=== PATIENT | female | born 1955 | race Caucasian/White ===

== ENCOUNTER → 2017-11-04 10:24 | Outpatient (CLI) | payer BC, SELFPAY ==
[2017-11-04 10:56] LABS: Basophils # 0.1 K/mm3 (0-0.2); Basophils % 1.3 % (0.1-2.0); Eosinophils # 0.5 K/mm3 (0.0-0.4); Eosinophils % 8.8 % (0.1-12.0); Hematocrit 36.8 % (37.0-47.0); Hemoglobin 11.8 g/dL (12.2-16.2); Lymphocytes # 1.5 K/mm3 (0.7-4.5); Lymphocytes % 29.2 K/mm3 (10-50); Mean Corpuscular Hemoglobin 29.7 pg (27.0-31.2); Mean Corpuscular Volume 92.8 fl (81-99); Mean Platelet Volume 7.5 fl (7.4-10.4); Monocytes # 0.3 K/mm3 (0.1-1.0); Monocytes % 6.1 % (1.7-9.3); Neutrophils # 2.9 K/mm3 (1.8-7.8); Neutrophils % 54.6 % (37.0-80.0); Platelet Count 247 K/mm3 (142-424); Red Blood Count 3.97 M/mm3 (4.20-5.40); Red Cell Distribution Width 13.8 % (11.5-17.5); White Blood Count 5.3 K/mm3 (4.8-10.8)
[2017-11-04 13:14] LABS: Alanine Aminotransferase 30 U/L (12-78); Albumin Level 4.1 gm/dL (3.4-5.0); Albumin/Globulin Ratio 1.3 (1.1-1.8); Alkaline Phosphatase 83 U/L (46-116); Aspartate Amino Transferase 19 U/L (15-37); Bilirubin,Total 0.3 mg/dL (0.2-1.0); Blood Urea Nitrogen 14 mg/dL (7-18); Calcium 8.8 mg/dL (8.5-10.1); Carbon Dioxide 30 mmol/L (21.0-32.0); Chloride 105 mmol/L (98-107); Chol/HDL Ratio 2.3 (1-3.5); Cholesterol 158 mg/dL (140-200); Estimated Glomerular Filt Rate 101 ml/min (>60); GFR (African American) 122 ML/MIN (>60); Globulin 3.1 gm/dl (1.3-3.2); Glucose 90 mg/dL (74-106); HDL Cholesterol 70 mg/dL (29-89); LDL Cholesterol 77 mg/dL (0-130); Sodium 142 mmol/L (136-145); Thyroid Stimulating Hormone 1.73 uIU/ml (0.358-3.740); Total Protein,Serum 7.2 gm/dL (6.4-8.2); Triglycerides 55 mg/dL (30-200); VLDL Cholesterol 11 mg/dL (0-40)
== END ==
PROVIDERS: PCP Internal Medicine Adolescent Medicine; Visit Provider Internal Medicine Adolescent Medicine
DX: E78.5 Hyperlipidemia, unspecified (principal); R10.13 Epigastric pain
CPT/HCPCS: 36415; 80053; 80061; 84443; 85025

== ENCOUNTER 2017-11-26 10:00 | Outpatient (RCR) | payer BC, SELFPAY ==
--- NOTE | 2017-11-09 11:00 | HMH.PTOPEV ---
Rehab Outpatient Evaluation Rehab OP Evaluation Start: 11/09/17 10:39 Freq: Status: Active Protocol: Document 11/09/17 10:40 HAMILTON (Rec: 11/09/17 11:00 HAMILTON [id number]) Electronically Signed By Alex Florez, PT 11/09/17 10:40 Outpatient Therapy Subjective History Subjective History Pt reports h/o chronic LBP since 2015. Pt reports MRI and Xrays have revealed degenerative changes in the lumbar spine, which currently presents as L>R sided LBP and with L LE radicualr s/s from hip to knee level. PMH:L TKA ' 08 Chief Complaint Pain Weakness Symptom Type Ache Dull Symptoms Relieved By Rest/Positioning Heat Symptoms Aggravated By Physical Activity Lifting Prior Functional Limitations Lifting Housework Current Functional Limitations Lifting Housework Driving Symptom Description Constant but Variable Intermittent Level of pain today (0-10) 0 Pain scale - at its best (0-10) 0 Pain scale - at its worst (0-10) 4 Lumbopelvic Eval Posture Thoracic Spine Posture Standing Position Neutral Lumbar Spine Posture Standing Position Increased Lordosis Assistive device Assistive Devices None / NA Palapation tenderness right paraspinal tenderness Yes: 2/4 buttock tenderness Yes: 1/4 Lumbar/Sacral Palpation Findings Tenderness left paraspinal tenderness Yes: 3/4 buttock tenderness Yes: 3/4 Lumbar/Sacral Palpation Findings Tenderness Accessory Movement L4 right L5 right Range of Motion Lumbar Spine Active Flexion Range of 0-90 Motion (degrees) Lumbar Spine Active Extension Range of 0-25 Motion (degrees) Left Lumbar Spine Lateral Flexion Active 0-20 Range of Motion (degrees) Right Lumbar Spine Lateral Flexion 0-20 Active Range of Motion (degrees) Lumbar Spine ROM Limitations Pain Manual Muscle Test Right Knee Extension Strength Grade 5 Normal Knee Flexion Strength Grade 5 Normal Extensor Hallucis Longus Strength Grade 5 Normal Ankle Dorsiflexion Strength Grade 5 Normal Gastronemius/Soleus Strength Grade 5 Normal Left Knee Extension Strength Grade 4 Good Knee Flexion Strength Grade 4-
== END 2017-11-26 10:01 | disposition home or self-care (01) ==
LOC: PT 10:00
PROVIDERS: Family Provider Internal Medicine Adolescent Medicine; PCP Internal Medicine Adolescent Medicine; Visit Provider Internal Medicine Adolescent Medicine
DX: M47.26 Other spondylosis with radiculopathy, lumbar region (principal); M54.41 Lumbago with sciatica, right side; M54.42 Lumbago with sciatica, left side
CPT/HCPCS: 97010; 97014; 97110; G0283

== ENCOUNTER → 2018-05-19 07:04 | Outpatient (CLI) | payer BC, SELFPAY ==
[2018-05-19 07:29] LABS: Basophils # 0.1 K/mm3 (0-0.2); Basophils % 0.8 % (0.1-2.0); Eosinophils # 0.4 K/mm3 (0.0-0.4); Hematocrit 38.2 % (37.0-47.0); Hemoglobin 12.4 g/dL (12.2-16.2); Lymphocytes # 1.9 K/mm3 (0.7-4.5); Lymphocytes % 31.8 K/mm3 (10-50); Mean Corpuscular HGB Conc 32.5 g/dL (31.8-35.4); Mean Corpuscular Hemoglobin 30.6 pg (27.0-31.2); Mean Platelet Volume 6.8 fl (7.4-10.4); Monocytes # 0.4 K/mm3 (0.1-1.0); Monocytes % 6.1 % (1.7-9.3); Neutrophils # 3.2 K/mm3 (1.8-7.8); Neutrophils % 55.3 % (37.0-80.0); Platelet Count 182 K/mm3 (142-424); Red Blood Count 4.07 M/mm3 (4.20-5.40); Red Cell Distribution Width 14.6 % (11.5-17.5); White Blood Count 5.8 K/mm3 (4.8-10.8)
[2018-05-19 08:38] LABS: Erythrocyte Sedimentation Rate 19 mm/hr (0-30)
[2018-05-19 09:20] LABS: Alanine Aminotransferase 34 U/L (12-78); Albumin Level 3.4 gm/dL (3.4-5.0); Albumin/Globulin Ratio 1.2 (1.1-1.8); Alkaline Phosphatase 71 U/L (46-116); Anion Gap 8.4 mEq/L (5-15); Aspartate Amino Transferase 17 U/L (15-37); Bilirubin,Total 0.3 mg/dL (0.2-1.0); Blood Urea Nitrogen 10 mg/dL (7-18); C-Reactive Protein 0.4 mg/L (0.0-0.9); Calcium 8.7 mg/dL (8.5-10.1); Carbon Dioxide 32 mmol/L (21.0-32.0); Chloride 107 mmol/L (98-107); Creatinine,Serum 0.74 mg/dL (0.55-1.02); Estimated Glomerular Filt Rate 79 ml/min (>60); GFR (African American) 96 ML/MIN (>60); Globulin 2.8 gm/dl (1.3-3.2); Glucose 91 mg/dL (74-106); Potassium 4.4 mmoL/L (3.5-5.1); Sodium 143 mmol/L (136-145); T4 (Thyroxine) 8.4 ug/dl (4.7-13.3); Total Protein,Serum 6.2 gm/dL (6.4-8.2); Triiodothryronine (T3) Uptake 36 % (31-39)
[2018-05-20 11:23] LABS: Hep A Ab, IgM Negative (Negative); Hepatitis B Core Antibody IgM Negative (Negative); Hepatitis B Surface Antigen Negative (Negative)
[2018-05-20 13:12] LABS: Anti-Jo-1 <0.2 AI (0.0-0.9); Anti-Smith Antibody <0.2 AI (0.0-0.9); Antichromatin Antibodies <0.2 AI (0.0-0.9); Antiscleroderma-70 Antibodies <0.2 AI (0.0-0.9); RNP Antibodies <0.2 AI (0.0-0.9); Sjogren's Anti-SS-A <0.2 AI (0.0-0.9); Sjogren's Anti-SS-B <0.2 AI (0.0-0.9)
[2018-05-20 15:31] LABS: Cytoplasmic (C-ANCA) <1:20 titer (Neg:<1:20)
[2018-05-21 13:20] LABS: Anti-Centromere B Antibodies <0.2 AI (0.0-0.9); Anti-DNA (DS) Ab Qn 2 IU/mL (0-9); Hepatitis C Antibody <0.1 s/co ratio (0.0-0.9); Perinuclear (P-ANCA) <1:20 titer (Neg:<1:20)
== END ==
PROVIDERS: PCP Internal Medicine Adolescent Medicine; Visit Provider Internal Medicine Adolescent Medicine
DX: I77.6 Arteritis, unspecified (principal); R31.9 Hematuria, unspecified
CPT/HCPCS: 36415; 80053; 80074; 84436; 84443; 84479; 85025; 85651; 86140; 86225; 86235; 86256

== ENCOUNTER → 2018-05-26 10:38 | Outpatient (CLI) | payer BC, SELFPAY ==
--- NOTE | 2018-05-26 10:45 | MR_ITS ---
MR lumbar spine wo con, MR 3-d myelogram/MRCP HISTORY: PT states left foot drop and numbness in left foot Xx2 weeks or so. PT states back pain x 2 yrs or longer. ITS.REASON: LEFT FOOT DROP ORDERING PHYSICIAN: Dilshad Steele MD PATIENT AGE: 62 years Comparison: MRI 03/17/17 TECHNIQUE: Standard multiplanar multiecho sequences are performed without contrast. 3-D MIP and myelographic images are also rendered and reviewed FINDINGS: There is normal alignment. The spinal cord ends at the L1 level. There is mild degenerative disc disease at T10-11 and T11-T12 and T12-L1. L1-L2: Mild concentric bulging disc along with facet and ligamentum flavum hypertrophy with mild to moderate left lateral recess and left foraminal narrowing. L2-L3: Severe degenerative disc disease with concentric bulging disc along with moderate facet and ligamentum flavum hypertrophy with resultant canal stenosis along with severe right lateral recess and moderate to severe left lateral recess narrowing. The facet hypertrophic changes are more prominent on the right compared to the left side but overall not significant change from 03/17/2017. L3-L4: Severe degenerative disc disease with concentric bulging disc along with facet and ligamentum flavum hypertrophy with moderate to severe bilateral lateral recess and foraminal narrowing. The foraminal narrowing is greater on the left compared to the right side and may have slightly increased compared to the previous exam. Transverse narrowing of the canal is present at this level similar to the previous exam. L4-L5: Degenerative disc disease with bulging disc which is somewhat eccentric centrally and toward the left with severe left-sided foraminal narrowing and bilateral lateral recess narrowing left greater than right. Left-sided foraminal narrowing may be slightly worse on today's study. L5-S1: Degenerative disc disease with bulging disc along with a broad-based small right paracentral disc protrusion causing mild right lateral recess and foraminal narrowing abutting the right S1 nerve root. There is mild lumbar scoliosis convex left not significant changed. There is mild left lateral translation of L3 on L4 of 7 mm not significantly changed IMPRESSION: 1. Abnormal MRI of the lumbar spine. There is multilevel degenerative disc disease along with facet and ligamentum flavum hypertrophy with foraminal and lateral recess narrowing and canal stenosis. These findings are described in detail above. Please see above for detailed description at each level. The foraminal narrowing may be slightly worse on the left at L3-L4 and L4-L5 compared to the previous exam. No other significant changes are evident 2. Small broad-based right paracentral disc protrusion at L5-S1 not significantly changed 3. Mild lumbar scoliosis convex left
== END ==
PROVIDERS: Family Provider Internal Medicine Adolescent Medicine; PCP Internal Medicine Adolescent Medicine; Visit Provider Internal Medicine Adolescent Medicine
DX: M21.372 Foot drop, left foot (principal)
CPT/HCPCS: 72148; 76376

== ENCOUNTER → 2018-06-10 14:35 | Outpatient (POV) | payer BC, SELFPAY | PROVIDERS: Visit Provider Neurological Surgery | DX: Z00.00 Encounter for general adult medical examination without 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 (principal) ==

== ENCOUNTER 2018-08-09 15:00 | Outpatient (RCR) | payer OTHER, SELFPAY | END 2018-08-09 15:01 | disposition home or self-care (01) | LOC: PT 15:00 | PROVIDERS: Visit Provider Orthopaedic Surgery | DX: S43.004A Unspecified dislocation of right shoulder joint, initial encounter (principal) | CPT/HCPCS: 97010; 97014; 97110; 97163; G0283 ==

== ENCOUNTER → 2018-10-02 18:28 | Outpatient (CLI) | payer MEDICARE, BC, SELFPAY ==
[2018-10-02 18:47] LABS: Microscopic, Urine URINE MICROSCOPIC (MICROSCOPIC)
[2018-10-02 18:50] LABS: Appearance,Urine CLEAR (Clear); Bilirubin,Urine Negative (Negative); Blood, Urine 2+ (Negative); Color,Urine YELLOW (Yellow); Glucose,Urine (UA) Negative (Negative); Ketones,Urine Negative (Negative); Leukocyte Esterase,Urine Negative (Negative); Nitrate,Urine Negative (Negative); Protein,Urine Negative (Negative); Specific Gravity, Urine 1.025 (1.005-1.030); Urobilinogen,Urine 0.2 EU/dl (0.2)
[2018-10-02 18:52] LABS: WBC,Urine Occasional #/hpf (0-3)
== END ==
LOC: LAB 18:31 → LAB.DROPOF 18:43 → LAB 18:44
PROVIDERS: PCP Internal Medicine Adolescent Medicine; Visit Provider Nurse Practitioner
DX: R30.9 Painful micturition, unspecified (principal)
CPT/HCPCS: 81001

== ENCOUNTER → 2018-12-29 10:22 | Outpatient (CLI) | payer MEDICARE, BC, SELFPAY ==
--- NOTE | 2018-12-29 10:27 | XR_ITS ---
XR DEXA axial skeleton HISTORY: ITS.REASON: POSTMENOPAUSAL ORDERING PHYSICIAN: Dilshad Steele MD PATIENT AGE: 63 years COMPARISON: None FINDINGS: The BMD measured at the Right femoral neck is 1.036 g/cm squared with a T score of 0.0. This is considered Normal according to the World Health Organization criteria. Fracture risk is Low. The L1 L4 density has a T score of 4.3. There is also sclerosis in the lumbar spine at L2-L3. IMPRESSION: Normal bone density with low fracture risk. Suggest follow-up exam December 2020 Lumbar scoliosis convex left
== END ==
PROVIDERS: PCP Internal Medicine Adolescent Medicine; Visit Provider Internal Medicine Adolescent Medicine
DX: Z78.0 Asymptomatic menopausal state (principal)
CPT/HCPCS: 77080

== ENCOUNTER 2019-02-24 10:49 | Outpatient (CLI) | payer MEDICARE, BC, SELFPAY ==
--- NOTE | 2019-02-24 10:57 | PC.NURSE ---
HERE FOR SECOND HEP A VACCINE
[2019-02-24 11:06] VITALS: BMI 32.2
== END 2019-02-24 11:27 | disposition home or self-care (01) ==
LOC: UTC.OUT 10:51
PROVIDERS: PCP Internal Medicine Adolescent Medicine; Visit Provider Nurse Practitioner
DX: Z23 Encounter for immunization (principal)
CPT/HCPCS: 90632

== ENCOUNTER 2019-05-27 08:30 | Outpatient (RCR) | payer OTHER, BC, MEDICARE, SELFPAY | END 2019-05-27 08:35 | disposition home or self-care (01) | LOC: PT 08:30 | PROVIDERS: Visit Provider Orthopaedic Surgery | DX: M25.511 Pain in right shoulder (principal); S43.001A Unspecified subluxation of right shoulder joint, initial encounter | CPT/HCPCS: 97010; 97014; 97016; 97110; 97140; 97163; 97164; G0283 ==

== ENCOUNTER → 2019-06-27 10:04 | Outpatient (CLI) | payer MEDICARE, BC, SELFPAY ==
[2019-06-27 10:34] LABS: Blood Urea Nitrogen 12 mg/dL (7-18); Creatinine,Serum 0.68 mg/dL (0.55-1.02); Estimated Glomerular Filt Rate 87 ml/min (>60); GFR (African American) 105 ML/MIN (>60)
--- NOTE | 2019-06-27 14:09 | CT_ITS ---
PROCEDURE: CT CHEST W CON CLINICAL HISTORY: LUNG NODULE Follow-up lung nodule COMPARISON: [facility] CT abdomen pelvis wo con from 09/26/2018 TECHNIQUE: 75 mL Optiray 350 Axial images obtained with sagittal and coronal reformats. All CT scans at the facility use one or more dose reduction, viz: automated exposure control, ma/kV adjustment per patient size (including targeted exams where dose is matched to indication, i.e. head), or iterative reconstruction technique. FINDINGS: There is mild thickening of the pericardium at the superior pericardial recess. Normal heart size. No mediastinal or hilar mass. No evidence of aortic aneurysm or central pulmonary embolus. Small pneumatocele is present in the right upper lobe posteriorly at 1 cm. There are some atelectatic/fibrotic changes in the right middle lobe. Small pneumatocele noted in the left upper lobe at 1 cm. Previously noted parenchymal opacity in the left lung base the posteriorly is once again noted somewhat less apparent and is felt represent underlying atelectatic or fibrotic change. No lobar consolidation or collapse. There are mild degenerative changes of the thoracic spine. There is eventration of the hemidiaphragm on both sides. IMPRESSION: 1. There are scattered parenchymal opacities in the lung bases felt to be due to atelectatic or fibrotic changes. Previously noted density in the left posterior costophrenic sulcus is once again noted and slightly less apparent 2. No suspicious nodules evident. 3. Other nonacute findings as described above. Dictated by: Too Dawn MD 06/28/2019 14:50 Electronically signed by Too Dawn MD in [place] 06/28/2019 14:50
== END ==
PROVIDERS: PCP Internal Medicine Adolescent Medicine; Visit Provider Nurse Practitioner Family
DX: R91.1 Solitary pulmonary nodule (principal)
CPT/HCPCS: 36415; 71260; 82565; 84520; Q9967

== ENCOUNTER → 2019-08-29 14:29 | Outpatient (POV) | payer MEDICARE, BC, SELFPAY | PROVIDERS: Visit Provider Nurse Practitioner Family | DX: Z00.00 Encounter for general adult medical examination without 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 (principal) ==

== ENCOUNTER → 2020-01-23 11:57 | Outpatient (POV) | payer MEDICARE, BC, SELFPAY ==
[2020-01-23 12:18] VITALS: BP 159/95; PULSE 82; RESP 18; TEMP 36.8; O2SAT 99; BMI 34.3
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
== END ==
PROVIDERS: PCP Internal Medicine Adolescent Medicine; Visit Provider Clinical Nurse Specialist Family Health
DX: B02.29 Other postherpetic nervous system involvement (principal); Z88.0 Allergy status to penicillin; Z88.8 Allergy status to other drugs, medicaments and biological substances; Z88.2 Allergy status to sulfonamides; Z79.82 Long term (current) use of aspirin; Z79.899 Other long term (current) drug therapy
CPT/HCPCS: 99202

== ENCOUNTER → 2020-01-25 11:05 | Outpatient (CLI) | payer MEDICARE, BC, SELFPAY ==
[2020-01-26 15:03] LABS: Covid-19 Nasal PCR Sendout Lex NOT DETECTED
== END ==
PROVIDERS: Visit Provider Anesthesiology
DX: Z01.818 Encounter for other preprocedural examination (principal); B02.9 Zoster without complications
CPT/HCPCS: U0003

== ENCOUNTER 2020-01-27 08:39 | Day surgery (SDC) | payer MEDICARE, BC, SELFPAY ==
[2020-01-27 09:05] VITALS: BP 106/64; PULSE 119; RESP 18; TEMP 36.4; O2SAT 97; BMI 34.3
[2020-01-27 09:24] VITALS: BP 138/60; PULSE 95; RESP 18; O2SAT 98
[2020-01-27 09:25] VITALS: BP 140/85; PULSE 86; RESP 18; O2SAT 98
[2020-01-27 09:31] VITALS: BP 129/72; PULSE 93; RESP 18; O2SAT 97
--- NOTE | 2020-01-27 09:41 | HMH.PMPROC ---
- Procedure Date: 01/27/20 (n) Time: 09:43 Anesthesiologist:: Raymond Sandoval MD Complications:: None Pre-procedure Diagnosis:: Acute herpes zoster in the L4-L5 dermatomal level on the left side in the back and left leg Post-procedure Diagnosis:: Same Indications for Procedure:: This patient is a pleasant 64-year-old white female who we are treating for acute herpes zoster in the low back and left leg in the L4-L5 dermatomal level. Her rash is starting to dry. She is gone through 2 rounds of antivirals. We will do a lumbar epidural sympathetic block today to see if this will help with her pain symptoms. She is currently on gabapentin. She is to continue her gabapentin 300 mg 3 times a day. Procedure Details:: Lumbar epidural sympathetic block informed consent was obtained and the risk and benefits of the procedure was explained to the patient. The patient was taken to the procedure room. The patient was placed prone on the procedure table. The patient was prepped and draped in sterile fashion. C-arm fluoroscopy was used to view the lumbar spine. Skin and subcutaneous tissues were anesthetized using lidocaine. I placed an 18-gauge epidural needle and advanced into the L4-L5 interspace using fluoroscopic guidance and [id number] to air. After confirmation of needle placement in the epidural space with dye I injected 6 mL of lidocaine 1.5% with Depo-Medrol 80 mg. Patient tolerated the procedure well with no complications. Plan and Disposition:: We will follow-up with her next Thursday. We will reevaluate her symptoms. We will plan on repeat injection if needed.
== END 2020-01-27 09:31 | disposition home or self-care (01) ==
LOC: SC.PAINP 08:41
PROVIDERS: PCP Internal Medicine Adolescent Medicine; Visit Provider Anesthesiology
DX: B02.9 Zoster without complications (principal); Z79.82 Long term (current) use of aspirin; Z79.899 Other long term (current) drug therapy; Z88.0 Allergy status to penicillin; Z88.2 Allergy status to sulfonamides; Z88.6 Allergy status to analgesic agent
CPT/HCPCS: 64520; J1040; Q9966

== ENCOUNTER 2020-02-01 09:32 | Day surgery (SDC) | payer MEDICARE, BC, SELFPAY ==
[2020-02-01 09:50] VITALS: BP 147/89; PULSE 84; RESP 18; O2SAT 98; BMI 34.3
[2020-02-01 10:36] VITALS: BP 145/87; PULSE 85; RESP 20; O2SAT 98
[2020-02-01 10:37] VITALS: BP 141/91; PULSE 99; RESP 20; O2SAT 99
--- NOTE | 2020-02-01 10:42 | HMH.PMPROC ---
- Procedure Date: 02/01/20 Time: 10:42 Anesthesiologist:: Raymond Sandoval MD Complications:: None Pre-procedure Diagnosis:: Acute herpes zoster in the L4-5 dermatomal level on left side in the back and left leg Post-procedure Diagnosis:: Same Indications for Procedure:: This patient is a pleasant 64-year-old white female who we are treating for acute herpes zoster in the low back and left leg in the L4-5 dermatome level. She has had one lumbar sympathetic block which is helped some she is currently on gabapentin 300 mg 3 times a day. She presents for repeat lumbar sympathetic block today. Also her pain is in the left leg all the way down to her feet. Procedure Details:: Lumbar sympathetic block Informed consent was obtained and the risk and benefits of the procedure was explained to the patient. The patient was taken to the procedure room. The patient was placed prone on the procedure table. The patient was prepped and draped in sterile fashion. C-arm fluoroscopy was used to view the lumbar spine. Skin and subcutaneous tissues were anesthetized using lidocaine. I placed an 18-gauge epidural needle and advanced into the L4-L5 interspace using fluoroscopic guidance and [id number] to air. After confirmation of needle placement in the epidural space with dye I injected 8 mL of lidocaine 1.5% with Depo-Medrol 80 mg. Patient tolerated the procedure well with no complications. Plan and Disposition:: We will follow-up with her in 1 week. We will reevaluate her symptoms and plan on repeat lumbar epidural sympathetic block at that time.
[2020-02-01 11:00] VITALS: BP 137/69; PULSE 76; RESP 18; O2SAT 98
== END 2020-02-01 11:00 | disposition home or self-care (01) ==
LOC: SC.PAINP 09:33
PROVIDERS: PCP Internal Medicine Adolescent Medicine; Visit Provider Anesthesiology
DX: B02.29 Other postherpetic nervous system involvement (principal); M79.605 Pain in left leg; I10 Essential (primary) hypertension; Z87.39 Personal history of other diseases of the musculoskeletal system and connective tissue
CPT/HCPCS: 64493; 64520; J1040; Q9966

== ENCOUNTER 2020-02-08 08:59 | Day surgery (SDC) | payer MEDICARE, BC, SELFPAY ==
[2020-02-08 09:08] VITALS: BP 137/81; PULSE 72; RESP 18; TEMP 36.8; O2SAT 97; BMI 34.3
[2020-02-08 09:27] VITALS: BP 125/85; PULSE 85; RESP 18
[2020-02-08 09:33] VITALS: BP 128/85; PULSE 85; PULSE 88; RESP 18; TEMP 36.6
--- NOTE | 2020-02-08 09:38 | P.PCN_ITS ---
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 She has had 2 lumbar sympathetic blocks. She is currently on gabapentin 300 mg 3 times a day. She has gotten some significant relief from these injections and her gabapentin. Her rash is now almost resolved completely. Her stabbing pain is almost gone. She still has residual pain in the left foot. We will do a repeat lumbar epidural sympathetic block today to help with her residual pain symptoms. Procedure Details:: Lumbar epidural sympathetic block Informed consent was obtained the risk and benefits of the procedure was explained to the patient. Patient was taken to the procedure room. The patient was placed prone on the procedure table. The patient was prepped and draped in sterile fashion. C-arm fluoroscopy was used to view the lumbar spine. The skin and subcutaneous tissues were anesthetized using lidocaine. I placed an 18- gauge epidural needle and advanced into the L4-5 interspace using fluoroscopic guidance and [id number] to air. After confirmation needle placement in the epidural space with dye, I injected 8 mL's lidocaine 1.5% Depo-Medrol 80 mg into the lumbar epidural space. Patient tolerated the procedure well with no complications. Plan and Disposition:: We will follow-up with this patient in 1 week. We will reevaluate her symptoms. We will do a repeat lumbar epidural sympathetic block at that time if needed.
[2020-02-08 09:45] VITALS: BP 121/65; PULSE 70; RESP 18; O2SAT 97
== END 2020-02-08 09:46 | disposition home or self-care (01) ==
LOC: SC.PAINP 09:00
PROVIDERS: PCP Internal Medicine Adolescent Medicine; Visit Provider Anesthesiology
DX: B02.8 Zoster with other complications (principal); M54.5 Low back pain; M79.672 Pain in left foot; M79.605 Pain in left leg; I10 Essential (primary) hypertension; E78.5 Hyperlipidemia, unspecified; Z87.39 Personal history of other diseases of the musculoskeletal system and connective tissue; E03.9 Hypothyroidism, unspecified; Z79.82 Long term (current) use of aspirin; Z79.899 Other long term (current) drug therapy; Z88.5 Allergy status to narcotic agent; Z88.0 Allergy status to penicillin; Z88.2 Allergy status to sulfonamides; Z88.8 Allergy status to other drugs, medicaments and biological substances
CPT/HCPCS: 64520; J1040; Q9966

== ENCOUNTER 2020-02-17 10:45 | Day surgery (SDC) | payer MEDICARE, BC, SELFPAY ==
[2020-02-17 11:28] VITALS: BP 130/70; PULSE 74; RESP 18; O2SAT 96; BMI 34.0
[2020-02-17 11:45] VITALS: BP 142/78; PULSE 88; RESP 18
[2020-02-17 11:46] VITALS: BP 138/85; PULSE 88; RESP 18; TEMP 36.8; O2SAT 99
[2020-02-17 12:01] VITALS: BP 122/89; PULSE 79; RESP 20; O2SAT 96
--- NOTE | 2020-02-17 12:31 | HMH.PMPROC ---
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 In the L4-L5 dermatomal level. She has had 3 lumbar epidural sympathetic blocks with 80 to 90% relief in her pain symptoms. She still has some residual pain in her left leg and foot. We will do a repeat lumbar epidural sympathetic block today. I am very pleased with her results. This will be the last block we will follow-up with her and 2 weeks. Procedure Details:: Lumbar epidural sympathetic block informed consent was obtained and the risk and benefits of the procedure was explained to the patient. The patient was taken to the procedure room. The patient was placed prone on the procedure table. The patient was prepped and draped in sterile fashion. C-arm fluoroscopy was used to view the lumbar spine. Skin and subcutaneous tissues were anesthetized using lidocaine. I placed an 18-gauge epidural needle and advanced into the L4-L5 interspace using fluoroscopic guidance and [id number] to air. After confirmation of needle placement in the epidural space with dye I injected 8 mL of lidocaine 1.5% with Depo-Medrol 80 mg. Patient tolerated the procedure well with no complications. Plan and Disposition:: We will follow-up with her in 2 weeks. Will reevaluate her symptoms at that time.
== END 2020-02-17 12:02 | disposition home or self-care (01) ==
LOC: SC.PAINP 10:46
PROVIDERS: PCP Internal Medicine Adolescent Medicine; Visit Provider Anesthesiology
DX: B02.23 Postherpetic polyneuropathy (principal); I10 Essential (primary) hypertension; K21.9 Gastro-esophageal reflux disease without esophagitis; Z88.0 Allergy status to penicillin; Z88.2 Allergy status to sulfonamides; Z79.899 Other long term (current) drug therapy
CPT/HCPCS: 64520; 77003; J1040; Q9966

== ENCOUNTER → 2020-03-12 10:42 | Outpatient (POV) | payer MEDICARE, BC, SELFPAY ==
[2020-03-12 10:59] VITALS: BP 134/78; PULSE 95; RESP 18; TEMP 36.8; O2SAT 99; BMI 27.8
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
== END ==
PROVIDERS: PCP Internal Medicine Adolescent Medicine; Visit Provider Clinical Nurse Specialist Family Health
DX: M51.36 Other intervertebral disc degeneration, lumbar region (principal); B02.29 Other postherpetic nervous system involvement; M79.672 Pain in left foot
CPT/HCPCS: 99212

== ENCOUNTER → 2020-03-27 11:12 | Outpatient (CLI) | payer MEDICARE, BC, SELFPAY ==
--- NOTE | 2020-03-27 11:19 | MR_ITS ---
PROCEDURE: MR LUMBAR SPINE WO CON CLINICAL INDICATION: FOOT DROP AND FOOT PAIN LT leg pain. Numbness and tingling in LT foot. [id number]. No trauma. Prior MR 05-26-18 COMPARISON: SPLUMBWO MR lumbar spine wo con from 05/26/2018 TECHNIQUE: Standard multiplanar multiecho sequences are performed without contrast. 3-D MIP and myelographic images are also rendered and reviewed FINDINGS: There is lumbar scoliosis convex left with multilevel lumbar spondylosis. The T12-L1: Mild degenerative disc disease with minimal left paracentral disc protrusion. L1-L2: Degenerative disc disease with bulging disc with facet and ligamentum hypertrophy with moderate left-sided lateral recess and foraminal narrowing. There is mild right lateral recess and foraminal narrowing. L2-L3: Severe degenerative disc disease with bulging disc along with facet and ligamentum hypertrophy causing severe right lateral recess and foraminal narrowing and mild left lateral recess and foraminal narrowing. There is narrowing of the spinal canal at this level. This is not significantly changed. Lateral osteophytes are present on the right at the endplate. L3-L4: Severe degenerative disc disease with bulging disc with endplate osteophytes and severe bilateral foraminal narrowing. There is narrowing of the spinal canal. Overall not significantly changed L4-5 concentric bulging disc with facet ligamentum hypertrophy and endplate hypertrophic change with severe left-sided foraminal narrowing and moderate right foraminal narrowing not significantly changed. L5-S1: Degenerative disc disease with bulging disc with a broad based central/right paracentral disc protrusion slightly increased in size compared to the previous exam. There is severe facet and ligamentum hypertrophy on the left with severe left-sided foraminal narrowing which may be slightly worse. IMPRESSION: Severe multilevel lumbar spondylosis with lateral recess and foraminal narrowing and canal stenosis. Please see above for detailed description at each level. There is lumbar scoliosis convex left with multilevel endplate hypertrophic changes Dictated by: Too Dawn MD 03/28/2020 13:25 Electronically signed by Too Dawn MD in [place] 03/28/2020 13:25
== END ==
PROVIDERS: PCP Internal Medicine Adolescent Medicine; Visit Provider Clinical Nurse Specialist Family Health
DX: M79.672 Pain in left foot (principal); M21.372 Foot drop, left foot
CPT/HCPCS: 72148; 76376

== ENCOUNTER → 2020-04-02 11:16 | Outpatient (POV) | payer MEDICARE, BC, SELFPAY ==
[2020-04-02 11:48] VITALS: BP 139/69; PULSE 82; RESP 18; O2SAT 98; BMI 34.3
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
== END ==
PROVIDERS: PCP Internal Medicine Adolescent Medicine; Visit Provider Clinical Nurse Specialist Family Health
DX: M51.16 Intervertebral disc disorders with radiculopathy, lumbar region (principal)
CPT/HCPCS: 99212

== ENCOUNTER 2020-04-30 15:00 | Outpatient (RCR) | payer MEDICARE, BC, SELFPAY ==
--- NOTE | 2020-03-22 17:59 | HMH.PTOPEV ---
PT Outpatient Evaluation Rehab PT Outpatient Evaluation Start: 03/22/20 17:36 Freq: Status: Active Protocol: Document 03/22/20 17:36 JB (Rec: 03/22/20 17:59 JB [id number]) Electronically Signed By César Landers, PT 03/22/20 17:36 Outpatient Therapy Subjective History Subjective History Patient is a 64 year old female presenting to outpatient PT with reports of L foot shooting pain and numbness/tingling starting 12/23 after onset of shingles. Pt initially had pain and red blotches starting in the buttocks radiating down the posterior thigh to the L foot. Symptoms above the L ankle have since subsided. Patient reports that she received 4 injections in the lumbar spine for shingles treatment that did provide some relief. Pt has significant hx of lower back pain with radicular symptoms. No objective AROM or MMT deficits/assymmetries noted today. Most recent lumbar spine imaging indicates DDD, stenosis and multi-level bulging discs. She was referred with the diagnosis of foot pain/foot drop. Patient reports that she has previously had foot drop which was helped with PT. Upon evaluation patient was able to heel walk without difficulty. She reports that she does not feel like she has foot drop. Comorbidities include R RCR and L TKA. Chief Complaint Pain,Paresthesia Symptom Type Numbness,Tingling,Shooting Symptoms Relieved By Prescription Meds Symptoms Aggravated By Walking Prior Functional Limitations None Current Functional Limitations Housework,Standing,Squatting, Recreation Activity,Walking Symptom Description Constant but Variable Level of pain today (0-10) 3 Pain scale - at its best (0-10) 2 Pain scale - at its worst (0-10) 5 Lumbopelvic Eval Posture Lumbar Spine Posture Standing Position Incre
== END 2020-04-30 15:05 | disposition home or self-care (01) ==
LOC: PT 15:00
PROVIDERS: PCP Internal Medicine Adolescent Medicine; Visit Provider Clinical Nurse Specialist Family Health
DX: M79.672 Pain in left foot (principal)
CPT/HCPCS: 97010; 97012; 97014; 97035; 97110; 97163; G0283

== ENCOUNTER → 2020-05-03 10:21 | Outpatient (POV) | payer MEDICARE, BC, SELFPAY ==
[2020-05-03 10:54] VITALS: BP 142/78; PULSE 85; RESP 18; O2SAT 99; BMI 34.3
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
== END ==
PROVIDERS: PCP Internal Medicine Adolescent Medicine; Visit Provider Clinical Nurse Specialist Family Health
DX: M51.16 Intervertebral disc disorders with radiculopathy, lumbar region (principal)
CPT/HCPCS: 99212

== ENCOUNTER → 2020-08-02 10:18 | Outpatient (POV) | payer MEDICARE, BC, SELFPAY ==
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
[2020-08-02 11:26] VITALS: BP 115/71; PULSE 95; RESP 18; TEMP 37; O2SAT 98; BMI 34.3
== END ==
PROVIDERS: PCP Internal Medicine Adolescent Medicine; Visit Provider Clinical Nurse Specialist Family Health
DX: M51.16 Intervertebral disc disorders with radiculopathy, lumbar region (principal); B02.9 Zoster without complications; G62.9 Polyneuropathy, unspecified
CPT/HCPCS: 99212

== ENCOUNTER → 2020-11-21 12:09 | Outpatient (CLI) | payer MEDICARE, BC, SELFPAY ==
[2020-11-21 12:40] LABS: Basophils # 0.1 K/mm3 (0-0.2); Eosinophils # 0.4 K/mm3 (0.0-0.4); Eosinophils % 6.6 % (0.1-12.0); Hematocrit 41.5 % (37.0-47.0); Hemoglobin 13.3 g/dL (12.2-16.2); Lymphocytes # 1.5 K/mm3 (0.7-4.5); Lymphocytes % 23.3 % (10-50); Mean Corpuscular HGB Conc 32.1 g/dL (31.8-35.4); Mean Corpuscular Hemoglobin 29.8 pg (27.0-31.2); Mean Corpuscular Volume 92.7 fl (81-99); Monocytes # 0.4 K/mm3 (0.1-1.0); Monocytes % 6.4 % (1.7-9.3); Neutrophils # 4.1 K/mm3 (1.8-7.8); Neutrophils % 62.7 % (37.0-80.0); Platelet Count 242 K/mm3 (142-424); Red Blood Count 4.48 M/mm3 (4.20-5.40); Red Cell Distribution Width 14.6 % (11.5-17.5); White Blood Count 6.6 K/mm3 (4.8-10.8)
[2020-11-21 13:40] LABS: Alanine Aminotransferase 17 U/L (12-78); Albumin Level 4.5 g/dl (3.5-5.0); Albumin/Globulin Ratio 1.6 (1.1-1.8); Alkaline Phosphatase 81 U/L (38-126); Anion Gap 12.5 mEq/L (5-15); Aspartate Amino Transferase 31 U/L (14-36); Bilirubin,Total 0.5 mg/dl (0.2-1.3); Blood Urea Nitrogen 17 mg/dl (7-17); Calcium 9.9 mg/dl (8.4-10.2); Carbon Dioxide 29 mmol/L (22.0-30.0); Chloride 105 mmol/L (98-107); Chol/HDL Ratio 2.5 (1-3.5); Cholesterol 167 mg/dl (140-200); Estimated Glomerular Filt Rate 72 ml/min (>60); GFR (African American) 87 ML/MIN (>60); Globulin 2.8 g/dL (1.3-3.2); Glucose 97 mg/dl (74-100); HDL Cholesterol 68 mg/dl (40-60); Potassium 4.5 mmoL/L (3.5-5.1); Sodium 142 mmol/L (136-145); Total Protein,Serum 7.3 g/dl (6.3-8.2); Triglycerides 74 mg/dl (30-150); VLDL Cholesterol 15 mg/dL (0-40)
[2020-11-21 13:51] LABS: Direct LDL Cholesterol 72.79 mg/dL (100-129)
[2020-11-21 14:10] LABS: Thyroid Stimulating Hormone 1.12 uIU/mL (0.465-4.68)
== END ==
PROVIDERS: Visit Provider Internal Medicine Adolescent Medicine
DX: E78.5 Hyperlipidemia, unspecified (principal); E03.9 Hypothyroidism, unspecified
CPT/HCPCS: 36415; 80053; 80061; 84443; 85025

== ENCOUNTER → 2020-12-10 08:25 | Outpatient (CLI) | payer MEDICARE, BC, SELFPAY ==
--- NOTE | 2020-12-10 08:54 | XR_ITS ---
PROCEDURE: XR DEXA AXIAL SKELETON CLINICAL HISTORY: POST MENOPAUSAL COMPARISON: CR DEXAAX XR DEXA axial skeleton from 12/29/2018 FINDINGS: The right hip BMD is 0.885 with a T-score of 0.3. The left hip BMD is 0.979 with a T-score of 0.3. The lumbar spine BMD is 1.434 with a T-score of 3.5. Previously the lowest bone density was in the right femoral neck with a T-score of 0 IMPRESSION: This patient is considered normal according to the World Health Organization criteria. Fracture risk is low. Based on these results a follow-up exam is recommended in 2 year. Dictated by: Too Dawn MD 12/11/2020 10:20 Too Dawn MD in [place] 12/11/2020 10:20
== END ==
PROVIDERS: PCP Internal Medicine Adolescent Medicine; Visit Provider Internal Medicine Adolescent Medicine
DX: Z78.0 Asymptomatic menopausal state (principal)
CPT/HCPCS: 77080

== ENCOUNTER → 2021-03-04 08:57 | Outpatient (CLI) | payer MEDICARE, BC, SELFPAY ==
--- NOTE | 2021-03-04 09:01 | MM_ITS ---
PROCEDURE: MM DIG SCREENING MAMM BI W/CAD Digital Breast Tomosynthesis Included CLINICAL INDICATION: SCREENING COMPARISON: MG DMSB DIG MAMM-SCREEN STELLA from 03/21/2014 MG DMSB DIG MAMM-SCREEN STELLA from 04/05/2015 MG DMSB DIG MAMM-SCREEN STELLA from 07/30/2016 TECHNIQUE: Standard CC and MLO images and 3D Tomosynthesis was obtained. R2 CAD reviewed. FINDINGS: Breast parenchyma is heterogeneously dense which may lower the sensitivity of mammography. No new dominant mass or indirect evidence of malignancy. No suspicious type microcalcifications. IMPRESSION: Normal bilateral digital screening mammograms. BI-RAD Category: 1 Negative FOLLOW-UP: 1 YR 1 Year Follow-up (A letter has been sent to the patient regarding results of the study.) Dictated by: Isaac Rodriguez MD 03/06/2021 07:16 Isaac Rodriguez MD in [place] 03/06/2021 07:16
== END ==
PROVIDERS: PCP Internal Medicine Adolescent Medicine; Visit Provider Internal Medicine Adolescent Medicine
DX: Z12.31 Encounter for screening mammogram for malignant neoplasm of breast (principal)
CPT/HCPCS: 77063; 77067

== ENCOUNTER → 2021-06-19 09:41 | Outpatient (CLI) | payer MEDICARE, BC, SELFPAY ==
--- NOTE | 2021-06-19 09:43 | FL_ITS ---
PROCEDURE: FL BARIUM SWALLOW CLINICAL INDICATION: ESOPHAGEAL DYSPHAGIA COMPARISON: CT CT CHEST W CON from 06/27/2019 TECHNIQUE: In the upright position the patient was observed to swallow barium in both the AP and lateral view. The cervical esophagus was examined under fluoroscopy with images obtained. The patient was then placed prone in the right anterior oblique position and was observed to swallow barium with Valsalva technique . FLUOROSCOPY TIME: 1.24 minutes FINDINGS: There was mild esophageal distension initially which subsided into the exam. No annular constricting lesions or filling defects. No hiatal hernia is evident. The left hemidiaphragm is elevated. Reflux was not demonstrated during the exam. IMPRESSION: Mild esophageal distention initially which subsided during the exam suggesting distal esophageal spasm. No hernia evident. Elevated left hemidiaphragm Dictated by: Too Dawn MD 06/19/2021 12:52 Too Dawn MD in [place] 06/19/2021 12:52
== END ==
PROVIDERS: PCP Internal Medicine Adolescent Medicine; Visit Provider Internal Medicine Adolescent Medicine
DX: R13.19 Other dysphagia (principal)
CPT/HCPCS: 74220

== ENCOUNTER 2021-08-22 09:07 | Emergency (ER) | payer MEDICARE, BC, SELFPAY ==
[2021-08-22 09:20] VITALS: BP 138/62; PULSE 89; RESP 19; TEMP 37; O2SAT 96; BMI 34.0
--- NOTE | 2021-08-22 09:52 | HMH.EDUTC ---
[facility] [place] Disposition Clinical Impression: Sinusitis Qualifiers: Sinusitis location: unspecified location Chronicity: unspecified Qualified Code(s): J32.9 - Chronic sinusitis, unspecified Disposition: Home, Self-Care Condition on Discharge: Good Instructions: Sinusitis, Cough, DI for Sinusitis Additional Instructions: ? Start antibiotic today. Be sure to complete entire prescription even if feeling better ? Monitor temp. Tylenol every 4 hours as needed and / or ibuprofen every 6 hours as needed ( As long as your primary care physician has told you that it ok to take both. For fever/aches/pains ER if no less than 101 despite Tylenol or Motrin ? Humidifier/vaporizer or hot steamy shower *Tessalon Perles will not cause drowsiness but use at bedtime to help stop cough so that you may get some rest. *Start steroid today. Helps with inflammation therefore, cough and wheezing. Follow directions on the package. Reviewed side effects. Patient reports taking them before. Follow up IMMEDIATELY for new or worsening of symptoms OR no noticeable improvement over the next 48-72 hours. 911 immediately for any life threatening symptoms such as chest pain or difficulty breathing Prescriptions: Benzonatate [Benzonatate 100mg cap] 100 mg PO Q8HP PRN #30 cap PRN Reason: Cough Transmission Status: Received by [facility] predniSONE [Deltasone 10mg tablet] 10 mg PO BID 5 Days #10 tab Transmission Status: Received by [facility] Fluticasone Propionate [Flonase 50mcg nasal spray 16gm] 1 spr NS DAILY #1 each Transmission Status: Received by [facility] Azithromycin [Z-Alvin 250mg Tab] 250 mg PO DIRECTED #6 tab Transmission Status: Received by [facility] Referrals: Dilshad Steele MD [Primary Care Provider] - As needed Forms: Work/School Release Time of Disposition: 10:01 Medical Decision Making - Brian Inquiry Pt receiving controlled substance: No Brian was queried for this patient: No Vital Signs: 08/22/21 09:20 08/22/21 10:07 Temperature 98.6 F 98.6 F Temperature Source Oral Pulse Rate 89 Pulse Rate [Right Brachial] 89 Respiratory Rate 19 19 Blood Pressure 138/62 Blood Pressure [Right Arm] 138/62 Blood Pressure Mean [Right Arm] 87 Blood Pressure Source [Right Arm] Automatic Cuff Blood Pressure Position [Right Arm] Sitting 02 Sat by Pulse Oximetry 96 Oxygen Delivery Method Room Air - Lab Data Lab results reviewed: Yes: I reviewed the patient's lab results. Medical Decision Narrative: Patient states that she has taken flonase, azithromycin and prednisone in the past without complications [facility] [place] HPI - General Stated complaint: congestion Time Seen by Provider: 08/22/21 09:52 Mode of Arrival: Ambulatory Source of Information: Patient Limitations: No Limitations Description of Symptoms (Recalled from Triage Doc. by RN): PATIENT C/O CONGESTION AND DRY COUGH X 3 DAYS HEENT Symptoms (Recalled from RN notes): No Resp Symptoms (Recalled from RN notes): Yes Skin Symptoms (Recalled from RN notes): No MS Symptoms (Recalled from RN notes): No Functional Status (Recalled from RN notes): WNL - History of Present Illness Provider Complaint: Patient states that she has been having sinus congestion and pressure along with drainage in the back of her throat and dry cough States that she has been taking her allergy medication and sudafed but hasnt helped much States that today she was still having the pressure so she came in to get checked out - Related Data Home Medications Medication Instructions Recorded Confirmed Aspirin [Aspir-Low] 81 mg PO DAILY 03/31/18 02/17/20 Levocetirizine Dihydrochloride 5 mg PO DAILY 03/31/18 02/17/20 [Xyzal] Levothyroxine Sodium 50 mcg PO DAILY 03/31/18 02/17/20 [Levothyroxine 50mcg (0.05mg) Tab] Pantoprazole Sodium [Protonix 40mg 40 mg PO DAILY 03/31/18 02/17/20 tablet] Pravastatin Sodium [Pravachol 20mg 20 mg PO DAILY 03/31/18 02/17/20 Table
[2021-08-22 10:07] VITALS: BP 138/62; PULSE 89; RESP 19; TEMP 37; O2SAT 96
== END 2021-08-22 10:12 | disposition home or self-care (01) ==
PROVIDERS: Emergency Provider Nurse Practitioner; PCP Internal Medicine Adolescent Medicine
DX: J32.9 Chronic sinusitis, unspecified (principal); J02.9 Acute pharyngitis, unspecified; K21.9 Gastro-esophageal reflux disease without esophagitis; E03.9 Hypothyroidism, unspecified; Z79.899 Other long term (current) drug therapy
CPT/HCPCS: G0463; 99202

== ENCOUNTER 2022-02-12 17:13 | Emergency (ER) | payer MEDICARE, BC, SELFPAY ==
[2022-02-12 17:34] VITALS: BP 147/88; PULSE 96; RESP 18; TEMP 36.6; O2SAT 97; BMI 34.0
--- NOTE | 2022-02-12 18:02 | HMH.EDUTC ---
[facility] [place] Clinical Impression: Bronchitis Sinusitis Qualifiers: Sinusitis location: unspecified location Chronicity: acute Recurrence: non-recurrent Qualified Code(s): J01.90 - Acute sinusitis, unspecified Disposition: Home, Self-Care Condition on Discharge: Good Instructions: DI for Sinusitis, DI for Acute Bronchitis Additional Instructions: Drink plenty of fluids. Take tylenol or ibuprofen for pain or fever. Take the medications as directed. Follow up with your regular doctor. GO TO THE ER FOR ANY WORSENING SYMPTOMS Don't start the oral steroids until tomorrow, since you had the shot here today. Prescriptions: Benzonatate [Benzonatate 100mg cap] 100 mg PO TIDP PRN #30 cap PRN Reason: Cough Transmission Status: Received by [facility] methylPREDNISolone [Medrol] 4 mg PO DIRECTED 6 Days #21 packet Transmission Status: Received by [facility] Azithromycin [Z-Alvin 250mg Tab*] 250 mg PO UD DOSE PK #6 tab Transmission Status: Received by [facility] Referrals: Dilshad Steele MD [Primary Care Provider] - Time of Disposition: 18:09 Medical Decision Making - Medical Records Medical records reviewed: No: I reviewed the patient's medical records. - Brian Inquiry Pt receiving controlled substance: No Vital Signs: 02/12/22 17:34 02/12/22 18:13 Temperature 97.9 F 97.9 F Temperature Source Oral Pulse Rate 96 H Pulse Rate [Left Radial] 96 H Respiratory Rate 18 18 Blood Pressure 147/88 H Blood Pressure [Right Arm] 147/88 H Blood Pressure Mean [Right Arm] 107 02 Sat by Pulse Oximetry 97 - Lab Data Lab results reviewed: Yes: I reviewed the patient's lab results. Orders (Tests/Meds): ED MEDICATIONS Discontinued Medications Generic Name Dose Route Start Last Admin Trade Name Freq PRN Reason Stop Dose Admin Methylprednisolone Sodium Succinate 125 mg 02/12/22 18:08 02/12/22 18:15 Methylprednisolone Sod Succ 125mg Vial IM 02/12/22 18:09 125 mg ONCE ONE Administration [facility] [place] HPI - General Stated complaint: allergies Time Seen by Provider: 02/12/22 18:02 Mode of Arrival: Ambulatory Source of Information: Patient Limitations: No Limitations Description of Symptoms (Recalled from Triage Doc. by RN): pt here for sinus issues, head pressure. started january 30. pt went to dr hale february 01 and given a steroid shot and flonose, but it has not helped HEENT Symptoms (Recalled from RN notes): Yes Resp Symptoms (Recalled from RN notes): Yes Skin Symptoms (Recalled from RN notes): No MS Symptoms (Recalled from RN notes): No Functional Status (Recalled from RN notes): wnl - History of Present Illness Provider Complaint: She states that for the past 2 weeks she has had sinus congestion and a cough. - Related Data Home Medications Medication Instructions Recorded Confirmed Aspirin [Aspir-Low] 81 mg PO DAILY 03/31/18 02/17/20 Levocetirizine Dihydrochloride 5 mg PO DAILY 03/31/18 02/17/20 [Xyzal] Levothyroxine Sodium 50 mcg PO DAILY 03/31/18 02/17/20 [Levothyroxine 50mcg (0.05mg) Tab] Pantoprazole Sodium [Protonix 40mg 40 mg PO DAILY 03/31/18 02/17/20 tablet] Pravastatin Sodium [Pravachol 20mg 20 mg PO DAILY 03/31/18 02/17/20 Tablet] Metoclopramide HCl [Reglan 10mg 10 mg PO QID 08/30/19 02/17/20 Tab] Multivit-Min/FA/Lycopen/Lutein 1 each PO DAILY 08/30/19 02/17/20 [Centrum Silver Tablet] Gabapentin [Gabapentin 300mg Cap] 300 mg PO TID 01/27/20 02/17/20 Previous Rx's Medication Instructions Recorded Diclofenac Sodium [Diclofenac 75mg 75 mg PO BID #60 tab 04/02/20 Tab] Azithromycin [Z-Alvin 250mg Tab] 250 mg PO DIRECTED #6 tab 08/22/21 Benzonatate [Benzonatate 100mg 100 mg PO Q8HP PRN #30 cap 08/22/21 cap] Fluticasone Propionate [Flonase 1 spr NS DAILY #1 each 08/22/21 50mcg nasal spray 16gm] predniSONE [Deltasone 10mg tablet] 10 mg PO BID 5 Days #10 tab 08/22/21 Azithromycin [Z-P
[2022-02-12 18:13] VITALS: BP 147/88; PULSE 96; RESP 18; TEMP 36.6
== END 2022-02-12 18:28 | disposition home or self-care (01) ==
PROVIDERS: Emergency Provider Nurse Practitioner Family; PCP Internal Medicine Adolescent Medicine
DX: J20.9 Acute bronchitis, unspecified (principal); J01.90 Acute sinusitis, unspecified; K21.9 Gastro-esophageal reflux disease without esophagitis; E78.5 Hyperlipidemia, unspecified; Z88.0 Allergy status to penicillin; Z88.2 Allergy status to sulfonamides; Z79.899 Other long term (current) drug therapy
CPT/HCPCS: 96372; 99212; G0463

== ENCOUNTER → 2022-05-16 09:32 | Outpatient (CLI) | payer MEDICARE, BC, SELFPAY ==
[2022-05-16 10:32] LABS: Basophils # 0.1 K/mm3 (0-0.2); Basophils % 1.1 % (0.1-2.0); Eosinophils # 0.5 K/mm3 (0.0-0.4); Eosinophils % 7.3 % (0.1-12.0); Hemoglobin 12.3 g/dL (12.2-16.2); Lymphocytes # 1.8 K/mm3 (0.7-4.5); Lymphocytes % 27.2 % (10-50); Mean Corpuscular Hemoglobin 31.1 pg (27.0-31.2); Mean Corpuscular Volume 103.5 fl (81-99); Monocytes # 0.4 K/mm3 (0.1-1.0); Monocytes % 6.8 % (1.7-9.3); Neutrophils # 3.7 K/mm3 (1.8-7.8); Neutrophils % 57.5 % (37.0-80.0); Platelet Count 272 K/mm3 (142-424); Red Blood Count 3.96 M/mm3 (4.20-5.40); Red Cell Distribution Width 14.7 % (11.5-17.5); White Blood Count 6.4 K/mm3 (4.8-10.8)
[2022-05-16 11:16] LABS: Alanine Aminotransferase 17 U/L (12-78); Albumin Level 3.9 g/dl (3.5-5.0); Albumin/Globulin Ratio 1.6 (1.1-1.8); Alkaline Phosphatase 83 U/L (38-126); Anion Gap 8.5 mEq/L (5-15); Aspartate Amino Transferase 29 U/L (14-36); Bilirubin,Total 0.2 mg/dl (0.2-1.3); Blood Urea Nitrogen 13 mg/dl (7-17); Calcium 9.3 mg/dl (8.4-10.2); Carbon Dioxide 29 mmol/L (22.0-30.0); Chloride 106 mmol/L (98-107); Chol/HDL Ratio 2.7 (1-3.5); Cholesterol 163 mg/dl (140-200); Estimated Glomerular Filt Rate 83 ml/min (>60); GFR (African American) 101 ML/MIN (>60); Globulin 2.5 g/dL (1.3-3.2); Glucose 102 mg/dl (74-100); HDL Cholesterol 60 mg/dl (40-60); Potassium 4.5 mmoL/L (3.5-5.1); Sodium 139 mmol/L (136-145); Total Protein,Serum 6.4 g/dl (6.3-8.2); Triglycerides 82 mg/dl (30-150); VLDL Cholesterol 16 mg/dL (0-40)
[2022-05-16 11:46] LABS: Thyroid Stimulating Hormone 2.12 uIU/mL (0.465-4.68)
[2022-05-16 12:05] LABS: Vitamin B12 647 pg/mL (239-931)
[2022-05-16 18:58] LABS: Folate > 20.00 ng/mL
[2022-05-17 08:35] LABS: Direct LDL Cholesterol 81 mg/dL (100-129)
== END ==
PROVIDERS: PCP Nurse Practitioner Family; Visit Provider Internal Medicine Adolescent Medicine
DX: M47.26 Other spondylosis with radiculopathy, lumbar region (principal); I10 Essential (primary) hypertension; E03.9 Hypothyroidism, unspecified; R42 Dizziness and giddiness; D75.89 Other specified diseases of blood and blood-forming organs
CPT/HCPCS: 36415; 80053; 80061; 82607; 82746; 84443; 85025

== ENCOUNTER 2023-02-08 12:21 | Emergency (ER) | payer MEDICARE, BC, SELFPAY ==
[2023-02-08 12:21] VITALS: BP 115/44; PULSE 88; RESP 19; TEMP 37.1; O2SAT 99; BMI 34.3
--- NOTE | 2023-02-08 12:41 | EXP.UTC ---
Discharge Plan Disposition Patient Disposition: Home, Self-Care Condition: Good Prescriptions Prescriptions: New azithromycin [Zithromax] 250 mg tablet 250 mg PO UD DOSE PK Qty: 6 0RF Rx Instructions: Take two (2) tablets today, then one (1) tablet days #2 thru #5 benzonatate [benzonatate] 100 mg capsule 100 mg PO TIDP PRN (Reason: Cough) Qty: 30 0RF methylprednisolone 4 mg Tablets,Dose Pack 4 mg PO DIRECTED Qty: 21 0RF No Action aspirin [Aspir-Low] 81 MG tablet,delayed release (DR/EC) 81 mg PO DAILY levothyroxine 50 tablet 50 mcg PO DAILY pravastatin 20 MG tablet 20 mg PO DAILY levocetirizine [Xyzal] 5 MG tablet 5 mg PO DAILY amlodipine 2.5 mg tablet 2.5 mg PO DAILY sckmpykf-gpf-UG-lycopen-lutein 1 EACH tablet 1 each PO DAILY Referrals Follow up/Referrals: Dilshad Steele MD [Primary Care Provider] - See instructions Activity Restrictions/Add. Instructions Additional Instructions/Restrictions: Drink plenty of fluids. Take tylenol or ibuprofen for pain or fever. Take the medications as directed. Follow up with your regular doctor. GO TO THE ER FOR ANY WORSENING SYMPTOMS Clinical Impressions Clinical Impression: Bronchitis, Sinusitis Instructions Patient Instructions: Sinusitis, DI for Sinusitis Discharge ED Provider: Isaac Samson [facility] HPI General Stated complaint: Congestion Time Seen by Provider: 02/08/23 12:41 History of Present Illness Provider Complaint: She states that for the past 1 week she has had sinus congestion, chest congestion, and a productive cough. Related Data Home Medications Medication Instructions Recorded Confirmed aspirin 81 mg tablet,delayed 81 mg PO DAILY Blood thinner 03/31/18 02/08/23 release (Aspir-Low) levocetirizine 5 mg tablet (Xyzal) 5 mg PO DAILY ALLERGIES 03/31/18 02/08/23 levothyroxine 50 mcg tablet 50 mcg PO DAILY THYROID 03/31/18 02/08/23 pravastatin 20 mg tablet 20 mg PO DAILY Cholesterol 03/31/18 02/08/23 oehtyugz-zqq-zaduh acid 0.4 1 each PO DAILY Supplement 08/30/19 02/08/23 mg-lycopene 300 mcg-lutein 250 mcg tablet amlodipine 2.5 mg tablet 2.5 mg PO DAILY High blood pressure 02/08/23 02/08/23 Previous Rx's Medication Instructions Recorded azithromycin 250 mg tablet 250 mg PO UD DOSE PK #6 tabs 02/08/23 (Zithromax) benzonatate 100 mg capsule 100 mg PO TIDP PRN Cough #30 caps 02/08/23 methylprednisolone 4 mg tablets in 4 mg PO DIRECTED #21 tabs 02/08/23 a dose pack Allergies Allergy/AdvReac Type Severity Reaction Status Date / Time oxycodone Allergy Severe Anaphylaxis Verified 02/08/23 12:42 Penicillins [PENICILLINS] Allergy Unknown Verified 02/08/23 12:42 sulfamethoxazole Allergy Unknown Verified 02/08/23 12:42 [SULFAMETHOXAZOLE] trimethoprim [TRIMETHOPRIM] Allergy Unknown Verified 02/08/23 12:42 loratadine [From Claritin] Allergy Verified 02/08/23 12:42 [facility] Disclaimer: The information contained in this section may have been updated after the patient was seen, as this information can be updated by other users. Social History Smoking Status: Never smoker second hand exposure: No alcohol intake: never substance use type: denies use current occupational status: other Travel in the last 8 weeks: None household members: spouse housing: other current occupational exposures/hazards: No caffeine: Yes ROS Obtained: Yes All systems reviewed & no additional complaints except as documented Constitutional Constitutional: Reports poor appetite Eyes Eyes: Reports system reviewed and no additional complaints, except as documented ENT Ears, Nose, Mouth, and Throat: Reports as per HPI Cardiovascular Cardiovascular: Reports system reviewed and no additional complaints, except as documented and Denies chest pain Respiratory Respiratory: Denies shortness of breath, R
[2023-02-08 13:03] VITALS: BP 115/44; PULSE 88; RESP 18; TEMP 37.1; O2SAT 99
== END 2023-02-08 13:03 | disposition home or self-care (01) ==
PROVIDERS: Emergency Provider Nurse Practitioner Family; PCP Internal Medicine Adolescent Medicine
DX: J20.9 Acute bronchitis, unspecified (principal); J01.90 Acute sinusitis, unspecified
CPT/HCPCS: 99212; 99214; G0463

== ENCOUNTER 2023-07-14 09:00 | Outpatient (RCR) | payer MEDICARE, BC, SELFPAY ==
--- NOTE | 2023-05-28 16:36 | HMH.PTOPEV ---
PT Outpatient Evaluation Rehab PT Outpatient Evaluation Start: 05/28/23 15:03 Freq: Status: Active Protocol: Document 05/28/23 15:04 JORGEWENDI (Rec: 05/28/23 16:35 ERI [id number]) E-signed By Aurea Bass, PT Outpatient Therapy Subjective History Subjective History Pt is a 67 y/o female who reports chronic central low back pain since remodeling her home which begain in December of 2022. Pt reports recent worsening with onset of bilateral leg pain for 3-4 months. Pt reports she only has anterior thigh paresthesia /pain from the hips to her knees with initial walking after sitting that is brief in nature. Pt reports constant numbness of the L great toe since she was diagnosed with Shingles in 2019 however reports intensity of the numbness has increased with recent worsening of back pain. Pt reports she has also noticed increased urgency to urinate, denies incontinence or saddle anesthesia. Pt reports central low back pain is aggravated by lying on her side and prolonged walking. Pt also reports change in balance with noted leaning forward especially when in the shower with her eyes closed. Pt reports she is having difficulty walking on uneven ground, denies recent falls or use of an AD. Pt reports she had a history of drop foot 5 years ago prior to diagnosis of Shingles. Pt states she wore high top shoes as instructed by her doctor which helped with this. Pt denies changes in the UE or decreased pyrometer temperature regulator strength. 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
== END 2023-07-14 09:05 | disposition home or self-care (01) ==
LOC: PT 09:00
PROVIDERS: PCP Internal Medicine Adolescent Medicine; Visit Provider Nurse Practitioner Family
DX: M47.26 Other spondylosis with radiculopathy, lumbar region (principal); M54.41 Lumbago with sciatica, right side; M54.42 Lumbago with sciatica, left side
CPT/HCPCS: 97010; 97014; 97110; 97112; 97163; 97164; 97530; 97535; G0283

== ENCOUNTER → 2023-07-28 15:56 | Outpatient (CLI) | payer MEDICARE, BC, SELFPAY ==
[2023-07-28 17:35] LABS: Anion Gap 11.3 mEq/L (5-15); Blood Urea Nitrogen 19 mg/dl (7-17); Calcium 9.3 mg/dl (8.4-10.2); Carbon Dioxide 29 mmol/L (22.0-30.0); Chloride 102 mmol/L (98-107); Estimated Glomerular Filt Rate 62 ml/min (>60); GFR (African American) 75 ML/MIN (>60); Glucose 95 mg/dl (74-100); Potassium 4.3 mmoL/L (3.5-5.1); Sodium 138 mmol/L (136-145)
== END ==
PROVIDERS: PCP Internal Medicine Adolescent Medicine; Visit Provider Internal Medicine Adolescent Medicine
DX: Z01.812 Encounter for preprocedural laboratory examination (principal)
CPT/HCPCS: 36415; 80048

== ENCOUNTER → 2023-08-14 14:54 | Outpatient (CLI) | payer MEDICARE, BC, SELFPAY ==
--- NOTE | 2023-08-14 14:59 | MR_ITS ---
FINAL REPORT CLINICAL HISTORY: GAIT ABNORMALITY COMPARISON: None FINDINGS: Multiplanar MR imaging of the brain was performed without and with contrast. There is age-appropriate atrophy. There are moderate chronic ischemic/gliotic changes. There is no evidence of intracranial hemorrhage or mass. No abnormal extra-axial fluid collection is seen. The ventricular size is within normal limits. There is no evidence of shift of the midline structures. The posterior fossa and brainstem have an unremarkable appearance. No area of abnormal restricted diffusion is identified. No abnormal contrast enhancement is seen. Normal major vessel vascular flow voids are noted. IMPRESSION: No acute intracranial abnormality identified. Reviewed, Interpreted and Dictated by Lionel Leon III, MD Transcribed by Laurence Iqbal Authenticated and [facility]
--- NOTE | 2023-08-14 14:59 | MR_ITS ---
FINAL REPORT CLINICAL HISTORY: OSTEOARTHRITIS OF SPINE WITH RADICULOPATHY LUMBAR REGION. BILATERAL LEG PAIN, NUMBNESS AND TINGLING. LBP COMPARISON: None FINDINGS: Multiplanar MR imaging of the lumbar spine was performed without contrast. On the sagittal T2-weighted images, disc degeneration is seen throughout. The vertebral alignment is normal. There are endplate changes at multiple levels. There is levoscoliosis of the lumbar spine. No bony mass is identified. The conus has an unremarkable appearance. T10-11: Large central inferiorly extruded disc significantly indents the thecal sac. Severe central canal stenosis with AP diameter of the thecal sac of 4 mm. Moderate bilateral neuroforaminal narrowing. T12-L1: Annular disc bulge. Left paracentral superiorly extruded disc. Left lateral recess stenosis. Mild right and moderate left neuroforaminal narrowing. L1-2: Annular disc bulge, facet arthropathy, and osteophytes. Severe bilateral neuroforaminal narrowing. Mild central canal stenosis with AP diameter of the thecal sac of 9 mm. L2-3: Annular disc bulge, facet arthropathy, and osteophytes. Severe right and moderate left neuroforaminal narrowing. Mild central canal stenosis with AP diameter of the thecal sac of 8 mm. L3-4: Annular disc bulge, facet arthropathy, and osteophytes. Severe bilateral neuroforaminal narrowing. L4-5: Annular disc bulge, facet arthropathy, and osteophytes. Central disc protrusion. Mild central canal stenosis with AP diameter of the thecal sac of 9 mm. Moderate right and severe left neuroforaminal narrowing. L5-S1: Annular disc bulge, facet arthropathy, and osteophytes. Moderate right and severe left neuroforaminal narrowing. Central disc protrusion contacts the S1 nerve roots. IMPRESSION: Multilevel degenerative disc disease and spondylosis as described. Extruded disc with severe canal stenosis at T10-11. This protrusions at L4-5 and L5-S1. Multiple levels with canal stenosis. Reviewed, Interpreted and Dictated by Lionel Leon III, MD Transcribed by Laurence Iqbal Authenticated and [facility]
== END ==
PROVIDERS: PCP Internal Medicine Adolescent Medicine; Visit Provider Nurse Practitioner Family
DX: M47.26 Other spondylosis with radiculopathy, lumbar region (principal); R26.9 Unspecified abnormalities of gait and mobility; R20.2 Paresthesia of skin
CPT/HCPCS: 70553; 72148; 76376; A9576

== ENCOUNTER 2023-11-13 16:59 | Outpatient (CLI) | payer MEDICARE, BC, SELFPAY | END 2023-11-13 23:59 | PROVIDERS: PCP Physician Assistant; Visit Provider Physician Assistant | DX: R30.0 Dysuria (principal); B95.2 Enterococcus as the cause of diseases classified elsewhere | CPT/HCPCS: 87086 ==

== ENCOUNTER 2023-11-22 17:41 | Inpatient (IN) | payer MEDICARE, BC, SELFPAY ==
[2023-11-22] VITALS (11 sets, daily range): BP systolic 92–134; BP diastolic 58–89; PULSE 93–142; RESP 15–24; TEMP 36.6–37.1; O2SAT 93–98; BMI 27.4
--- NOTE | 2023-11-22 17:53 | XR_ITS ---
FINAL REPORT CLINICAL HISTORY: cp/tachy COMPARISON: None FINDINGS: A single portable view of the chest was obtained. The heart size and pulmonary vascularity are within normal limits. The mediastinum is within normal limits. Bibasilar opacities are favored to represent atelectasis. The bony thorax is intact. IMPRESSION: Bibasilar opacities favor atelectasis. Reviewed, Interpreted and Dictated by Lionel Leon III, MD Transcribed by Laurence Iqbal Authenticated and [facility]
--- NOTE | 2023-11-22 17:56 | HMH.EDCP ---
Discharge Plan Disposition Patient Disposition: Admitted Prescriptions Prescriptions: No Action aspirin [Aspir-Low] 81 MG tablet,delayed release (DR/EC) 81 mg PO DAILY levothyroxine 50 tablet 50 mcg PO DAILY levocetirizine [Xyzal] 5 MG tablet 5 mg PO DAILY xmegiklx-nrf-JH-lycopen-lutein 1 EACH tablet 1 each PO DAILY cyclobenzaprine 10 mg tablet 10 mg PO BID digoxin 250 mcg (0.25 mg) tablet 0.25 mg PO AM famotidine 20 mg tablet 20 mg PO BID metoprolol tartrate 25 mg tablet 12.5 mg PO BID Eliquis 5 mg tablet 5 mg PO BID Referrals Follow up/Referrals: Dilshad Steele MD [Primary Care Provider] - See instructions Clinical Impressions Clinical Impression: Atrial flutter, Chest pain, Tachycardia Discharge ED Provider: Alvaro Eli General Chief Complaint: Chest Pain Stated Complaint: CHEST PAIN Time Seen by Provider: 11/22/23 17:45 Mode of Arrival: Ambulatory Source of Information: Patient Limitations: No Limitations Description of Symptoms (Recalled from ER Triage Doc. by RN): pt presents to ED with c/o chest pain. pt reports this am around 0900 she began to have chest pain located on left side of chest. around 1400 pain began to radiate all along the under side of her breasts. pt does see [facility]. History of Present Illness HPI narrative: Patient is a 68-year-old female with past medical history of recent back surgery with provoked atrial fibrillation on anticoagulation with a DOAC and metoprolol 12.5 mg twice daily, digoxin who presents emergency department for evaluation of intermittent chest pain and rapid heart rate. Onset was acute, earlier this morning. Due to persistent symptoms she presents here for continued evaluation. Related Data Home Medications Medication Instructions Recorded Confirmed aspirin 81 mg tablet,delayed 81 mg PO DAILY Blood thinner 03/31/18 11/22/23 release (Aspir-Low) levocetirizine 5 mg tablet (Xyzal) 5 mg PO DAILY ALLERGIES 03/31/18 11/22/23 levothyroxine 50 mcg tablet 50 mcg PO DAILY THYROID 03/31/18 11/22/23 ylzsohqg-pzd-ldtbp acid 0.4 1 each PO DAILY Supplement 08/30/19 11/22/23 mg-lycopene 300 mcg-lutein 250 mcg tablet apixaban 5 mg tablet (Eliquis) 5 mg PO BID 11/22/23 11/22/23 cyclobenzaprine 10 mg tablet 10 mg PO BID 11/22/23 11/22/23 digoxin 250 mcg (0.25 mg) tablet 0.25 mg PO AM 11/22/23 11/22/23 famotidine 20 mg tablet 20 mg PO BID 11/22/23 11/22/23 metoprolol tartrate 25 mg tablet 12.5 mg PO BID 11/22/23 11/22/23 Allergies Allergy/AdvReac Type Severity Reaction Status Date / Time oxycodone Allergy Severe Anaphylaxis Verified 02/08/23 12:42 Penicillins [PENICILLINS] Allergy Unknown Verified 02/08/23 12:42 sulfamethoxazole Allergy Unknown Verified 02/08/23 12:42 [SULFAMETHOXAZOLE] trimethoprim [TRIMETHOPRIM] Allergy Unknown Verified 02/08/23 12:42 loratadine [From Claritin] Allergy Verified 02/08/23 12:42 [facility] Disclaimer: The information contained in this section may have been updated after the patient was seen, as this information can be updated by other users. Social History Smoking Status: Never smoker second hand exposure: No alcohol intake: never substance use type: denies use current occupational status: other Travel in the last 8 weeks: None household members: spouse housing: other current occupational exposures/hazards: No caffeine: Yes ROS Obtained: Yes Systems reviewed as appropriate & no additional complaints except as documented Physical Exam General General appearance: alert and in no apparent distress Head Head exam: atraumatic and normocephalic Eye Eye exam: Present PERRL and EOMI ENT ENT exam: Present mucous membranes moist Neck Neck exam: Present normal inspection Chest Chest inspection: Present normal inspection and symmetric chest wall rise Respiratory Respiratory exam: Present normal lung sounds bilaterally; Absent respiratory distress Cardiovascular Cardiovascular exam: Present tachycardia and irregular rhythm Abdominal Exam Abdominal exam: Present soft; Absent tenderness Extremities Exam Extremities exam: Present normal inspection Neurological Exam Neurological exam: Present alert Psychiatric Psychiatric exam: Present normal affect Skin Skin exam: Present warm and dry HEART Score HEART Score HEART Score assessment performed?: Yes History (anamnesis): Moderately suspicious ECG: Non-specific disturbance Age: >65 years Risk factors: 1-2 risk factors Troponin: </= normal limit HEART Score: 5 Critical Care Critical Care Time Critical Care Time: Yes Attestation: On 11/22/23, the high probability of a clinically significant, sudden or life threatening deterioration of the following system(s) required my full and direct attention, intervention and personal management. The time I documented below is in addition to time spent performing reported procedures but includes the following listed in this critical care notation. Total Time Total Critical Care Time: 40 Medical Decision Making Brian Inquiry Pt receiving controlled substance: No Vital Signs Vital Signs: 11/22/23 17:44 11/22/23 18:01 11/22/23 18:11 Temperature 97.8 F Temperature Source Oral Pulse Rate 104 H Pulse Rate [Left Radial] 142 H Respiratory Rate 16 15 Blood Pressure 92/64 L 95/66 L Blood Pressure [Right Arm] 131/81 Blood Pressure Mean 73 75 Blood Pressure Mean [Right Arm] 97 02 Sat by Pulse Oximetry 98 94 L 93 L Oxygen Delivery Method Room Air 11/22/23 18:16 11/22/23 18:33 11/22/23 19:00 Temperature Temperature Source Pulse Rate 93 H 102 H 102 H Pulse Rate [Left Radial] Respiratory Rate 21 16 17 Blood Pressure 120/89 129/58 L 134/78 Blood Pressure [Right Arm] Blood Pressure Mean 93 81 Blood Pressure Mean [Right Arm] 02 Sat by Pulse Oximetry 93 L 95 96 Oxygen Delivery Method 11/22/23 19:30 11/22/23 19:45 11/22/23 20:00 Temperature Temperature Source Pulse Rate 116 H 124 H 138 H Pulse Rate [Left Radial] Respiratory Rate 21 18 21 Blood Pressure 131/69 128/82 115/75 Blood Pressure [Right Arm] Blood Pressure Mean Blood Pressure Mean [Right Arm] 02 Sat by Pulse Oximetry 95 97 95 Oxygen Delivery Method Lab Data Labs: Lab Results 11/22/23 17:44: WBC 12.3 H, RBC 4.08 L, Hgb 12.3, Hct 39.8, MCV 97.7, MCH 30.1, MCHC 30.8 L, RDW 14.9, Plt Count 386, MPV 7.5, Neut % (Auto) 62.6, Lymph % (Auto) 27.3, [place] % (Auto) 7.2, Eos % (Auto) 2.1, Baso % (Auto) 0.9, Neut # (Auto) 7.7, Lymph # (Auto) 3.4, [place] # (Auto) 0.9, Eos # (Auto) 0.3, Baso # (Auto) 0.1, D-Dimer 1.08 H, Sodium 141, Potassium 3.6, Chloride 104, Carbon Dioxide 28, Anion Gap 12.6, BUN 11, Creatinine 0.70, Estimated Creat Clear 62, Estimated GFR 83, Est GFR ( Amer) 100, Glucose 121 H, Calcium 9.4, Total Bilirubin 0.4, AST 68 H, ALT 81 H, Alkaline Phosphatase 149 H, Troponin I < 0.01, Total Protein 7.4, Albumin 4.4, Globulin 3.0, Albumin/Globulin Ratio 1.5, Digoxin 0.80 11/22/23 18:07: SARS-CoV-2 (PCR) Not detected, Influenza A Untype (PCR) Not detected, Influenza Type B (PCR) Not detected 11/22/23 17:44 11/22/23 17:44 Response Orders (Tests/Meds): ED MEDICATIONS Generic Name Dose Route Start Last Admin Trade Name Freq PRN Reason Stop Dose Admin Sodium Chloride 10 ml 11/22/23 18:16 Sodium Chloride 0.9% 10ml Flush Syringe IV 11/23/23 06:17 NEEDED PRN Maintain IV Site Discontinued Medications Generic Name Dose Route Start Last Admin Trade Name Freq PRN Reason Stop Dose Admin Albuterol Sulfate 20 mg 11/22/23 19:53 11/22/23 20:08 Albuterol 0.083% 2.5 Mg/3 Ml Neb IH 11/22/23 19:54 Not Given ONCE ONE Aspirin 324 mg 11/22/23 17:57 11/22/23 18:01 Aspirin 81mg Chewable Tablet PO 11/22/23 17:58 324 mg ONCE ONE Administration Lactated Ringer's 1,000 mls @ 999 mls/hr 11/22/23 18:16 11/22/23 18:22 Lactated Ringer's 1000 Ml Bag IV 11/22/23 19:16 999 mls/hr .Q1H1M ONE Administration Iopamidol 100 ml 11/22/23 18:32 11/22/23 18:34 Iopamidol-370 (76%);100ml Bottle IV 11/22/23 18:33 100 ml ONCE ONE Administration Metoprolol Tartrate 5 mg 11/22/23 17:56 11/22/23 18:01 Metoprolol Tartrate 5mg/5ml Vial IV 11/22/23 17:57 5 mg ONCE ONE Administration Metoprolol Tartrate 5 mg 11/22/23 18:08 11/22/23 18:09 Metoprolol Tartrate 5mg/5ml Vial IV 11/22/23 18:09 5 mg ONCE ONE Administration Metoprolol Tartrate 50 mg 11/22/23 18:48 11/22/23 18:51 Metoprolol Tartrate 50mg Tablet PO 11/22/23 18:49 50 mg ONCE ONE Administration Metoprolol Tartrate 5 mg 11/22/23 19:15 11/22/23 19:17 Metoprolol Tartrate 5mg/5ml Vial IV 11/22/23 19:16 5 mg ONCE ONE Administration Metoprolol Tartrate 5 mg 11/22/23 20:10 11/22/23 20:18 Metoprolol Tartrate 5mg/5ml Vial IV 11/22/23 20:11 5 mg ONCE ONE Administration Sodium Chloride 10 ml 11/22/23 18:32 11/22/23 18:34 Sodium Chloride 0.9% 10ml Syr (Rad Only) IV 11/22/23 18:33 10 ml ONCE ONE Administration Sodium Chloride 50 ml 11/22/23 18:32 11/22/23 18:34 0.9 % Sodium Chloride 50 Ml Vial IV 11/22/23 18:33 50 ml ONCE ONE Administration ORDERS Category Date Time Status CT angio chest - dissection Stat Cat Scan 11/22/23 18:00 Completed CXR --portable [XR chest portable] Stat Exams 11/22/23 17:53 Taken Basic Metabolic Panel AMLAB Lab 11/23/23 06:00 Ordered CBC w/Auto Diff [Complete Blood Count Auto Diff] Stat Lab 11/22/23 17:44 Completed CMP [Comprehensive Metabolic Panel] Stat Lab 11/22/23 17:44 Completed Complete Blood Count Auto Diff AMLAB Lab 11/23/23 06:00 Ordered D-Dimer Stat Lab 11/22/23 17:44 Completed Digoxin Stat Lab 11/22/23 17:44 Completed Rapid PCR Covid and Flu A/B Stat Lab 11/22/23 18:07 Completed Trop I [Troponin I] Stat Lab 11/22/23 17:44 Completed Troponin I Q3H Lab 11/22/23 21:00 Ordered Troponin I Q3H Lab 11/23/23 00:00 Ordered Blood Culture Stat Micro 11/22/23 20:13 Ordered ECG Data Tracing #1: ECG Narrative: Independently interpreted by me, rate is 138, rhythm is regular, significant chatter, identifiable P waves with sinus tachycardia, rate 138, QTc 410. No ST elevation in anatomical contiguous leads. MDM Narrative Medical Decision Narrative: In summary patient is a 68-year-old female with past medical history described above presents emergency department for evaluation of chest pain and tachycardia. Patient is hemodynamically stable nontoxic-appearing upon arrival, afebrile, significant tachycardia ranging between 120 and 165 bpm. It appears that patient has sinus tachycardia on the initial EKG in the 130s however will intermittently go into atrial flutter with 2:1 on the monitor with a heart rate between 150 and 160. electronic device monitor interpreted by me at 1759, a flutter with 2-1 block, rate 161 bpm. For this rate control be attempted with metoprolol given that she takes p.o. metoprolol. Emergent CTA will be conducted for breakthrough pulmonary malaise him versus dissection given sinus tachycardia of undetermined etiology. Differential also includes ACS, electrolyte abnormality, among others. Workup will be conducted with hematologic labs, chest x-ray, viral swab. Initial workup reviewed by me, hematologic labs are nonactionable, patient has elevated D-dimer however CT has already been ordered, initial troponin below detectable limit, mild transaminitis, viral swab negative. Chest x-ray informally interpreted by me, hazy perihilar opacities, no significant lobar opacities, hiatal hernia present. Upon repeat evaluation patient had transient rate control with metoprolol with resurgence of tachycardia heart rate in the 160s and soft blood pressures which will be administered again. I suspect that patient's low blood pressure is a result of impaired diastolic filling secondary to tachycardia. Patient's rate was restored to the 110's, sinus rhythm with resolution of low blood pressure. I do not have concern for infectious source given the patient has no significantly elevated white count, no fever, no clinical focal signs of infection. Bacteremia is a consideration although unlikely so empiric antibiotics will be deferred, blood cultures will be ordered. The case was discussed with cardiology Dr. Rojo who agrees and recommends 50 mg of metoprolol tartrate p.o. the case was discussed with hospital medicine regarding management and patient will be admitted to their service for continued evaluation at this time and will have cardiology evaluation in the morning.
--- NOTE | 2023-11-22 18:00 | CT_ITS ---
PROCEDURE INFORMATION: Exam: CTA Chest With Contrast Exam date and time: 11/22/2023 6:26 PM Age: 68 years old Clinical indication: Pain; Chest pressure; Additional info: Cp tachy, sinus with afib with rvr TECHNIQUE: Imaging protocol: Computed tomographic angiography of the chest with contrast. Exam focused on the arteries. 3D rendering (Not supervised by radiologist): MIP and/or 3D reconstructed images were created by the technologist. Radiation optimization: All CT scans at this facility use at least one of these dose optimization techniques: automated exposure control; mA and/or kV adjustment per patient size (includes targeted exams where dose is matched to clinical indication); or iterative reconstruction. Contrast material: ISO 370; Contrast volume: 100 ml; Contrast route: INTRAVENOUS (IV); COMPARISON: CR XR CHEST PORTABLE 11/22/2023 5:57 PM FINDINGS: Pulmonary arteries: Normal. No pulmonary emboli. Aorta: Unremarkable. No aortic aneurysm. No aortic dissection. Lungs: Right upper lobe numerous cysts measures 12 mm in diameter. Anterior right middle lobe, and lingular atelectasis. Dependent bilateral lung base opacities favor atelectasis. Right lower lobe calcified granulomas present. Pleural spaces: Unremarkable. No pneumothorax. No pleural effusion. Heart: Unremarkable. No cardiomegaly. No pericardial effusion. Lymph nodes: U prominent right hilar and calcified lymph nodes likely reactive and related to prior granulomatous process. Bones/joints: Postsurgical changes compatible with posterior fusion with transpedicular screws, and vertical stabilizing bars between levels T8 through L2. Soft tissues: Unremarkable. IMPRESSION: No acute findings. No CT angiography evidence of pulmonary embolism.
[2023-11-22] MEDS: ASPIRIN 81MG CHEWABLE TABLET 324 MG PO (18:01)
[2023-11-22] MEDS: METOPROLOL TARTRATE 5MG/5ML VIAL 5 MG IV ×4 (18:01→20:18)
[2023-11-22 18:07] LABS: Basophils # 0.1 K/mm3 (0-0.2); Basophils % 0.9 % (0.1-2.0); Eosinophils # 0.3 K/mm3 (0.0-0.4); Eosinophils % 2.1 % (0.1-12.0); Hematocrit 39.8 % (37.0-47.0); Hemoglobin 12.3 g/dL (12.2-16.2); Lymphocytes # 3.4 K/mm3 (0.7-4.5); Lymphocytes % 27.3 % (10-50); Mean Corpuscular HGB Conc 30.8 g/dL (31.8-35.4); Mean Corpuscular Hemoglobin 30.1 pg (27.0-31.2); Mean Corpuscular Volume 97.7 fl (81-99); Mean Platelet Volume 7.5 fl (7.4-10.4); Monocytes # 0.9 K/mm3 (0.1-1.0); Monocytes % 7.2 % (1.7-9.3); Neutrophils # 7.7 K/mm3 (1.8-7.8); Neutrophils % 62.6 % (37.0-80.0); Platelet Count 386 K/mm3 (142-424); Red Blood Count 4.08 M/mm3 (4.20-5.40); Red Cell Distribution Width 14.9 % (11.5-17.5); White Blood Count 12.3 K/mm3 (4.8-10.8)
[2023-11-22 18:12] LABS: Alanine Aminotransferase 81 U/L (12-78); Albumin Level 4.4 g/dl (3.5-5.0); Albumin/Globulin Ratio 1.5 (1.1-1.8); Alkaline Phosphatase 149 U/L (38-126); Anion Gap 12.6 mEq/L (5-15); Aspartate Amino Transferase 68 U/L (14-36); Bilirubin,Total 0.4 mg/dl (0.2-1.3); Blood Urea Nitrogen 11 mg/dl (7-17); Calcium 9.4 mg/dl (8.4-10.2); Carbon Dioxide 28 mmol/L (22.0-30.0); Chloride 104 mmol/L (98-107); Creatinine Clearance Estimated 62 mL/min (50-200); Estimated Glomerular Filt Rate 83 ml/min (>60); GFR (African American) 100 ML/MIN (>60); Glucose 121 mg/dl (74-100); Potassium 3.6 mmoL/L (3.5-5.1); Sodium 141 mmol/L (136-145); Total Protein,Serum 7.4 g/dl (6.3-8.2)
[2023-11-22 18:13] LABS: Coronavirus 19, PCR Not Detected (NotDetected); Influenza A, PCR Not Detected (NotDetected); Influenza B, PCR Not Detected (NotDetected)
[2023-11-22 18:17] LABS: D-Dimer 1.08 ug/mL (0.0-0.5)
--- NOTE | 2023-11-22 18:21 | PC.NURSE ---
PT GOING TO CT WITH SASCHA SCHULTZT WITH [facility] B DRIVER
[2023-11-22] MEDS: LACTATED RINGERS 1000ML 1,000 ML 999 ML IV (18:22)
[2023-11-22 18:26] LABS: Troponin I < 0.01 ng/ml (0.00-0.034)
[2023-11-22] MEDS: IOPAMIDOL-370 (76%);100ML BOTTLE 100 ML IV (18:34)
[2023-11-22] MEDS: SODIUM CHLORIDE 0.9% 10ML SYR (RAD ONLY) 10 ML IV (18:34)
[2023-11-22] MEDS: 0.9 % SODIUM CHLORIDE 50 ML VIAL IV (18:34)
--- NOTE | 2023-11-22 18:34 | PC.NURSE ---
pt back from CT scan. nurse did go with pt to CT
[2023-11-22] MEDS: METOPROLOL TARTRATE 50MG TABLET 50 MG PO (18:51)
--- NOTE | 2023-11-22 20:11 | PC.NURSE ---
warehouse order puller informed of patient to be admitted, and request of bed
--- NOTE | 2023-11-22 20:17 | PC.NURSE ---
OBSERVATION ADMISSION TO 215 WITH DX OF A FLUTTER TO [facility].
--- NOTE | 2023-11-22 20:53 | PC.NURSE ---
Lab drawing bc x 2 and 2nd trop
--- NOTE | 2023-11-22 21:04 | PC.NURSE ---
Patient arrived to floor via stretcher from ED at 21:02.
[2023-11-22 22:11] LABS: Troponin I < 0.01 ng/ml (0.00-0.034)
[2023-11-22] MEDS: dilTIAZem HCL 100 MG in 0.9 % SODIUM CHLORIDE 100 ML 10 MG IV (22:22)
[2023-11-22] MEDS: dilTIAZem 25MG/5ML VIAL 10 MG IV (22:22)
--- NOTE | 2023-11-22 22:37 | P.HP_ITS ---
Attending attestation Patient was seen and evaluated at the bedside myself, agree with ROYA note. History of Present Illness *Admission Date: 11/22/23 *Reason for visit:: A flutter RVR *History of present illness: 68 year old female presented to [facility] ED for c/o CP and palpations. Pt states the onset was earlier this morning. PMHX of back surgery in September at [facility] in [place]. Pt states after surgery, she was in the ICU due to developing a fib with RVR for a week. She was then sent to [facility] due to having right leg weakness from the surgery. She has been seeing the cardiology clinic in [place] for her A fib. She takes eliquis, aspirin, digoxin, and metoprolol tartrate daily. Her ED work up revealed a leukocytosis of 12.3, elevated d- dimer, elevated ast and alt, and normal troponins. Her chest xray reveals no cardiomegaly, no pericardial effusion, PE or pleural effusion. The pt was given 2 5mg IV pushes of metoprolol tartrate and 50 mg of metoprolol tartrate in the ED to reduce the rapid ventricular rate. The pt had atrial flutter with a rate of 160 upon arrival to the ED. Prior to admission her rate was reduced. Upon admission to the medical floor her rate was [address] flutter rvr[address] Rojo was paged and she was transitioned to step down and placed on a Cardizem gtt with bolus. The pt states she recently had a UTI which she just finished a course of antibiotics for. I will order UA. The pt's right foot is cool to the touch and more swollen than the left. She states that she has been in rehab at [facility] for right leg not being able to ambulate after surgery. I will order a vascular ultrasound and n echo for the morning. She will have a cardiology consult placed. [facility] Disclaimer: The information contained in this section may have been updated after the patient was seen, as this information can be updated by other users. Social History Smoking Status: Never smoker second hand exposure: No alcohol intake: never substance use type: denies use current occupational status: other Travel in the last 8 weeks: None household members: spouse housing: other current occupational exposures/hazards: No caffeine: Yes Review of Systems *Cardiovascular Cardiovascular: Reports chest pain and Reports palpitations Endocrine Endocrine: Reports palpitations Meds Home Medications and Allergies Home Medications Medication Instructions Recorded Confirmed Type aspirin 81 mg tablet,delayed 81 mg PO DAILY Blood thinner 03/31/18 11/22/23 History release (Aspir-Low) levocetirizine 5 mg tablet (Xyzal) 5 mg PO DAILY ALLERGIES 03/31/18 11/22/23 History levothyroxine 50 mcg tablet 50 mcg PO DAILY THYROID 03/31/18 11/22/23 History wtdrzbal-liq-apxpm acid 0.4 1 each PO DAILY Supplement 08/30/19 11/22/23 History mg-lycopene 300 mcg-lutein 250 mcg tablet apixaban 5 mg tablet (Eliquis) 5 mg PO BID 11/22/23 11/22/23 History cyclobenzaprine 10 mg tablet 10 mg PO BID 11/22/23 11/22/23 History digoxin 250 mcg (0.25 mg) tablet 0.25 mg PO AM 11/22/23 11/22/23 History famotidine 20 mg tablet 20 mg PO BID 11/22/23 11/22/23 History metoprolol tartrate 25 mg tablet 12.5 mg PO BID 11/22/23 11/22/23 History New Prescriptions to Start Prescriptions: Allergies Allergy/AdvReac Type Severity Reaction Status Date / Time oxycodone Allergy Severe Anaphylaxis Verified 02/08/23 12:42 Penicillins [PENICILLINS] Allergy Unknown Verified 02/08/23 12:42 sulfamethoxazole Allergy Unknown Verified 02/08/23 12:42 [SULFAMETHOXAZOLE] trimethoprim [TRIMETHOPRIM] Allergy Unknown Verified 02/08/23 12:42 loratadine [From Claritin] Allergy Verified 02/08/23 12:42 Exam Data for Last 24 hours Vital signs and Labs for Last 24 Hours: Temp Pulse Resp BP Pulse Ox O2 Del Method 98.7 F 122 H 16 120/75 94 L Room Air 11/22/23 20:30 11/22/23 20:30 11/22/23 20:30 11/22/23 20:30 11/22/23 20:15 11/22/23 20:30 Laboratory Results - last 24 hr 11/22/23 17:44: WBC 12.3 H, RBC 4.08 L, Hgb 12.3, Hct 39.8, MCV 97.7, MCH 30.1, MCHC 30.8 L, RDW 14.9, Plt Count 386, MPV 7.5, Neut % (Auto) 62.6, Lymph % (Auto) 27.3, [place] % (Auto) 7.2, Eos % (Auto) 2.1, Baso % (Auto) 0.9, Neut # (Auto) 7.7, Lymph # (Auto) 3.4, [place] # (Auto) 0.9, Eos # (Auto) 0.3, Baso # (Auto) 0.1, D-Dimer 1.08 H, Sodium 141, Potassium 3.6, Chloride 104, Carbon Dioxide 28, Anion Gap 12.6, BUN 11, Creatinine 0.70, Estimated Creat Clear 62, Estimated GFR 83, Est GFR ( Amer) 100, Glucose 121 H, Calcium 9.4, Total Bilirubin 0.4, AST 68 H, ALT 81 H, Alkaline Phosphatase 149 H, Troponin I < 0.01, Total Protein 7.4, Albumin 4.4, Globulin 3.0, Albumin/Globulin Ratio 1.5, Digoxin 0.80 11/22/23 18:07: SARS-CoV-2 (PCR) Not detected, Influenza A Untype (PCR) Not detected, Influenza Type B (PCR) Not detected 11/22/23 20:20: Troponin I < 0.01 I & O for Last 24 hours: Intake & Output 11/19/23 11/20/23 11/21/23 11/22/23 23:59 23:59 23:59 23:59 Weight 74.843 kg Constitutional Constitutional: no acute distress *Routine HEENT Exam Head: Present normocephalic Eye: Present EOMI ENT: Present mucous membranes moist *Routine Neck Exam Neck: Present full ROM *Routine Respiratory Exam Respiratory: Present CTA bilaterally *Routine Cardiovascular Exam Cardiovascular: Present irregular rhythm *Routine Abdominal Exam Abdominal: Present soft and normoactive bowel sounds; Absent tenderness *Routine Rectal Exam Rectal:: deferred *Routine Genitalia Exam Genitalia:: deferred *Routine Extremities Exam Extremities: Present edema (right greater than left) *Routine Skin Exam Skin: Present intact *Routine Neurological Exam Neurological: Present alert and oriented X3 Assessment and Plan *Assessment and plan (1) Atrial flutter with rapid ventricular response: Status: Acute Category: Medical Code(s): I48.92 - Unspecified atrial flutter (2) Chest pain: Status: Acute Category: Medical Code(s): R07.9 - Chest pain, unspecified (3) A-fib: Status: Acute Category: Medical Code(s): I48.91 - Unspecified atrial fibrillation (4) Hypothyroid: Status: Acute Category: Medical Code(s): E03.9 - Hypothyroidism, unspecified Plan 68 year old female presented to [facility] ED for c/o CP and palpations. Pt states the onset was earlier this morning. PMHX of back surgery in September at [facility] in [place]. Pt states after surgery, she was in the ICU due to developing a fib with RVR for a week. She was then sent to [facility] due to having right leg weakness from the surgery. She has been seeing the cardiology clinic in [place] for her A fib. She takes eliquis, aspirin, digoxin, and metoprolol tartrate daily. Her ED work up revealed a leukocytosis of 12.3, elevated d- dimer, elevated ast and alt, and normal troponins. Her chest CTA reveals no cardiomegaly, no pericardial effusion, PE or pleural effusion. The pt was given 2 5mg IV pushes of metoprolol tartrate and 50 mg of metoprolol tartrate in the ED to reduce the rapid ventricular rate. The pt had atrial flutter with a rate of 160 upon arrival to the ED. Prior to admission her rate was reduced. Upon admission to the medical floor her rate was 160 with a flutter rvr. Dr. Rojo was paged and she was transitioned to step down and placed on a Cardizem gtt with bolus. The pt states she recently had a UTI which she just finished a course of antibiotics for. I will order UA. The pt's right foot is cool to the touch and more swollen than the left. She states that she has been in rehab at [facility] for right leg not being able to ambulate after surgery. I will order a vascular ultrasound and n echo for the morning. She will have a cardiology consult placed. A FLUTTER RVR CP A FIB HYPOTHYROID -takes eliquis, aspirin, digoxin, and metoprolol tartrate daily for a fib -presented in A flutter tonight with rate in 160s, started on Cardizem upon admission -transferred from med surg to step down -continuous cardiac monitoring -continue Cardizem gtt -Cardiology consult, thank you for the help!! -leukocytosis of 12.3. repeat cbc in the morning -UA and blood cultures pending -TSH pending -echo and vascular study pending for the morning -NPO @ midnight for cards consult -CTA of chest reviewed and reveals no cardiomegaly, no pericardial effusion, PE or pleural effusion FULL CODE NPO at midnight DVT: Eliquis
--- NOTE | 2023-11-22 22:41 | PC.NURSE ---
Patient arrived to the floor at 2100 from the ER. Patient heart rate on tele was in the 110-120s. As patient was on the floor patients heart rate spiked to 160s. Patient was complaining of chest pain rating it 5/10. patient blood pressure was 84/57, 97% on RA. EKG was done. It read Aflutter with a heart rate 161 Dr. Rojo was paged at [phone]. He called back at 221. He was updated on the patients condition. He ordered 10mg Dltizem IV push. and to start a diltizem 10mh/hr drip. He also stated to have a phenylephrine drip on stand by if patient map were to drop below 60. to keep MAP above 65. IV medication was pushed and drip was started , see MAR. Then patient was handing off to Shawna GRANT and patient was transferred to ROOM [id number].
[2023-11-22 23:09] LABS: Microscopic, Urine URINE MICROSCOPIC (MICROSCOPIC)
[2023-11-22 23:13] LABS: NT Pro Brain Natriuretic Pep. 282 pg/mL (0-125)
[2023-11-22 23:16] LABS: Appearance,Urine CLEAR (Clear); Bilirubin,Urine Negative (Negative); Blood, Urine 1+ (Negative); Color,Urine YELLOW (Yellow); Glucose,Urine (UA) Negative (Negative); Ketones,Urine Negative (Negative); Leukocyte Esterase,Urine Negative (Negative); Nitrate,Urine Negative (Negative); PH,Urine 6.5 (5.0-8.5); Protein,Urine Negative (Negative); Specific Gravity, Urine <= 1.005 (1.005-1.030); Urobilinogen,Urine 0.2 EU/dl (0.2)
[2023-11-22 23:31] LABS: Squamous Epithelial Cell,Urine Occasional #/hpf (0-5)
[2023-11-23] VITALS (20 sets, daily range): BP systolic 80–122; BP diastolic 49–77; PULSE 85–139; RESP 16–26; TEMP 36.4–37.1; O2SAT 77–97; BMI 31.8
[2023-11-23 00:05] LABS: Thyroid Stimulating Hormone 0.95 uIU/mL (0.465-4.68)
[2023-11-23 01:07] LABS: Troponin I < 0.01 ng/ml (0.00-0.034)
--- NOTE | 2023-11-23 01:20 | ECG_ITS ---
APPROVED REPORT Exam: Resting ECG HR:118 bpm ECG Measurements Heart Rate 118 AXES QRSd 86 QRS 3 QT 347 T 27 QTc 417 Conclusion ATRIAL FIBRILLATION WITH RAPID VENTRICULAR RESPONSE NONSPECIFIC T-WAVE ABNORMALITY ABNORMAL RHYTHM ECG UNCONFIRMED REPORT Electronically signed by : Dilshad Steele MD 11/23/2023 17:55:39
--- NOTE | 2023-11-23 01:30 | ECG_ITS ---
APPROVED REPORT Exam: Resting ECG HR:162 bpm ECG Measurements Heart Rate 162 AXES QRSd 74 QRS 19 QT 146 T 120 QTc 236 Conclusion ATRIAL FLUTTER/TACHYCARDIA WITH RAPID VENTRICULAR RESPONSE NONSPECIFIC ST & T-WAVE ABNORMALITY CRITICAL TEST RESULT UNCONFIRMED REPORT Electronically signed by : Dilshad Steele MD 11/23/2023 17:55:43
[2023-11-23] MEDS: AMIODARONE HCL 150 MG in DEXTROSE 5 % IN WATER 100 ML 618 MG IV (01:40)
[2023-11-23] MEDS: AMIODARONE HCL 900 MG in DEXTROSE 5 % IN WATER 500 ML 34.5300000000000011 MG IV (01:54)
[2023-11-23] MEDS: dilTIAZem HCL 100 MG in 0.9 % SODIUM CHLORIDE 100 ML 15 MG IV (03:25)
[2023-11-23 06:11] LABS: Basophils # 0.1 K/mm3 (0-0.2); Basophils % 0.5 % (0.1-2.0); Eosinophils # 0.1 K/mm3 (0.0-0.4); Eosinophils % 1.4 % (0.1-12.0); Hematocrit 34.4 % (37.0-47.0); Hemoglobin 11.1 g/dL (12.2-16.2); Lymphocytes # 2.4 K/mm3 (0.7-4.5); Lymphocytes % 22.8 % (10-50); Mean Corpuscular HGB Conc 32.2 g/dL (31.8-35.4); Mean Corpuscular Hemoglobin 31.2 pg (27.0-31.2); Mean Platelet Volume 7.8 fl (7.4-10.4); Monocytes # 1.1 K/mm3 (0.1-1.0); Monocytes % 10.3 % (1.7-9.3); Neutrophils # 6.7 K/mm3 (1.8-7.8); Platelet Count 353 K/mm3 (142-424); Red Blood Count 3.55 M/mm3 (4.20-5.40); Red Cell Distribution Width 14.9 % (11.5-17.5); White Blood Count 10.4 K/mm3 (4.8-10.8)
[2023-11-23 06:23] LABS: Anion Gap 7.5 mEq/L (5-15); Blood Urea Nitrogen 9 mg/dl (7-17); Calcium 8.6 mg/dl (8.4-10.2); Carbon Dioxide 27 mmol/L (22.0-30.0); Chloride 107 mmol/L (98-107); Creatinine Clearance Estimated 72 mL/min (50-200); Estimated Glomerular Filt Rate 99 ml/min (>60); GFR (African American) 120 ML/MIN (>60); Glucose 115 mg/dl (74-100); Potassium 3.5 mmoL/L (3.5-5.1); Sodium 138 mmol/L (136-145)
--- NOTE | 2023-11-23 08:18 | HMH.PHAINT1 ---
Pharmacy Intervention Comments: MEDICATION RECONCILIATION COMPLETED ON PATIENT USING EXTERNAL FILL HISTORY FROM PHARMACY. -MARIA ALEJANDRA FOURNIER, MELINDAD
[2023-11-23] MEDS: ASPIRIN EC 81MG TABLET 81 MG PO (09:43)
[2023-11-23] MEDS: CYCLOBENZAPRINE 10MG TABLET 10 MG PO (09:43)
[2023-11-23] MEDS: LEVOTHYROXINE 50MCG (0.05MG) TAB 50 MCG PO (09:43)
[2023-11-23] MEDS: FAMOTIDINE 20MG TABLET 20 MG PO ×2 (09:43→20:10)
[2023-11-23] MEDS: dilTIAZem HCL 100 MG in 0.9 % SODIUM CHLORIDE 100 ML 10 MG IV (12:32)
[2023-11-23] MEDS: APIXABAN 5MG TABLET 5 MG PO ×2 (13:44→20:10)
--- NOTE | 2023-11-23 14:12 | P.PN_ITS ---
Subjective *Date: 11/23/23 *Time: 14:16 Interval history: patient is seen at bedside, lying in bed comfortably, denied CP, SOB, mentions she had palpitations last night, no complains of fevers, chills, she recently had spine surgery at [facility] Exam Data for Last 24 hours Vital signs and Labs for Last 24 Hours: Temp Pulse Resp BP Pulse Ox O2 Del Method O2 Flow Rate 98.0 F 85 16 105/58 L 96 Nasal Cannula 2 11/23/23 13:55 11/23/23 14:00 11/23/23 14:00 11/23/23 14:00 11/23/23 14:00 11/23/23 14:00 11/23/23 14:00 Laboratory Results - last 24 hr 11/22/23 17:44: WBC 12.3 H, RBC 4.08 L, Hgb 12.3, Hct 39.8, MCV 97.7, MCH 30.1, MCHC 30.8 L, RDW 14.9, Plt Count 386, MPV 7.5, Neut % (Auto) 62.6, Lymph % (Auto) 27.3, [place] % (Auto) 7.2, Eos % (Auto) 2.1, Baso % (Auto) 0.9, Neut # (Auto) 7.7, Lymph # (Auto) 3.4, [place] # (Auto) 0.9, Eos # (Auto) 0.3, Baso # (Auto) 0.1, D-Dimer 1.08 H, Sodium 141, Potassium 3.6, Chloride 104, Carbon Dioxide 28, Anion Gap 12.6, BUN 11, Creatinine 0.70, Estimated Creat Clear 62, Estimated GFR 83, Est GFR ( Amer) 100, Glucose 121 H, Calcium 9.4, Total Bilirubin 0.4, AST 68 H, ALT 81 H, Alkaline Phosphatase 149 H, Troponin I < 0.01, Total Protein 7.4, Albumin 4.4, Globulin 3.0, Albumin/Globulin Ratio 1.5, TSH 0.95, Digoxin 0.80 11/22/23 18:07: SARS-CoV-2 (PCR) Not detected, Influenza A Untype (PCR) Not detected, Influenza Type B (PCR) Not detected 11/22/23 18:44: Urine Color Yellow, Urine Appearance Clear, Urine pH 6.5, Ur Specific [place] <= 1.005, Urine Protein Negative, Urine Glucose (UA) Negative, Urine Ketones Negative, Urine Blood 1+, Urine Nitrate Negative, Urine Bilirubin Negative, Urine Urobilinogen 0.2, Ur Leukocyte Esterase Negative, Urine RBC 3-5, Urine WBC None, Ur Squamous Epith Cells Occasional, Urine Bacteria None 11/22/23 20:20: Troponin I < 0.01, NT-Pro-B Natriuret Pep 282 H 11/23/23 00:12: Magnesium 2.0, Troponin I < 0.01 11/23/23 05:12: WBC 10.4, RBC 3.55 L, Hgb 11.1 L, Hct 34.4 L, MCV 97.0, MCH 31.2, MCHC 32.2, RDW 14.9, Plt Count 353, MPV 7.8, Neut % (Auto) 65.0, Lymph % (Auto) 22.8, [place] % (Auto) 10.3 H, Eos % (Auto) 1.4, Baso % (Auto) 0.5, Neut # (Auto) 6.7, Lymph # (Auto) 2.4, [place] # (Auto) 1.1 H, Eos # (Auto) 0.1, Baso # (Auto) 0.1, Sodium 138, Potassium 3.5, Chloride 107, Carbon Dioxide 27, Anion Gap 7.5, BUN 9, Creatinine 0.60, Estimated Creat Clear 72, Estimated GFR 99, Est GFR ( Amer) 120, Glucose 115 H, Calcium 8.6 I & O for Last 24 hours: Intake & Output 11/20/23 11/21/23 11/22/23 11/23/23 23:59 23:59 23:59 23:59 Intake Total 743.097 / 743.097 Output Total 350 / 350 Balance 393.097 / 393.097 Weight 74.843 kg 86.727 kg Constitutional Constitutional: no acute distress *Routine HEENT Exam Head: Present normocephalic Eye: Present EOMI and PERRL ENT: Present mucous membranes moist *Routine Neck Exam Neck: Present supple; Absent lymphadenopathy *Routine Respiratory Exam Respiratory: Present CTA bilaterally *Routine Cardiovascular Exam Cardiovascular: Present tachycardia and irregular rhythm *Routine Abdominal Exam Abdominal: Present soft and normoactive bowel sounds; Absent tenderness *Routine Extremities Exam Extremities: Absent cyanosis, clubbing or edema *Routine Skin Exam Skin: Present warm; Absent rash *Routine Neurological Exam Neurological: Present alert and oriented X3 Assessment and Plan *Assessment and plan (1) Atrial flutter with rapid ventricular response: Status: Acute Category: Medical Code(s): I48.92 - Unspecified atrial flutter (2) Chest pain: Status: Acute Category: Medical Code(s): R07.9 - Chest pain, unspecified (3) A-fib: Status: Acute Category: Medical Code(s): I48.91 - Unspecified atrial fibrillation (4) Hypothyroid: Status: Acute Category: Medical Code(s): E03.9 - Hypothyroidism, unspecified Plan 68 year old female presented to [facility] ED for c/o CP and palpations. Pt states the onset was earlier this morning. PMHX of back surgery in September at [facility] in [place]. Pt states after surgery, she was in the ICU due to developing a fib with RVR for a week. She was then sent to [facility] due to having right leg weakness from the surgery. She has been seeing the cardiology clinic in [place] for her A fib. She takes eliquis, aspirin, digoxin, and metoprolol tartrate daily. Atrial FLUTTER/Fibrillation RVR Chest pain HYPOTHYROID plan for echocardiogram check TSH f/u with cardiology continue eliquis, aspirin, digoxin, and metoprolol -continue Cardizem gtt -CTA of chest reviewed and reveals no cardiomegaly, no pericardial effusion, PE or pleural effusion leucocytosis - monitor flu and COVID 19 negative cardiac diet FULL CODE DVT: Eliquis
--- NOTE | 2023-11-23 14:37 | ECG_ITS ---
APPROVED REPORT Exam: Resting ECG HR:90 bpm ECG Measurements Heart Rate 90 AXES FL 147 P 28 QRSd 82 QRS 13 QT 354 T 30 QTc 402 Conclusion SINUS RHYTHM WITH SINUS ARRHYTHMIA NONSPECIFIC ST & T-WAVE ABNORMALITY BORDERLINE ECG UNCONFIRMED REPORT Electronically signed by : Dilshad Steele MD 11/23/2023 17:52:39
[2023-11-23] MEDS: dilTIAZem ER 120MG CAPSULE 120 MG PO (15:15)
[2023-11-23] MEDS: AMIODARONE 200MG TABLET 400 MG PO ×2 (15:15→20:11)
--- NOTE | 2023-11-23 17:25 | P.CONCA_ITS ---
History of Present Illness History of Present Illness Consult date: 11/23/23 Requesting physician: Khloe Sanchez Consult reason: chest pain Chief complaint: chest pain History of present illness: This is a 68-year-old female presented to the emergency department complaints of chest pain and palpitations. The patient states that she had sudden onset of chest pain while she was at [employer] on Thursday. She states that this was an aching sensation across her chest that radiated up into her neck into her head. The patient states that she had never really had symptoms like this before and it was concerning so she came to the emergency department. She was found to be in atrial fibrillation with RVR. Her heart rates were in the 160s. The patient states that she was admitted at [facility] in [place] following back surgery and developed atrial fibrillation with RVR at that time. She was started on metoprolol digoxin and Eliquis for the atrial fibrillation with RVR. She saw cardiology on Thursday and was told everything was stable. She had the chest pain on Thursday and was found to be in atrial fibrillation with RVR. She was initially started on a diltiazem drip and through the night she was still tachycardic and started on an amiodarone drip in addition to the Cardizem drip. She is trying to convert as she is having some sinus beats and then will go back into atrial fibrillation at this time. Today she denies any chest pain or pressure. She denies any shortness of breath or edema. She denies any fever, chills, nausea, vomiting, diarrhea, PND or orthopnea. [facility] Disclaimer: The information contained in this section may have been updated after the patient was seen, as this information can be updated by other users. Medical History (Updated 11/23/23 @ 17:28 by Marita Stubbs APRN) A-fib Hyperlipidemia Hypertension Social History (Updated 11/23/23 @ 03:43 by Shawna Taveras RN) Smoking Status: Never smoker second hand exposure: No alcohol intake: never substance use type: denies use current occupational status: retired and other Travel in the last 8 weeks: None household members: spouse housing: other current occupational exposures/hazards: No caffeine: Yes Review of Systems Review of Systems Review of systems:: pertinent systems reviewed and negative unless documented below Constitutional Constitutional: Reports system reviewed and no additional complaints, except as documented Eyes Eyes: Reports system reviewed and no additional complaints, except as documented ENT Ears, Nose, Mouth, and Throat: Reports system reviewed and no additional complaints, except as documented *Cardiovascular Cardiovascular: Reports system reviewed and no additional complaints, except as documented, Reports chest pain, Reports chest pain at rest, Reports chest pain with activity, Reports dyspnea, Reports dyspnea on exertion, Reports palpitations and Reports rapid heart rate *Respiratory Respiratory: Reports system reviewed and no additional complaints, except as documented, Reports dyspnea and Reports dyspnea on exertion *Gastrointestinal Gastrointestinal: Reports system reviewed and no additional complaints, except as documented *Musculoskeletal Musculoskeletal: Reports system reviewed and no additional complaints, except as documented Integumentary/Breasts Skin/Breast: Reports system reviewed and no additional complaints, except as documented *Neurologic Neurologic: Reports system reviewed and no additional complaints, except as documented Psychiatric Psychiatric: Reports system reviewed and no additional complaints, except as documented Endocrine Endocrine: Reports system reviewed and no additional complaints, except as documented and Reports palpitations Hematologic/Lymphatic Hematologic/Lymphatic: Reports system reviewed and no additional complaints, e xcept as documented Allergic/Immunologic Allergic/Immunologic: Reports system reviewed and no additional complaints, except as documented Exam Data for Last 24 hours Vital signs and Labs for Last 24 Hours: Temp Pulse Resp BP Pulse Ox O2 Del Method O2 Flow Rate 97.6 F 87 17 92/52 L 97 Nasal Cannula 2 11/23/23 15:59 11/23/23 16:00 11/23/23 16:00 11/23/23 16:00 11/23/23 16:00 11/23/23 16:52 11/23/23 16:52 Laboratory Results - last 24 hr 11/22/23 17:44: WBC 12.3 H, RBC 4.08 L, Hgb 12.3, Hct 39.8, MCV 97.7, MCH 30.1, MCHC 30.8 L, RDW 14.9, Plt Count 386, MPV 7.5, Neut % (Auto) 62.6, Lymph % (Auto) 27.3, Shoshone % (Auto) 7.2, Eos % (Auto) 2.1, Baso % (Auto) 0.9, Neut # (Auto) 7.7, Lymph # (Auto) 3.4, Shoshone # (Auto) 0.9, Eos # (Auto) 0.3, Baso # (Auto) 0.1, D-Dimer 1.08 H, Sodium 141, Potassium 3.6, Chloride 104, Carbon Dioxide 28, Anion Gap 12.6, BUN 11, Creatinine 0.70, Estimated Creat Clear 62, Estimated GFR 83, Est GFR ( Amer) 100, Glucose 121 H, Calcium 9.4, Total Bilirubin 0.4, AST 68 H, ALT 81 H, Alkaline Phosphatase 149 H, Troponin I < 0.01, Total Protein 7.4, Albumin 4.4, Globulin 3.0, Albumin/Globulin Ratio 1.5, TSH 0.95, Digoxin 0.80 11/22/23 18:07: SARS-CoV-2 (PCR) Not detected, Influenza A Untype (PCR) Not detected, Influenza Type B (PCR) Not detected 11/22/23 18:44: Urine Color Yellow, Urine Appearance Clear, Urine pH 6.5, Ur Specific [place] <= 1.005, Urine Protein Negative, Urine Glucose (UA) Negative, Urine Ketones Negative, Urine Blood 1+, Urine Nitrate Negative, Urine Bilirubin Negative, Urine Urobilinogen 0.2, Ur Leukocyte Esterase Negative, Urine RBC 3-5, Urine WBC None, Ur Squamous Epith Cells Occasional, Urine Bacteria None 11/22/23 20:20: Troponin I < 0.01, NT-Pro-B Natriuret Pep 282 H 11/23/23 00:12: Magnesium 2.0, Troponin I < 0.01 11/23/23 05:12: WBC 10.4, RBC 3.55 L, Hgb 11.1 L, Hct 34.4 L, MCV 97.0, MCH 31.2, MCHC 32.2, RDW 14.9, Plt Count 353, MPV 7.8, Neut % (Auto) 65.0, Lymph % (Auto) 22.8, Shoshone % (Auto) 10.3 H, Eos % (Auto) 1.4, Baso % (Auto) 0.5, Neut # (Auto) 6.7, Lymph # (Auto) 2.4, Shoshone # (Auto) 1.1 H, Eos # (Auto) 0.1, Baso # (Auto) 0.1, Sodium 138, Potassium 3.5, Chloride 107, Carbon Dioxide 27, Anion Gap 7.5, BUN 9, Creatinine 0.60, Estimated Creat Clear 72, Estimated GFR 99, Est GFR ( Amer) 120, Glucose 115 H, Calcium 8.6 I & O for Last 24 hours: Intake & Output 11/20/23 11/21/23 11/22/23 11/23/23 23:59 23:59 23:59 23:59 Intake Total 1195.665 / 1195.665 Output Total 350 / 350 Balance 845.665 / 845.665 Weight 165 lb 191 lb 3.2 oz Constitutional Constitutional: no acute distress and average body habitus *Routine HEENT Exam Head: Present normocephalic and atraumatic ENT: Present mucous membranes moist *Routine Neck Exam Neck: Present supple, full ROM and normal carotid upstroke; Absent JVD, carotid bruit or lymphadenopathy *Routine Respiratory Exam Respiratory: Present CTA bilaterally, normal respiratory effort, able to speak in complete sentences and symmetric chest movement *Routine Cardiovascular Exam Cardiovascular: Present Normal S1, Normal S2, tachycardia and irregularly irregular; Absent murmur or gallop *Routine Abdominal Exam Abdominal: Present soft and normoactive bowel sounds; Absent tenderness, distended or organomegaly *Routine Extremities Exam Extremities: Present full ROM, pulses intact and normal capillary refill; Absent cyanosis, clubbing or edema *Routine Skin Exam Skin: Present intact and warm; Absent erythema *Routine Neurological Exam Neurological: Present alert, oriented X3 and CN II-XII intact; Absent sensory deficit or motor deficit Routine Psychiatric Exam Psychiatric: Present normal affect Meds Home Medications and Allergies Home Medications Medication Instructions Recorded Confirmed Type levocetirizine 5 mg tablet (Xyzal) 5 mg PO DAILY Allergy Symptoms 03/31/18 11/22/23 History jaewthum-syd-dgmbi acid 0.4 1 each PO DAILY Supplement 08/30/19 11/22/23 History mg-lycopene 300 mcg-lutein 250 mcg tablet apixaban 5 mg tablet (Eliquis) 5 mg PO BID Blood Thinner/Afib 11/22/23 11/22/23 History cyclobenzaprine 10 mg tablet 10 mg PO TIDP Muscle Spasm 11/22/23 11/23/23 History digoxin 250 mcg (0.25 mg) tablet 0.25 mg PO DAILY Heart Rate 11/22/23 11/23/23 History famotidine 20 mg tablet 20 mg PO BID Acid Reflux 11/22/23 11/22/23 History metoprolol tartrate 25 mg tablet 12.5 mg PO BID High Blood Pressure 11/22/23 11/22/23 History amlodipine 2.5 mg tablet 2.5 mg PO DAILY High Blood Pressure 11/23/23 11/23/23 History aspirin 81 mg tablet,delayed 81 mg PO DAILY Heart Health 11/23/23 11/23/23 History release pravastatin 20 mg tablet 20 mg PO DAILY Cholesterol 11/23/23 11/23/23 History New Prescriptions to Start Prescriptions: Allergies Allergy/AdvReac Type Severity Reaction Status Date / Time oxycodone Allergy Severe Anaphylaxis Verified 02/08/23 12:42 Penicillins [PENICILLINS] Allergy Unknown Verified 02/08/23 12:42 sulfamethoxazole Allergy Unknown Verified 02/08/23 12:42 [SULFAMETHOXAZOLE] trimethoprim [TRIMETHOPRIM] Allergy Unknown Verified 02/08/23 12:42 loratadine [From Claritin] Allergy Verified 02/08/23 12:42 Assessment and Plan *Assessment and plan (1) A-fib: Status: Acute Qualifiers: Atrial fibrillation type: paroxysmal Qualified Code(s): I48.0 - Paroxysmal atrial fibrillation Category: Medical Code(s): I48.91 - Unspecified atrial fibrillation (2) Hypertension: Status: Acute Qualifiers: Hypertension type: primary hypertension Qualified Code(s): I10 - Essential (primary) hypertension Category: Medical Code(s): I10 - Essential (primary) hypertension (3) Hyperlipidemia: Status: Acute Qualifiers: Hyperlipidemia type: mixed hyperlipidemia Qualified Code(s): E78.2 - Mixed hyperlipidemia Category: Medical Code(s): E78.5 - Hyperlipidemia, unspecified Plan Plan: 1. The patient was admitted to the hospital with atrial fibrillation/flutter with RVR. The patient is trying to convert and she does have episodes of sinus rhythm and then flipped back over into atrial fibrillation. We will continue the amiodarone and diltiazem drip at this time to see if the patient will convert with these medications. 2. The patient can resume Eliquis for long-term anticoagulation. 3. The patient ruled out for an AK. No plans for invasive left cardiac catheterization at this time. However, she would benefit from an outpatient ischemic evaluation in the near future. 4. Will obtain an echocardiogram to evaluate her LV function. 5. Her blood pressure is well-controlled. 6. Her LDL goal is less than 100. She is on a statin. 7. Further recommendations were made pending the patient's response to treatment. Thank you for the opportunity to help participate in the care of this patient. All recommendations and orders are per Dr. skaggs. The patient did convert to sinus rhythm. Will start her on amiodarone 400 mg p.o. 3 times daily. Will start her on diltiazem ER 120 mg p.o. daily. Will stop her amiodarone and diltiazem drips 1 hour after the oral doses are given. Continue Eliquis for long-term anticoagulation.
[2023-11-23] MEDS: POLYETHYLENE GLYCOL 3350 17 GM PACKET PO (17:55)
--- NOTE | 2023-11-23 18:18 | ECG_ITS ---
APPROVED REPORT Exam: Resting ECG HR:100 bpm ECG Measurements Heart Rate 100 AXES QRSd 96 QRS 19 QT 328 T 2 QTc 385 Conclusion ATRIAL FIBRILLATION WITH RAPID VENTRICULAR RESPONSE NONSPECIFIC ST & T-WAVE ABNORMALITY ABNORMAL RHYTHM ECG UNCONFIRMED REPORT Electronically signed by : Dilshad Steele MD 11/24/2023 20:13:53
--- NOTE | 2023-11-23 23:10 | CA_ITS ---
APPROVED REPORT EXAM: Comprehensive 2D, Doppler, and color-flow Echocardiogram Mba Intern: Cassidy Roche CRT Ht: 5 ft 5 in Wt: 165lbs BSA: 1.82 BP: 115/75 mmHg Indications: Chest Pain, Atrial Fibrillation, Hyperlipidemia, Hypertension/HDD, back surgery on 09/2023, new onset a fib post op 2D Dimensions LA Volume 40.30 mL LA Volume Index 21.60 mL/m2 (M/F) 16-34 M-Mode Dimensions RVDd 2.04 cm (0.9-2.6) LA Diam 4.40 cm (1.9-4.0) LVDd 4.22 cm (3.5-5.7) LVDs 2.81 cm (3.5-5.7) IVSd 1.98 cm (0.6-1.1) PWd 0.80 cm (0.6-1.1) EF (Teich) 62.50% FS 33.40% EDV (Teich) 79.50 mL TAPSE 1.43 (<1.7) ESV (Teich) 29.80 mL LV Diastology E Decel Time 230 (160-240 msec) E/A Ratio 0.63 MED A' 14.50 cm/s LAT A' 13.70 cm/s Aortic Valve AO Peak GR. 14.20 mmHg Mitral Valve MV E Max Sher. 76.0 (40-130 cm/s) MV A Velocity 120.0 (40-130 cm/s) E/A Ratio 0.63 MV PHT 67.0 ms Pulmonary Valve PV Peak Velocity 113.0 (50-150 cm/s) Tricuspid Valve TR P. Velocity 274.00 cm/s RAP Estimate 10.00 mmHg RVSP 40.00 mmHg Left Ventricle The left ventricle is normal size. The left ventricular systolic function is normal. The left ventricular ejection fraction is within the normal range. There is increased LV wall thickness. There is normal LV segmental wall motion. Diastolic dysfunction is indeterminate due to atrial fibrillation. LVEF is 60%. Right Ventricle The right ventricle is normal size. The right ventricular systolic function is normal. Atria Left atrium is mildly dilated. The right atrium size is normal. There is no Doppler evidence of interatrial shunt. Aortic Valve The aortic valve is mildly thickened. There is aortic valve sclerosis, but with no evidence of stenosis. Trace aortic regurgitation. Mitral Valve The mitral valve leaflets are mildly thickened. No evidence of mitral valve stenosis. Mild mitral regurgitation. Tricuspid Valve The tricuspid valve leaflets are thin and pliable. Mild tricuspid regurgitation. RVSP is 20 mmHg + RA pressure. Pulmonic Valve The pulmonary valve is normal in structure. Trace pulmonic regurgitation. Great Vessels The aortic root is normal in size. The ascending aorta is normal in size. The IVC is not well visualized. Pericardium There is no pericardial effusion. Other Information Study Quality: Technically Difficult Conclusion Technically difficult study due to poor accoustic windows. Normal biventricular systolic function. Mild LA dilation. Mild MR. Mild TR. Electronically signed by : Mehnaz Murcia MD 11/24/2023 19:18:07
--- NOTE | 2023-11-23 23:10 | CA_ITS ---
FINAL REPORT TECHNIQUE: Multiple transverse and longitudinal images were performed of the right femoral-popliteal deep venous system with augmentation and compression maneuvers. CLINICAL HISTORY: r leg swelling and numbness since back surgery in September COMPARISON: None FINDINGS: Right lower extremity duplex ultrasound demonstrates normal flow in the deep venous system. There is no abnormal echogenicity to suggest thrombus. There is normal compression and augmentation. IMPRESSION: No evidence of right DVT. Reviewed, Interpreted and Dictated by Lionel Leon III, MD Transcribed by Laurence Iqbal Authenticated and [facility]
--- NOTE | 2023-11-23 23:54 | PC.NURSE ---
Her O2 decreased to 77%RA while asleep. Placed on 2LPM n/c.
[2023-11-24] VITALS (12 sets, daily range): BP systolic 96–134; BP diastolic 66–70; PULSE 69–145; RESP 16–20; TEMP 36.8–37.1; O2SAT 92–96; BMI 31.8
[2023-11-24] MEDS: dilTIAZem 60MG TABLET 60 MG PO (04:08)
--- NOTE | 2023-11-24 04:53 | PC.NURSE ---
Patient has slept intermittently throughout shift. Patient voiced no c/o of pain or SOA thus far in shift. Patient's HR ranges from 81-100. Around 04:00 patient's HR maintained 140-145, gave PRN dose of Cardizem. Patient's HR has maintained below 100 after administration. While HR was rising patient remained asymptomatic. Patient remains A/O x3. remains at bedside throughout night. Patient was placed on 2L O2 around 23:54 with sats 94%.
[2023-11-24] MEDS: LEVOTHYROXINE 50MCG (0.05MG) TAB 50 MCG PO (07:03)
[2023-11-24] MEDS: dilTIAZem ER 120MG CAPSULE 120 MG PO ×2 (08:24→09:16)
[2023-11-24] MEDS: ASPIRIN EC 81MG TABLET 81 MG PO (08:24)
[2023-11-24] MEDS: AMIODARONE 200MG TABLET 400 MG PO ×3 (08:24→20:42)
[2023-11-24] MEDS: APIXABAN 5MG TABLET 5 MG PO ×2 (08:25→20:43)
[2023-11-24] MEDS: FAMOTIDINE 20MG TABLET 20 MG PO ×2 (08:25→20:43)
[2023-11-24 09:23] LABS: Basophils # 0.1 K/mm3 (0-0.2); Eosinophils # 0.4 K/mm3 (0.0-0.4); Eosinophils % 5.1 % (0.1-12.0); Hematocrit 36.3 % (37.0-47.0); Hemoglobin 11.5 g/dL (12.2-16.2); Lymphocytes # 2.1 K/mm3 (0.7-4.5); Lymphocytes % 30.2 % (10-50); Mean Corpuscular HGB Conc 31.8 g/dL (31.8-35.4); Mean Corpuscular Hemoglobin 31.5 pg (27.0-31.2); Mean Platelet Volume 8.6 fl (7.4-10.4); Monocytes # 0.6 K/mm3 (0.1-1.0); Monocytes % 8.8 % (1.7-9.3); Neutrophils # 3.9 K/mm3 (1.8-7.8); Platelet Count 364 K/mm3 (142-424); Red Blood Count 3.67 M/mm3 (4.20-5.40)
[2023-11-24 09:33] LABS: Alanine Aminotransferase 64 U/L (12-78); Albumin Level 3.6 g/dl (3.5-5.0); Albumin/Globulin Ratio 1.3 (1.1-1.8); Alkaline Phosphatase 113 U/L (38-126); Anion Gap 9.7 mEq/L (5-15); Aspartate Amino Transferase 52 U/L (14-36); Bilirubin,Total 0.3 mg/dl (0.2-1.3); Blood Urea Nitrogen 8 mg/dl (7-17); Calcium 8.7 mg/dl (8.4-10.2); Carbon Dioxide 28 mmol/L (22.0-30.0); Chloride 106 mmol/L (98-107); Creatinine Clearance Estimated 72 mL/min (50-200); Estimated Glomerular Filt Rate 99 ml/min (>60); GFR (African American) 120 ML/MIN (>60); Globulin 2.8 g/dL (1.3-3.2); Glucose 125 mg/dl (74-100); Magnesium 2.1 mg/dl (1.6-2.3); Potassium 3.7 mmoL/L (3.5-5.1); Sodium 140 mmol/L (136-145); Total Protein,Serum 6.4 g/dl (6.3-8.2)
[2023-11-24] MEDS: SENNOSIDES 8.6MG/DOCUSATE 50MG TABLET 1 TAB PO (11:34)
[2023-11-24] MEDS: POLYETHYLENE GLYCOL 3350 17 GM PACKET PO ×3 (11:34→21:44)
[2023-11-24] MEDS: METOPROLOL TARTRATE 25MG TABLET 12.5 MG PO (11:34)
[2023-11-24] MEDS: METOPROLOL TARTRATE 50MG TABLET 37.5 MG PO (13:08)
--- NOTE | 2023-11-24 13:49 | HMH.PTEV ---
Physical Therapy Evaluation Rehab PT IP Evaluation Start: 11/24/23 10:43 Freq: ONCE Status: Active Protocol: Document 11/24/23 13:45 [facility]SCAR (Rec: 11/24/23 13:49 [facility] [id number]) Subjective/History History History Per H&P: 68 year old female presented to [facility] ED for c/o CP and palpations. Pt states the onset was earlier this morning . PMHX of back surgery in September at [facility] in [place]. Pt states after surgery, she was in the ICU due to developing a fib with RVR for a week. She was then sent to [facility] due to having right leg weakness from the surgery. She has been seeing the cardiology clinic in [place] for her A fib... Subjective Subjective PLOF per pt report: IND with ADLs and functional mobility using RW. [address] 2-story home. New diagnosis of cancer in past 12 No months? Rehab PT IP Eval Objective Appearance Patient Behavior Appropriate,Cooperative Patient Orientation Person,Place,Situation Difficulty following instructions none Speech Pattern Clear Ambulation Patient Able to Ambulate Yes Ambulation Observation IP General Gait Pattern Observation Wide Based Gait Ambulation Distance (feet) 30 Ambulation Assistive Device Rolling Walker Ambulation Ability Supervision/Stand by,Contact Guard/Hand Hold Balance Ability to Arise Able, uses arms to help Sitting Balance Steady, safe Standing Balance Steady, wide stance Transfers Bed Transfer Ability Supervision/Stand by Sit to Stand Bed Transfer Ability Supervision/Stand by Rehab PT IP prob,goals,plan Problems Date of Evaluation: 11/24/23 Rehab Potential Rehab Potential Innapropriate for Skilled Therapy Discharge Plan PT Discharge Plan Pt safe to d/c home when deemed medically necessary d/t current level of mobility, home set-up, and family support. Pt not appropriate for skilled acute care PT at this time d/t pt?s mobility being at baseline. Recommending pt continue OP PT services to address strength deficits. Eval Complexity Eval Charge Codes 03414 - Moderate Complexity PHYSICIAN CERTIFICATION: I certify the specified therapy services for Shonda Stiles are required, authorized, and reviewed every 30 days.
--- NOTE | 2023-11-24 13:52 | HMH.OTEV ---
OT Inpatient Evaluation Rehab OT IP Evaluation Start: 11/24/23 10:43 Freq: ONCE Status: Active Protocol: Document 11/24/23 13:48 [facility] (Rec: 11/24/23 13:52 [facility] [id number]) Rehab OT IP Assessment Subjective History Pt oriented x 3 on arrival. Pt agreeable to engage in therapy session. Pt admitted on 11/22/23 due to A-fib. History and Physical report: 68 year old female presented to [facility] ED for c/o CP and palpations. Pt states the onset was earlier this morning . PMHX of back surgery in September at [facility] in [place]. Pt states after surgery, she was in the ICU due to developing a fib with RVR for a week. She was then sent to [facility] due to having right leg weakness from the surgery. She has been seeing the cardiology clinic in [place] for her A fib. She takes eliquis, aspirin, digoxin, and metoprolol tartrate daily. Her ED work up revealed a leukocytosis of 12 .3, elevated d-dimer, elevated ast and alt, and normal troponins. Her chest xray reveals no cardiomegaly, no pericardial effusion, PE or pleural effusion. The pt was given 2 5mg IV pushes of metoprolol tartrate and 50 mg of metoprolol tartrate in the ED to reduce the rapid ventricular rate. The pt had atrial flutter with a rate of 160 upon arrival to the ED. Prior to admission her rate was reduced. Upon admission to the medical floor her rate was [address] flutter rvr. [address] Kenya Rojo was paged and she was transitioned to step down and placed on a Cardizem gtt with bolus. The pt states she recently had a UTI which she just finished a course of antibiotics for. I will order UA. The pt's right foot is cool to the touch and more swollen than the left. She states that she has been in rehab at [facility] for right leg not being able to ambulate after surgery. I will order a vascular ultrasound and n echo for the morning. She will have a cardiology consult placed. Subjective I have been doing a lot better. Pt reports she has been home from [facility] now for ~2 weeks. Pt claims to be independent with all ADLs. has been assisting with IADLS. She uses a rolling walker during functional mobility task. Normally she is very independent. Objective Patient Orientation Person,Place,Birthday Right Upper Extremity Gross ROM WFL Left Upper Extremity Gross ROM WFL Bed Mobility bed mobility-scooting,bed mobility - supine/sit Assist Level Supervision/Stand by Transfer Training Sit/Stand Transfer Assist Level Supervision/Stand by Chair Transfer Ability Supervision/Stand by Chair Transfer Technique Sit to/from Ambulatory Chair Transfer Assistive Devices Rolling Walker Performing Toilet Hygiene Ability Standby Assistance Overall Commode/Toilet Transfer Ability Standby Assistance Commode/Toilet Transfer Technique Sit to/from Ambulatory Rehab OT IP prob,goals,plan Problems Date of Evaluation: 11/24/23 Rehab Potential Rehab Potential Innapropriate for Skilled Therapy Discharge Plan OT Discharge Plan At this time, pt appears to be at her baseline with functional transfers and ADL independence. Pt can return home with her and continue with Outpatient therapy services once she is medically stable per physician . Eval Complexity Eval Charge Codes 63763 - Low Complexity PHYSICIAN CERTIFICATION: I certify the specified therapy services for Shonda Stiles are required, authorized, and reviewed every 30 days.
--- NOTE | 2023-11-24 14:57 | P.PN_ITS ---
Subjective Subjective Date: 11/24/23 Time: 15:00 Principal diagnosis: afib with RVR Interval history: The patient is feeling much better today. She denies any chest pain or pressure. She denies any shortness of breath or edema. She denies any fever, chills, nausea, vomiting, diarrhea, PND orthopnea. She does complain of some tingling sensations in her feet. She did convert yesterday to sinus rhythm but went back into atrial fibrillation yesterday around 8 PM. Her heart rate has been fluctuating since that time but she has remained in atrial fibrillation. Exam Data for Last 24 hours Vital signs and Labs for Last 24 Hours: Temp Pulse Resp BP Pulse Ox O2 Del Method O2 Flow Rate 98.3 F 93 H 20 116/70 95 Room Air 2 11/24/23 12:00 11/24/23 12:00 11/24/23 12:00 11/24/23 12:00 11/24/23 12:00 11/24/23 13:00 11/24/23 06:57 Laboratory Results - last 24 hr 11/24/23 09:06: WBC 7.0 D, RBC 3.67 L, Hgb 11.5 L, Hct 36.3 L, MCV 99.0, MCH 31.5 H, MCHC 31.8, RDW 15.0, Plt Count 364, MPV 8.6, Neut % (Auto) 55.0, Lymph % (Auto) 30.2, [place] % (Auto) 8.8, Eos % (Auto) 5.1, Baso % (Auto) 1.0, Neut # (Auto) 3.9, Lymph # (Auto) 2.1, [place] # (Auto) 0.6, Eos # (Auto) 0.4, Baso # (Auto) 0.1, Sodium 140, Potassium 3.7, Chloride 106, Carbon Dioxide 28, Anion Gap 9.7, BUN 8, Creatinine 0.60, Estimated Creat Clear 72, Estimated GFR 99, Est GFR ( Amer) 120, Glucose 125 H, Calcium 8.7, Magnesium 2.1, Total Bilirubin 0.3, AST 52 H, ALT 64, Alkaline Phosphatase 113, Total Protein 6.4, Albumin 3.6, Globulin 2.8, Albumin/Globulin Ratio 1.3 I & O for Last 24 hours: Intake & Output 11/21/23 11/22/23 11/23/23 11/24/23 23:59 23:59 23:59 23:59 Intake Total 1465.665 / 1465.665 776 / 776 Output Total 350 / 350 0 / 0 Balance 1115.665 / 1115.665 776 / 776 Weight 165 lb 191 lb 3.2 oz 191 lb Constitutional Constitutional: no acute distress and average body habitus *Routine HEENT Exam Head: Present normocephalic and atraumatic ENT: Present mucous membranes moist *Routine Neck Exam Neck: Present supple, full ROM and normal carotid upstroke; Absent JVD, carotid bruit or lymphadenopathy *Routine Respiratory Exam Respiratory: Present CTA bilaterally, normal respiratory effort, able to speak in complete sentences and symmetric chest movement *Routine Cardiovascular Exam Cardiovascular: Present Normal S1, Normal S2 and irregularly irregular; Absent murmur or gallop *Routine Abdominal Exam Abdominal: Present soft and normoactive bowel sounds; Absent tenderness, distended or organomegaly *Routine Extremities Exam Extremities: Present full ROM, pulses intact and normal capillary refill; Absent cyanosis, clubbing or edema *Routine Skin Exam Skin: Present intact and warm; Absent erythema *Routine Neurological Exam Neurological: Present alert, oriented X3 and CN II-XII intact; Absent sensory deficit or motor deficit Routine Psychiatric Exam Psychiatric: Present normal affect Progress Note: A&P Assessment and plan (1) A-fib: Status: Acute (2) Hypertension: Status: Acute (3) Hyperlipidemia: Status: Acute Assessment and Plan Assessment and Plan for All Diagnoses:: Plan: 1. The patient was admitted to the hospital with atrial fibrillation with RVR. She did convert to sinus rhythm on an amiodarone drip and diltiazem drip yesterday. She was started on oral amiodarone and oral diltiazem after the conversion but did subsequently go back into atrial fibrillation around 8 PM last night. Her dose of diltiazem ER was increased to 240 mg this morning and she remains in atrial fibrillation with a heart rate around 80 bpm. However she is having some intermittent episodes of sinus rhythm so she is trying to convert again. 2. Will restart her on metoprolol but will increase her dose to 50 mg p.o. twice daily. 3. Continue amiodarone at 400 mg 3 times daily. 4. Continue Eliquis for long-term anticoagulation. 5. If the patient does not convert then we may consider AQUILINO and cardioversion tomorrow. 6. She denies any chest pain or pressure. She ruled out for an UT. No plans for invasive left cardiac catheterization at this time. 7. Her blood pressure is well-controlled. 8. Her LDL goal is less than 100. She is on a statin. 9. Further recommendations were made pending the patient's response to treatment. Thank you for the opportunity to help participate in the care of this patient. All recommendations and orders are per Dr. skaggs.
--- NOTE | 2023-11-24 17:34 | PC.NURSE ---
pt telemetry has shown a fib and NSR this shift, converted back to NSR with rates 70-90 around 1245, no complaints of CP or SOA, ambulating to BR with walker and standby assist, remains on room air
--- NOTE | 2023-11-24 19:53 | P.PN_ITS ---
Subjective *Date: 11/24/23 *Time: 22:26 Interval history: Patient feeling better this morning. Denies any chest pain or tachycardia. No sensation of chest pressure or heart racing. On 2 L nasal cannula. Still in A- fib, necessitating as needed dosing every 4 hours due to tachycardia. Medical Exam Vital signs and Labs for Last 24 Hours: Vital Signs Temp Pulse Pulse Pulse Resp BP Pulse Ox 11/24/23 18:48 11/24/23 17:00 11/24/23 16:00 69 11/24/23 15:00 11/24/23 15:46 98.7 F 72 16 96/66 L 94 L 11/24/23 13:00 11/24/23 08:00 11/24/23 11:00 11/24/23 09:00 11/24/23 12:00 98.3 F 93 H 20 116/70 95 11/24/23 12:00 85 11/24/23 08:00 80 11/24/23 07:38 98.7 F 11/24/23 06:57 11/24/23 06:00 80 17 124/70 96 11/24/23 05:00 11/24/23 04:00 78 11/24/23 04:00 145 H 94 L 11/24/23 04:00 98.5 F 140 H 17 122/69 95 11/24/23 04:11 145 H 11/24/23 02:30 90 11/24/23 00:00 95 H 11/24/23 02:58 11/24/23 02:00 127 H 20 121/70 95 11/24/23 00:00 98.3 F 96 H 18 134/70 96 11/23/23 23:53 96 11/23/23 23:50 77 L 11/24/23 01:00 11/23/23 23:00 11/23/23 22:00 86 20 122/66 92 L 11/23/23 21:00 11/23/23 20:00 90 11/23/23 20:00 91 H 94 L 11/23/23 20:00 98.4 F 95 H 18 121/68 94 L O2 Del Method O2 Flow Rate 11/24/23 18:48 Room Air 11/24/23 17:00 Room Air 11/24/23 16:00 11/24/23 15:00 Room Air 11/24/23 15:46 Room Air 11/24/23 13:00 Room Air 11/24/23 08:00 Room Air 11/24/23 11:00 Room Air 11/24/23 09:00 Room Air 11/24/23 12:00 Room Air 11/24/23 12:00 11/24/23 08:00 11/24/23 07:38 11/24/23 06:57 Nasal Cannula 2 11/24/23 06:00 Nasal Cannula 2 11/24/23 05:00 Nasal Cannula 2 11/24/23 04:00 11/24/23 04:00 Nasal Cannula 2 11/24/23 04:00 Nasal Cannula 2 11/24/23 04:11 11/24/23 02:30 11/24/23 00:00 11/24/23 02:58 Nasal Cannula 2 11/24/23 02:00 Nasal Cannula 2 11/24/23 00:00 Nasal Cannula 2 11/23/23 23:53 Nasal Cannula 2 11/23/23 23:50 Room Air 11/24/23 01:00 Nasal Cannula 2 11/23/23 23:00 Room Air 11/23/23 22:00 Room Air 11/23/23 21:00 Room Air 11/23/23 20:00 11/23/23 20:00 Room Air 11/23/23 20:00 Room Air Intake and Output 11/24/23 11/24/23 11/24/23 07:59 15:59 23:59 Intake Total 388 / 1161 388 / 1161 385 / 1161 Output Total 0 / 0 0 / 0 Balance 388 / 1161 388 / 1161 385 / 1161 Intake: Intake, Oral Amount 388 / 1161 388 / 1161 385 / 1161 Output: Output, Urine Amount 0 / 0 0 / 0 Other: Number of Voids 1 Number of Unmeasured Voids 1 1 1 Weight 86.636 kg 86.63 kg Patient Weight 11/24/23 23:59 Weight 86.63 kg Laboratory Results - last 24 hr 11/24/23 09:06: WBC 7.0 D, RBC 3.67 L, Hgb 11.5 L, Hct 36.3 L, MCV 99.0, MCH 31.5 H, MCHC 31.8, RDW 15.0, Plt Count 364, MPV 8.6, Neut % (Auto) 55.0, Lymph % (Auto) 30.2, [place] % (Auto) 8.8, Eos % (Auto) 5.1, Baso % (Auto) 1.0, Neut # (Auto) 3.9, Lymph # (Auto) 2.1, [place] # (Auto) 0.6, Eos # (Auto) 0.4, Baso # (Auto) 0.1, Sodium 140, Potassium 3.7, Chloride 106, Carbon Dioxide 28, Anion Gap 9.7, BUN 8, Creatinine 0.60, Estimated Creat Clear 72, Estimated GFR 99, Est GFR ( Amer) 120, Glucose 125 H, Calcium 8.7, Magnesium 2.1, Total Bilirubin 0.3, AST 52 H, ALT 64, Alkaline Phosphatase 113, Total Protein 6.4, Albumin 3.6, Globulin 2.8, Albumin/Globulin Ratio 1.3 I & O for Labs for Last 24 Hours: Intake & Output 11/21/23 11/22/23 11/23/23 11/24/23 23:59 23:59 23:59 23:59 Intake Total 1465.665 / 4258.531 2738 / 1161 Output Total 350 / 350 0 / 0 Balance 1115.665 / 7097.072 5713 / 1161 Weight 74.843 kg 86.727 kg 86.63 kg Constitutional: Present no acute distress, obese and cooperative Head: Present atraumatic and normocephalic Respiratory: Present normal respiratory effort; Absent rhonchi, wheezes or crackles Cardiac: Present Irregularly Regular GI: Present soft and normal bowel sounds; Absent distention or tenderness Extremities: Present normal inspection and full ROM Skin: Present intact; Absent erythema Neuro: Present Grossly Intact, alert, awake, oriented x 3 and moves all extremities Assessment and Plan *Assessment and plan (1) Atrial flutter with rapid ventricular response: Status: Acute Category: Medical Code(s): I48.92 - Unspecified atrial flutter (2) Chest pain: Status: Acute Category: Medical Code(s): R07.9 - Chest pain, unspecified (3) A-fib: Status: Acute Qualifiers: Atrial fibrillation type: paroxysmal Qualified Code(s): I48.0 - Paroxysmal atrial fibrillation Category: Medical Code(s): I48.91 - Unspecified atrial fibrillation (4) Hypothyroid: Status: Acute Category: Medical Code(s): E03.9 - Hypothyroidism, unspecified (5) Hypertension: Status: Acute Qualifiers: Hypertension type: primary hypertension Qualified Code(s): I10 - Essential (primary) hypertension Category: Medical Code(s): I10 - Essential (primary) hypertension (6) Hyperlipidemia: Status: Acute Qualifiers: Hyperlipidemia type: mixed hyperlipidemia Qualified Code(s): E78.2 - Mixed hyperlipidemia Category: Medical Code(s): E78.5 - Hyperlipidemia, unspecified Plan 68 year old female presented to [facility] ED for c/o CP and palpations. Pt states the onset was earlier this morning. PMHX of back surgery in September at [facility] in [place]. Pt states after surgery, she was in the ICU due to developing a fib with RVR for a week. She was then sent to [facility] due to having right leg weakness from the surgery. She has been seeing the cardiology clinic in [place] for her A fib. She takes eliquis, aspirin, digoxin, and metoprolol tartrate daily. Having A-fib RVR. Responding to treatment. Cardiology consulted. Continues to require inpatient management. Problems addressed as follows: Atrial FLUTTER/Fibrillation RVR Chest pain - Discussed case with cardiology, recommend resuming Eliquis for long-term anticoagulation. No plans for invasive intervention at this time. Continue amiodarone 4 mg 3 times a day. Increase diltiazem to 240 mg daily. - Metoprolol increased to 50 mg twice daily. Heart rate better controlled on current regimen but still in A-fib. Intermittent episodes of sinus rhythm. Appears to be trying to convert again. If does not convert by tomorrow, consider AQUILINO and cardioversion. -Echo cardiogram obtained, formal read pending Hypothyroidism: 0.95 CBC, CMP, magnesium ordered for the morning. Creatinine 0.6, BUN 8. Magnesium 2.1. No leukocytosis today. White cell count 7.0. Complaining of constipation, MiraLAX initiated today. cardiac diet FULL CODE DVT: Eliquis
[2023-11-24] MEDS: METOPROLOL TARTRATE 50MG TABLET 50 MG PO (20:43)
[2023-11-25] VITALS: BP 96/66; PULSE 66; PULSE 69; RESP 18; TEMP 36.8; O2SAT 91
[2023-11-25 03:54] VITALS: BP 113/61; PULSE 70; RESP 20; TEMP 36.6; O2SAT 91; BMI 31.8
[2023-11-25 04:00] VITALS: PULSE 66
[2023-11-25] MEDS: POLYETHYLENE GLYCOL 3350 17 GM PACKET PO (06:05)
[2023-11-25] MEDS: LEVOTHYROXINE 50MCG (0.05MG) TAB 50 MCG PO (06:05)
[2023-11-25 06:59] LABS: Basophils # 0.1 K/mm3 (0-0.2); Basophils % 0.9 % (0.1-2.0); Eosinophils # 0.3 K/mm3 (0.0-0.4); Eosinophils % 4.5 % (0.1-12.0); Hematocrit 33.5 % (37.0-47.0); Hemoglobin 10.6 g/dL (12.2-16.2); Lymphocytes % 30.3 % (10-50); Mean Corpuscular HGB Conc 31.5 g/dL (31.8-35.4); Mean Corpuscular Hemoglobin 31.5 pg (27.0-31.2); Mean Corpuscular Volume 100.1 fl (81-99); Mean Platelet Volume 7.5 fl (7.4-10.4); Monocytes # 0.5 K/mm3 (0.1-1.0); Monocytes % 7.8 % (1.7-9.3); Neutrophils # 3.7 K/mm3 (1.8-7.8); Neutrophils % 56.5 % (37.0-80.0); Platelet Count 305 K/mm3 (142-424); Red Blood Count 3.35 M/mm3 (4.20-5.40); Red Cell Distribution Width 15.1 % (11.5-17.5); White Blood Count 6.6 K/mm3 (4.8-10.8)
[2023-11-25 07:03] LABS: Alanine Aminotransferase 52 U/L (12-78); Albumin Level 3.4 g/dl (3.5-5.0); Albumin/Globulin Ratio 1.3 (1.1-1.8); Alkaline Phosphatase 120 U/L (38-126); Anion Gap 9.9 mEq/L (5-15); Aspartate Amino Transferase 39 U/L (14-36); Bilirubin,Total 0.3 mg/dl (0.2-1.3); Blood Urea Nitrogen 8 mg/dl (7-17); Calcium 8.6 mg/dl (8.4-10.2); Carbon Dioxide 27 mmol/L (22.0-30.0); Chloride 107 mmol/L (98-107); Creatinine Clearance Estimated 72 mL/min (50-200); Estimated Glomerular Filt Rate 99 ml/min (>60); GFR (African American) 120 ML/MIN (>60); Globulin 2.6 g/dL (1.3-3.2); Glucose 99 mg/dl (74-100); Potassium 3.9 mmoL/L (3.5-5.1); Sodium 140 mmol/L (136-145)
[2023-11-25 07:35] LABS: Magnesium 2.1 mg/dl (1.6-2.3)
[2023-11-25 08:00] VITALS: BP 123/66; PULSE 74; PULSE 75; RESP 17; TEMP 36.6; O2SAT 94
--- NOTE | 2023-11-25 08:45 | P.DS_ITS ---
General Admission date:: 11/23/23 Discharge date: 11/25/23 HPI HPI HPI: 68 year old female presented to [facility] ED for c/o CP and palpations. Pt states the onset was earlier this morning. PMHX of back surgery in September at [facility]. Pt states after surgery, she was in the ICU due to developing a fib with RVR for a week. She was then sent to [facility] due to having right leg weakness from the surgery. She has been seeing the cardiology clinic in [place] for her A fib. She takes eliquis, aspirin, digoxin, and metoprolol tartrate daily. Her ED work up revealed a leukocytosis of 12.3, elevated d-d andriy, elevated ast and alt, and normal troponins. Her chest xray reveals no cardiomegaly, no pericardial effusion, PE or pleural effusion. The pt was given 2 5mg IV pushes of metoprolol tartrate and 50 mg of metoprolol tartrate in the ED to reduce the rapid ventricular rate. The pt had atrial flutter with a rate of 160 upon arrival to the ED. Prior to admission her rate was reduced. Upon admission to the medical floor her rate was 160 with a flutter rvr. Dr. Rojo was paged and she was transitioned to step down and placed on a Cardizem gtt with bolus. The pt states she recently had a UTI which she just finished a course of antibiotics for. I will order UA. The pt's right foot is cool to the touch and more swollen than the left. She states that she has been in rehab at [facility] for right leg not being able to ambulate after surgery. I will order a vascular ultrasound and n echo for the morning. She will have a cardiology consult placed. Hospital Course Hospital Course Hospital Course: Mrs. Stiles is a 68 year old female presented to [facility] ED for c/o CP and palpations. Pt states the onset was earlier this morning. PMHX of back surgery in September at [facility]. Pt states after surgery, she was in the ICU due to developing a fib with RVR for a week. She was then sent to [facility] due to having right leg weakness from the surgery. She has been seeing the cardiology clinic in [place] for her A fib. She takes eliquis, aspirin, digoxin, and metoprolol tartrate daily. Presented with A-fib with RVR. With adjustments of medications, patient's rhythm converted to sinus rhythm. Has remained stable with medication. Meeting criteria for discharge home to continue outpatient therapy. Recommend close follow-up with cardiology. Problems addressed as follows: Atrial FLUTTER/Fibrillation RVR Chest pain Hypertension -Patient admitted for A-fib with RVR. Initiated on diltiazem. Transitioned to oral regimen. Has tolerated well with conversion to sinus rhythm. Cardiology assisting with care. Patient's regimen was transitioned to amiodarone. Will continue 400 mg 3 times a day for 2 weeks and transition to 400 mg twice daily thereafter. Diltiazem increased to 240 mg daily. Will also continue metoprolol 50 mg twice daily. Heart rate well-controlled in sinus rhythm by morning of discharge. No chest pain or shortness of breath. Overall pleased with results. Echo obtained, formal read still pending. EF appears preserved. No indication for AQUILINO or cardioversion during admission. Complaining of constipation, MiraLAX initiated during admission. No bowel movement but having flatus and no discomfort. Continue bowel regimen at discharge with goal of 1-2 bowel movements a day. Stable for discharge home. Total time spent on discharge 31 minutes in counseling, documentation, chart review, and direct care with patient. Exam Data for Last 24 hours Vital signs and Labs for Last 24 Hours: Temp Pulse Resp BP Pulse Ox O2 Del Method O2 Flow Rate 97.9 F 74 17 123/66 94 L Room Air 2 11/25/23 08:00 11/25/23 08:00 11/25/23 08:00 11/25/23 08:00 11/25/23 08:00 11/25/23 08:26 11/24/23 06:57 Laboratory Results - last 24 hr 11/24/23 09:06: WBC 7.0 D, RBC 3.67 L, Hgb 11.5 L, Hct 36.3 L, MCV 99.0, MCH 31.5 H, MCHC 31.8, RDW 15.0, Plt Count 364, MPV 8.6, Neut % (Auto) 55.0, Lymph % (Auto) 30.2, [place] % (Auto) 8.8, Eos % (Auto) 5.1, Baso % (Auto) 1.0, Neut # (Auto) 3.9, Lymph # (Auto) 2.1, [place] # (Auto) 0.6, Eos # (Auto) 0.4, Baso # (Auto) 0.1, Sodium 140, Potassium 3.7, Chloride 106, Carbon Dioxide 28, Anion Gap 9.7, BUN 8, Creatinine 0.60, Estimated Creat Clear 72, Estimated GFR 99, Est GFR ( Amer) 120, Glucose 125 H, Calcium 8.7, Magnesium 2.1, Total Bilirubin 0.3, AST 52 H, ALT 64, Alkaline Phosphatase 113, Total Protein 6.4, Albumin 3.6, Globulin 2.8, Albumin/Globulin Ratio 1.3 11/25/23 05:44: WBC 6.6, RBC 3.35 L, Hgb 10.6 L, Hct 33.5 L, MCV 100.1 H, MCH 31.5 H, MCHC 31.5 L, RDW 15.1, Plt Count 305, MPV 7.5, Neut % (Auto) 56.5, Lymph % (Auto) 30.3, [place] % (Auto) 7.8, Eos % (Auto) 4.5, Baso % (Auto) 0.9, Neut # (Auto) 3.7, Lymph # (Auto) 2.0, [place] # (Auto) 0.5, Eos # (Auto) 0.3, Baso # (Auto) 0.1, Sodium 140, Potassium 3.9, Chloride 107, Carbon Dioxide 27, Anion Gap 9.9, BUN 8, Creatinine 0.60, Estimated Creat Clear 72, Estimated GFR 99, Est GFR ( Amer) 120, Glucose 99 D, Calcium 8.6, Magnesium 2.1, Total Bilirubin 0.3, AST 39 H, ALT 52, Alkaline Phosphatase 120, Total Protein 6.0 L, Albumin 3.4 L, Globulin 2.6, Albumin/Globulin Ratio 1.3 I & O for Last 24 hours: Intake & Output 11/22/23 11/23/23 11/24/23 11/25/23 23:59 23:59 23:59 23:59 Intake Total 1465.665 / 5123.362 6836 / 1411 490 / 490 Output Total 350 / 350 0 / 0 Balance 1115.665 / 5833.094 2078 / 1411 490 / 490 Weight 74.843 kg 86.727 kg 86.63 kg 86.63 kg Constitutional Constitutional: no acute distress, obese and cooperative *Routine HEENT Exam Head: Present normocephalic Eye: Present EOMI and PERRL ENT: Present mucous membranes moist *Routine Neck Exam Neck: Present supple; Absent lymphadenopathy *Routine Respiratory Exam Respiratory: Present CTA bilaterally *Routine Cardiovascular Exam Cardiovascular: Present RRR *Routine Abdominal Exam Abdominal: Present soft and normoactive bowel sounds; Absent tenderness *Routine Extremities Exam Extremities: Absent cyanosis, clubbing or edema *Routine Skin Exam Skin: Present warm; Absent rash *Routine Neurological Exam Neurological: Present alert, oriented X3 and moving all extremities; Absent altered mental status Results Data Completed and Pending Labs on day of discharge: Labs from last 24 hours 11/25/23 11/24/23 05:44 09:06 WBC 6.6 7.0 D RBC 3.35 L 3.67 L Hgb 10.6 L 11.5 L Hct 33.5 L 36.3 L MCV 100.1 H 99.0 MCH 31.5 H 31.5 H MCHC 31.5 L 31.8 RDW 15.1 15.0 Plt Count 305 364 MPV 7.5 8.6 Neut % (Auto) 56.5 55.0 Lymph % (Auto) 30.3 30.2 [place] % (Auto) 7.8 8.8 Eos % (Auto) 4.5 5.1 Baso % (Auto) 0.9 1.0 Neut # (Auto) 3.7 3.9 Lymph # (Auto) 2.0 2.1 [place] # (Auto) 0.5 0.6 Eos # (Auto) 0.3 0.4 Baso # (Auto) 0.1 0.1 Sodium 140 140 Potassium 3.9 3.7 Chloride 107 106 Carbon Dioxide 27 28 Anion Gap 9.9 9.7 BUN 8 8 Creatinine 0.60 0.60 Estimated Creat Clear 72 72 Estimated GFR 99 99 Est GFR ( Amer) 120 120 Glucose 99 D 125 H Calcium 8.6 8.7 Magnesium 2.1 2.1 Total Bilirubin 0.3 0.3 AST 39 H 52 H ALT 52 64 Alkaline Phosphatase 120 113 Total Protein 6.0 L 6.4 Albumin 3.4 L 3.6 Globulin 2.6 2.8 Albumin/Globulin Ratio 1.3 1.3 DS: Diagnosis Discharge Diagnosis (1) Atrial flutter with rapid ventricular response: Status: Acute Code(s): I48.92 - Unspecified atrial flutter (2) Chest pain: Status: Acute Code(s): R07.9 - Chest pain, unspecified (3) A-fib: Status: Acute Code(s): I48.91 - Unspecified atrial fibrillation Qualifiers: Atrial fibrillation type: paroxysmal Qualified Code(s): I48.0 - Paroxysmal atrial fibrillation (4) Hypothyroid: Status: Acute Code(s): E03.9 - Hypothyroidism, unspecified (5) Hypertension: Status: Acute Code(s): I10 - Essential (primary) hypertension Qualifiers: Hypertension type: primary hypertension Qualified Code(s): I10 - Essential (primary) hypertension (6) Hyperlipidemia: Status: Acute Code(s): E78.5 - Hyperlipidemia, unspecified Qualifiers: Hyperlipidemia type: mixed hyperlipidemia Qualified Code(s): E78.2 - Mixed hyperlipidemia Meds Home Medications and Allergies Home Medications Medication Instructions Recorded Confirmed Type levocetirizine 5 mg tablet (Xyzal) 5 mg PO DAILY 03/31/18 11/22/23 History ygylboow-tvd-jistu acid 0.4 1 each PO DAILY 08/30/19 11/22/23 History mg-lycopene 300 mcg-lutein 250 mcg tablet apixaban 5 mg tablet (Eliquis) 5 mg PO BID Blood Thinner/Afib 11/22/23 11/22/23 History cyclobenzaprine 10 mg tablet 10 mg PO TIDP PRN Muscle Spasm 11/22/23 11/23/23 History digoxin 250 mcg (0.25 mg) tablet 0.25 mg PO DAILY 11/22/23 11/23/23 History famotidine 20 mg tablet 20 mg PO BID 11/22/23 11/22/23 History amlodipine 2.5 mg tablet 2.5 mg PO DAILY 11/23/23 11/23/23 History aspirin 81 mg tablet,delayed 81 mg PO DAILY 11/23/23 11/23/23 History release pravastatin 20 mg tablet 20 mg PO DAILY 11/23/23 11/23/23 History amiodarone 200 mg tablet 400 mg (2 x 200 mg) PO TID 30 days 11/25/23 Rx #180 tabs diltiazem HCl 240 mg 240 mg PO DAILY 30 days #30 caps 11/25/23 Rx capsule,extended release 24 hr metoprolol tartrate 50 mg tablet 50 mg PO BID 30 days #60 tabs 11/25/23 Rx polyethylene glycol 3350 17 gram 17 g PO BIDP PRN constipation 30 11/25/23 Rx oral powder packet (Miralax) days #30 ea New Prescriptions to Start Prescriptions: amiodarone Isaac Wing diltiazem HCl Isaac Wing metoprolol tartrate Isaac Wing polyethylene glycol 3350 [Miralax] Isaac Wing Allergies Allergy/AdvReac Type Severity Reaction Status Date / Time oxycodone Allergy Severe Anaphylaxis Verified 02/08/23 12:42 Penicillins [PENICILLINS] Allergy Unknown Verified 02/08/23 12:42 sulfamethoxazole Allergy Unknown Verified 02/08/23 12:42 [SULFAMETHOXAZOLE] trimethoprim [TRIMETHOPRIM] Allergy Unknown Verified 02/08/23 12:42 loratadine [From Claritin] Allergy Verified 02/08/23 12:42 Discharge Plan Disposition Patient Disposition: Home, Self-Care Condition: Fair Discharge Order Discharge Orders: Discharge Order (Routine); Ordered 11/25/23 Ordered By: Isaac Wing Follow up Plan Follow up with: Dilshad Steele MD [Primary Care Provider] - 11/30/23 12:00 pm Ashish Murcia MD [Staff Physician] - 12/07/23 1:45 pm Prescriptions/Medication Reconciliation: New polyethylene glycol 3350 [Miralax] 17 gram Powder In Packet 17 g PO BIDP PRN (Reason: constipation) 30 Days Qty: 30 0RF amiodarone 200 mg Tablet 400 mg PO TID 30 Days Qty: 180 0RF Rx Instructions: 400 mg 3 times a day for 2 weeks through 12/06. Then transition to 400 mg twice daily for 2 week starting 12/07 diltiazem HCl 240 mg Capsule,Extended Release 24hr 240 mg PO DAILY 30 Days Qty: 30 0RF metoprolol tartrate 50 mg Tablet 50 mg PO BID 30 Days Qty: 60 0RF Continued levocetirizine [Xyzal] 5 MG tablet 5 mg PO DAILY krcrttic-wfw-OE-lycopen-lutein 1 EACH tablet 1 each PO DAILY cyclobenzaprine 10 mg tablet 10 mg PO TIDP PRN (Reason: Muscle Spasm) digoxin 250 mcg (0.25 mg) tablet 0.25 mg PO DAILY famotidine 20 mg tablet 20 mg PO BID Eliquis 5 mg tablet 5 mg PO BID amlodipine 2.5 mg tablet 2.5 mg PO DAILY aspirin 81 mg tablet,delayed release (DR/EC) 81 mg PO DAILY pravastatin 20 mg tablet 20 mg PO DAILY Discontinued metoprolol tartrate 25 mg tablet 12.5 mg PO BID Problem Reconciliation Problems Reviewed?: Yes Patient Discharge Instructions ACTIVITY: Continue current activity DIET: continue same diet Providers Primary Care Provider: Dilshad Steele Admit Provider: Khloe Sanchez Attending Provider: Khloe Sanchez
[2023-11-25] MEDS: METOPROLOL TARTRATE 50MG TABLET 50 MG PO (09:18)
[2023-11-25] MEDS: dilTIAZem ER 240MG CAPSULE 240 MG PO (09:19)
[2023-11-25] MEDS: CYCLOBENZAPRINE 10MG TABLET 10 MG PO (09:19)
[2023-11-25] MEDS: AMIODARONE 200MG TABLET 400 MG PO ×2 (09:19→12:15)
[2023-11-25] MEDS: ASPIRIN EC 81MG TABLET 81 MG PO (09:20)
[2023-11-25] MEDS: APIXABAN 5MG TABLET 5 MG PO (09:20)
[2023-11-25] MEDS: FAMOTIDINE 20MG TABLET 20 MG PO (09:21)
[2023-11-25 09:33] LABS: Chol/HDL Ratio 3.8 (1-3.5); Cholesterol 160 mg/dl (140-200); HDL Cholesterol 42 mg/dl (40-60); Triglycerides 93 mg/dl (30-150); VLDL Cholesterol 19 mg/dL (0-40)
[2023-11-25 11:18] VITALS: BP 102/66; PULSE 67; RESP 16; TEMP 37; O2SAT 94
--- NOTE | 2023-11-25 14:53 | EXP.CARD.PN ---
Subjective Subjective Date: 11/25/23 Time: 11:45 Principal diagnosis: afib with RVR Interval history: The patient denies any chest pain or pressure. She denies any shortness of breath or edema. She denies any fever, chills, nausea, vomiting, diarrhea, PND or orthopnea. The patient did convert to sinus rhythm yesterday and remains in sinus at this time. She states that she is feeling much better and she is ready to be discharged home. Exam Data for Last 24 hours Vital signs and Labs for Last 24 Hours: Temp Pulse Resp BP Pulse Ox O2 Del Method O2 Flow Rate 98.6 F 67 16 102/66 L 94 L Room Air 2 11/25/23 11:18 11/25/23 11:18 11/25/23 11:18 11/25/23 11:18 11/25/23 11:18 11/25/23 12:58 11/24/23 06:57 Laboratory Results - last 24 hr 11/25/23 05:44: WBC 6.6, RBC 3.35 L, Hgb 10.6 L, Hct 33.5 L, MCV 100.1 H, MCH 31.5 H, MCHC 31.5 L, RDW 15.1, Plt Count 305, MPV 7.5, Neut % (Auto) 56.5, Lymph % (Auto) 30.3, Mora % (Auto) 7.8, Eos % (Auto) 4.5, Baso % (Auto) 0.9, Neut # (Auto) 3.7, Lymph # (Auto) 2.0, Mora # (Auto) 0.5, Eos # (Auto) 0.3, Baso # (Auto) 0.1, Sodium 140, Potassium 3.9, Chloride 107, Carbon Dioxide 27, Anion Gap 9.9, BUN 8, Creatinine 0.60, Estimated Creat Clear 72, Estimated GFR 99, Est GFR ( Amer) 120, Glucose 99 D, Calcium 8.6, Magnesium 2.1, Total Bilirubin 0.3, AST 39 H, ALT 52, Alkaline Phosphatase 120, Total Protein 6.0 L, Albumin 3.4 L, Globulin 2.6, Albumin/Globulin Ratio 1.3, Triglycerides 93, Cholesterol 160, LDL Cholesterol Direct 86.70 L, VLDL Cholesterol 19, HDL Cholesterol 42, Cholesterol/HDL Ratio 3.8 H I & O for Last 24 hours: Intake & Output 11/22/23 11/23/23 11/24/23 11/25/23 23:59 23:59 23:59 23:59 Intake Total 1465.665 / 9555.859 1058 / 1411 490 / 490 Output Total 350 / 350 0 / 0 0 / 0 Balance 1115.665 / 4040.990 4810 / 1411 490 / 490 Weight 165 lb 191 lb 3.2 oz 190 lb 15.783 oz 190 lb 15.783 oz Constitutional Constitutional: no acute distress and average body habitus *Routine HEENT Exam Head: Present normocephalic and atraumatic ENT: Present mucous membranes moist *Routine Neck Exam Neck: Present supple, full ROM and normal carotid upstroke; Absent JVD, carotid bruit or lymphadenopathy *Routine Respiratory Exam Respiratory: Present CTA bilaterally, normal respiratory effort, able to speak in complete sentences and symmetric chest movement *Routine Cardiovascular Exam Cardiovascular: Present RRR, Normal S1 and Normal S2; Absent murmur or gallop *Routine Abdominal Exam Abdominal: Present soft and normoactive bowel sounds; Absent tenderness, distended or organomegaly *Routine Extremities Exam Extremities: Present full ROM, pulses intact and normal capillary refill; Absent cyanosis, clubbing or edema *Routine Skin Exam Skin: Present intact and warm; Absent erythema *Routine Neurological Exam Neurological: Present alert, oriented X3 and CN II-XII intact; Absent sensory deficit or motor deficit Routine Psychiatric Exam Psychiatric: Present normal affect Progress Note: A&P Assessment and plan (1) A-fib: Status: Acute (2) Hypothyroid: Status: Acute (3) Hypertension: Status: Acute (4) Hyperlipidemia: Status: Acute Assessment and Plan Assessment and Plan for All Diagnoses:: Plan: 1. The patient was admitted to the hospital with atrial fibrillation with RVR. She did convert for the second time again yesterday. She remains in sinus rhythm this morning. 2. She will continue amiodarone 400 mg 3 times daily for 2 weeks then decrease to amiodarone 400 mg twice daily for 2 weeks then amiodarone 200 mg twice daily for 2 weeks and then amiodarone 200 mg daily thereafter. 3. Continue diltiazem ER 240 mg p.o. daily. 4. Continue metoprolol 50 mg p.o. twice daily. 5. Continue Eliquis for long-term anticoagulation. 6. Her blood pressure is well-controlled today. 7. Her LDL goal is less than 100. Her LDL is 86. She is on a statin. 8. The patient would benefit from an ischemic evaluation with stress testing on an outpatient basis. 9. No further recommendations at this time from a cardiac standpoint. The patient is stable for discharge home today from a cardiac standpoint with follow-up in cardiology clinic in 1 to 2 weeks on an outpatient basis. The patient will need to be discharged on the following cardiac medications: Amiodarone 400 mg 3 times daily for 2 weeks then amiodarone 400 mg 2 times daily for 2 weeks then amiodarone 200 mg 2 times daily for 2 weeks then amiodarone 200 mg daily thereafter, aspirin 81 mg daily, diltiazem ER 240 mg daily, Eliquis 5 mg p.o. twice daily, metoprolol 50 mg twice daily and pravastatin 20 mg daily. Stop digoxin and stop amlodipine. Thank you for the opportunity to help participate in the care of this patient. All recommendations and orders are per Dr. skaggs.
--- NOTE | 2023-11-26 16:18 | CARE MANAGER ---
Contacted patient related to hospital discharge. She states she is dong well. She has all her medications and is aware of follow up appointments. Denies questions or concerns at this time. JUANITA García
== END 2023-11-25 13:16 | disposition home or self-care (01) | DRG 310 ==
LOC: ER 20:17 → 2ND 20:34 → ICU 11-23 00:52 → 2ND 11-23 07:49
PROVIDERS: Internal Medicine Adolescent Medicine; Nurse Practitioner Critical Care Medicine; Nurse Practitioner Family; Admitting Provider Internal Medicine; Emergency Provider Emergency Medicine; PCP Internal Medicine Adolescent Medicine; Visit Provider Internal Medicine
DX: I48.92 Unspecified atrial flutter (principal); R07.9 Chest pain, unspecified; E03.9 Hypothyroidism, unspecified; E78.2 Mixed hyperlipidemia; I48.0 Paroxysmal atrial fibrillation; I10 Essential (primary) hypertension
CPT/HCPCS: 36415; 71045; 71275; 80048; 80053; 80061; 80162; 81001; 83735; 83880; 84443; 84484; 85025; 85378; 87040; 87636; 93005; 93306; 93971; 97162; 97165; 99291; G0378; J0282; J7060; Q9967

== ENCOUNTER 2023-12-02 14:24 | Outpatient (CLI) | payer MEDICARE, BC, SELFPAY ==
[2023-12-02 15:22] VITALS: BMI 32.5
[2023-12-02 16:20] LABS: Microscopic,Cath URINE MICROSCOPIC (MICROSCOPIC)
[2023-12-02 16:22] LABS: Appearance,Urine/Cath CLEAR (Clear); Bilirubin,Cath Negative (Negative); Blood, Urine/Cath 1+ (Negative); Color,Urine/Cath YELLOW (Yellow); Glucose,Urine/Cath (UA) Negative (Negative); Ketones,Urine/Cath Negative (Negative); Leukocyte Esterase,Cath Negative (Negative); Nitrate,Cath Negative (Negative); PH,Urine/Cath 6.5 (5.0-8.5); Protein,Urine/Cath Negative (Negative); Specific Gravity, Urine/Cath <= 1.005 (1.005-1.030); Urobilinogen,Cath 0.2 EU/dl (0.2)
[2023-12-02 16:44] LABS: Bacteria,Urine/Cath 1+ /lpf; RBC,Urine/Cath Occasional # /hpf (0-3); WBC,Urine/Cath Occasional #/hpf (0-3)
== END 2023-12-02 15:25 | disposition home or self-care (01) ==
LOC: INF 14:25
PROVIDERS: PCP Internal Medicine Adolescent Medicine; Visit Provider Internal Medicine Adolescent Medicine
DX: N39.0 Urinary tract infection, site not specified (principal)
CPT/HCPCS: 81001; 87086; G0463

== ENCOUNTER 2023-12-05 10:43 | Outpatient (CLI) | payer MEDICARE, BC, SELFPAY | END 2023-12-05 23:59 | LOC: LAB.DROPOF 10:44 | PROVIDERS: PCP Internal Medicine Adolescent Medicine; Visit Provider Internal Medicine Adolescent Medicine | DX: N30.90 Cystitis, unspecified without hematuria (principal) ==

== ENCOUNTER 2023-12-11 11:45 | Outpatient (CLI) | payer MEDICARE, BC, SELFPAY ==
--- NOTE | 2023-12-11 11:46 | NM_ITS ---
APPROVED REPORT Exam: Nuclear Stress Test Indication: DYSRHYTHMIA, HTN, FM HX, A-FIB, C.P., SOB, PALPITATIONS Patient Location: Outpatient Stress Tech: Soraya Kamara [place] Tech:Ailyn Mclaughlin, ARRT RT (R)(N)(M) Ht: 5 ft 4 in Wt: 185 lbs Bra Size: D HR: 68 bpm BP: 122/54 mmHg BSA: 1.89 m2 Rhythm: NSR TID: 1.06 BMI: 31.7 History: DYSRHYTHMIA, HTN, FM HX, A-FIB, C.P., SOB, PALPITATIONS Procedure: Patient received 0.4 mg of intravenous Lexiscan, resting heart rate 68 bpm, resting blood pressure 122/54 mmHg, with Lexiscan maximum heart rate achieved was 77 bpm which is % of the maximum predicted heart rate and blood pressure was 108/54 mmHg. With Lexiscan, patient denied any complaint of chest pain. Cardiac Stress and Resting SPECT Images: Cardiac Stress and Resting SPECT images were obtained using technetium 99m Myoview 31.1 mCi stress and 10.04 mCi at rest. Resting and stress imaging in supine and prone positions demonstrate no evidence of fixed or reversible perfusion defects. Gated imaging demonstrates normal global and regional LV systolic function. LVEF is calculated at 71%. Conclusion: No evidence of fixed or reversible perfusion defects. Gated imaging demonstrates normal global and regional LV systolic function. LVEF is calculated at 71%. Electronically signed by : Mehnaz Murcia MD 12/14/2023 11:48:21
[2023-12-11] MEDS: SODIUM CHLORIDE 0.9% 10ML SYR (RAD ONLY) 10 ML IV ×2 (12:10→13:15)
[2023-12-11] MEDS: REGADENOSON 0.4MG/5ML SYRINGE 0.400000000000000022 MG IV (13:15)
--- NOTE | 2023-12-11 13:34 | CA_ITS ---
APPROVED REPORT Exam: Pharmacologic Technologist: Soraya Garrido, Ht: 5 ft 4 in Wt: 190 lbs BSA: 1.91 m2 HR: 68 bpm BP: 122/54 mmHg Rhythm: NSR Medical History Medications: Amlodipine,,,,, Amiodarone,,,,, Aspirin,,,,, Pravastatin,,,,, Metoprolol Tartrate,,,,, Digoxin,,,,, Famotidine,,,,, MiraLAX,,,,, Cyclobenzaprine,,,,, ElIQUIS,,,,, Xyzal,,,,, DilTiazem HCI,,,,, Stress Test Details Test: LEXISCAN Reason for pharmacologic stress test: physical limitation. HR Resting HR: 66 bpm Max Heart Rate (APMHR): 150 bpm Max HR Achieved: 77 bpm Target HR (85% APMHR): 128 bpm % of APMHR: 51 Recovery HR: 72 bpm BP Resting BP: 122.0/54.0 mmHg Max BP: 122.0/54.0 mmHg Recovery BP: 109.0/57.0 mmHg ECG Resting ECG: NSR, nonspecific ST-T changes Stress ECG: No significant ST changes Arrhythmia: None Clinical Exercise duration: 04:00 min Highest Stage Achieved: Stress ECG Conclusion Symptoms: Very mild stomach discomfort. Arrhythmias/Ectopy: None ST-T Changes: No significant ST changes Conclusion: Unremarkable Lexiscan stress. Myoview images reported separately. Test Summary REST 02:22 . . 66 . 122/ 54 . . Stage 1 01:00 . . 73 . . . . Stage 2 01:00 . . 76 . . . . Stage 3 01:00 . . 76 . 100/ 49 . . Stage 4 01:00 . . 74 . 107/ 59 . Stop exercise at 04:00 RECOVERY 01:00 . . 73 . . . . RECOVERY 02:00 . . 74 . . . . RECOVERY 03:00 . . 74 . 101/ 59 . . RECOVERY 04:00 . . 72 . 109/ 57 . . RECOVERY 04:18 . . 72 . 109/ 57 . . Electronically signed by : Mehnaz Murcia MD 12/14/2023 11:47:06
[2023-12-11] MEDS: ISOTOPE MYOVIEW (PER STUDY) 1 DOSE IV (13:49)
== END 2023-12-11 23:59 ==
LOC: RAD 11:46
PROVIDERS: PCP Internal Medicine Adolescent Medicine; Visit Provider Nurse Practitioner Family
DX: R07.9 Chest pain, unspecified (principal); E78.2 Mixed hyperlipidemia; I10 Essential (primary) hypertension; I48.0 Paroxysmal atrial fibrillation; R94.31 Abnormal electrocardiogram [ECG] [EKG]
CPT/HCPCS: 78452; 93017; 93018; A9502; J2785

== ENCOUNTER 2023-12-15 13:44 | Outpatient (CLI) | payer MEDICARE, BC, SELFPAY ==
--- NOTE | 2023-12-15 13:48 | US_ITS ---
FINAL REPORT CLINICAL HISTORY: URINARY RETENTION COMPARISON: None FINDINGS: LIMITED PELVIC ULTRASOUND: A limited ultrasound was performed to evaluate the urinary bladder. The distended bladder is unremarkable in appearance, measuring 9.1 cm in transverse diameter. No bladder wall thickening or mass is identified. The bladder volume when distended measures 353 cc. After voiding there is a post void residual of 46 cc. IMPRESSION: Small postvoid residual of 46 cc. The bladder appears morphologically unremarkable. Reviewed, Interpreted and Dictated by Hunter Foreman MD Transcribed by Arlene Sharma Authenticated and [facility]
== END 2023-12-15 23:59 ==
LOC: RAD 13:44
PROVIDERS: PCP Internal Medicine Adolescent Medicine; Visit Provider Internal Medicine Adolescent Medicine
DX: R33.8 Other retention of urine (principal)
CPT/HCPCS: 76857

== ENCOUNTER 2024-01-04 14:14 | Outpatient (CLI) | payer MEDICARE, BC, SELFPAY ==
[2024-01-04 14:46] LABS: Basophils # 0.1 K/mm3 (0-0.2); Basophils % 1.2 % (0.1-2.0); Eosinophils # 0.5 K/mm3 (0.0-0.4); Eosinophils % 7.7 % (0.1-12.0); Hematocrit 34.4 % (37.0-47.0); Hemoglobin 10.7 g/dL (12.2-16.2); Lymphocytes # 1.7 K/mm3 (0.7-4.5); Lymphocytes % 27.2 % (10-50); Mean Corpuscular HGB Conc 31.1 g/dL (31.8-35.4); Mean Corpuscular Hemoglobin 30.5 pg (27.0-31.2); Mean Platelet Volume 8.3 fl (7.4-10.4); Monocytes # 0.5 K/mm3 (0.1-1.0); Monocytes % 8.6 % (1.7-9.3); Neutrophils # 3.5 K/mm3 (1.8-7.8); Neutrophils % 55.3 % (37.0-80.0); Platelet Count 296 K/mm3 (142-424); Red Blood Count 3.51 M/mm3 (4.20-5.40); Red Cell Distribution Width 15.6 % (11.5-17.5); White Blood Count 6.3 K/mm3 (4.8-10.8)
[2024-01-04 15:40] LABS: Alanine Aminotransferase 35 U/L (12-78); Albumin Level 4.1 g/dl (3.5-5.0); Alkaline Phosphatase 91 U/L (38-126); Anion Gap 11.3 mEq/L (5-15); Aspartate Amino Transferase 42 U/L (14-36); Bilirubin,Direct 0.1 mg/dl (0.0-0.4); Bilirubin,Indirect 0.2 mg/dL (0.0-0.9); Bilirubin,Total 0.3 mg/dl (0.2-1.3); Bilirubin,Unconjugated 0.2 mg/dL (0.0-1.1); Blood Urea Nitrogen 15 mg/dl (7-17); Calcium 9.5 mg/dl (8.4-10.2); Carbon Dioxide 29 mmol/L (22.0-30.0); Chloride 105 mmol/L (98-107); Chol/HDL Ratio 1.8 (1-3.5); Cholesterol 180 mg/dl (140-200); Estimated Glomerular Filt Rate 71 ml/min (>60); GFR (African American) 86 ML/MIN (>60); Glucose 98 mg/dl (74-100); HDL Cholesterol 101 mg/dl (40-60); Magnesium 2.2 mg/dl (1.6-2.3); Potassium 4.3 mmoL/L (3.5-5.1); Sodium 141 mmol/L (136-145); Total Protein,Serum 6.7 g/dl (6.3-8.2); Triglycerides 78 mg/dl (30-150); VLDL Cholesterol 16 mg/dL (0-40)
[2024-01-04 15:51] LABS: Direct LDL Cholesterol 61.16 mg/dL (100-129)
[2024-01-04 15:56] LABS: Free T4 (Free Thyroxine) 2.07 ng/dl (0.78-2.19)
[2024-01-04 16:10] LABS: Thyroid Stimulating Hormone 2.87 uIU/mL (0.465-4.68)
== END 2024-01-04 23:59 | disposition home or self-care (01) ==
LOC: LAB 14:15
PROVIDERS: PCP Internal Medicine Adolescent Medicine; Visit Provider Internal Medicine
DX: I48.0 Paroxysmal atrial fibrillation (principal); I10 Essential (primary) hypertension; E78.2 Mixed hyperlipidemia; E03.9 Hypothyroidism, unspecified
CPT/HCPCS: 36415; 80048; 80061; 80076; 83735; 84439; 84443; 85025

== ENCOUNTER 2024-02-10 10:00 | Outpatient (RCR) | payer MEDICARE, BC, SELFPAY ==
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
--- NOTE | 2024-02-02 09:44 | HMH.RHREAS ---
Rehab Reassessment Rehab OP Re-assessment Start: 01/01/24 08:42 Freq: Status: Active Protocol: Document 02/02/24 09:38 PHORNE (Rec: 02/02/24 09:43 PHORNE Laptop) E-signed By Reese Negrete, PT Rehab Re-assessment Subjective Subjective Pt reports she feels much better with her swelling overall this date. My legs look even and normal now. She reports she continues to have difficulty with balance, but her overall mobility is improved with reduced heaviness in her legs. Objective Objective Notes Circumferential measurements: R LE total is 245.7 cm which is -23.6 cm since IE. L LE total is 245.6 cm which is -15.9 cm since IE. Edema: 1+ pitting in B lower legs noted. TTP: 0/4 to B lower legs this date. Assessment Progress Assessment Progressing as Expected Assessment Notes Pt has shown significant reduction of overall B LE edema which has translated to improved ambulation ability. She does continue to need assistance with compression stocking donning and doffing. She continues to need skilled intervention to return to prior level of function. Patient goals met ST LT Goals Not Met LT Plan Plan Continue per initial POC. Frequency of Therapy 1 x/wk Duration of therapy 4 wks Time and Billing Re-Eval Time 11 Re-Eval Billing Units 0 PHYSICIAN CERTIFICATION: I certify the specified therapy services for Shonda Stiles are required, authorized, and reviewed every 30 days.
== END 2024-02-10 10:05 | disposition home or self-care (01) ==
LOC: PT 10:00
PROVIDERS: Visit Provider Internal Medicine Adolescent Medicine
DX: I89.0 Lymphedema, not elsewhere classified (principal)
CPT/HCPCS: 97110; 97140; 97163; 97164

== ENCOUNTER 2024-03-30 10:25 | Outpatient (CLI) | payer MEDICARE, BC, SELFPAY ==
[2024-03-30 11:20] LABS: Basophils # 0.1 K/mm3 (0-0.2); Basophils % 1.1 % (0.1-2.0); Eosinophils # 0.4 K/mm3 (0.0-0.4); Eosinophils % 6.7 % (0.1-12.0); Hematocrit 36.4 % (37.0-47.0); Hemoglobin 11.6 g/dL (12.2-16.2); Lymphocytes # 1.5 K/mm3 (0.7-4.5); Lymphocytes % 25.2 % (10-50); Mean Corpuscular Hemoglobin 31.1 pg (27.0-31.2); Mean Corpuscular Volume 97.3 fl (81-99); Mean Platelet Volume 7.8 fl (7.4-10.4); Monocytes # 0.4 K/mm3 (0.1-1.0); Monocytes % 7.1 % (1.7-9.3); Neutrophils # 3.6 K/mm3 (1.8-7.8); Platelet Count 252 K/mm3 (142-424); Red Blood Count 3.74 M/mm3 (4.20-5.40); Red Cell Distribution Width 16.2 % (11.5-17.5); White Blood Count 5.9 K/mm3 (4.8-10.8)
[2024-03-30 11:52] LABS: Alanine Aminotransferase 22 U/L (12-78); Albumin Level 3.8 g/dl (3.5-5.0); Albumin/Globulin Ratio 1.5 (1.1-1.8); Alkaline Phosphatase 84 U/L (38-126); Anion Gap 8.3 mEq/L (5-15); Aspartate Amino Transferase 29 U/L (14-36); Bilirubin,Total 0.3 mg/dl (0.2-1.3); Blood Urea Nitrogen 19 mg/dl (7-17); Calcium 9.1 mg/dl (8.4-10.2); Carbon Dioxide 30 mmol/L (22.0-30.0); Chloride 105 mmol/L (98-107); Estimated Glomerular Filt Rate 71 ml/min (>60); GFR (African American) 86 ML/MIN (>60); Globulin 2.5 g/dL (1.3-3.2); Glucose 87 mg/dl (74-100); Potassium 4.3 mmoL/L (3.5-5.1); Sodium 139 mmol/L (136-145); Total Protein,Serum 6.3 g/dl (6.3-8.2)
[2024-03-30 12:20] LABS: Thyroid Stimulating Hormone 1.07 uIU/mL (0.465-4.68)
== END 2024-03-30 23:59 | disposition home or self-care (01) ==
LOC: LAB 10:26
PROVIDERS: PCP Internal Medicine Adolescent Medicine; Visit Provider Internal Medicine Adolescent Medicine
DX: E03.9 Hypothyroidism, unspecified (principal); I89.0 Lymphedema, not elsewhere classified
CPT/HCPCS: 36415; 80053; 84443; 85025

== ENCOUNTER 2024-04-27 08:00 | Outpatient (RCR) | payer MEDICARE, BC, SELFPAY ==
--- NOTE | 2023-12-16 13:44 | HMH.PTOPEV ---
PT Outpatient Evaluation Rehab PT Outpatient Evaluation Start: 12/16/23 09:58 Freq: Status: Active Protocol: Document 12/16/23 09:58 ERI (Rec: 12/16/23 13:44 ERI [id number]) E-signed By Aurea Bass, PT Outpatient Therapy Subjective History Subjective History Pt is a 68 y/o female who reports to PT s/p thoracolumbar fusion and laminectomy performed on 10/14. Pt reports continued restrictions of no bending, lifting or twisting. Pt reports following surgery she spent 5 days in ICU due to A- fib and 2 days on the regular floor. Pt reports she went to [place] for 2 weeks for rehab then returned home on . Pt reports she could not move her right foot at all after surgery until a few weeks post-op. Pt reports continued difficulty lifting the right hip such as for bed mobility and transfers. Pt reports she has been sleeping in a recliner due to difficulty with bed mobility. Pt reports her bedroom is on the second floor and she has 8 steps to get into her home with HR, states she is traversing outside steps well but has only went upstairs once since she has been home. Pt reports she has been using a RW for all ambulation due to feeling unsteady. Pt reports her right leg will drag when she is fatigued. Pt denies falls. Pt reports she has numbnesss/tingling of bilateral anterior thighs that has been present since surgery. Pt also reports she has noticed bilateral R>L leg swelling, states she had a doppler study in early November without significant findings. Pt reports a couple weeks ago she noticed onset of intermittent left posterior hip pain that is worse at night time. Pt also reports intermittent dull pain across her central low back since surgery.Pt reports she had a UTI after surgery that cleared with antibiotics, states she recently had a bladder ultrasound without known findings. Pt reports her goals are to ambulate without an assistive device, strengthen the right leg, return to driving, and return to either working or volunteering 3x/ week at [place]. Pt reports she returns to her surgeon on 01/14/24. Medical History: A-fib, L TKA in 2008, R shoulder RTC repair in 2019 5x sit to stand: 15 without UE support Balance: FT EC/EO stable surface x30 without LOB, modified tandem x30 stable surface without LOB New diagnosis of cancer in past 12 No months? Chief Complaint Pain,Swelling,Paresthesia, Weakness Symptom Type Ache,Throb,Sharp,Dull,Numbness ,Tingling Symptoms Relieved By Rest/Positioning,OTC Meds Symptoms Aggravated By Standing,Bending/Stooping, Physical Activity,Twisting, Walking,Lifting Current Functional Limitations Lifting,Housework,Sleeping, Standing,Sitting,Squatting, Walking,Stairs,Balance,Bending /Stooping Symptom Description Intermittent Level of pain today (0-10) 6 Pain scale - at its best (0-10) 0 Pain scale - at its worst (0-10) 8 Lumbopelvic Eval Assistive device Assistive Devices Rolling / Wheeled Walker Palapation tenderness bilateral buttock tenderness Yes: L gluteal mm Lumbar/Sacral Palpation Findings Tenderness Range of Motion Lumbar Spine Active Flexion Range of NT Motion (degrees) Lumbar Spine Active Extension Range of 9 Motion (degrees) Left Lumbar Spine Lateral Flexion Active 8 Range of Motion (degrees) Right Lumbar Spine Lateral Flexion 10 Active Range of Motion (degrees) Manual Muscle Test Right Knee Extension Strength Grade 4 Good Knee Flexion Strength Grade 4 Good Hip Flexion Strength Grade 3+ Fair+ Hip Abduction Strength Grade 3+ Fair+ Hip Adduction Strength Grade 3+ Fair+ Hip Extension Strength Grade 3+ Fair+ Ankle Dorsiflexion Strength Grade 4 Good Left Knee Extension Strength Grade 5 Normal Knee Flexion Strength Grade 5 Normal Hip Flexion Strength Grade 4- Good- Hip Abduction Strength Grade 4- Good- Hip Adduction Strength Grade 4- Good- Hip Extension Strength Grade 3+ Fair+ Ankle Dorsiflexion Strength Grade 5 Normal DTR Rt Patellar 2+ Lt Patellar 2+ Rt Gastroc/Soleus 2+ Lt Gastroc/Soleus 2+ Altered Sensation Bilateral Comment equal and intact to light touch sensation Oswestry Index Section 1 Pain Intensity The pain comes and goes and is moderate Section 2 Personal Care (Washing,Dresing) increase the pain, but I manage not to change my way of doing it Section 3 Lifting I can only lift very light weights at most Section 4 Walking I cannot walk more than one mile wihtout increasing pain Section 5 Sitting I can sit in my favorite chair for as long as I like Section 6 Standing I cannot stand more than 1 hour without increasing pain Section 7 Sleeping Because of my pain, my normal night's sleep is less than 6 hours sleep Section 8 Social Life My social life is normal but increases the degree of pain Section 9 Traveling I get some pain when traveling , but none of my usual forms of travel m Section 10 Changing Degreee of Pain My pain fluctuates, but overall is definitely getting better Score and Risk Level Oswestry Sc 19 Oswestry Risk Level Moderate Disability Outpatient Therapy Assessment Impairments Problems/Impairmments Palpation Tenderness,Impaired Range of Motion,Impaired Strength,Impaired Gait Pattern ,Impaired Walking,Impaired Standing,Impaired Lifting, Impaired Household Care, Impaired Stair Climbing, Impaired Squatting,Impaired Bending,Impaired Balance, Subjective C/O Pain,Impaired Self Care/Self Management Prognosis Rehab Potential Good Clinical Impression Consistent with Diagnosis Yes Short Term Goals Number of Weeks 3 Increase Range of Motion Yes: Improve lumbar AROM flex to at least 50 degrees Increase Strength Yes: Improve RLE MMT by half grade to assist with function Increase Ability to Drive/Ride in Car Yes: I Decrease Subjective C/O Pain Yes: Improve pain at worst to 6/10 to improve overall QOL Improve Self Care/Self Management Yes Patient to be Ind w/ 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 Number of Weeks 6 Increase Range of Motion Yes: Improve lumbar AROM flex to 70, ext to 12, LF to 15 Increase Strength Yes: Improve LE MMT to 4+/5 grossly to assist with function Improve Transfers Yes: 5x sit to stand 12 or less to dec fall risk Improve Gait Pattern without Assistive Yes: proper gait mechanics Device with LRD to decrease fall risk Restore Ability to Lift Objects Overhead Yes: 10# with proper mechanics Improve Ability to Climb Stairs Yes: 1 flight with HR reciprocally to assist with home navigation Improve Balance Yes Improve Oswestry Score Yes: Improve score to 14 or less to improve overall QOL Decrease Subjective C/O Pain Yes: Improve pain at worst to 8/10 to improve overall QOL Patient to be Ind w/ Advanced HEP Yes Outpatient Therapy Plan of Care Treatment Plan May Include Therapeutic Exercise Including Home Yes Exercise Program Manual Therapy Techniques Yes Neuromuscular Re-education Yes Therapeutic Activities to Return to Yes Previous Functional/Work Level Gait Training Yes ADL/Self Care Education Yes Dry Needling Yes Thermal Modalities Yes Electrical Stimulation Yes Ultrasound/Phonophoresis Yes Iontophoresis Yes Massage Yes Group Therapy for Medicare Yes Eval/Re-Eval Yes Aquatic Therapy Yes Frequency Times per week 2 Duration Number of Weeks 4-6 Addendums This patient is a candidate for social No or vocational rehab? Patient/Guardian verbally acknowledges Yes understanding of treatment program and consents to further treatment? Patient/Guardian verbally acknowledges Yes understanding of diagnosis, prognosis and goals for treatment? Eval Complexity PT Charges 03951 - Moderate Complexity Shoulder/Elbow Eval Shoulder Objective Measurements Elbow Objective Measurements PHYSICIAN CERTIFICATION: I certify the specified therapy services for Shonda Stiles are required, authorized, and reviewed every 30 days.
--- NOTE | 2024-01-13 11:20 | HMH.RHREAS ---
Rehab Reassessment Rehab OP Re-assessment Start: 12/16/23 09:58 Freq: Status: Active Protocol: Document 01/13/24 09:02 DANNIELLELi (Rec: 01/13/24 11:20 ERI [id number]) E-signed By Aurea Bass, PT Oswestry Index Section 1 Pain Intensity The pain comes and goes and is very mild Section 2 Personal Care (Washing,Dresing) change my way of washing or dressing in order to avoid pain Section 3 Lifting I can only lift very light weights at most Section 4 Walking I cannot walk more than one mile wihtout increasing pain Section 5 Sitting I can sit in my favorite chair for as long as I like Section 6 Standing I have some pain on standing, but it does not increase with time Section 7 Sleeping I get pain in bed, but it does not prevent me from sleeping well Section 8 Social Life My social life is normal and gives me no extra pain Section 9 Traveling I get some pain when traveling , but none of my usual forms of travel m Section 10 Changing Degreee of Pain My pain is getting better Score and Risk Level Oswestry Sc 11 Oswestry Risk Level Mild Disability Rehab Re-assessment Subjective Subjective Pt reports she feels 50% improved since starting PT. Pt reports she is now able to lift her R hip into the car and into her bed without use of her arms except when fatigued. Pt reports she is ambulating with a cane for most household ambulation and using a RW for long distance community ambulation. Pt denies recent falls. Pt reports she is independent with all ADLs and iADLs with exception of driving due to continued RLE weakness and concern for decreased reaction time of the R leg. Pt reports overall her back feels well, reports pain at worst as 1/10 with prolonged activity. Pt reports she returns to her surgeon tomorrow for a 3 month follow-up visit. Objective Objective Notes Gait: decreased R hip flexion throughout swing phase, hip adduction and knee valgus/ hyperextension in stance phase with RW Lumbar AROM: 50 flex, ext 10, LF 10 RLE AROM: hip flexion 52 degrees (unable to lift the leg off the table in supine), ankle AROM dorsiflexion 7 degrees RLE MMT: hip flex 3+/5, knee ext 4/5, knee flex 4/5, hip abd/add 4-/5, ankle DF 4/5 LLE MMT: hip flex 4/5, knee ext 5/5, knee flex 5/5, hip abd 4/5, hip add 4-/5, ankle DF 5/5 Assessment Assessment Notes Pt has attended 9 PT visits consisting of aerobic exercise , LE stretching/strengthening, gait & balance/proprioception training, HEP and modalities with good tolerance. Pt demonstrated improved DEWAYNE score with minimal report of low back pain. Pt continues to demonstrate LE weakness R>L with impaired gait and hip flexion due to this. Pt recently obtained off the shelf AFO to assist with R knee stability in stance phase of gait with some improvements noted. Pt demonstrates R hip adduction and knee valgus and hyperextension in stance phase of gait requiring a walker to decrease fall risk at this time. Overall, the pt will continue to benefit from skilled PT to further improve lumbar/hip mobility, LE strength, gait, balance/ proprioception and functional activity tolerance to assist with return to PLOF and decrease burden of care. Patient goals met ST/ Goals Not Met LE strength, driving I, LTG Revised Goals n/a Plan Plan Continue initial POC Frequency of Therapy 2x/week Duration of therapy 4 more weeks Time and Billing Re-Eval Time 16 Re-Eval Billing Units 1 PHYSICIAN CERTIFICATION: I certify the specified therapy services for Shonda Stiles are required, authorized, and reviewed every 30 days.
--- NOTE | 2024-02-18 14:57 | HMH.RHREAS ---
Rehab Reassessment Rehab OP Re-assessment Start: 12/16/23 09:58 Freq: Status: Active Protocol: Document 02/18/24 14:12 ERI (Rec: 02/18/24 14:56 ERI [id number]) E-signed By Aurea Bass, PT Oswestry Index Section 1 Pain Intensity The pain comes and goes and is very mild Section 2 Personal Care (Washing,Dresing) change my way of washing or dressing in order to avoid pain Section 3 Lifting lifting heavy weights off the floor, but I can manage light to medium Section 4 Walking I have some pain when walking but it does not increase with distance Section 5 Sitting I can sit in any chair for as long as I like Section 6 Standing I cannot stand more than 1 hour without increasing pain Section 7 Sleeping I get no pain in bed Section 8 Social Life My social life is normal but increases the degree of pain Section 9 Traveling I get some pain when traveling , but none of my usual forms of travel m Section 10 Changing Degreee of Pain My pain fluctuates, but overall is definitely getting better Score and Risk Level Oswestry Sc 10 Oswestry Risk Level Mild Disability Rehab Re-assessment Subjective Subjective Pt reports she feels 75% improved since starting PT. Pt reports 3/10 low back pain at worst with increased activities throughout the day. Pt reports her legs feel stronger overall but she still has difficulty with lifting her right hip. Pt reports she has not been driving due to this. Pt reports she is performing household ambulation without an AD most of the time but uses her cane and AFO for community ambulation. Pt denies falls. Pt reports her balance also seems improved although when she first stands up from a chair she has to be slow and careful to maintain her balance. Pt reports she recently has been traversing stairs reciprocally with a hand rail. Pt reports compliance with HEP. Objective Objective Notes Gait: decreased R hip flexion throughout swing phase, hip adduction and knee valgus/ hyperextension in stance phase with cane 5x sit to stand from standard chair with UE support: 14 Lumbar AROM: 90 flex, ext 15, LF 15 RLE MMT: hip flex 3+/5, knee ext 4/5, knee flex 4+/5, hip abd/add 4-/5, ankle DF 4+/5 LLE MMT: hip flex 4+/5, knee ext 5/5, knee flex 5/5, hip abd 4/5, hip add 4/5, ankle DF 5/5 Assessment Progress Assessment Slower Than Expected Assessment Notes Pt has attended 19 PT visits consisting of aerobic exercise , lumbar mobility, LE/core strengthening, gait & balance/ proprioception training, modalities and HEP with good tolerance. Pt demonstrated improved balance this date especially with gait transitioning from a rolling walker to a cane well without issues or falls. Pt continues to demonstrate RLE weakness altering gait mechanics. Overall, the pt will continue to benefit from skilled PT to further improve lumbar/hip mobility, RLE strength, gait, balance/proprioception and functional activity tolerance to assist with return to PLOF and decrease burden of care. [ End ] Patient goals met ST/6 LT/10 Goals Not Met LE strength, 5x S2S, driving, gait mechanics, lifting Revised Goals n/a Plan Plan Continue initial POC Frequency of Therapy 1-2x/week Duration of therapy 4 more weeks Time and Billing Re-Eval Time 15 Re-Eval Billing Units 1 PHYSICIAN CERTIFICATION: I certify the specified therapy services for Shonda Stiles are required, authorized, and reviewed every 30 days.
--- NOTE | 2024-03-16 11:28 | HMH.RHREAS ---
Rehab Reassessment Rehab OP Re-assessment Start: 12/16/23 09:58 Freq: Status: Active Protocol: Document 03/16/24 08:59 ERI (Rec: 03/16/24 11:28 ERI [id number]) E-signed By Aurea Bass, PT Oswestry Index Section 1 Pain Intensity The pain comes and goes and is very mild Section 2 Personal Care (Washing,Dresing) change my way of washing or dressing in order to avoid pain Section 3 Lifting Pain prevents me from lifting weights off the floor Section 4 Walking I have some pain when walking but it does not increase with distance Section 5 Sitting I can sit in my favorite chair for as long as I like Section 6 Standing I have some pain on standing, but it does not increase with time Section 7 Sleeping I get no pain in bed Section 8 Social Life Pain has no significant effect on my social life apart from limiting Section 9 Traveling I get extra pain while traveling, but it does not compel me to seek al Section 10 Changing Degreee of Pain My pain fluctuates, but overall is definitely getting better Score and Risk Level Oswestry Sc 10 Oswestry Risk Level Mild Disability Rehab Re-assessment Subjective Subjective Pt reports she feels 80% improved since starting PT. Pt reports she has been ambulating without an AD for short distances at work and around her home without issues , denies falls. Pt reports she uses 2 canes while walking on unlevel terrain such as in her yard to assist her with balance. Pt reports she does not feel that her AFO assists with knee hyperextension so she does not wear it. Pt reports she has intermittent pain along her central low back rated 5/10 on VAS with prolonged standing and walking . Pt reports she would like to return to driving but has not yet tried. Pt reports she returns to her surgeon on for her next follow-up visit. Objective Objective Notes Gait: R hip adduction and knee valgus/hyperextension in stance phase with and without cane 5x sit to stand from standard chair with UE support: 14 RLE MMT: hip flex 3+/5, knee ext 4+/5, knee flex 4+/5, hip abd/add 4-/5, ankle DF 4+/5 LLE MMT: hip flex 4+/5, knee ext 5/5, knee flex 5/5, hip abd /5, hip add /5, ankle DF / Assessment Progress Assessment Slower Than Expected Assessment Notes Pt has consistently attended PT treatment sessions consisting of aerobic exercise , LE/core strengthening, gait & balance/proprioception training, modalities and HEP with good tolerance. Pt demonstrated the ability to ambulate safely without a cane for short distances this date . Pt reports she does still require an AD for long distances and on unlevel terrain to assist with balance . Pt does still demonstrate R hip adduction and knee valgus/ hyperextension with gait likely due to RLE hip weakness , although slightly improved since the last reassessment. Overall, the pt will continue to benefit from skilled PT to further improve RLE strength, gait, balance/proprioception and functional activity tolerance to assist with return to PLOF. Patient goals met ST/6 LT/10 Goals Not Met driving, LE strength, 5x S2S, gait mechanics, lifting Revised Goals n/a Plan Plan Continue POC Frequency of Therapy 1-2x/week Duration of therapy 4 more weeks Time and Billing Re-Eval Time 12 Re-Eval Billing Units 1 PHYSICIAN CERTIFICATION: I certify the specified therapy services for Shonda Stiles are required, authorized, and reviewed every 30 days.
--- NOTE | 2024-04-27 09:42 | HMH.RHREAS ---
Rehab Reassessment Rehab OP Re-assessment Start: 12/16/23 09:58 Freq: Status: Active Protocol: Document 04/27/24 08:05 JACQUETRUDI (Rec: 04/27/24 09:41 JACQUETRUDI [id number]) E-signed By Aurea Bass, PT Oswestry Index Section 1 Pain Intensity The pain comes and goes and is very mild Section 2 Personal Care (Washing,Dresing) change my way of washing or dressing in order to avoid pain Section 3 Lifting lifting heavy weights off the floor, but I can manage light to medium Section 4 Walking I have some pain when walking but it does not increase with distance Section 5 Sitting I can sit in any chair for as long as I like Section 6 Standing I have some pain on standing, but it does not increase with time Section 7 Sleeping I get pain in bed, but it does not prevent me from sleeping well Section 8 Social Life My social life is normal and gives me no extra pain Section 9 Traveling I get some pain when traveling , but none of my usual forms of travel m Section 10 Changing Degreee of Pain My pain fluctuates, but overall is definitely getting better Score and Risk Level Oswestry Sc 9 Oswestry Risk Level Mild Disability Rehab Re-assessment Subjective Subjective Pt reports she feels 90% improved since starting PT. Pt reports she has been unable to attend PT in 2 weeks due to going on multiple vacations. Pt reports vacations involved a lot of walking which she did well with. Pt reports she did use her cane at times on steep/unlevel terrain but overall is requiring the cane less for safe ambulation. Pt reports overall she is doing all functional activities well with minimal LBP. Pt reports she has been driving for 3 weeks without issues. Pt reports she is to return to her surgeon in September for her next follow-up visit. Objective Objective Notes Gait: minimal R hip adduction , continued noted hyperextension in stance phase with and without cane 5x sit to stand from standard chair with UE support: 11 RLE MMT: hip flex 3+/5, knee ext 4+/5, knee flex 4+/5, hip abd/add 4-/5, ankle DF 5/5 Assessment Assessment Notes Pt demonstrated slight improvement in gait mechanics with less RLE adduction noted this date. Pt demonstrated improved 5x sit to stand score and DEWAYNE outcome measures this date as well. The patient continues demonstrates R hip weakness likely altering gait mechanics and limiting ability to lift the RLE. Due to plateau of progress with hip strengthening, pt is most appropriate to discharge to independent HEP at this time. Pt encouraged to use [facility] and was provided with written/ illustrated instructions of HEP to assist with remaining deficits. Pt encouraged to use cane as needed as well to assist with balance and decrease fall risk until strength improves. Patient goals met LT/10 Goals Not Met strength, gait Revised Goals n/a Plan Plan Discharge to independent HEP Time and Billing Re-Eval Time 15 Re-Eval Billing Units 1 PHYSICIAN CERTIFICATION: I certify the specified therapy services for Shonda Stiles are required, authorized, and reviewed every 30 days.
== END 2024-04-27 08:05 | disposition home or self-care (01) ==
LOC: PT 08:00
PROVIDERS: Visit Provider Internal Medicine Adolescent Medicine
DX: R26.89 Other abnormalities of gait and mobility (principal)
CPT/HCPCS: 97010; 97014; 97110; 97112; 97116; 97163; 97164; 97530; G0283

== ENCOUNTER 2024-07-27 16:49 | Outpatient (CLI) | payer MEDICARE, BC, SELFPAY ==
--- NOTE | 2024-07-27 16:53 | MM_ITS ---
PROCEDURE INFORMATION: Exam: MG Bilateral Screening 3D Mammography Exam date and time: 07/27/2024 4:38 PM Age: 69 years old Clinical indication: Screening examination TECHNIQUE: Imaging protocol: Bilateral Screening tomosynthesis and 2D mammography including computer-aided detection (CAD) when performed. COMPARISON: 1. MG MM DIG SCREENING MAMM BI W/CAD 03/04/2021 9:06 AM 2. MG DMSB DIG MAMM-SCREEN STELLA 07/30/2016 8:57 AM FINDINGS: MAMMOGRAPHY: Breast composition: There are scattered areas of fibroglandular density. Mass: None. Architectural distortion: None. Calcifications: No suspicious calcifications. Asymmetric density: None. Skin thickening: None. Axillary adenopathy: None. IMPRESSION: No mammographic evidence of malignancy. Annual screening is recommended unless otherwise clinically indicated. ASSESSMENT: BI-RADS Category 1: Negative.
== END 2024-07-27 23:59 | disposition home or self-care (01) ==
LOC: RAD 16:50
PROVIDERS: PCP Internal Medicine Adolescent Medicine; Visit Provider Internal Medicine Adolescent Medicine
DX: Z12.31 Encounter for screening mammogram for malignant neoplasm of breast (principal)
CPT/HCPCS: 77063; 77067

== ENCOUNTER 2024-11-30 09:40 | Outpatient (CLI) | payer MEDICARE, BC, SELFPAY ==
[2024-11-30 10:19] LABS: Basophils # 0.1 K/mm3 (0-0.2); Eosinophils # 0.3 K/mm3 (0.0-0.4); Hematocrit 39.1 % (37.0-47.0); Hemoglobin 12.7 g/dL (12.2-16.2); Lymphocytes # 1.5 K/mm3 (0.7-4.5); Lymphocytes % 24.7 % (10-50); Mean Corpuscular HGB Conc 32.5 g/dL (31.8-35.4); Mean Corpuscular Hemoglobin 31.4 pg (27.0-31.2); Mean Corpuscular Volume 96.8 fl (81-99); Mean Platelet Volume 9.2 fl (7.4-10.4); Monocytes # 0.7 K/mm3 (0.1-1.0); Monocytes % 10.4 % (1.7-9.3); Neutrophils # 3.7 K/mm3 (1.8-7.8); Neutrophils % 58.7 % (37.0-80.0); Platelet Count 274 K/mm3 (142-424); Red Blood Count 4.04 M/mm3 (4.20-5.40); Red Cell Distribution Width 13.2 % (11.5-17.5); White Blood Count 6.2 K/mm3 (4.8-10.8)
[2024-11-30 12:10] LABS: Free Thyroxine Index 3.8 ug/dL (5.93-13.13); T4 (Thyroxine) 11.3 ug/dl (5.53-11.0); Triiodothryronine (T3) Uptake 34 % (23.5-40.5)
[2024-11-30 12:23] LABS: Thyroid Stimulating Hormone 2.07 uIU/mL (0.465-4.68)
[2024-11-30 15:15] LABS: Alanine Aminotransferase 30 U/L (12-78); Albumin Level 4.8 g/dl (3.5-5.0); Alkaline Phosphatase 87 U/L (38-126); Anion Gap 13.2 mEq/L (5-15); Aspartate Amino Transferase 35 U/L (14-36); Bilirubin,Total 0.3 mg/dl (0.2-1.3); Blood Urea Nitrogen 19 mg/dl (7-17); Calcium 9.7 mg/dl (8.4-10.2); Carbon Dioxide 28 mmol/L (22.0-30.0); Chloride 104 mmol/L (98-107); Chol/HDL Ratio 2.5 (1-3.5); Cholesterol 171 mg/dl (140-200); Estimated Glomerular Filt Rate 71 ml/min (>60); GFR (African American) 86 ML/MIN (>60); Globulin 2.4 g/dL (1.3-3.2); Glucose 88 mg/dl (74-100); HDL Cholesterol 69 mg/dl (40-60); Magnesium 2.1 mg/dl (1.6-2.3); Potassium 4.2 mmoL/L (3.5-5.1); Sodium 141 mmol/L (136-145); Total Protein,Serum 7.2 g/dl (6.3-8.2); Triglycerides 71 mg/dl (30-150); VLDL Cholesterol 14 mg/dL (0-40)
[2024-11-30 15:26] LABS: Direct LDL Cholesterol 69.26 mg/dL (100-129)
[2024-11-30 16:04] LABS: Vitamin B12 797 pg/mL (239-931)
== END 2024-11-30 23:59 | disposition home or self-care (01) ==
LOC: LAB 09:45
PROVIDERS: PCP Internal Medicine Adolescent Medicine; Visit Provider Internal Medicine Adolescent Medicine
DX: E78.5 Hyperlipidemia, unspecified (principal); E03.9 Hypothyroidism, unspecified; M47.26 Other spondylosis with radiculopathy, lumbar region; I48.0 Paroxysmal atrial fibrillation; D75.89 Other specified diseases of blood and blood-forming organs
CPT/HCPCS: 36415; 80053; 80061; 82607; 83735; 84436; 84443; 84479; 85025

== ENCOUNTER 2024-12-02 14:09 | Outpatient (CLI) | payer MEDICARE, BC, SELFPAY ==
--- NOTE | 2024-12-02 14:39 | CT_ITS ---
FINAL REPORT TECHNIQUE: Axial images were obtained through the chest without contrast. Reconstructed images were obtained and reviewed. This study was performed with techniques to keep radiation doses as low as reasonably achievable, (ALARA). Individualized dose reduction techniques using automated exposure control or adjustment of mA and/or kV according to the patient's size were employed. CLINICAL HISTORY: PULMONARY NODULES COMPARISON: 11/22/2023 FINDINGS: The ascending aorta measures 3.4 cm. There is elevation of the left hemidiaphragm. Streak artifact is seen arising from fusion hardware bridging the lower thoracic spine. The heart size is normal. There is no pericardial or pleural effusion. Limited images of the upper abdomen are unremarkable. There is linear scarring in the right middle lobe, lingula, and left base. There is a small noncalcified nodule in the right upper lobe measuring 5 mm in diameter which is new since prior. Finding is best seen on image 28 of series 2. There are small cysts in the right upper lobe of the lung, largest measures 12 mm. IMPRESSION: New, noncalcified nodule in the right upper lobe. Recommend follow-up CT in 3 months. Reviewed, Interpreted and Dictated by Hunter Foreman MD Transcribed by Tiera Camp Authenticated and [facility]
== END 2024-12-02 23:59 | disposition home or self-care (01) ==
LOC: RAD 14:10
PROVIDERS: PCP Internal Medicine Adolescent Medicine; Visit Provider Internal Medicine Adolescent Medicine
DX: R91.8 Other nonspecific abnormal finding of lung field (principal)
CPT/HCPCS: 71250

== ENCOUNTER 2025-03-08 13:25 | Outpatient (CLI) | payer MEDICARE, BC, SELFPAY ==
--- NOTE | 2025-03-08 13:28 | CT_ITS ---
FINAL REPORT TECHNIQUE: Routine axial images were obtained from the lung apices to below the diaphragm following IV contrast administration. Individualized dose reduction techniques using automated exposure control or adjustment of the mA and/or kV according to the patient size were employed. CLINICAL HISTORY: LUNG NODULE COMPARISON: 12/02/2024 FINDINGS: The mediastinal vasculature is well-opacified. No pulmonary artery filling defects are identified. There is no evidence of dissection. Small bulla in the right upper lobe measures 12 mm, stable. No acute lung disease is present. No pleural or pericardial effusion is seen. No adenopathy or mass lesion is present. The previously identified noncalcified nodule in the right upper lobe is no longer visualized. There is scar at the left base. No new mass or nodule is identified. Fusion hardware bridging the lower thoracic spine causes streak artifact. IMPRESSION: No mass or nodule identified. Reviewed, Interpreted and Dictated by Hunter Foreman MD Transcribed by Tiera Camp Authenticated and [facility]
--- OUTSIDE RECORDS SUMMARY | 2025-03-08 13:29 | XMS_ITS | Clinical Summary ---
Author Organization Healthcare Address [address] [place] [address] Care Team Providers Care External Grinder Name Role Phone Dilshad Steele MD Primary Care Provider [phone] Family History Medical History Relation Name Comments Cardiac disorder Other 1 Stroke Other 2 Diabetes Other 3 Other cancer Other 4 Relation Name Status Comments Other 1 Other 2 Other 3 Other 4 Social History Tobacco Use Types Packs/Day Years Used Date Smoking Tobacco: Never Comments Unknown Sex and Gender Information Value Date Recorded Sex Assigned at Not on file Legal Sex Female 7:58 PM EDT Gender Identity Not on file Sexual Orientation Not on file Last Filed Vital Signs Vital Sign Reading Time Taken Comments Blood Pressure 118/72 08/17/2018 1:42 PM EST Pulse 105 06/11/2018 8:13 AM EDT Temperature - - Respiratory Rate - - Oxygen Saturation - - Inhaled Oxygen Concentration - - Weight 83.5 kg (184 lb 1.4 oz) 08/17/2018 1:42 P M EST Height 162.6 cm (5' 4 ) 08/17/2018 1:42 PM EST Body Mass Index 31.6 08/17/2018 1:42 PM EST Plan of Treatment Health Maintenance Due Date Last Done Comments [facility]-Bone Density Scan 1953 [facility]-Depression Screening 1953 [facility]-/Child/Adol SDOH Screenings 1953 [facility]- SDOH Screenings 1971 [facility]-Adult SDOH Screenings 1971 [facility]-DTaP,Tdap,and Td Vaccines (1 - Tdap) 1972 CT Colonography 1998 Colonoscopy 1998 FIT-DNA 1998 FIT 1998 FOBT 1998 Sigmoidoscopy 1998 [facility]-Colorectal Cancer Screening 1998 [facility]-Zoster Vaccines (2 of 2) 10/02/2020 08/07/2020 [id number] Vaccine ( season) 2024 10/22/2022, 03/19/2022, 08/06/2021, Additional history exists [facility]-Influenza Vaccine (Season Ended) 2025 [facility]-RSV Vaccine: 60+ Years or (1 - 1-dose 75+ series) 2028 [facility]-Hepatitis A Vaccines Aged Out 02/24/2019, 12/2017 No longer eligible based on patient's age to complete this topic [facility]-Pneumococcal Vaccine: 50+ Years Completed 05/15/2022, 12/10/2018 HPV Vaccines Aged Out No longer eligi ble based on patient's age to complete this topic [facility]-HIB Vaccines Aged Out No longer e ligible based on patient's age to complete this topic [facility]-IPV Vaccines Aged Out No longer e ligible based on patient's age to complete this topic [facility]-Rotavirus Vaccines Aged Out No lo nger eligible based on patient's age to complete this topic Insurance 1955 [address] [address] MEDICARE Member Subscriber Plan / Payer (Ef fective 2018-Present) Name:Shonda Stiles Member ID:[id number] Relation to Subscriber:Self Name:Shonda Stiles Subscriber ID:[id number] Payer ID:MEDICARE Group ID:Not on file Type:Medicare Address: [place] [id number] Care Teams External Grinder Relationship Specialty Start Date End Date Dilshad Steele MD [address] [place] [address] PCP - General 02/01/21
--- OUTSIDE RECORDS SUMMARY | 2025-03-08 13:29 | XMS_ITS | Encounter Summary ---
Author Organization Healthcare Address [address] [place] [address] Care Team Providers Care Newspaper Publisher Name Role Phone Dilshad Steele MD Primary Care Provider + [phone] Encounter Details Date Type Department Care Team (Latest Contact Info) Description 08/24/2023 Community [facility] [address] [place] [address] Terri Rivera, SENIOR ORACLE DEVELOPER [address] [place] [address] Spinal stenosis of lumbar region with neurogenic claudication (Primary Dx); Balance problem; DDD (degenerative disc disease), lumbosacral Social History Tobacco Use Types Packs/Day Years Used Date Smoking Tobacco: Never Comments Unknown Sex and Gender Information Value Date Recorded Sex Assigned at Not on file Legal Sex Female 7:58 PM EDT Gender Identity Not on file Sexual Orientation Not on file documented as of this encounter Plan of Treatment Not on file documented as of this encounter Visit Diagnoses Diagnosis Spinal stenosis of lumbar region with neurogenic claudication- Primary Balance problem Abnormality of gait DDD (degenerative disc disease), lumbosacral Degeneration of lumbar or lumbosacral intervertebral disc documented in this encounter Care Teams Newspaper Publisher Relationship Specialty Start Date End Date Dilshad Steele MD [address] [place] [address] PCP - General 02/01/21 documented as of this encounter
--- OUTSIDE RECORDS SUMMARY | 2025-03-08 13:29 | XMS_ITS | Clinical Summary ---
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 09/25/2023 Active levocetirizine (XYZAL) 5 MG tablet Take 1 tablet (5 mg total) by mouth nightly. 10/07/2023 Active levothyroxine (SYNTHROID, LEVOTHROID) 50 MCG tablet Take 1 tablet (50 mcg total) by mouth Every morning on an empty stomach. Active pravastatin (PRAVACHOL) 20 MG tablet Take 1 tablet (20 mg total) by mouth nightly. Active aspirin 81 MG EC tablet Take 1 tablet (81 mg total) by mouth nightly. Active folic acid/multivit-m in/lutein (CENTRUM SILVER ORAL) Take 1 tablet by mouth nightly. Active acetaminophen (TYLENOL) 500 MG tablet Take 1 tablet (500 mg total) by mouth every 6 (six) hours as needed for Pain or Fever. Active dexAMETHasone (DECADRON) 1 MG tablet Take 1 tablet oral every 6 hours x 2 days, then 1 tablet oral every 8 hours x 2 days, then 1 tablet oral twice daily x 2 days, then 1 tablet daily for 2 days then stop.. 20 tablet 10/21/2023 Active apixaban (ELIQUIS) 5 mg Tab tablet Take 1 tablet (5 mg total) by mouth 2 (two) times daily. 60 tablet 10/21/2023 Active digoxin (LANOXIN) 0.25 MG tablet Take 1 tablet (250 mcg total) by mouth daily. 30 tablet 10/22/2023 Active metoprolol tartrate (LOPRESSOR) 25 MG tablet Take 0.5 tablets (12.5 mg total) by mouth 2 (two) times daily. 60 tablet 10/21/2023 Active Active Problems Problem Noted Date Diagnosed Date S/P lumbar fusion 10/15/2023 Social History Tobacco Use Types Packs/Day Years Used Date Smoking Tobacco: Never Smokeless Tobacco: Never Tobacco Cessation:Counseling Given: Not Answered Alcohol Use Standard Drinks/Week Comments Never 0 (1 standard drink = 0.6 oz pur e alcohol) Humiliation, Afraid, Rape, and Kick questionnair e Answer Date Recorded Within the last year, have y ou been afraid of your partner or ex-partner? No 10/08/2023 Within the last year, have y ou been humiliated or emotionally abused in other ways by your partner or ex-partner? No Within the last year, have y ou been kicked, hit, slapped, or otherwise physically hurt by your partner or ex-partner? No 10/08/2023 Within the last year, have y ou been raped or forced to have any kind of sexual activity by your partner or ex-partner? No 10/08/2023 PHQ-2 Answer Date Recorded Patient Health Questionnaire-2 Score 0 10/08/2023 [facility] Intimate Partner Violence Answer Da te Recorded Within the last year, have y ou been afraid of your partner or ex-partner? No 10/08/2023 Within the last year, have y ou been humiliated or emotionally abused in other ways by your partner or ex-partner? No Within the last year, have y ou been kicked, hit, slapped, or otherwise physically hurt by your partner or ex-partner? No 10/08/2023 Within the last year, have y ou been raped or forced to have any kind of sexual activity by your partner or ex-partner? No 10/08/2023 Utilities Answer Date Recorded In the past 12 months, has t he electric, gas, oil, or water company threatened to shut off services in your home? No 10/16/2023 Interpersonal Safety Answer Date Record ed How often does anyone, licha lewis family and friends, physically hurt you? Never 10/16/2023 How often does anyone, licha lewis family and friends, insult or talk down to you? Never 10/16/2023 How often does anyone, licha lewis family and friends, threaten you with harm? Never 10/16/2023 How often does anyone, licha lewis family and friends, scream or curse at you? Never 10/16/2023 Housing Stability Answer Date Recorded What is your living situation today? I have a [facility] place to live 10/16/[address] you li ve. Do you have problems with any of the following? None of the above 10/16/2023 Food Insecurity Answer Date Recorded Within the past 12 months, y ou worried that your food would run out before you got money to buy more. Never true 10/16/2023 Within the past 12 months, t he food you bought just didn't last and you didn't have money to get more. Never true 10/16/2023 Transportation Needs Answer Date Record ed In the past 12 months, has l ack of reliable transportation kept you from medical appointments, meetings, work or from getting things needed for daily living? No 10/16/2023 Financial Resource Strain Answer Date R ecorded How hard is it for you to pa y for the very basics like food, housing, medical care, and heating? Would you say it is: Not hard at all 10/16/2023 Employment Answer Date Recorded Do you want help finding or keeping work or a job? I do not need or want help 10/16/2023 Family and Community Support Answer Clifford e Recorded If for any reason you need h elp with day-to-day activities such as bathing, preparing meals, shopping, managing finances, etc., do you get the help you need? I don't need any help 10/16/2023 Feeling Lonely or Isolated 0 10/16 Educational Attainment Answer Date Dennis rded Do you speak a language other than [facility] at [facility]? No 10/16/2023 Do you want help with school or training? For example, starting or completing job training or getting a high school diploma, GED or equivalent. No 10/16/2023 Physical Activity Answer Date Recorded Number of minutes of exercise per week 0 10/16/2023 Alcohol Use Answer Date Recorded 5 or More Drinks Per Day Past 12 Months 0 08/06/2024 Depression Answer Date Recorded Calculation of above two rows 0 Stress Answer Date Recorded Stress means a situation in which a person feels tense, restless, nervous, or anxious, or is unable to sleep at night because his or her mind is troubled all the time. Do you feel this kind of stress these days? Not at all 10/16/2023 Disabilities Answer Date Recorded Because of a physical, menta l, or emotional condition, do you have serious difficulty concentrating, remembering, or making decisions? (5 years or older) No 10/16/2023 Because of a physical, menta l, or emotional condition, do you have difficulty doing errands alone such as visiting a doctor's office or shopping? (15 years or older) No 10/16/2023 Substance Use Answer Date Recorded How many times in the past y ear have you used prescription drugs for non-medical reasons? Never 10/16/2023 How many times in the past year have you used il legal drugs? Never 10/16/2023 Comments No Sex and Gender Information Value Date Recorded Sex Assigned at Not on file Legal Sex Female 6:42 PM CDT Gender Identity Not on file Sexual Orientation Not on file Last Filed Vital Signs Vital Sign Reading Time Taken Comments Blood Pressure 115/62 10/21/2023 2:24 PM EST Pulse 87 10/21/2023 2:24 PM EST Temperature 36.7 C (98.1 F) 10/21/2023 2:24 PM EST Respiratory Rate 16 10/21/2023 5:35 AM EST Oxygen Saturation 97% 10/21/2023 2:24 PM EST Inhaled Oxygen Concentration - - Weight 88.9 kg (195 lb 15.8 oz) 10/19/2023 4:00 AM EST Height 161.3 cm (5' 3.5 ) 10/08/2023 11 :34 AM EST Body Mass Index 34.17 10/08/2023 11:34 AM EST Plan of Treatment Health Maintenance Due Date Last Done Comments CT Colonography 1953 Colonoscopy 1953 Colorectal Cancer Screening 1953 DXA SCAN 1953 FOBT/FIT 1953 Fit-DNA (Cologuard) 1953 Sigmoidoscopy 1953 Depression Screening (12+) 1965 Hepatitis C Screening 1971 DTAP/TDAP/TD VACCINES (1 - Tdap) 1972 Breast Cancer Screening 1993 Medicare Initial AWV [id number] 06/22/2019 Shingles Vaccine (Zoster) (2 of 2) 10/02/20202019 COVID-19 VACCINE (2023-2 5 season) 2024 10/22/2022, 03/19/2022, 08/06/2021, Additional history exists Falls Risk Screening 09/21/2024 Tobacco Cessation Counseling and Screening (12+) 10/14/2024 10/14/2023 Influenza Vaccine (Season Ended) 2025 06/13/20 21 Respiratory Syncytial Virus (RSV) Adult or (1 - 1-dose 75+ series) 2028 Pneumococcal 50+ years Completed 05/15/2022, 2018 Medical Devices Implanted Type Area Multiple Needle Stitcher Device Identifier Shelf Expiration Date Model / Serial / Lot Bone Vivigen Frmble Cell 10cc [id number]-[id number] - [id number] Implanted:Qty : 1 on 10/14/2023 by Vinicius Damon Jr., MD at [facility] IMPLANTS N/A: Spine LIFENET:LIFENET TRANSPLANT SRV 09/23/2024 BL-1600-00 3 / [id number] / Scr Spne Arsenio Fix 6x40mm - [id number] Implanted:Qty : 3 on 10/14/2023 by Vinicius Damon Jr., MD at [facility] IMPLANTS N/A: Spine J &J:DEPUY:DEPUY SPINE 0 / 0 / Scr Spne Arsenio Fix Fen 6x45mm - [id number] Implanted:Qty : 3 on 10/14/2023 by Vinicius Damon Jr., MD at [facility] IMPLANTS N/A: Spine J &J:DEPUY:DEPUY SPINE 5 / 5 / Scr Spne Arsenio Fix 7x40mm 0 - [id number] Implanted:Qty : 2 on 10/14/2023 by Vinicius Damon Jr., MD at [facility] IMPLANTS N/A: Spine J &J:DEPUY:DEPUY SPINE 0 / 0 / Scr Spne Asrenio Fix 7x45mm 5 - [id number] Implanted:Qty : 4 on 10/14/2023 by Vinicius Damon Jr., MD at [facility] IMPLANTS N/A: Spine J &J:DEPUY:DEPUY SPINE 5 / 5 / Toan Spine Expedium [id number] - [id number] Implanted:Qty : 1 on 10/14/2023 by Vinicius Damon Jr., MD at [facility] IMPLANTS N/A: Spine J &J:DEPUY:DEPUY SPINE 0 / 0 / Mis Joselin Ply Scrw Set Ti - [id number] Implanted:Qty : 12 on 10/14/2023 by Vinicius Damon Jr., MD at [facility] IMPLANTS N/A: Spine J &J:DEPUY:DEPUY SPINE 0 / 0 / Insurance MEDICARE PART [place] [address] [place] [address] [employer] [employer] Care Teams Light [employer] 

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
--- OUTSIDE RECORDS SUMMARY | 2025-03-08 13:29 | XMS_ITS | Data Portability ---
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 She was weak in the right lower extremity significantly right after surgery but she is making Isaac good recovery. She is now ambulating.She has some left-sided low back pain but on exam today looks very good overall. Her x-rays look fine.She is getting ready to start some outpatient physical therapy at the local hospital. I think this is a good idea. I want to focus on gait training and leg strengthening. 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 At some point I might have her see her hand paint mixer to see if she would be a candidate for injection therapy. Dr. Murphy monitoring her urinary issues/UTI. Hopefully she can avoid UGO cathing. I have no plans to tolbert her back to complete the lumbar portion of the surgery. If things remain stable then we can put this on hold indefinitely. I am to see her back in a few weeks with thoracic and lumbar x-rays. I am overall happy with how she is recovering at this point. She has a long road to recovery still. She understands this. She and her are happy with the plan. [email or web address] Not available 12/08/2023 10:25:30 01/14/2024 01/14/2024 IMAGING: I personally reviewed the images with Dr. Luis and read the radiologist's report. Hardware satisfactorily in place with no signs of infection or malfunction ASSESSMENT: Angelique Hoskins is a 68-year-old female s/p T9-L2 laminectomy with T8-L2 fusion (10/14/23, Dr. Luis) who presents to the clinic for lumbar follow-up, with lumbar and thoracic xray images from on 01/14/24. Patient's strength and gait slowly improving. If she continues to do well, Dr. Luis says he is okay with holding off on extending her lumbar fusion. Her work does not involve bending, twisting, or lifting, and it is okay for her to return at this point. She is to continue with PT for gait and strength training. We will see her back in 2 months with another set of thoracic and lumbar xrays to assess fusion. She knows to call the office if any new symptoms arise or if current ones worsen. Patient and happy with plan. PLAN: Follow-up in 2 months with AP/LAT thoracic and lumbar xrays Not available 01/14/2024 12:52:36 03/29/2024 03/29/2024 IMAGING: I personally reviewed the images with Dr. Luis and read the radiologist's report. Hardware satisfactorily in place with no signs of infection or malfunction ASSESSMENT: Antonina Hoskins is a 68-year-old female s/p T9-L2 laminectomy with T8-L2 fusion (10/14/23, Dr. Luis) who presents to the clinic for lumbar follow-up, with lumbar and thoracic xray images from on 03/29/24. Patient is doing well overall and Dr. Luis discusses that if she continues to remain this way there is a chance he will not have to go back in surgically. He does want to continue monitoring her, though, so we will see her back in 5 to 6 months with another set of thoracic and lumbar x-rays. Patient agreeable to plan. PLAN: Follow-up in 5-6 months with thoracic and lumbar x-rays Not available 03/29/2024 11:55:39 10/13/2024 10/13/2024 ASSESSMENT: Ms. Hoskins is a pleasant 69 year old female s/p T9-L2 laminectomy with T8-L2 fusion on 10/14/23, Dr. Luis. Her procedure was supposed to be even more extensive but there was signal change reported by neuromonitoring during surgery. Patient states, it took her about 2 weeks to be able to move her right leg but she is definitely doing much better now than before her surgery and she is 5/5 strength in bilateral lower extremities on exam. Her stenosis before surgery was so severe, there were concerns she would not be able to walk if she did not fix it. She did her last visit with PT last fall and feels like she has improved greatly. Her states that she still struggles with some balance issues and she report some tightness/pain in bilateral groin areas and front thighs. She denies thoracic or lumbar pain. Patient denies any bowel or bladder control issues, no saddle paresthesias. Dr. Luis is happy with patient's progress and would like to see her back in [address] thoracic and lumbar. Patient verbalized understanding and is agreeable to this plan. Patient has no further questions or concerns at this time and is satisfied with this plan of care. Patient seen by surgeon and myself. IMAGING: I personally reviewed the images with and read the radiologist report. Lumbar and thoracic x-ray at on 10/13/2024 show hardware in stable position with no signs of complications PLAN: Follow up in 6 months with Lumbar and thoracic CT. [email or web address] Not available 10/13/2024 12:33:33 10/20/2024 10/20/2024 - Imaging: X-ray suggests loss of cartilage from the femur and tibia at the lateral joint line of the right knee. Osteoarthritis Of The Right Knee: Conservative management is recommended. Routine use of Tylenol and limited NSAIDs for symptom control. Injections are not expected to address the mechanical issue. Monitor condition for worsening symptoms. Lateral Meniscus Tear Of The Right Knee: Maintain conservative management as surgical intervention is not recommended due to underlying osteoarthritis. Evaluate the need for intervention if mechanical locking or catching increases significantly. Trendelenburg Gait: Encourage continued use of a cane. Address balance with potential physical therapy if symptoms persist or interfere with daily activities. Monitor for progression related to underlying causes. [email or web address] Not available 10/20/2024 10:42:12 Plan of Treatment Reminders Order Date Submit Date Provider Last Modified By Organization Details Last Modified Time Details Appointments RECHECK r 2024 10:45A M UNIQUE LUIS MD Not available Not available Not available Lab None recorded . Referral None recorded . Procedures None recorded . Surgeries None recorded . Imaging None recorded . Medication Orders None recorded . Patient TargetsNo targets recorded. Patient Instructions Encounter Date Encounter Id Patient Instructions Last Modified By Organization Details Last Modified Time 10/20/2024 [id number] - Use Tylenol as needed for knee discomfort. - Utilize a cane for stability when walking. - No need for surgical intervention at present. - Follow current activity levels and be mindful of knee catching sensation. - Seek consultation if symptoms worsen, especially mechanical catching or instability. [email or web address] Not available 10/20/2024 10:42:14 69-year-old fema le with a history of back surgery, presenting with weakness and mechanical symptoms in the right knee. The evaluation suggests lateral compartment osteoarthritis with a likely lateral meniscus tear. The Trendelenburg gait pattern seems to have worsened post-spine surgery, possibly exacerbated by valgus malalignment. Conservative management remains the focus. I would hold on MRI and physical therapy. Should her pain worsen then we will try a steroid injection. And pre-CERT her for Synvisc GARCIA injection. I do not suspect she is making things worse by being active on it but her pronounced Trendelenburg gait and valgus alignment continue to yield compromise for this knee. Follow-up as needed [email or web address] Not available 10/20/2024 13:20:29 Reason for Referral None Reported. Results Created Date Observation Date Name Description Value Unit Range Abnormal Flag Note LastModifiedBy Organization Detail LastModifiedTime 11/20/19 24 11/20/2023 BASIC METAB OLIC PANEL glucose 107 mg/dL 74-100 high Not Available [facility] [address] [facility], [place], [address], 11/20/2023 15:38:34 11/20/19 24 11/20/2023 BASIC METAB OLIC PANEL blood urea nitrogen 10 mg/dL 6-20 normal Not Available [facility] [address] [place] [address], [phone], 11/20/2023 15:38:34 11/20/19 24 11/20/2023 BASIC METAB OLIC PANEL creatinine 0.63 mg/dL 0.50-0 .95 normal Not Available [facility] [address] [place] [address], [phone], 11/20/2023 15:38:34 11/20/19 24 11/20/2023 BASIC METAB OLIC PANEL BUN/creatini ne ratio 16 (calc ) 10-20 normal Not Available [facility] [address] [place] [address], [phone], 11/20/2023 15:38:34 11/20/19 24 11/20/2023 BASIC METAB OLIC PANEL sodium 142 mmol/ L 136-14 5 normal Not Available [facility] [address] [place] [address], [phone], 11/20/2023 15:38:34 11/20/19 24 11/20/2023 BASIC METAB OLIC PANEL potassium 4.0 mmol/ L 3.4-5. 0 normal Not Available [facility] [address] [place] [address], [phone], 11/20/2023 15:38:34 11/20/19 24 11/20/2023 BASIC METAB OLIC PANEL chloride 102 mmol/ L 98-107 normal Not Available [facility] [address] [place] [address], [phone], 11/20/2023 15:38:34 11/20/19 24 11/20/2023 BASIC METAB OLIC PANEL carbon dioxide 28 mmol/ L 22-31 normal Not Available [facility] [address] [place] [address], [phone], 11/20/2023 15:38:34 11/20/19 24 11/20/2023 BASIC METAB OLIC PANEL anion gap 12 (calc ) 7-25 normal Not Available [facility] [address] [place], [address], 11/20/2023 15:38:34 11/20/19 24 11/20/2023 BASIC METAB OLIC PANEL calcium 9.6 mg/dL 8.6-10 .2 normal Not Available [facility] [address] [place], [address], 11/20/2023 15:38:34 11/20/19 24 11/20/2023 BASIC METAB OLIC PANEL GFR 95 >= 60 normal NOT E New calcu latio n for GFR (CKD- EPI 2020) is formu lated witho ut race adjus tment facto rs at the recom menda tion of the [employer] ation and Ameri can [place] [employer] of Nephr ology . This calcu latio n has not been valid ated in pregn ant women . For pedia tric patie nts refer to https ://abigail w.errol cano.o rg/pr maribeless ional s/KDO QI/gf r_cal culat orPed Not Available [facility] [address] [place] [address], [phone], 11/20/2023 15:38:34 11/20/19 24 11/20/2023 DIGOX IN digoxin 1.3 NG/mL 0.8-2. 0 normal Not Available [facility] [address] [place] [address], [phone], 11/20/2023 16:31:41 11/16/19 24 11/13/2023 kev r monit or No observ ation record ed. JOSTIN Not Available 2023 19:00:20 11/23/19 24 11/20/2023 elect priscila diogr am No observ ation record ed. BARCODE Not Available 2023 16:03:34 12/08/19 24 12/08/2023 XR, lumbo sacra l spine , 2 or [address] [address] Orion chandler Name: ANTONINA chandler : 1954 Orion chandler Orderi ng Provid er: UNIQUE LUIS EXAM DATE: 2023 EXAM: XR LUMBAR AP/LAT CLINIC AL INFORM ATION: Postop erativ e. IMAGES PROVID ED: AP, swimme r's and latera l view of the thorac ic spine. AP, latera l, and coned- down views of the lumbar spine. COMPAR CHANTELLE: None. FINDIN GS AND IMPRES UZAIR: Spinal fusion is noted at T8-L2 levels with isolat ion of T11 verteb ra. Surgic al hardwa re is satisf actori ly placed . No eviden ce of loosen ing or infect ion is seen. Degene rative change s are seen at other levels . Interp reted By: Aziza Loera MD Electr onical ly Signed By: Aziza Loera MD on 024 11:[address] [facility] [address] , [place], [address], 02/11/2024 11:24:55 12/08/19 24 12/08/2023 XR, thora cic spine , 2 view [facility] [address] [place] [address] Orion chandler Name: ANTONINA chandler : 1954 Orion chandler Orderi ng Provid er: UNIQUE LUIS EXAM DATE: 2023 EXAM: XR THORAC IC AP/LAT CLINIC AL INFORM ATION: Postop erativ e. IMAGES PROVID ED: AP, swimme r's and latera l view of the thorac ic spine. AP, latera l, and coned- down views of the lumbar spine. COMPAR CHANTELLE: None. FINDIN GS AND IMPRES UZAIR: Spinal fusion is noted at T8-L2 levels with isolat ion of T11 verteb ra. Surgic al hardwa re is satisf actori ly placed . No eviden ce of loosen ing or infect ion is seen. Degene rative change s are seen at other levels . Interp reted By: Aziza Loera MD Electr onical ly Signed By: Aziza Loera MD on 11:06 AM [email or web address] [facility] [address] , [place], [address], 02/11/2024 11:24:55 01/15/20 24 01/14/2024 XR, thora cic spine , 2 view [place] [address] [place] [address] Patimary t Name: ANTONINA chandler : 1954 Orion chandler Orderi ng Provid er: UNIQUE LUIS EXAM DATE: 2023 EXAM: XR THORAC IC AP/LAT HISTOR Y: Follow -up of prior surger y COMPAR CHANTELLE: FINDIN GS: There is prior assembler body ior fusion from T8 throug h T10, and from T12 throug h L2 extend ing furthe r into the lumbar spine. There is no eviden ce of loosen ing of the hardwa re or hardwa re failur e. No fractu re is identi fied. There are mild diffus e degene rative change s in the thorac ic spine. IMPRES UZAIR: 1. There is prior fusion in the thorac olumba r spine. Interp reted By: Katherine calvin MD [facility] onical ly Signed By: Katherine calvin MD on 9:57 AM [email or web address] [facility] [address] , [place], [address], 03/15/2024 16:22:32 01/15/20 24 01/14/2024 XR, lumbo sacra l spine , 2 or 3 view [place] [address] [place] [address] Patimary t Name: ANTONINA chandler : 1954 Orion chandler Orderi ng Provid er: UNIQUE LUIS EXAM DATE: 2023 EXAM: XR LUMBAR AP/LAT HISTOR Y: Follow -up of prior surger y COMPAR CHANTELLE: 024 FINDIN GS: There is prior fusion from T12 throug h L2 extend ing into the thorac ic spine. There is no eviden ce of loosen ing of the hardwa re. There is focal levocu rvatur e at L2-L3 with a probab le right latera l compre ssion fractu re of the L3 verteb ral body. This is unchan ged from the prior study. There is severe anteri or margin al spurri ng. IMPRES UZAIR: 1. There is prior fusion of the thorac olumba r spine. Interp reted By: Katherine calvin MD Electr onical ly Signed By: Katherine calvin MD on 024 9:59 AM [email or web address] [facility] [address] , [place], [address], 03/15/2024 16:22:16 03/29/20 24 03/29/2024 XR, thora cic spine , [address] [place] [address] Patien ramesh Name: ANTONINA chandler : 1954 Orion chandler Orderi ng Provid er: UNIQUE LUIS EXAM DATE: 2023 EXAM: XR THORAC IC AP/LAT HISTOR Y: Follow -up of prior surger y COMPAR CHANTELLE: FINDIN GS: There is prior assembler body ior fusion from T8 throug h T10, and from T12 throug h L2 extend ing furthe r into the lumbar spine. There is no eviden ce of loosen ing of the hardwa re or hardwa re failur e. No fractu re is identi fied. There are mild diffus e degene rative change s in the thorac ic spine. IMPRES UZAIR: 1. There is prior fusion in the thorac olumba r spine. Interp reted By: Katherine calvin MD Electr onical ly Signed By: Katherine calvin MD on 03/29/20 24 9:[address] [facility] [address] [place], [address], 05/16/2024 21:57:24 03/29/20 24 03/29/2024 XR, lumbo sacra l [facility] , [facility] [address] [place] [address] [place] [address] Orion chandler Name: ANTONINA chandler : 1954 Orion chandler Orderi ng Provid er: UNIQUE LUIS EXAM DATE: 2023 EXAM: XR LUMBAR AP/LAT HISTOR Y: Follow -up of prior surger y COMPAR CHANTELLE: 024 FINDIN GS: There is prior fusion from T12 throug h L2 extend ing into the thorac ic spine. There is no eviden ce of loosen ing of the hardwa re. There is focal levocu rvatur e at L2-L3 with a probab le right latera l compre ssion fractu re of the L3 verteb ral body. This is unchan ged from the prior study. There is severe anteri or margin al spurri ng. IMPRES UZAIR: 1. There is prior fusion of the thorac olumba r spine. Interp reted By: Katherine calvin MD Electr onical ly Signed By: Katherine calvin MD on 03/29/20 24 9:[address] [facility] [address], [phone], 05/16/2024 21:57:24 10/13/19 25 10/13/2024 XR, thora cic spine , 2 view [place] [facility] [address] [place] [address] [place] [address] Orion chandler Name: ANTONINA chandler : 1954 Orion chandler Orderi ng Provid er: UNIQUE LUIS EXAM DATE: 2024 EXAM: XR THORAC IC AP/LAT CLINIC AL INFORM ATION: Back pain. IMAGES PROVID ED: AP, and latera l views of the thorac ic spine. COMPAR CHANTELLE: 2023 FINDIN GS: Previo us fusion noted of the thorac olumba r spine. This includ es to T8-T10 skippi ng T11 and extend ing from T12 throug h L2. No compli cation s are visibl e. Modera te degene rative spurri ng is presen t. No radiog raphic eviden ce of injury is noted. IMPRES UZAIR: Uncomp licate d appear ing stable thorac olumba r fusion Interp reted By: Igor Andrews MD Electr onical ly Signed By: Igor Andrews MD on 025 9:13 AM row4 [facility] [address] [place] [address], [phone], 11/10/2024 13:12:34 10/13/19 25 10/13/2024 XR, lumbo sacra l spine , 2 or [address] [address] Patimary chandler Name: ANTONINA chandler : 1954 Patimary t Orderi ng Provid er: UNIQUE LUIS EXAM DATE: 2024 EXAM: XR LUMBAR AP/LAT CLINIC AL INFORM ATION: Back pain. IMAGES PROVID ED: AP, latera l and coned down views of the lumbar spine. COMPAR CHANTELLE: 03/29/20 24 FINDIN GS: There is eviden ce of T12-L2 fusion . The hardwa re shows no compli cation . No loosen ing is seen. Modera te degene rative disc diseas e change s are presen t and there are slight compre ssion of L3 as before . No radiog raphic eviden ce of injury is noted. IMPRES UZAIR: Diffus e DDD is presen t with mild L3 compre ssion deform ity. Previo us T12-L2 fusion Interp reted By: Igor Andrews MD Electr onical ly Signed By: Igor Andrews MD on 025 9:16 AM row4 [facility] [address] [place], [phone], 11/10/2024 13:12:35 10/20/19 25 10/20/2024 XR, knee, 4 or more view [facility] [place] [address] [place], [place] [address] Orion chandler Name: ANTOINNA chandler : 1954 Orion chandler Orderi ng Provid er: ANH HIGUERA EXAM DATE: 2024 EXAM: XR RT KNEE COMPLE TE, 4 OR MORE VWS COMPAR CHANTELLE: None. HISTOR Y: Right knee pain. FINDIN GS: No fractu re is identi fied. There are modera te degene rative change s in the right knee. There is mild to modera te latera l joint space loss. There is modera te margin al spurri ng. There is a probab le joint effusi on. Contra latera l knee: There is a total knee arthro plasty is place. IMPRES UZAIR: 1. There are modera te degene rative change s in the right knee. Interp reted By: Katherine calvin MD Electr onical ly Signed By: Katherine calvin MD on 025 10:09 AM [facility] [place] [address] , [place], [address], 10/20/2024 13:23:13 11/08/19 25 11/08/2024 CT, thora cic spine , w/o contr ast [place] [address] [place], [place] [address] Orion chandler Name: ANTONINA chandler : 1954 Orion chandler Orderi ng Provid er: UNIQUE JANELLE EXAM DATE: 2024 EXAM: CT THORAC IC W/O CONTRA ST HISTOR Y: 69-yea r-old female for follow -up of prior surger y. COMPAR CHANTELLE: 025 TECHNI QUE: 1 mm direct axial slices were obtain ed throug h the lumbar spine. Comput er-gen erated axial, sagitt al, and samuel l recons tructi ons are also provid ed for interp retati on. FINDIN GS: There is prior assembler body ior fusion from T8 throug h T10, and extend ing to T12 and the lumbar spine. There is beam harden ing artifa ct from the pedicl e screws and assembler body ior fusion hardwa re. There is no eviden ce of loosen ing of the hardwa re. There are prior myra ctomie s from T9-T10 throug h T11-T1 2. There is a calcif ied mass along the assembler body ior aspect of the verteb ral bodies at T10-T1 1. This measur es 2.4 cm cranio caudad , and 1 cm in diamet er. There is diffus e kyphos is of the thorac ic spine. There is no focal sublux ation. There is no fractu re. There is mild to modera te anteri or margin al osteop hytic spurri ng. No pathol ogic lesion is identi fied in the thorac ic spine. There is a right parace ntral disc protru uzari at T8-T9 with narrow ing of the right latera l recess . There are minima l to mild disc bulges in the remain ing levels of the thorac ic spine. There is no centra l canal narrow ing. There is mild bilate ral neural forami nal narrow ing at T4-T5 and T5-T6. There is mild to modera te neural forami nal narrow ing at T8-T9 and modera te left neural forami nal narrow ing at T9-T10 . There is mild neural forami nal narrow ing at T10-T1 1. There is no parasp inous soft tissue abnorm ality. The parasp inous muscul ature is symmet lori. IMPRES UZAIR: 1. There is a large calcif icatio n along the anteri or aspect of the thecal sac at the T10-T1 1 level which may repres ent an ossifi ed mening ioma, osteoc hondro ma or osteob lastom a. This is unchan ged from the prior CT scan. 2. There is prior myra ctomie s from T9-T10 throug h T11-T1 2, and prior fusion from T8 to the lumbar spine. 3. There are mild diffus e degene rative change s in the thorac ic spine. Interp reted By: Katherine calvin MD Electr onical ly Signed By: Katherine calvin MD on 025 3:05 PM usman [facility] [address] [place] [address], [phone], 12/13/2024 10:20:48 11/08/19 25 11/08/2024 CT, lumba r spine , w/o contr ast [place] [address] [facility] [place] [address] Patien t Name: ANTONINA chandler : 1954 Patimary chandler Orderi ng Provid er: UNIQUE LUIS EXAM DATE: 2024 EXAM: CT LUMBAR WITHOU T CONTRA ST HISTOR Y: 69-yea r-old female for follow -up of prior surger y. COMPAR CHANTELLE: CT dated 024 TECHNI QUE: 1 mm direct axial slices were obtain ed throug h the lumbar spine. Comput er-gen erated axial, sagitt al, and samuel l recons tructi ons are also provid ed for interp retati on. FINDIN GS: There is prior assembler body ior fusion extend ing from the thorac ic spine and into the T12-L2 verteb ral bodies on this study. There is beam harden ing artifa ct from the pedicl e screws and assembler body ior fusion hardwa re. There is no eviden ce of loosen ing of the hardwa re. There are associ ated myra ctomie s at T12-L1 and L1-L2. There is a calcif ied mass in the assembler body ior aspect of the verteb ral bodies of the T10-T1 1 level. There is dextro curvat ure at the thorac olumba r juncti on, and levosc oliosi s from L2 throug h L4, and dextro curvat ure from L4 throug h S1. There is minima l listhe sis. There is no eviden ce of fractu re. There is severe concav e latera l and anteri or margin al osteop hytic spurri ng. No pathol ogic lesion is identi fied in the lumbar spine. T12-L1 : There is a left parace ntral disc extrus ion with periph eral calcif icatio n. There is mild endpla te spurri ng. There is stenos is of the left latera l recess . There is minima l left neural forami nal narrow ing. L1-L2: There is a broad- based disc protru uzair extend ing into the neural forami na, left greate r than right endpla te spurri ng and modera te facet arthro darshana. There is no centra l canal stenos is. There is modera te/sev ere left and mild right neural forami nal stenos is. L2-L3: There is a broad- based disc protru uzair and right greate r than left endpla te spurri ng. There is mild facet arthro darshana. There is mild centra l canal stenos is. There is severe right and mild left neural forami nal stenos is. L3-L4: There is a diffus e disc protru uzair and endpla te spurri ng extend ing into the right neural forame n. There is modera te facet arthro darshana. There is mild centra l canal stenos is. There is severe right and modera te left neural forami nal stenos is. L4-L5: There is a large, diffus e disc protru uzair, mild to modera te endpla te spurri ng and modera te facet arthro darshana. There is modera te centra l canal stenos is. There is severe left and modera te right neural forami nal stenos is. L5-S1: There is a large, broad- based disc protru uzair and left greate r than right endpla te spurri ng. There is mild facet arthro darshana. There is no centra l canal stenos is. There is severe left and modera te right neural forami nal stenos is. There are mild degene rative change s in the SI joints . There is mild atroph y of the parasp inous muscul ature. IMPRES UZAIR: 1. There is prior assembler body ior fusion extend ing from the thorac ic into the lumbar spine with myra ctomie s. There is no eviden ce of loosen ing of the hardwa re. There is a calcif ied mass along the assembler body ior aspect of the verteb ral bodies at T10-T1 1 which appear s unchan ged from the prior study. 2. There is severe scolio sis and severe diffus e degene rative change s in the lumbar spine. There is mild to modera te centra l canal stenos is and modera te to severe bilate ral neural forami nal stenos is at multip le levels . Interp reted By: Katherine calvin MD Electr onical ly Signed By: Katherine calvin MD on 025 3:[address] [facility] [address], [phone], 12/13/2024 10:20:49 Result Notes Documentation Provider Name and Address Organization Details Recorded Time Xr, Lumbosacral Spine, 2 Or 3 View : [place] [address] Patient Name: ANTONINA HOSKINS Patient : 1955 Patient Ordering Provider: UNIQUE LUIS EXAM DATE: 12/08/2023 EXAM: XR LUMBAR AP/LAT CLINICAL INFORMATION: Postoperative. IMAGES PROVIDED: AP, swimmer's and lateral view of the thoracic spine. AP, lateral, and coned-down views of the lumbar spine. COMPARISON: None. FINDINGS AND IMPRESSION: Spinal fusion is noted at T8-L2 levels with isolation of T11 vertebra. Surgical hardware is satisfactorily placed. No evidence of loosening or infection is seen. Degenerative changes are seen at other levels. Interpreted By: Calin Loera MD UE LUIS MD [address] [place] [address], [phone], [facility] 02/11/2024 11:24:55 Xr, Thoracic Spine, 2 View : [address] [address] Patient Name: ANTONINA HOSKINS Patient : 1955 Patient Ordering Provider: UNIQUE LUIS EXAM DATE: 12/08/2023 EXAM: XR THORACIC AP/LAT CLINICAL INFORMATION: Postoperative. IMAGES PROVIDED: AP, swimmer's and lateral view of the thoracic spine. AP, lateral, and coned-down views of the lumbar spine. COMPARISON: None. FINDINGS AND IMPRESSION: Spinal fusion is noted at T8-L2 levels with isolation of T11 vertebra. Surgical hardware is satisfactorily placed. No evidence of loosening or infection is seen. Degenerative changes are seen at other levels. Interpreted By: Calin Loera MD UE LUIS MD [address] [place] [address], [phone] 02/11/2024 11:24:55 Xr, Thoracic Spine, 2 View : [place] [address] Patient Name: ANTONINA HOSKINS Patient : 1955 Patient Ordering Provider: UNIQUE LUIS EXAM DATE: 01/14/2024 EXAM: XR THORACIC AP/LAT HISTORY: Follow-up of prior surgery COMPARISON: 12/08/2023 FINDINGS: There is prior posterior fusion from T8 through T10, and from T12 through L2 extending further into the lumbar spine. There is no evidence of loosening of the hardware or hardware failure. No fracture is identified. There are mild diffuse degenerative changes in the thoracic spine. IMPRESSION: 1. There is prior fusion in the thoracolumbar spine. Interpreted By: Mauricio Kwok [facility] 03/15/[facility]24 16:22:32 Xr, Lumbosacral Spine, 2 Or 3 View : [address] [address] Patient Name: ANTONINA HOSKINS Patient : 1955 Patient Ordering Provider: UNIQUE LUIS EXAM DATE: 01/14/2024 EXAM: XR LUMBAR AP/LAT HISTORY: Follow-up of prior surgery COMPARISON: 12/08/2023 FINDINGS: There is prior fusion from T12 through L2 extending into the thoracic spine. There is no evidence of loosening of the hardware. There is focal levocurvature at L2-L3 with a probable right lateral compression fracture of the L3 vertebral body. This is unchanged from the prior study. There is severe anterior marginal spurring. IMPRESSION: 1. There is prior fusion of the thoracolumbar spine. Interpreted By: Mauricio Kwok MD [facility] 03/15/2024 16:22:16 Xr, Thoracic Spine, 2 View : [place] [id number] Patient Name: ANTONINA HOSKINS Patient : 1955 Patient Ordering Provider: UNIQUE LUIS EXAM DATE: 03/29/2024 EXAM: XR THORACIC AP/LAT HISTORY: Follow-up of prior surgery COMPARISON: 01/14/2024 FINDINGS: There is prior posterior fusion from T8 through T10, and from T12 through L2 extending further into the lumbar spine. There is no evidence of loosening of the hardware or hardware failure. No fracture is identified. There are mild diffuse degenerative changes in the thoracic spine. IMPRESSION: 1. There is prior fusion in the thoracolumbar spine. Interpreted By: Mauricio Kwok MD UE LUIS MD [address] [place] [address], [phone] [place] [address] 05/16/2024 21:57:24 Xr, Lumbosacral Spine, 2 Or 3 View : [place] [address] Patient Name: ANTONINA HOSKINS Patient : 1955 Patient Ordering Provider: UNIQUE LUIS EXAM DATE: 03/29/2024 EXAM: XR LUMBAR AP/LAT HISTORY: Follow-up of prior surgery COMPARISON: 01/14/2024 FINDINGS: There is prior fusion from T12 through L2 extending into the thoracic spine. There is no evidence of loosening of the hardware. There is focal levocurvature at L2-L3 with a probable right lateral compression fracture of the L3 vertebral body. This is unchanged from the prior study. There is severe anterior marginal spurring. IMPRESSION: 1. There is prior fusion of the thoracolumbar spine. Interpreted By: Mauricio Kwok MD UE LUIS MD [address] [place] [address], [phone], [facility] 05/16/2024 21:57:24 Xr, Thoracic Spine, 2 View : [address] [address] Patient Name: ANTONINA HOSKINS Patient : 1955 Patient Ordering Provider: UNIQUE LUIS EXAM DATE: 10/13/2024 EXAM: XR THORACIC AP/LAT CLINICAL INFORMATION: Back pain. IMAGES PROVIDED: AP, and lateral views of the thoracic spine. COMPARISON: 03/29/2024 FINDINGS: Previous fusion noted of the thoracolumbar spine. This includes to T8-T10 skipping T11 and extending from T12 through L2. No complications are visible. Moderate degenerative spurring is present. No radiographic evidence of injury is noted. IMPRESSION: Uncomplicated appearing stable thoracolumbar fusion Interpreted By: Igor Andrews MD UE LUIS MD [address] [place] [address], [phone], [facility] 11/10/2024 13:12:34 Xr, Lumbosacral Spine, 2 Or 3 View : [address] [address] Patient Name: ANTONINA HOSKINS Patient : 1955 Patient Ordering Provider: UNIQUE LUIS EXAM DATE: 10/13/2024 EXAM: XR LUMBAR AP/LAT CLINICAL INFORMATION: Back pain. IMAGES PROVIDED: AP, lateral and coned down views of the lumbar spine. COMPARISON: 03/29/2024 FINDINGS: There is evidence of T12-L2 fusion. The hardware shows no complication. No loosening is seen. Moderate degenerative disc disease changes are present and there are slight compression of L3 as before. No radiographic evidence of injury is noted. IMPRESSION: Diffuse DDD is present with mild L3 compression deformity. Previous T12-L2 fusion Interpreted By: Igor Andrews MD UE LUIS MD [address] [place] [address], [phone], [facility] 11/10/2024 13:12:35 Xr, Knee, 4 Or More View : [facility] [address] [place] [address] Patient Name: ANTONINA HOSKINS Patient : 1955 Patient Ordering Provider: ANH HIGUERA EXAM DATE: 10/20/2024 EXAM: XR RT KNEE COMPLETE, 4 OR MORE VWS COMPARISON: None. HISTORY: Right knee pain. FINDINGS: No fracture is identified. There are moderate degenerative changes in the right knee. There is mild to moderate lateral joint space loss. There is moderate marginal spurring. There is a probable joint effusion. Contralateral knee: There is a total knee arthroplasty is place. IMPRESSION: 1. There are moderate degenerative changes in the right knee. Interpreted By: Mauricio Kwok MD HIGUERA MD [address] [place] [address], [phone], [facility] 10/20/2024 13:23:13 Ct, Thoracic Spine, W/o Contrast : [address] [address] Patient Name: ANTONINA HOSKINS Patient : 1955 Patient Ordering Provider: UNIQUE LUIS EXAM DATE: 11/08/2024 EXAM: CT THORACIC W/O CONTRAST HISTORY: 69-year-old female for follow-up of prior surgery. COMPARISON: 10/13/2024 TECHNIQUE: 1 mm direct axial slices were obtained through the lumbar spine. Computer-generated axial, sagittal, and coronal reconstructions are also provided for interpretation. FINDINGS: There is prior posterior fusion from T8 through T10, and extending to T12 and the lumbar spine. There is beam hardening artifact from the pedicle screws and posterior fusion hardware. There is no evidence of loosening of the hardware. There are prior laminectomies from T9-T10 through T11-T12. There is a calcified mass along the posterior aspect of the vertebral bodies at T10-T11. This measures 2.4 cm craniocaudad, and 1 cm in diameter. There is diffuse kyphosis of the thoracic spine. There is no focal subluxation. There is no fracture. There is mild to moderate anterior marginal osteophytic spurring. No pathologic lesion is identified in the thoracic spine. There is a right paracentral disc protrusion at T8-T9 with narrowing of the right lateral recess. There are minimal to mild disc bulges in the remaining levels of the thoracic spine. There is no central canal narrowing. There is mild bilateral neural foraminal narrowing at T4-T5 and T5-T6. There is mild to moderate neural foraminal narrowing at T8-T9 and moderate left neural foraminal narrowing at T9-T10. There is mild neural foraminal narrowing at T10-T11. There is no paraspinous soft tissue abnormality. The paraspinous musculature is symmetric. IMPRESSION: 1. There is a large calcification along the anterior aspect of the thecal sac at the T10-T11 level which may represent an ossified meningioma, osteochondroma or osteoblastoma. This is unchanged from the prior CT scan. 2. There is prior laminectomies from T9-T10 through T11-T12, and prior fusion from T8 to the lumbar spine. 3. There are mild diffuse degenerative changes in the thoracic spine. Interpreted By: Mauricio Kwok MD UE LUIS MD [address] [place] [address], [phone] 12/13/2024 10:20:48 Ct, Lumbar Spine, W/o Contrast : [address] [address] Patient Name: ANTONINA HOSKINS Patient : 1955 Patient Ordering Provider: UNIQUE LUIS EXAM DATE: 11/08/2024 EXAM: CT LUMBAR WITHOUT CONTRAST HISTORY: 69-year-old female for follow-up of prior surgery. COMPARISON: CT dated 10/01/2023 TECHNIQUE: 1 mm direct axial slices were obtained through the lumbar spine. Computer-generated axial, sagittal, and coronal reconstructions are also provided for interpretation. FINDINGS: There is prior posterior fusion extending from the thoracic spine and into the T12-L2 vertebral bodies on this study. There is beam hardening artifact from the pedicle screws and posterior fusion hardware. There is no evidence of loosening of the hardware. There are associated laminectomies at T12-L1 and L1-L2. There is a calcified mass in the posterior aspect of the vertebral bodies of the T10-T11 level. There is dextrocurvature at the thoracolumbar junction, and levoscoliosis from L2 through L4, and dextrocurvature from L4 through S1. There is minimal listhesis. There is no evidence of fracture. There is severe concave lateral and anterior marginal osteophytic spurring. No pathologic lesion is identified in the lumbar spine. T12-L1: There is a left paracentral disc extrusion with peripheral calcification. There is mild endplate spurring. There is stenosis of the left lateral recess. There is minimal left neural foraminal narrowing. L1-L2: There is a broad-based disc protrusion extending into the neural foramina, left greater than right endplate spurring and moderate facet arthropathy. There is no central canal stenosis. There is moderate/severe left and mild right neural foraminal stenosis. L2-L3: There is a broad-based disc protrusion and right greater than left endplate spurring. There is mild facet arthropathy. There is mild central canal stenosis. There is severe right and mild left neural foraminal stenosis. L3-L4: There is a diffuse disc protrusion and endplate spurring extending into the right neural foramen. There is moderate facet arthropathy. There is mild central canal stenosis. There is severe right and moderate left neural foraminal stenosis. L4-L5: There is a large, diffuse disc protrusion, mild to moderate endplate spurring and moderate facet arthropathy. There is moderate central canal stenosis. There is severe left and moderate right neural foraminal stenosis. L5-S1: There is a large, broad-based disc protrusion and left greater than right endplate spurring. There is mild facet arthropathy. There is no central canal stenosis. There is severe left and moderate right neural foraminal stenosis. There are mild degenerative changes in the SI joints. There is mild atrophy of the paraspinous musculature. IMPRESSION: 1. There is prior posterior fusion extending from the thoracic into the lumbar spine with laminectomies. There is no evidence of loosening of the hardware. There is a calcified mass along the posterior aspect of the vertebral bodies at T10-T11 which appears unchanged from the prior study. 2. There is severe scoliosis and severe diffuse degenerative changes in the lumbar spine. There is mild to moderate central canal stenosis and moderate to severe bilateral neural foraminal stenosis at multiple levels. Interpreted By: Mauricio Kwok MD UE LUIS MD [address] [place], [phone] 12/13/2024 10:20:49 Problems No Known Problems Procedures Surgical History Date Name Laterality Status Provider Name and Address Organization Details Recorded Time 11/20/19 EKG completed ALLI MITCHELL, DIRECTOR OF VALUATION [address] [place], [phone] 11/20/2023 12:22:25 10/14/19 19 Suture/Staple removal completed Kyra RICE PA-C [address] [place], [phone] 10/14/2018 16:59:56 10/06/19 19 Orthopedic Surgery completed Ritchie Chris [facility] 10/14/2018 15:37:44 07/22/20 18 PT Evaluation - Moderate Complexity completed VIANCA MAGDALENO, PT [address] [place], [phone], [facility] 07/22/2018 18:46:54 07/22/20 18 PT Therapeutic Exercise completed VIANCA MAGDALENO, PT [address] [place], [phone], [facility] 07/22/2018 18:47:07 Knee arthroscopy/surge ry [facility] 11/20/2023 12:03:07 ligation of fallopian tube [facility]/20[facility] 12:04:01 tonsillectomy [facility] 11/20/2023 12:04:16 Imaging Results None recorded. Procedure Notes None recorded. Medical Equipment None Reported. Allergies Allergen ID Allergen Name Allergen Category Reaction Reaction Severity Criticality Documentation Date Start Date Code Code System Note Provider Name and Address Organization Details Recorded Time [id number] Substance with sulfonami de structure and antibacte rial mechanism of action (substanc e) medicatio n Not available Not available Not available 08/15/20162009 13268 8003 SNOMED Comme nt: Creat ed By: Irina staples;Cre ated Date: 2009 1:21: 56 PM; Not Available [facility] 6 03:36:34 [id number] Claritin medicatio n Not available Not available Not available 08/15/20162009 22850 6 RxNorm Comme nt: Creat ed By: Irina staples;Cre ated Date: 2009 1:22: 08 PM; Not Available [facility] 6 05:17:08 [id number] Product containin g penicilli n (product) medicatio n Not available Not available Not available 09/24/2023 01068 8001 [facility]ED [facility] [place] 4 08:34:34 [id number] oxycodone medicatio n Not available Not available Not available 09/24/2023 7804 RxNorm [facility] 4 08:34:58 Medications Name Sig Start Date Stop Date Status Note LastModified by Organization Details LastModified Time cyclobenz aprine 10 mg tablet Take 1 tablet 3 times a day by oral route as needed. 2023 active Not Available Not Available Not Avai lable pravastat in 40 mg tablet Daily 11/19 completed Frequenc y: daily;Me dication Descript ion: pravasta tin; Dosage:1 ; Route:or al; refills: 0 Not Available Not Available Not Available Detrol LA 4 mg capsule,e xtended release Daily 11/19 completed Frequenc y: daily;Me dication Descript ion: tolterod ine; Dosage:1 ; Route:or al; refills: 0 Not Available Not Available Not Available digoxin 250 mcg (0.25 mg) tablet Take 1 tablet every day by oral route. active Not Available Not Available No t Available hydrocodo ne 10 mg-acetam inophen 325 mg tablet Take 1 tablet every 6 hours by oral route as needed. 11/19 completed Not Available Not Available Not Available Reglan 10 mg tablet with meals 11/19 completed Frequenc y: with meals;Al t Frequenc y: hs;Medic ation Descript ion: metoclop ramide; Dosage:1 ; Route:or al; refills: 0 Not Available Not Available Not Available famotidin e 20 mg tablet Take 1 tablet twice a day by oral route. active Not Available Not Available No t Available Percocet 10 mg-325 mg tablet Take 1 tablet every 4-6 hours by oral route as needed. 2018 active Not Available Not Available Not Avai lable levothyro xine 50 mcg tablet Take 1 tablet every day by oral route. active Not Available Not Available No t Available pantopraz ole 40 mg tablet,de layed release 11/19 completed Medicati on Descript ion: pantopra zole; Dosage:a s directed ; Route:or al; refills: 0 Not Available Not Available Not Available pravastat in 20 mg tablet Take 1 tablet every day by oral route. active Not Available Not Available No t Available Diltiazem HCl CR 240 mg capsule,e xtended release Take 1 capsule every day by oral route. active Not Available Not Available No t Available Aspirin Low-Stren gth 81 mg tablet,de layed release active Medicati on Descript ion: aspirin; Dosage:a s directed ; Route:or al; refills: 0 Not Available Not Available Not Available metoprolo l tartrate 25 mg tablet Take 0.5 tablets twice a day by oral route. active Not Available Not Available No t Available Synthroid Daily 11/19 completed Frequenc y: daily;Me dication Descript ion: levothyr oxine; Dosage:1 ; Route:or al; refills: 0 Not Available Not Available Not Available metoprolo l succinate active Not Available Not Available No t Available Stool Softener active Not Available Not Available Not Available Miralax active Not Available Not Avail able Not Available Flovent HFA active Medicati on Descript ion: fluticas one propiona te HFA; Dosage:a s directed ; Route:in halation ; refills: 0 Not Available Not Available Not Available levocetir izine 5 mg tablet Take 1 tablet every day by oral route. active Not Available Not Available No t Available Xyzal active Not Available Not Availa ble Not Available Bystolic 5 mg tablet Daily 11/19 completed Frequenc y: daily;Me dication Descript ion: nebivolo l hydrochl oride; Dosage:1 ; Route:or al; refills: 0 Not Available Not Available Not Available Centrum Silver 0.4 mg-300 mcg-250 mcg tablet active Medicati on Descript ion: multivit macias with minerals ; Dosage:a s directed ; Route:or al; refills: 0 Not Available Not Available Not Available Eliquis 5 mg tablet Take 1 tablet twice a day by oral route. active Not Available Not Available No t Available Eliquis active Not Available Not Avail able Not Available Gemtesa active 75 MG Not Available Not Avail able Not Available Vitals Date Recorded Body height Body mass index (BMI) Body weight Systolic blood pressure Diastolic blood pressure Provider Name and Address Organization Details Last Updated DateTime 10/13/2024 162.56 cm 32.3 kg/m2 23364.3 7 g 124 mm[Hg] 74 mm[Hg] [facility] 10:14:14 Date Recorded Body height Body mass index (BMI) Body weight Provider Name and Address Organization Details Last Updated DateTime 10/20/2024 162.56 cm 32.3 kg/m2 20486.37 g Sharon Sarah [facility] 10/20/2024 10:13:23 Date Recorded Body height Body mass index (BMI) Body weight Systolic blood pressure Diastolic blood pressure Provider Name and Address Organization Details Last Updated DateTime 12/08/2023 162.56 cm 32.3 kg/m2 61049.37 g 110 mm[Hg] 72 mm[Hg] Gila Craft [facility] 09:54:53 Date Recorded Body height Body mass index (BMI) Body weight Systolic blood pressure Diastolic blood pressure Provider Name and Address Organization Details Last Updated DateTime 01/14/2024 162.56 cm 32.3 kg/m2 30206.3 7 g 122 mm[Hg] 74 mm[Hg] Eileen Chavez [facility] 4 11:05:40 Date Recorded Body height Body mass index (BMI) Body weight Systolic blood pressure Diastolic blood pressure Provider Name and Address Organization Details Last Updated DateTime 03/29/2024 162.56 cm 32.3 kg/m2 40815.37 g 122 mm[Hg] 72 mm[Hg] Gila Craft [facility] 4 10:04:33 Social History Question Answer Notes LastModified by [employer] Details LastModified Time Tobacco Smoking Status Never [facility]oker [facility] 06/17/2018 08:52:30 Rate The Severity Of Your Symptoms: (0-10 With 0=none And 10=worst Possible) 4 rcrank Information not available 11/02/2018 What Was The Date Of Your Most Recent Tobacco Screening? 11/20/2023 Information not available 11/20/2023 How Many Children Do You Have? 2 Information not available 11/20/2023 What Is Your Relationship Status? Information not available 11/20/2023 Sex: Female Functional Status Question Answer Note LastModified by [employer] Details LastModified Time Are you currently employed? No RETIRED Information not available 11/20/2023 Mental Status None recorded. Family History Relationship Description Onset Age of this Age Resolved Age Notes LastModified by Organization Details LastModified Time Father Heart disease PACEMA KER [email or web address] Not available 11/20/2023 12:01:16 Mother Heart disease HEART ATTACK [email or web address] Not available 11/20/2023 12:01:16 Sister Heart disease STROKE / HEART ATTACK [email or web address] Not available 11/20/2023 12:01:16 Brother Diabetes mellitus [email or web address] Not available 2023 12:01:31 Medical History Condition Response Gout N Other N Kidney Stones N COPD N Pneumonia N Arthritis Y Blood Clot N Cancer N Stroke N Kidney Disease N Heart Conditions N Migraines N Skin Problems N Rheumatic Fever N Bleeding Disorder N Tuberculosis N Genetic Disorder N AIDS/HIV N Asthma N GERD/Reflux N Included as Review of Systems N Anxiety/Depression N Thyroid Disease N Hernia N Glaucoma N Anesthesia Complications N Blood Thinners Y Shortness of Breath N Alcohol Overuse/Alcohol Abuse N High Cholesterol N Liver Disease N Allergies/Hayfever Y Chest Pain N Immune System Disorder N Heart Attack ([place]) N Mental Illness N Neurological Problems N Diabetes N Seizures/Epilepsy N Hyperlipidemia N Sleep Apnea N Hypertension N Osteoporosis N Gynecological HistoryNo gynecological history recorded. Obstetrics History GPAL:G 0 P 0 0 0 0 Past Encounters Encounter ID Performer Location Encounter Start Date Encounter Closed Date Diagnosis/Indication Diagnosis SNOMED-CT Code Diagnosis ICD10 Code Diagnosis Note [id number] ANH HIGUERA MD [facility] [address] [place] [address] 06/17/2018 08:34:14 06/17/2018 09:34:23 Anterior dislocation of shoulder joint [id number] S43.014A [id number] ANH HIG[facility]ERA MD [facility] [address] [place] [address] 07/01/2018 11:21:28 07/01/2018 13:15:52 Anterior dislocation of shoulder joint [id number] S43.014A [id number] ANH HIGUERA MD [facility] [address] [place] [address] 07/13/2018 13:43:25 07/22/2018 08:24:29 Full thickness rotator cuff tear [id number] M75.121 Subluxatio n of long head of biceps 127989503 S43.391A [id number] VIANCA MAGDALENO, PT PHYSICAL THERAPY / HAND THERAPY [facility] [address] [place] [address] 07/22/2018 07:39:29 07/23/2018 07:40:37 Injury of tendon of the rotator cuff of shoulder [id number] S46.001D Muscle weakness 78273046 M62.81 Muscle atrophy 61947715 M62.511 Shoulder stiff 628249292 M25.670 [id number] ANH HIGUERA MD [facility] [address] [place] [address] 08/10/2018 10:17:45 08/10/2018 11:29:25 Full thickness rotator cuff tear 194375007 M75.121 Closed fra cture of upper end of humerus 25147343 S42.201D [id number] ANH HIGUERA MD [facility] [address] [place] [address] 09/07/2018 10:09:35 09/09/2018 10:34:15 Full thickness rotator cuff tear 712983412 M75.932 [id number] ANH HIGUERA MD SURGERY SCHEDULE [address] [place] [address] 10/06/2018 06:43:08 10/06/2018 06:50:20 [id number] Kyra RICE PA-C [facility] [address] [place] [address] 10/14/2018 15:14:38 10/18/2018 08:06:55 Postoperative care [id number] Z48.89 [id number] Kyra RICE PA-C [facility] [address] [place] [address] 11/02/2018 09:35:00 11/02/2018 13:09:09 Postoperative care [id number] Z48.89 [id number] ANH HIGUERA MD [facility] [address] [place] [address] 11/30/2018 10:27:24 11/30/2018 11:34:59 Full thickness rotator cuff tear 897282662 M75.201 [id number] ANH HIGUERA MD [facility] [address] [place] [address] 01/04/2019 10:32:25 01/04/2019 12:43:15 Full thickness rotator cuff tear 468290185 M75.658 [id number] ANH HIGUERA MD [facility] [address] [place] [address] 02/08/2019 10:55:30 02/08/2019 12:37:12 Full thickness rotator cuff tear 831549562 M75.870 [id number] ANH HIGUERA MD [facility] [address] [place] [address] 03/15/2019 09:23:00 03/15/2019 10:36:42 Full thickness rotator cuff tear 181879470 M75.282 [id number] ANH HIGUERA MD [facility] [address] [place] [address] 04/19/2019 10:51:34 04/19/2019 12:36:16 Full thickness rotator cuff tear 501817441 M75.908 [id number] ANH HIGUERA MD [facility] [address] [place] [address] 05/24/2019 10:48:44 06/06/2019 11:27:59 Full thickness rotator cuff tear 444720746 M75.760 [id number] ANH HIGUERA MD [facility] [address] [place] [address] 07/05/2019 10:22:04 07/05/2019 14:17:14 Full thickness rotator cuff tear 927748180 M75.121 [id number] UNIQUE LUIS MD [facility] [address] [place] [address] 09/24/2023 08:03:13 09/25/2023 04:18:06 Thoracic spondylosis with myelopathy 83746003 M47.14 [id number] AYSHA MACHADO MD [facility] [address] [place] [address] 10/16/2023 09:15:19 10/16/2023 09:15:43 [id number] UNIQUE LUIS MD SURGERY SCHEDULE [address] [place] [address] 10/23/2023 07:43:23 10/30/2023 15:33:05 [id number] UNIQUE LUIS MD [facility] [address] [place] [address] 10/29/2023 09:35:40 10/30/2023 04:19:51 [id number] ALLI MITCHELL APRN CARDIOLOG Y [address] [place] [address] 11/20/2023 10:46:57 11/20/2023 13:58:37 Paroxysmal atrial fibrillation [id number] I48.0 NSR on today's EKG. Cardiac symptoms are stable.Rap id AF during hospitaliz ation. Holter study thereafter while at rehab demonstrat ed episodes of atach, flutter, fib.She notes that her medication was held multiple times d/t low BP.Will continue with current dose of metoprolol and digoxin for now.Check dig level today, BMPEchocar diogram during hospital stay demonstrat ed normal LVEF, she has no history of CAD, therefore flecainide could be used for rhythm suppressio n if needed.Fol low up in 3 months, will schedule ischemia workup at that time. Body mass index 30+ - obesity [id number] Z68.32 Discussed importance of maintainin g healthy weight, increasing aerobic exercise. Goal 120-150 min per week. Hyperlipidemia 00835502 E78.5 Currently on statin. Low cholestero l/low fat diet adivsed. Hypertensive disorder 38 713922 I10 Stable. Long-term current use of anticoagulant 995889265 Z79.01 Eliquis, tolerating well. No abnormal bleeding reported.C next office visit [id number] UNIQUE LUIS MD [facility] [address] [place] [address] 12/08/2023 09:50:15 12/09/2023 04:46:16 Spinal stenosis of thoracic region 92364616 M48.04 [id number] LING DUCKWORTH PA-C [facility] [address] [place] [address] 01/14/2024 10:57:09 01/15/2024 04:25:31 Spinal stenosis of thoracic region 36266991 M48.04 [id number] LING DUCKWORTH PA-C [facility] [address] [facility] [place] [address] 03/29/2024 09:57:16 03/30/2024 04:28:53 History of spinal fusion [id number] 9107 Z98.1 Spinal soledad nosis of thoracic region 57892059 M48.04 [id number] SHARMILA GUERRA, DIRECTOR OF VALUATION [facility] [address] [place] [address] 10/13/2024 09:30:44 10/14/2024 04:16:24 Lumbar radiculopathy 290854005 M54.16 [id number] ANH HIGUERA MD [facility] [address] [place] [address] 10/20/2024 09:32:45 10/21/2024 05:04:24 Osteoarthritis of right knee joint [id number] 26243 M17.11 Health Concerns Section Related Observation LastModified by Organization Detai ls LastModified Time None Recorded Concern Status LastModified by Organization Details LastModified Time None Recorded Advance Directives Directive None Recorded Payers Insurance Date Sequence Insurance Name Policy Number Policy Abbasi Covered Member ID Abbasi Member ID Guarantor Name 08/23/2018 2 [place] [facility] [employer] Antonina Linsey 08/15/2020 [facility] [place] Antnoina Linsey 11/05/2024 2 [place] [facility] [employer] [address] [place] [id number] Antonina [place] 11/05/2024 1 [place] Antonina M Linsey [id number] Antonina Linsey 11/20/2023 1 [place] [facility] CHOICES - FFS/TRADITIONAL Antonina Linsey [id number] Antonina [place] 11/20/2023 INGENIOUSMED (MOVED TO HOLD) Antonina [place] Antonina Linsey 11/20/2023 [facility] LAW OFFICE (BA) Antonina [place] [id number] Antonina Hoskins Notes Date Note Type Note Provider Name and Address Organization Details Recorded Time 01/14/2024 text/html Angelique Hoskins is a 68-year-old female s/p T9-L2 laminectomy with T8-L2 fusion (10/14/23, Dr. Luis) who presents to the clinic for lumbar follow-up, with lumbar and thoracic xray images from on 01/14/24. Patient continues to have right lower extremity weakness with gait and balance instability but states that she has noticed gradual improvement. She occasionally experiences bilateral lower back pain but states it is no longer bothersome. She has been seeing PT for approximately 1 month for gait and strength training and says that is going well for her. PT had her order an LSO brace for her right lower extremity to correct foot turn laster with ambulation. She has been wearing the brace for less than a week and says she cannot tell if it significantly helps with her instability quite yet. She says she can comfortably ambulate with a walker but uses a cane while at home. She was seeing Dr. Murphy for UTI which resolved with one round of antibiotics. Patient works at [employer] and wants to discuss returning to work. PA and physician visit. LING DUCKWORTH PA-C [address] [place], [address], [facility] 01/14/2024 12:53:51 03/29/2024 text/html Antonina Hoskins is a 68-year-old female s/p T9-L2 laminectomy with T8-L2 fusion (10/14/23, Dr. Luis) who presents to the clinic for lumbar follow-up, with lumbar and thoracic xray images from on 03/29/24. Patient reports she is doing well overall. She does report mild right lower extremity weakness and continued gait instability, but states she is walking mostly without her cane. For the past few weeks she has experienced lower back pain with radiation into her bilateral groin but denies numbness or tingling in this area. She denies saddle anesthesia. She states her pain is not constant although it is daily. She states physical therapy is going very well and continues to see them 2 times a week. PA and physician visit. LING DUCKWORTH PA-C [address] [place], [address], [facility] 03/29/2024 11:56:13 10/13/2024 text/html Ms. Hoskins is a pleasant 69 year old female s/p T9-L2 laminectomy with T8-L2 fusion on 10/14/23, Dr. Luis. Her procedure was supposed to be even more extensive but there was signal change reported by neuromonitoring during surgery. Patient states, it took her about 2 weeks to be able to move her right leg but she is definitely doing much better now than before her surgery and she is 5/5 strength in bilateral lower extremities on exam. Her stenosis before surgery was so severe, there were concerns she would not be able to walk if she did not fix it. She did her last visit with PT last fall and feels like she has improved greatly. Her states that she still struggles with some balance issues and she report some tightness/pain in bilateral groin areas and front thighs. SHARMILA GUERRA, LUIS F [address] [place], [address], [facility] 10/13/2024 12:34:12 10/20/2024 text/html WHAT: Right Knee.WHEN: approx 2 weeks ago HOW: states she stood up and felt a pop in the back of her knee SYMPTOMS: popping/clicking, occasional aching pain, weakness PAIN: 5 /10X-RAY: LCToday's x-rays with her demonstrate lateral joint space loss and moderate degenerative changes.MRI:PT: none NSAIDS: prn INJECTION: none The patient is a 69-year-old female presenting with weakness and mechanical symptoms in the right knee. She reports a bothersome sensation in the posterior lateral aspect of the knee that began approximately two weeks ago. A history of spine surgery a year ago resulted in temporary functional decline, though she has returned to her baseline activity level. The patient describes the right leg as feeling weak, with a sensation of catching that interferes with standing up, stair climbing, and getting in and out of the car. She experiences no pain at night. There is no history of prior surgery on the right knee. An X-ray review suggests possible cartilage loss from the femur and tibia at the lateral joint line, I suspect a probable lateral meniscus tear, possibly causing the snapping and crepitus. Conservative management includes the use of Tylenol, with occasional NSAIDs allowed once a week. The patient exhibits a progressed Trendelenburg gait pattern and uses a cane in the left hand. Her condition is complicated by a post-surgical history of AFib and chronic UTI following her back surgery, requiring outpatient skilled therapy. ANH HIGUERA MD [address] [place], [address], [facility] 10/20/2024 13:20:39 OBGyn Episode No OBEpisode recorded.
--- OUTSIDE RECORDS SUMMARY | 2025-03-08 13:29 | XMS_ITS | Referral Summary ---
Author Organization [employer] Address [address] [place] [address] Care Team Providers Care Rail Doweling Machine Operator Name Role Phone Dilshad Steele MD Primary Care Provider [phone] Allergies Active Allergy Reactions Criticality Noted Date [...] your living situation today? I have a [facility] place to live 10/16/2023 Think about [...] Do you speak a language other than [place]ian at [facility]? No 10/16/2023 Do you want help with [...] 10/08/2023 11:34 AM EST Plan of Treatment Not on file Medical Devices Implanted Type Area Railroad Brake Repairer Device Identifier Shelf Expiration Date Model / Serial / Lot Joseph Reyes 10 Bl-1600-003 - [id number] Implanted:Qty : 1 on 10/14/2023 by Vinicius Damon Jr., MD at [facility] IMPLANTS N/A: Spine LIFENET:LIFENET TRANSPLANT SRV 09/23/2024 BL-1600-00 3 / [id number] / Scr Spne Arsenio Fix 6x40mm 640 - [id number] Implanted:Qty : 3 on 10/14/2023 by Vinicius Damon Jr., MD at [facility] IMPLANTS N/A: Spine J &J:DEPUY:DEPUY SPINE 0 / 0 / Scr Spne Arsenio Fix Fen 6x45mm 645 - [id number] Implanted:Qty : 3 on 10/14/2023 by Vinicius Damon Jr., MD at [facility] IMPLANTS N/A: Spine J &J:DEPUY:DEPUY SPINE 5 / 5 / Scr Spne Arsenio Fix 7x40mm 740 - [id number] Implanted:Qty : 2 on 10/14/2023 by Vinicius Damon Jr., MD at [facility] IMPLANTS N/A: Spine J &J:DEPUY:DEPUY SPINE 0 / 0 / Scr Spne Arsenio Fix 7x45mm 745 - [id number] Implanted:Qty : 4 on 10/14/2023 by Vinicius Damon Jr., MD at [facility] IMPLANTS N/A: Spine J &J:DEPUY:DEPUY SPINE 5 / 5 / Toan Spine Expedium [id number] - [id number] Implanted:Qty : 1 on 10/14/2023 by Vinicius Damon Jr., MD at [facility] IMPLANTS N/A: Spine J &J:DEPUY:DEPUY SPINE 0 / 0 / Mis Joselin Ply Scrw Set Ti - - [id number] Implanted:Qty : 12 on 10/14/2023 by Vinicius Damon Jr., MD at [facility] IMPLANTS N/A: Spine J &J:DEPUY:DEPUY SPINE 0 / 0 / Insurance 1955 [address] [id number] MEDICARE PART A B CROSS/BLUE [facility] Care Teams Rail Doweling Machine Operator Relationship Specialty Start Date End Date Dilshad Steele MD [address] [place] [address] PCP - General Adolescent Medicine 10/08/23
[2025-03-08 13:51] LABS: Blood Urea Nitrogen 21 mg/dl (7-17); Estimated Glomerular Filt Rate 71 ml/min (>60); GFR (African American) 86 ML/MIN (>60)
[2025-03-08] MEDS: SODIUM CHLORIDE 0.9% 10ML SYR (RAD ONLY) 10 ML IV (14:23)
[2025-03-08] MEDS: IOPAMIDOL-370 (76%);100ML BOTTLE 75 ML IV (14:23)
== END 2025-03-08 23:59 | disposition home or self-care (01) ==
LOC: RAD 13:25
PROVIDERS: PCP Internal Medicine Adolescent Medicine; Visit Provider Internal Medicine Adolescent Medicine
DX: R91.1 Solitary pulmonary nodule (principal); R91.8 Other nonspecific abnormal finding of lung field
CPT/HCPCS: 36415; 71260; 82565; 84520; Q9967

== ENCOUNTER 2025-03-14 12:55 | Outpatient (RCR) | payer MEDICARE, BC, SELFPAY ==
--- NOTE | 2025-03-15 07:36 | HMH.PTOPEV ---
PT Outpatient Evaluation Rehab PT Outpatient Evaluation Start: 03/14/25 13:01 Freq: Status: Active Protocol: Document 03/14/25 13:01 OSCAR (Rec: 03/14/25 14:02 OSCAR [id number]) E-signed By Shawna Vincent, PT Outpatient Therapy Subjective History Subjective History This is an initial PT evaluation for 69 y/o, Shonda Stiles, who presents to PT with referral for gait training and core strengthening with diagnosis of frequent falls. Pt reports she has fallen once since her back surgery in September of 2023. Pt's chief complaint is balance impairments. Pt uses a Hurrycane/ SPC for community ambulation. Pt does not use a cane at home unless she ambulates outside to the barn or on grass. Pt reports some residual r-sided weakness. Pt works part-time at [employer]. PMH: shoulder surgery, knee surgery, Afib New diagnosis of No cancer in past 12 months? Hip/Knee Eval Gait Observation General Gait Pattern Antalgic Gait,Wide Based Gait Observation Assistive Device Assistive Devices Straight Cane MMT left Hip Flexion Strength 4- Good- Grade Hip Abduction 4- Good- Strength Grade Hip Adduction 4- Good- Strength Grade Hip Extension 4- Good- Strength Grade Knee Extension 4- Good- Strength Grade Knee Flexion 4- Good- Strength Grade right Hip Flexion Strength 3 Fair Grade Hip Abduction 4- Good- Strength Grade Hip Adduction 4- Good- Strength Grade Hip Extension 4- Good- Strength Grade Knee Extension 4- Good- Strength Grade Knee Flexion 4- Good- Strength Grade Dynamic Gait Index Test Protocol Gait Level Surface Mild Impairment Query Text: Instructions: Walk at your normal speed from here to the next ban (20'). Grading: Ban the lowest category that applies. Change in Gait Speed Mild Impairment Query Text: Instructions: Begin walking at your normal pace (for 5') , when I tell you go , walk as fast as you can (for 5'). When I tell you slow , walk as slowly as you can ( for 5'). Grading: Ban the lowest category that applies. Gait with Horizontal Mild Impairment Head Turns Query Text: Instructions: Begin walking at your normal pace. When I tell you to look right , keep walking straight, but turn you head to the right. Keep looking to the right unit I tell you look left , then keep walking straight and turn your head to the left. Keep your head to the left until I tell you look straight , then keep walking straight, but return you head to the center. Grading: Ban the lowest category that applies. Gait with Vertical Mild Impairment Head Turns Query Text: Instructions: Begin walking at your normal pace. When I tell you to look up , keep walking staight, but tip your head up. Keep looking up until I tell you to look down , then keep walking straight and tip your head down. Keep your head down until I tell you look straight , then keep walking straight, but return your head to the center. Grading: Ban the lowest category that applies. Gait and Pivot Turn Mild Impairment Query Text: Instructions: Begin walking at your normal pace. When I tell you turn and stop , turn as quickly as you can to face the opposite direction and stop. Grading: Ban the lowest category that applies. Step Over Obstacle Mild Impairment Query Text: Instructions: Begin walking at your normal speed. When you come to the shoebox, step over it, not around it and keep walking. Grading: Ban the lowest category that applies. Step Around Mild Impairment Obstacles Query Text: Instructions: Begin walking at normal speed. When you come to the first cone (about 6' away) , walk around the right side of it. When you come to the second cone (6' past first cone), walk around it to the left. Grading: Ban the lowest category that applies. Steps Moderate Impairment Query Text: Instructions: Walk up these stairs as you would at home. At the top, turn around and walk down . Grading: Ban the lowest category that applies. Scoring Dynamic Gait Index 15 Score Miscellaneous Dx PT Eval Objective Objective TU.5 seconds without AD 5 x STS: 16 seconds DGI: 15 Miscellaneous Goals Short Term Goals In 4 weeks, pt will: 1) Verbalize being IND with his HEP 2) Progress through higher level balance interventions with at most Min A 3) Negotiate 4 6 steps without HR with CGA 4) Improve DGI score by 2 points 5) Perform a TUG in 10 seconds using LRAD 6) Improve BLE strength by 1/5 MMT grade. Penitentiary Goals In 8 weeks, pt will: 1) Verbalize being IND with his HEP 2) Progress through balance interventions with at most SUP 3) Negotiate 12 6 steps without HR to demo improved functional strength 4) Improve DGI score to 20 to improve ambulation safety 5) Perform 5 x STS in 12 seconds without UE use 6) Demo 5/5 MMT of BLE to maximize functional strength. Outpatient Therapy Assessment Prognosis Rehab Potential Good Comment Pt with impaired strength, balance, and gait. Pt would benefit from skilled outpatient PT to address strength deficits and improve safety. Clinical Impression Consistent with Yes Diagnosis Outpatient Therapy Plan of Care Treatment Plan May Include Therapeutic Exercise Yes Including Home Exercise Program Manual Therapy Yes Techniques Neuromuscular Re- Yes education Therapeutic Yes Activities to Return to Previous Functional/Work Level Gait Training Yes ADL/Self Care Yes Education Eval/Re-Eval Yes Aquatic Therapy Yes Frequency Times per week 2-3 times Duration Number of Weeks 6-8 weeks Addendums This patient is a No candidate for social or vocational rehab ? Patient/Guardian Yes verbally acknowledges understanding of treatment program and consents to further treatment? Patient/Guardian Yes verbally acknowledges understanding of diagnosis, prognosis and goals for treatment? Shoulder/Elbow Eval Shoulder Objective Measurements Elbow Objective Measurements PHYSICIAN CERTIFICATION: I certify the specified therapy services for Shonda Stiles are required, authorized, and reviewed every 30 days.
== END 2025-03-14 23:59 | disposition home or self-care (01) ==
LOC: PT 12:55
PROVIDERS: PCP Internal Medicine Adolescent Medicine; Visit Provider Internal Medicine Adolescent Medicine
DX: R29.6 Repeated falls (principal)

== ENCOUNTER 2025-04-20 08:00 | Outpatient (RCR) | payer MEDICARE, BC, SELFPAY ==
--- NOTE | 2025-04-14 12:39 | HMH.RHREAS ---
Rehab Reassessment Rehab OP Re-assessment Start: 03/21/25 08:15 Freq: Status: Active Protocol: Document 04/14/25 12:22 PHORANGI (Rec: 04/14/25 12:39 PHORNE [id number]) E-signed By Reese Negrete PT Dynamic Gait Index Test Protocol Gait Level Surface Mild Impairment Query Text: Instructions: Walk at your normal speed from here to the next ban (20'). Grading: Ban the lowest category that applies. Change in Gait Speed Normal Query Text: Instructions: Begin walking at your normal pace (for 5') , when I tell you go , walk as fast as you can (for 5'). When I tell you slow , walk as slowly as you can ( for 5'). Grading: Ban the lowest category that applies. Gait with Horizontal Mild Impairment Head Turns Query Text: Instructions: Begin walking at your normal pace. When I tell you to look right , keep walking straight, but turn you head to the right. Keep looking to the right unit I tell you look left , then keep walking straight and turn your head to the left. Keep your head to the left until I tell you look straight , then keep walking straight, but return you head to the center. Grading: Ban the lowest category that applies. Gait with Vertical Mild Impairment Head Turns Query Text: Instructions: Begin walking at your normal pace. When I tell you to look up , keep walking staight, but tip your head up. Keep looking up until I tell you to look down , then keep walking straight and tip your head down. Keep your head down until I tell you look straight , then keep walking straight, but return your head to the center. Grading: Ban the lowest category that applies. Gait and Pivot Turn Mild Impairment Query Text: Instructions: Begin walking at your normal pace. When I tell you turn and stop , turn as quickly as you can to face the opposite direction and stop. Grading: Ban the lowest category that applies. Step Over Obstacle Mild Impairment Query Text: Instructions: Begin walking at your normal speed. When you come to the shoebox, step over it, not around it and keep walking. Grading: Ban the lowest category that applies. Step Around Normal Obstacles Query Text: Instructions: Begin walking at normal speed. When you come to the first cone (about 6' away) , walk around the right side of it. When you come to the second cone (6' past first cone), walk around it to the left. Grading: Ban the lowest category that applies. Steps Mild Impairment Query Text: Instructions: Walk up these stairs as you would at home. At the top, turn around and walk down . Grading: Ban the lowest category that applies. Scoring Dynamic Gait Index 18 Score Rehab Re-assessment Subjective Subjective Pt reports, I feel like this is helping me, I'm walking a little better. She does continue to c/o difficulty with proper gait pattern and generally feeling off balance requiring her to continue use of straight cane for ambulation. Objective Objective Notes MMT: R HIP FLEX 4-/5, L HIP FLEX 4+/5, R HIP ABD 4-/5, L HIP ABD 4+/5. TU sec 5xSTS: 16 sec Gait: Pt continues to ambulate with excessive knee flexion and hip hiking on the R LE during swing phase of gait. Assessment Progress Assessment Progressing as Expected Assessment Notes Pt has shown improvement in DGI and TUG balance testing as well as increased B LE strength. She continues to have decreased overall dynamic standing balance and abnormal gait pattern. Skilled therapy remains indicated in order to improve strength, improve gait pattern and improve balance in order to return pt to PLOF. Patient goals met In 4 weeks, pt will: 1) Verbalize being IND with his HEP (MET) 2) Progress through higher level balance interventions with at most Min A (Cont) 3) Negotiate 4 6 steps without HR with CGA (Cont) 4) Improve DGI score by 2 points (MET) 5) Perform a TUG in 10 seconds using LRAD (Cont) 6) Improve BLE strength by 1/5 MMT grade. (MET) In 8 weeks, pt will: 1) Verbalize being IND with his HEP (Cont) 2) Progress through balance interventions with at most SUP (Cont) 3) Negotiate 12 6 steps without HR to demo improved functional strength (Cont) 4) Improve DGI score to 20 to improve ambulation safety (Cont) 5) Perform 5 x STS in 12 seconds without UE use (Cont) 6) Demo 5/5 MMT of BLE to maximize functional strength. (Cont) Revised Goals none Plan Plan Treatment may include: therapeutic exercise, manual therapy, neuromuscular re-education, gait training, therapeutic activity, ADL/Self care education, Aquatic therapy, Re-eval. Frequency of Therapy 2 x/wk Duration of therapy 8 weeks Time and Billing Re-Eval Time 19 Re-Eval Billing 0 Units Charge for PT No reassessment? PHYSICIAN CERTIFICATION: I certify the specified therapy services for Shonda Stiles are required, authorized, and reviewed every 30 days.
== END 2025-04-20 23:59 | disposition home or self-care (01) ==
LOC: PT 08:00
PROVIDERS: PCP Internal Medicine Adolescent Medicine; Visit Provider Internal Medicine Adolescent Medicine
DX: R29.6 Repeated falls (principal)
CPT/HCPCS: 97112; 97530

== ENCOUNTER 2025-05-03 12:44 | Outpatient (POV) | payer MEDICARE, BC, SELFPAY ==
--- OUTSIDE RECORDS SUMMARY | 2025-05-03 12:47 | XMS_ITS | Clinical Summary ---
Author Organization Healthcare Address [address] [place] [address] Care Team Providers Care Publications Designer Name Role Phone Dilshad Steele MD Primary Care Provider [phone] Family History Medical History Relation Name Comments [...] UKY-Zoster Vaccines (2 of 2) 10/02/2020 08/07/2020 [id number] Vaccine ( season) 2024 10/22/2022, 03/19/2022, 08/06/2021, Additional history exists UKY-Influenza Vaccine (#1) 2025 UKY-RSV Vaccine: 60+ Years or (1 [...] age to complete this topic Insurance 1955 [address] [place] [id number] MEDICARE Member Subscriber Plan / Payer (Ef fective 2018-Present) Name:Shonda Stiles Member ID:[id number] Relation to Subscriber:Self Name:Shonda Stiles Subscriber ID:[id number] Payer ID:MEDICARE Group ID:Not on file Type:Medicare Address: [place] [phone] Care Teams Publications Designer Relationship Specialty Start Date End Date Dilshad Steele MD [address] [place] [address] PCP - General 02/01/21
--- OUTSIDE RECORDS SUMMARY | 2025-05-03 12:47 | XMS_ITS | Referral Summary ---
Author Organization [employer] ([place], [place], [place], [place]) Address [address] [place] [address] Care Team Providers Care Extension Service Agent Name Role Phone Dilshad Steele MD Primary Care Provider [phone] Allergies Active Allergy Reactions Criticality Noted Date [...] drink = 0.6 oz pur e alcohol) Utilities Answer Date Recorded In the past 12 months, has t he [employer], gas, oil, or water company threatened to shut off services in your home? No 10/16/2023 Food Insecurity Answer Date Recorded Within [...] Do you speak a language other than [facility]? No 10/16/2023 Do you want help with school or training? For example, starting or completing job training or getting a high school diploma, GED or equivalent. No 10/16/2023 Physical Activity Answer Date Recorded Number of minutes of exercise per week 0 10/16/2023 Substance Use Answer Date Recorded How [...] on file Medical Devices Implanted Type Area Salt Lifter Device Identifier Shelf Expiration Date Model / Serial / Lot Bone Vivigen Frmble Cell 10cc -1600-003 - [id number] Implanted:Qty : 1 on 10/14/2023 by Vinicius Damon Jr., MD at [facility] IMPLANTS N/A: Spine LIFENET:LIFENET TRANSPLANT SRV 09/23/2024 3 [id number] / Scr Spne Arsenio Fix 6x40mm [id number] - [id number] Implanted:Qty : 3 on 10/14/2023 by Vinicius Damon Jr., MD at [facility] IMPLANTS N/A: Spine J &J:DEPUY:DEPUY SPINE 0 / 0 / Scr Spne Arsenio Fix Fen 6x45mm 5 - [id number] Implanted:Qty : 3 on 10/14/2023 by Vinicius Damon Jr., MD at [facility] IMPLANTS N/A: Spine J &J:DEPUY:DEPUY SPINE 5 / 5 / Scr Spne Arsenio Fix 7x40mm 0 - [id number] Implanted:Qty : 2 on 10/14/2023 by Vinicius Damon Jr., MD at [facility] IMPLANTS N/A: Spine J &J:DEPUY:DEPUY SPINE 0 / 0 / Scr Spne Arsenio Fix 7x45mm 5 - [id number] Implanted:Qty : 4 on 10/14/2023 by Vinicius Damon Jr., MD at [facility] IMPLANTS N/A: Spine J &J:DEPUY:DEPUY SPINE 5 / 5 / Toan Spine Expedium [id number] [id number] - [id number] Implanted:Qty : 1 on 10/14/2023 by Vinicius Damon Jr., MD at [facility] IMPLANTS N/A: Spine J &J:DEPUY:DEPUY SPINE 0 / 0 / Mis Joselin Ply Scrw Set Ti - [id number] Implanted:Qty : 12 on 10/14/2023 by Vinicius Damon Jr., MD at [facility] IMPLANTS N/A: Spine J &J:DEPUY:DEPUY SPINE 0 / 0 / Insurance 1955 [place] [id number] MEDICARE PART A B /[facility] Care Teams Extension Service Agent Relationship Specialty Start Date End Date Dilshad Steele MD [address] [place] [address] PCP - General Adolescent Medicine 10/08/23
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
--- OUTSIDE RECORDS SUMMARY | 2025-05-03 12:47 | XMS_ITS | Clinical Summary ---
Author Organization [employer] [facility] ([place], [place], [place], [place]) Address [address] [place] [address] Care Team Providers Care Study Abroad Advisor Name Role Phone Dilshad Steele MD Primary Care Provider [phone] Allergies Active Allergy Reactions Criticality Noted Date [...] the past 12 months, has t he [employer], gas, oil, or water company threatened to [...] Do you speak a language other than Moldovan at [facility]? No 10/16/2023 Do you want help with [...] (Zoster) (2 of 2) 10/02/20202019 COVID-19 VACCINE (6 - 2024-2 5 season) 2024 10/22/2022, 03/19/2022, 08/06/2021, Additional history exists Falls Risk Screening 09/21/2024 Tobacco Cessation Counseling and Screening (12+) 10/14/2024 10/14/2023 Influenza Vaccine (#1) 2025 06/13/2021 Respiratory Syncytial Virus (RSV) Adult or (1 - 1-dose 75+ series) 2028 Pneumococcal 50+ years Completed 05/15/2022, 2018 Medical Devices Implanted Type Area Repairer And Checker Device Identifier Shelf Expiration Date Model / Serial / Lot Bone Vivigen Frmble Cell 10 Bl-1600-003 - [id number] Implanted:Qty : 1 on 10/14/2023 by Vinicius Damon Jr., MD at [facility] IMPLANTS N/A: Spine LIFENET:LIFENET TRANSPLANT SRV 09/23/2024 BL-1600-00 3 / [id number] / Scr Spne Arsenio Fix 6x40mm 640 - [id number] Implanted:Qty : 3 on 10/14/2023 by Vinicius Damon Jr., MD at [facility] IMPLANTS N/A: Spine J &J:DEPUY:DEPUY SPINE 0 / 0 / Scr Spne Arsneio Fix Fen 6x45mm 5 - [id number] Implanted:Qty : 3 on 10/14/2023 by Vinicius Damon Jr., MD at [facility] IMPLANTS N/A: Spine J &J:DEPUY:DEPUY SPINE 5 / 5 / Scr Spne Aresnio Fix 7x40mm 0 - [id number] Implanted:Qty : 2 on 10/14/2023 by Vinicius Damon Jr., MD at [facility] IMPLANTS N/A: Spine J &J:DEPUY:DEPUY SPINE 0 / 0 / Scr Spne Arsenio Fix 7x45mm 5 - [id number] Implanted:Qty : 4 on 10/14/2023 by Vinicius Damon Jr., MD at [facility] IMPLANTS N/A: Spine J &J:DEPUY:DEPUY SPINE 5 / 5 / Toan Spine Expedium [id number] - [id number] Implanted:Qty : 1 on 10/14/2023 by Vinicius Damon Jr., MD at [facility] IMPLANTS N/A: Spine J &J:DEPUY:DEPUY SPINE 0 / 0 / Mis Joselin Ply Scrw Set Ti - [id number] Implanted:Qty : 12 on 10/14/2023 by Vinicius Damon Jr., MD at [facility] IMPLANTS N/A: Spine J &J:DEPUY:DEPUY SPINE 0 / 0 / Insurance 1955 [place] [id number] [place] [address] [place] [address] CROSS/BLUE SHIELD Care Teams Study Abroad Advisor Relationship Specialty Start Date End Date Dilshad Steele MD [address] [place] [address] PCP - General Adolescent Medicine 10/08/23
--- OUTSIDE RECORDS SUMMARY | 2025-05-03 12:47 | XMS_ITS | Encounter Summary ---
Author Organization Healthcare Address [address] [place] [address] Care Team Providers Care Back Line Cook Name Role Phone Dilshad Steele MD Primary Care Provider + [phone] Encounter Details Date Type Department Care Team (Latest Contact Info) Description 08/24/2023 [facility] [address] [place] [address] Terri Rivera, RECONCILER [address] [place] [address] Spinal stenosis of lumbar region [...] disc documented in this encounter Care Teams Back Line Cook Relationship Specialty Start Date End Date Dilshad Steele MD [address] [place] [address] PCP - General 02/01/21 documented as of this encounter
[2025-05-03 12:54] VITALS: BP 130/76; PULSE 75; RESP 18; O2SAT 94; BMI 33.8
--- NOTE | 2025-05-03 13:14 | A.OFFVIS_ITS ---
HPI Data of Consult Patient: new to practice Consult date: 05/03/25 Requesting Physician: Aurea Egan APRN Primary Care Provider: Dilshad Steele MD Reason for consult: Low back pain, bilateral hip pain, groin pain History of present illness: Ms. Stiles is a 69 year old female presents today as a new patient. She has a referral from Dr. Damon's office. Today she rates her pain an 8 out of 10. Patient states her pain is all in her low back and bilateral hips as well as her groin and does affect primarily her right upper thigh. She describes it as a achy sensation with stiffness and is worse with certain positions or increased walking. Patient does have trouble going up and down stairs. Patient states that she has had this pain years ago however it was not to this extent. Patient states that she did just recently go on vacation to [place] where she did do a lot of walking. She states that this aggravated her symptoms that much more. She does state the pain is interfering with her ability perform activities of daily living such as cooking and cleaning. Patient has tried oral medications such as Tylenol arthritis, heat and ice and some topicals with minimal changes. Patient is currently in physical therapy and states this is helping some. Patient does state that she did get injections in the past from our office back around 2019 and that they did help. Patient has had a laminectomy and a fusion back in 2023 but ended up having a lot of difficulties afterwards where she had numbness in her right leg. Patient states that the neurosurgeon ended up having to abort the procedure and then she ended up spending time in the ICU and then [place] for rehab. Patient does state that she still has some numbness in her foot related to that procedure. Patient is interested in any help we may be able to provide. Her Brian has been reviewed and is appropriate. Pain at rest (0-10 scale): 8 Has patient had previous pain injection?: No Conservative treatment options previously tried: Home exercise plan (Longer than 12 weeks) and Physical Therapy (Ongoing some improvement) cc:: CC: Aurea Egan APRN [facility] Disclaimer: The information contained in this section may have been updated after the patient was seen, as this information can be updated by other users. Medical History Hyperlipidemia Hypertension A-fib Dislocation of shoulder region Contact dermatitis due to poison vine Family History (Updated 05/03/25 @ 13:38 by Marie Carcamo RN) Other Afib Hyperlipidemia Hypertension Hypothyroidism Social History Smoking Status: Never smoker second hand exposure: No alcohol intake: never substance use type: denies use current occupational status: retired Travel in the last 8 weeks?: None household members: spouse housing: other current occupational exposures/hazards: No caffeine: Yes Review of Systems Review of Systems Review of systems:: pertinent systems reviewed and negative unless documented below Review of systems (narrative): Review of Systems: General: No recent weight changes, no fever, no sleep disturbances Respiratory: No cough, no shortness of air, no recurring pulmonary infections Cardiovascular/peripheral vascular: No chest pain, no palpitations, no edema, no shortness of breath Gastrointestinal: No new onset incontinence, normal bowel movements reported Genitourinary: No new onset incontinence Musculoskeletal: Low back pain, bilateral hip pain, right upper thigh pain groin pain Psychiatric: [Normal mood/affect] Neurological: [Denies weakness in extremities], [denies balance issues] Meds Home Medications and Allergies Home Medications ?Medication ?Instructions ?Recorded ?Confirmed ?Type levocetirizine 5 mg tablet (Xyzal) 5 mg PO DAILY 03/3101/03/25 History dzhtuygj-jcy-legcu acid 0.4 1 each PO DAILY 08/30/19 0 01/03/25 History mg-lycopene 300 mcg-lutein 250 mcg tablet cyclobenzaprine 10 mg tablet 10 mg PO TIDP PRN Muscle Spasm 11/22/23 01/03/25 History aspirin 81 mg tablet,delayed 81 mg PO DAILY 11/23/23 0 01/03/25 History release polyethylene glycol 3350 17 gram 17 g PO BIDP PRN cons tipation 30 11/25/23 01/03/25 Rx oral powder packet (Miralax) days #30 ea diltiazem HCl 240 mg 240 mg PO DAILY #90 caps 01/03/25 Rx capsule,extended release 24 hr metoprolol tartrate 50 mg tablet 50 mg PO BID #180 tab s 07/05/24 01/03/25 Rx pravastatin 20 mg tablet 20 mg PO DAILY #90 tabs 06/2101/03/25 Rx levothyroxine 50 mcg tablet 20 mcg PO DAILY 01/03/25 0 01/03/25 History apixaban 5 mg tablet (Eliquis) 5 mg PO BID Blood Thinn er/Afib 90 01/31/25 Rx days #180 tabs New Prescriptions to Start Prescriptions: Allergies Allergy/AdvReac Type Severity Reaction Status Date / Time oxycodone Allergy Severe Anaphylaxis Verified 01/03/25 10:11 Penicillins (PENICILLINS) Allergy Unknown Verified 01/03/25 10:11 sulfamethoxazole Allergy Unknown Verified 01/03/25 10:11 (SULFAMETHOXAZOLE) trimethoprim (TRIMETHOPRIM) Allergy Unknown Verified 01/03/25 10:11 loratadine (From Claritin) Allergy Verified 01/03/25 10:11 Objective Narrative: Physical Exam: General: Alert and oriented x3, no acute distress, pleasant and cooperative Lungs: Respirations even and unlabored, symmetrical chest expansion Eyes: PERRL Musculoskeletal: Flexion and extension of lumbar [spine] somewhat guarded secondary to pain, [antalgic gait noted] point tenderness along bilateral SIs and bilateral greater trochanteric bursa with positive bilateral Bettye's, Genevieve's, Gaenslen's, compression and distraction exam Neurological: Speech clear, no gross sensory deficit Additional findings Additional findings: X-ray lumbar spine 04/13/2025. Findings: There appears to be a posterior fusion extending from T8-L2. There is compression deformity present involving the front right aspect of L3. Mild levoscoliosis. No hardware complication of the visible hardware. No hardware fracture or loosening is suggested. No paraspinal disease. Moderate degenerative disc disease below the fixating hardware Assessment and Plan *Assessment and plan (1) Bilateral sacroiliitis: Status: Acute Category: Medical Code(s): M46.1 - Sacroiliitis, not elsewhere classified (2) Trochanteric bursitis of both hips: Status: Acute Category: Medical Code(s): M70.61 - Trochanteric bursitis, right hip; M70.62 - Trochanteric bursitis, left hip Plan Patient is experiencing worsening pain along the low back and bilateral hips. They did have limited range of motion of the lumbar spine along with point tenderness along bilateral SI joints and a positive bilateral Bettye's, Genevieve's, Gaenslen's, compression and distraction exam. I did discuss with the patient that I do believe they would benefit from bilateral SI injections. Risk and benefits were discussed with the patient and they would like to proceed forward with this option. Patient has tried and failed conservative therapy. Patient has been actively doing conservative treatment including oral medication, heat and ice, topicals, at home exercising and stretching for longer than 12 weeks. Patient has seen neurosurgery who is not recommending additional surgical intervention at this time. Patient is having to adjust their activity based off the increased pain resulting in activity modification. I do believe the patient would benefit from SI injection. If the patient does get significant relief following these injections we will see in the future if they would benefit from a second set with the possibility of SI fusion at a later date. This will be a diagnostic injection with less than 1 mL solution to be injected. Patient will be scheduled for bilateral SI injections under fluoroscopy. Patient will also be followed up following this injection to see if her bursa's have also improved from these injections. I will order the patient a compounded cream. Patient has been instructed to contact the clinic with any concerns before the next appointment. Dr. Sandoval has reviewed this note and agrees with this plan of care. This note was dictated using voice recognition software and make contain errors or omissions. All injections are used with Lidocaine or Bupivacaine and dexamethasone unless diagnostic in which no steroids were injected.
== END 2025-05-03 23:59 | disposition home or self-care (01) ==
LOC: SC.PAIN 12:46
PROVIDERS: PCP Internal Medicine Adolescent Medicine; Visit Provider Nurse Practitioner Family
DX: M46.1 Sacroiliitis, not elsewhere classified (principal); M70.61 Trochanteric bursitis, right hip; M70.62 Trochanteric bursitis, left hip
CPT/HCPCS: 99202; G0463

== ENCOUNTER 2025-05-18 14:00 | Outpatient (RCR) | payer MEDICARE, BC, SELFPAY ==
--- NOTE | 2025-05-18 15:49 | HMH.RHREAS ---
Rehab Reassessment Rehab OP Re-assessment Start: 05/02/25 09:07 Freq: Status: Active Protocol: Document 05/18/25 15:18 PHOANNETTE (Rec: 05/18/25 15:43 PHORNE [id number]) E-signed By Reese Negrete, PT Rehab Re-assessment Subjective Subjective Pt reports she feels her balance is improving, but she has increased pain in her hips after a recent trip to [facility]. She continues to report feeling as if her R LE is shorter when she walks. Objective Objective Notes MMT: R HIP FLEX 4-/5, L HIP FLEX 4+/5, R HIP ABD 4/5, L HIP ABD 4+/5. TU sec 5xSTS: 16 sec Gait: Pt ambulates with R knee hyperextension during stance phase of gait. Assessment Progress Assessment Progressing as Expected Assessment Notes Pt continues to steadily build strength in her B LE. She continues to have decreased overall dynamic standing balance and abnormal gait pattern. Skilled therapy remains indicated in order to improve strength, improve gait pattern and improve balance in order to return pt to OF. PT Patient Goals PT Short Term In 2 wks pt will: Patient Goals 1) Pt will improve 5xSTS time to 11 sec 2) Pt will increase R hip flexion MMT to 4+.5 PT [facility]ci Patient In 4 wks pt will: Goals 1) improve TUG score to less than 11 sec 2) Pt will improve gait pattern to have minimal R knee hyperextension. Plan Plan Pt will continue to improve strength, balance, and gait via the following possible interventions. Frequency of Therapy 1 x/wk Duration of Therapy 4 wks Therapeutic Exercise Yes Including Home Exercise Program Manual Therapy Yes Techniques Neuromuscular Re- Yes education Therapeutic Yes Activities to Return to Previous Functional/Work Level Gait Training Yes ADL/Self Care Yes Education Orthotics/Bracing/ Yes Splinting Eval/Re-Eval Yes Time and Billing Re-Eval Time 16 Re-Eval Billing 0 Units Charge for PT No reassessment? PHYSICIAN CERTIFICATION: I certify the specified therapy services for Shonda Stiles are required, authorized, and reviewed every 30 days.
== END 2025-05-18 23:59 | disposition home or self-care (01) ==
LOC: PT 14:00
PROVIDERS: PCP Internal Medicine Adolescent Medicine; Visit Provider Internal Medicine Adolescent Medicine
DX: R29.6 Repeated falls (principal)
CPT/HCPCS: 97112; 97530

== ENCOUNTER 2025-06-05 14:02 | Outpatient (RCR) | payer MEDICARE, BC, SELFPAY | END 2025-06-05 23:59 | disposition home or self-care (01) | LOC: PT 14:02 | PROVIDERS: Visit Provider Internal Medicine Adolescent Medicine | DX: M23.51 Chronic instability of knee, right knee (principal); M25.561 Pain in right knee; R26.89 Other abnormalities of gait and mobility; R29.6 Repeated falls ==

== ENCOUNTER 2025-06-07 10:14 | Outpatient (CLI) | payer MEDICARE, BC, SELFPAY ==
--- OUTSIDE RECORDS SUMMARY | 2024-04-20 05:00 | XMS_ITS ---
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 Role Phone Soniya Parkinson Unavailable [phone] REASON FOR VISIT Annual Social History Sex Assigned At : Social History Observation Description Sex Assigned At Female Encounters Encounter Location Date Provider [facility]- [address] [place] [address] 04/20/2024 Soniya Parkinson Plan Of Treatment Next Appt Details Provider Name:Soniya Iggy , 05/16/2026 02:00:00 PM, [address], [place], [address], Progress Notes * Shonda HOSKINS MDOB: 3 (69 yo F)Acc No.[id number]:04/20/2024 Progress Note Patient: Li hoffman Shonda Juan Provider: Kole Parkinson MD :1955 A ge:68 Y S ex:Female Date:04/20/2024 Address:[address] [id number] Subjective: * Chief Complaints: * A nnual * Electronic signature of Cheyenne Parkinson MD on 06/07/2025 at 10:19 AM EDT Sign off status: Pending Visit Status: R /S (Rescheduled) * Provider: Kole Parkinson MD Date: 0 04/20/2024 Generated for Krysta dalton/Ben/[place] on: 0 06/07/2025 10:19 AM TINY
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
--- OUTSIDE RECORDS SUMMARY | 2025-06-07 10:19 | XMS_ITS | Clinical Summary ---
Author Organization [facility] Address [address] [place] [address] Care Team Providers Care Brake Reliner Name Role Phone Dilshad Steele MD Primary Care Provider [phone] Family History Medical History Relation Name Comments [...] [facility]-Bone Density Scan 1955 [facility]-Depression Screening 1955 [facility]-Infant/Child/Adol SDOH Screenings 1955 [facility]- SDOH Screenings 1971 [facility]-Adult SDOH Screenings 1971 [facility]-DTaP,Tdap,and Td Vaccines (1 - Tdap) 1972 CT Colonography 1998 Colonoscopy 1998 FIT-DNA 1998 FIT 1998 FOBT 1998 Sigmoidoscopy 1998 [facility]-Colorectal Cancer Screening 1998 [facility]-Zoster Vaccines (2 of 2) 10/02/2020 08/07/2020 [id number] Vaccine ( season) 2025 10/22/2022, 03/19/2022, 08/06/2021, Additional history exists [facility]-Influenza [...] age to complete this topic Insurance 1955 [address] [place] [place] [id number] MEDICARE Care Teams Brake Reliner Relationship Specialty Start Date End Date Dilshad Steele MD [address] [place] [address] PCP - General 02/01/21
--- OUTSIDE RECORDS SUMMARY | 2025-06-07 10:19 | XMS_ITS | Encounter Summary ---
Author Organization [facility] Address [address] [place] [address] Care Team Providers Care Materials Branch Chief Name Role Phone Dilshad Steele MD Primary Care Provider + [phone] Encounter Details Date Type Department Care Team (Latest Contact Info) Description 08/24/2023 Community [facility] [address] [place] [address] Terri Rivera, REGULATORY TECHNICIAN [address] [place] [address] Spinal stenosis of lumbar region [...] disc documented in this encounter Care Teams Materials Branch Chief Relationship Specialty Start Date End Date Dilshad Steele MD [address] [place] [address] PCP - General 02/01/21 documented as of this encounter
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
[2025-06-07 12:14] LABS: Albumin Level 4.5 g/dl (3.5-5.0); Chloride 103 mmol/L (98-107); Sodium 141 mmol/L (136-145)
[2025-06-07 12:15] LABS: Potassium 4.3 mmoL/L (3.5-5.1)
[2025-06-07 12:17] LABS: Alanine Aminotransferase 20 U/L (12-78); Albumin/Globulin Ratio 1.7 (1.1-1.8); Anion Gap 12.3 mEq/L (5-15); Aspartate Amino Transferase 32 U/L (14-36); Blood Urea Nitrogen 17 mg/dl (7-17); Carbon Dioxide 30 mmol/L (22.0-30.0); Creatinine,Serum 0.70 mg/dl (0.52-1.04); Estimated Glomerular Filt Rate 82 ml/min (>60); GFR (African American) 100 ML/MIN (>60); Globulin 2.6 g/dL (1.3-3.2); Total Protein,Serum 7.1 g/dl (6.3-8.2)
[2025-06-07 12:18] LABS: Alkaline Phosphatase 88 U/L (38-126); Bilirubin,Total 0.5 mg/dl (0.2-1.3); Calcium 9.7 mg/dl (8.4-10.2); Cholesterol 165 mg/dl (140-200); Glucose 94 mg/dl (74-100); HDL Cholesterol 67 mg/dl (40-60); Triglycerides 67 mg/dl (30-150)
[2025-06-07 12:37] LABS: Free Thyroxine Index 3.6 ug/dL (5.93-13.13); T4 (Thyroxine) 10.2 ug/dl (5.53-11.0); Triiodothryronine (T3) Uptake 35 % (23.5-40.5)
[2025-06-07 12:51] LABS: Thyroid Stimulating Hormone 1.09 uIU/mL (0.465-4.68)
== END 2025-06-07 23:59 | disposition home or self-care (01) ==
LOC: LAB 10:15
PROVIDERS: PCP Internal Medicine Adolescent Medicine; Visit Provider Internal Medicine Adolescent Medicine
DX: E78.5 Hyperlipidemia, unspecified (principal); E03.9 Hypothyroidism, unspecified; I10 Essential (primary) hypertension
CPT/HCPCS: 36415; 80053; 80061; 84436; 84443; 84479

== ENCOUNTER 2025-06-09 14:59 | Outpatient (RCR) | payer MEDICARE, BC, SELFPAY | END 2025-06-09 23:59 | disposition home or self-care (01) | LOC: PT 14:59 | PROVIDERS: Visit Provider Internal Medicine Adolescent Medicine | DX: M23.51 Chronic instability of knee, right knee (principal); R26.89 Other abnormalities of gait and mobility; R29.6 Repeated falls | CPT/HCPCS: 97760 ==

== ENCOUNTER 2025-06-13 10:38 | Day surgery (SDC) | payer MEDICARE, BC, SELFPAY ==
[2025-06-13 10:43] VITALS: BP 121/62; PULSE 71; RESP 18; O2SAT 98; BMI 32.5
--- NOTE | 2025-06-13 10:54 | P.PCN_ITS ---
Procedure Date: 06/13/25 Time: 10:45 Anesthesiologist:: Arnel De La Cruz CRNA Complications:: None Pre-procedure Diagnosis:: Bilateral sacroiliitis Post-procedure Diagnosis:: Same. Indications for Procedure:: Patient is a pleasant 69-year-old female comes our clinic today for bilateral d iagnostic sacroiliac joint injections local anesthetic. Patient describes low lumbar back pain off midline bilaterally. Bilateral posterior hip pain. Difficulty ambulating. Difficulty transitioning from sitting to standing. She rates her pain 7/10. Procedure Details:: Procedure: Bilateral sacroiliac joint injections under fluoroscopy Informed consent was obtained and the risks and benefits of the procedure were explained to the patient.~ The patient was taken to the procedure room and noninvasive monitors were placed including a noninvasive blood pressure cuff and pulse oximeter.~ The patient was placed prone on the procedure table. Both hips were cleansed using Betadine as a cleansing solution. C-arm fluoroscopy was used to view the right sacroiliac joint.~ The skin and subcutaneous tissues were anesthetized using lidocaine 1.5% and a 25-gauge needle.~ After this, a 22-gauge spinal needle was inserted under fluoroscopic guidance into the inferior aspect of the right sacroiliac joint.~ Omnipaque dye was injected and good spread was seen throughout the joint.~ After this, approximately 5 mL of bupivacaine, 0.25% was incrementally injected into the right sacroiliac joint. We then moved to the left sacroiliac joint.~ The skin and subcutaneous tissues were anesthetized using lidocaine 1.5% and a 25-gauge needle.~ After this, a 22- gauge spinal needle was inserted under fluoroscopic guidance into the inferior aspect of the left sacroiliac joint.~ Omnipaque dye was injected and good spread was seen throughout the joint. After this, approximately 5 mL of bupivacaine, 0.25% was incrementally injected into the left sacroiliac joint.~ The patient tolerated the procedure well with no complications. The patient was observed in the Pain Clinic and then was discharged home neurologically intact. Plan and Disposition:: Patient was discharged without incident.
[2025-06-13] MEDS: LIDOCAINE 1% 5ML PF VIAL 5 ML (10:57)
[2025-06-13] MEDS: BUPIVACAINE 0.25% 10ML INJ 25 MG IJ (10:57)
[2025-06-13 11:04] VITALS: BP 139/66; PULSE 76; RESP 18; O2SAT 95
[2025-06-13 11:05] VITALS: BP 139/66; PULSE 76; RESP 18; O2SAT 95
[2025-06-13 11:10] VITALS: BP 104/70; PULSE 73; RESP 18; O2SAT 96
== END 2025-06-13 11:10 | disposition home or self-care (01) ==
PROVIDERS: PCP Internal Medicine Adolescent Medicine; Visit Provider Nurse Anesthetist, Certified Registered
DX: M46.1 Sacroiliitis, not elsewhere classified (principal); I48.91 Unspecified atrial fibrillation; I10 Essential (primary) hypertension; E78.5 Hyperlipidemia, unspecified; Z88.0 Allergy status to penicillin; Z88.1 Allergy status to other antibiotic agents; Z88.2 Allergy status to sulfonamides; Z88.8 Allergy status to other drugs, medicaments and biological substances; Z88.5 Allergy status to narcotic agent; Z79.01 Long term (current) use of anticoagulants; Z79.899 Other long term (current) drug therapy
CPT/HCPCS: 64450; J0665; J2003

== ENCOUNTER 2025-06-20 08:00 | Outpatient (RCR) | payer MEDICARE, BC, SELFPAY ==
--- NOTE | 2025-06-20 08:48 | HMH.RHREAS ---
Rehab Reassessment Rehab OP Re-assessment Start: 06/06/25 08:33 Freq: Status: Active Protocol: Document 06/20/25 08:12 DADA (Rec: 06/20/25 08:47 DADA [id number]) E-signed By Dayron Velázquez, PT Rehab Re-assessment Subjective Subjective Pt reports that she is 75-80% improved since her initial evaluation. Pt reports that she continues to use a SP cane just for extra precaution but reports that she does not really need it. Pt reports that she started wearing a different knee brace, which has helped her feel more stable when she walks. Pt reports that she feels like a break from PT could be good. Pt reports that she is prepared to discharge from PT in the next week. Objective Objective Notes TUs 5xSTS: 13s MMT: 4/5 to R hip flexion Assessment Progress Assessment Progressing as Expected Assessment Notes Pt is progressing well at this time. She has met or nearly met all stated PT goals. Pt would benefit from 2 more weeks of PT to prepare for discharge to advanced [facility]. PT Patient Goals PT Short Term In 2 wks pt will: Patient Goals 1) Pt will improve 5xSTS time to 11 sec NOT MET 2) Pt will increase R hip flexion MMT to 4+.5 NOT MET PT Intermediate Patient In 4 wks pt will: Goals 1) improve TUG score to less than 11 sec MET 2) Pt will improve gait pattern to have minimal R knee hyperextension. Partially met. Improved with knee brace Plan Plan Continue as per initial POC to address remaining impairments, as laid out above. Plan to discharge in 2 weeks. Frequency of Therapy 1-2/week Duration of Therapy 2 weeks Therapeutic Exercise Yes Including Home Exercise Program Manual Therapy Yes Techniques Neuromuscular Re- Yes education Therapeutic Yes Activities to Return to Previous Functional/Work Level Gait Training Yes Time and Billing Re-Eval Time 10 Re-Eval Billing 0 Units Charge for PT No reassessment? PHYSICIAN CERTIFICATION: I certify the specified therapy services for Shonda Stiles are required, authorized, and reviewed every 30 days.
== END 2025-06-20 23:59 | disposition home or self-care (01) ==
LOC: PT 08:00
PROVIDERS: PCP Internal Medicine Adolescent Medicine; Visit Provider Internal Medicine Adolescent Medicine
DX: M23.51 Chronic instability of knee, right knee (principal); R26.89 Other abnormalities of gait and mobility; R29.6 Repeated falls
CPT/HCPCS: 97112; 97530

== ENCOUNTER 2025-07-06 08:00 | Outpatient (RCR) | payer MEDICARE, BC, SELFPAY | END 2025-07-06 23:59 | disposition home or self-care (01) | LOC: PT 08:00 | PROVIDERS: PCP Internal Medicine Adolescent Medicine; Visit Provider Internal Medicine Adolescent Medicine | DX: R29.6 Repeated falls (principal) | CPT/HCPCS: 97530 ==

== ENCOUNTER 2025-08-22 09:33 | Inpatient (IN) | payer MEDICARE, BC, SELFPAY ==
[2025-08-22] VITALS (12 sets, daily range): BP systolic 110–172; BP diastolic 56–94; PULSE 75–120; RESP 16–18; TEMP 36–36.8; O2SAT 91–100; BMI 33.6; BMI 33.7
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
--- NOTE | 2025-08-22 09:45 | ECG_ITS ---
APPROVED REPORT Exam: Resting ECG HR:85 bpm ECG Measurements Heart Rate 85 AXES MO 143 P 63 QRSd 86 QRS 35 QT 402 T 40 QTc 445 Conclusion SINUS RHYTHM LOW QRS VOLTAGE IN PRECORDIAL LEADS [QRS DEFLECTION < 1.0 mV IN CHEST LEADS] BORDERLINE ECG UNCONFIRMED REPORT Electronically signed by : William Castillo, 08/22/2025 14:05:53
--- NOTE | 2025-08-22 09:52 | CT_ITS ---
FINAL REPORT TECHNIQUE: Axial imaging of the chest is obtained after the administration of contrast. 3-D MIP reformatted images were also obtained and reviewed per PE protocol. CLINICAL HISTORY: chest pain and abd pain radiating to back, luq ttp COMPARISON: 03/08/2025 FINDINGS: There is no aortic aneurysm or dissection. No central pulmonary embolism. Heart size is normal. There is no mediastinal, hilar, or axillary lymphadenopathy. Linear opacity in the left lower lobe is unchanged and likely scar. The lungs are otherwise clear. There are no suspicious nodules. There is no pleural or pericardial effusion. No acute osseous abnormality. IMPRESSION: No aortic aneurysm or dissection. No central pulmonary embolism. Reviewed, Interpreted and Dictated by Lanette Winn MD Transcribed by Laurence Iqbal Authenticated and [facility]
--- NOTE | 2025-08-22 09:52 | CT_ITS ---
FINAL REPORT TECHNIQUE: Thin section axial images were obtained through the abdomen and pelvis after contrast injection per CT angiogram protocol. Multiplanar reconstruction images were obtained from the axial data. This exam was performed with techniques to keep radiation dose as low as reasonably achievable. This includes automated exposure control, adjustment of the MA and KVP, and iterative reconstruction technique. CLINICAL HISTORY: chest pain and abd pain radiating to back, luq ttp COMPARISON: 07/29/2019 FINDINGS: CTA: No abdominal aortic aneurysm or aortic dissection. The celiac axis, superior mesenteric artery, and inferior mesenteric artery are patent without stenosis. The renal arteries are patent. The common iliac arteries and visualized portions of the internal and external iliac arteries are patent. No significant stenosis. NONVASCULAR: The gallbladder is present. The solid abdominal organs are without acute abnormality. There are several dilated small bowel loops in the left upper quadrant measuring up to 3.5 cm. Remaining small bowel loops are normal in caliber. The appendix is not visualized. Calcified fibroids are seen in the uterus. No lymphadenopathy or free fluid. IMPRESSION: No evidence of abdominal aortic aneurysm or dissection. No significant stenosis. Several dilated small bowel loops in the left abdomen, a closed-loop partial small bowel obstruction is not excluded. Reviewed, Interpreted and Dictated by Lanette Winn MD Transcribed by Danya Mantilla Authenticated and [facility]
[2025-08-22 10:01] LABS: Albumin Level 4.5 g/dl (3.5-5.0); Chloride 103 mmol/L (98-107); Hematocrit 36.6 % (37.0-47.0); Hemoglobin 11.9 g/dL (12.2-16.2); Immature Granulocytes % 0.3 %; Mean Corpuscular HGB Conc 32.5 g/dL (31.8-35.4); Mean Corpuscular Hemoglobin 31.5 pg (27.0-31.2); Mean Corpuscular Volume 96.8 fl (81-99); Nucleated Red Blood Cells % 0 %; Platelet Count 253 K/mm3 (142-424); Potassium 3.3 mmoL/L (3.5-5.1); Red Blood Count 3.78 M/mm3 (4.20-5.40); Red Cell Distribution Width-SD 48.5 fL; Sodium 143 mmol/L (136-145); White Blood Count 8.7 K/mm3 (4.8-10.8)
--- OUTSIDE RECORDS SUMMARY | 2025-08-22 10:01 | XMS_ITS | Referral Summary ---
Author Organization [facility] ([place], [place], [place], [place], [place]) Address [address] [place] [address] Care Team Providers Care Account Manager Trainee Name Role Phone Dilshad Steele MD Primary Care Provider + [phone] Allergies Active Allergy Reactions Criticality Noted Date [...] the past 12 months, has t he [employer], gas, oil, or water company threatened to [...] Do you speak a language other than Gabonese at [facility]? No 10/16/2023 Do you want [...] on file Medical Devices Implanted Type Area Warehouse Processor Device Identifier Shelf Expiration Date Model / Serial / Lot Bone Antoinetteigen Frmble Cell 10cc [id number] - [id number] Implanted:Qty : 1 on 10/14/2023 by Vinicius Damon Jr., MD at [facility] IMPLANTS N/A: Spine LIFENET:LIFENET TRANSPLANT SRV 09/23/202400 [id number] / Scr Spne Arsenio Fix 6x40mm [id number] - [id number] Implanted:Qty : 3 on 10/14/2023 by Vinicius Damon Jr., MD at [facility] IMPLANTS N/A: Spine J &J:DEPUY:DEPUY SPINE 0 / 0 / Scr Spne Arsenio Fix Fen 6x45mm 5 - [id number] Implanted:Qty : 3 on 10/14/2023 by Vinicius Damon Jr., MD at [facility] IMPLANTS N/A: Spine J &J:DEPUY:DEPUY SPINE 5 / 5 / Scr Spne Arsenio Fix 7x40mm 0 - [id number] Implanted:Qty : 2 on 10/14/2023 by Vinicius Damon Jr., MD at [facility] IMPLANTS N/A: Spine J &J:DEPUY:DEPUY SPINE 0 / 0 / Scr Spne Arsenio Fix 7x45mm 5 - [id number] Implanted:Qty : 4 on 10/14/2023 by Vinicius Damon Jr., MD at [facility] IMPLANTS N/A: Spine J &J:DEPUY:DEPUY SPINE 5 / 5 / Toan Spine Expedium [id number] - [id number] Implanted:Qty : 1 on 10/14/2023 by Vinicius Damon Jr., MD at [facility] IMPLANTS N/A: Spine J &J:DEPUY:DEPUY SPINE 0 / 0 / Mis Joselin Ply Scrw Set Ti -000 - [id number] Implanted:Qty : 12 on 10/14/2023 by Vinicius Damon Jr., MD at [facility] IMPLANTS N/A: Spine J &J:DEPUY:DEPUY SPINE 0 / 0 / Insurance 1955 [place] [id number] MEDICARE PART A B /[facility] Care Teams Account Manager Trainee Relationship Specialty Start Date End Date Dilshad Steele MD [address] [place] [address] [place] [id number] PCP - General Adolescent Medicine 10/08/23
--- OUTSIDE RECORDS SUMMARY | 2025-08-22 10:01 | XMS_ITS | Encounter Summary ---
Author Organization Healthcare Address [address] [place] [address] Care Team Providers Care Assembler Arranger Name Role Phone Dilshad Steele MD Primary Care Provider + [phone] Encounter Details Date Type Department Care Team (Latest Contact Info) Description 08/24/2023 Community [facility] [address] [place] [address] Terri Rivera, SOD STRIPPER [address] [place] [address] Spinal stenosis of lumbar region [...] disc documented in this encounter Care Teams Assembler Arranger Relationship Specialty Start Date End Date Dilshad Steele MD [address] [place] [address] PCP - General 02/01/21 documented as of this encounter
--- OUTSIDE RECORDS SUMMARY | 2025-08-22 10:01 | XMS_ITS | Clinical Summary ---
Author Organization [employer] ([place], [place], [place], [place], [place]) Address [address] [place] [address] Care Team Providers Care Application Specialist Name Role Phone Dilshad Steele MD Primary Care Provider + [phone] Allergies Active Allergy Reactions Criticality Noted Date [...] the past 12 months, has t he [employer], gas, oil, or water company threatened to [...] Do you speak a language other than Citizen Of [place] at [facility]? No 10/16/2023 Do you want [...] Shingles Vaccine (Zoster) (2 of 2) 10/02/20202019 Falls Risk Screening 09/21/2024 Tobacco Cessation Counseling and Screening (12+) 10/14/2024 10/14/2023 COVID-19 VACCINE (2024-2 6 season) 2025 10/22/2022, 03/19/2022, 08/06/2021, Additional history exists Influenza Vaccine (#1) 2025 06/13/2021 Respiratory Syncytial Virus (RSV) Adult or (1 - 1-dose 75+ series) 2028 Pneumococcal 50+ years Completed 05/15/2022, 2018 Medical Devices Implanted Type Area Waste Machine Offbearer Device Identifier Shelf Expiration Date Model / Serial / Lot Bone Antoinetteigen Frmble Cell 10 Bl-1600-003 - [id number] Implanted:Qty : 1 on 10/14/2023 by Vinicius Damon Jr., MD at [facility] IMPLANTS N/A: Spine LIFENET:LIFENET TRANSPLANT SRV 09/23/2024 BL-1600-00 3 / [id number] / Scr Spne Arsenio Fix 6x40mm 640 - [id number] Implanted:Qty : 3 on 10/14/2023 by Vinicius Damon Jr., MD at [facility] IMPLANTS N/A: Spine J &J:DEPUY:DEPUY SPINE 0 / 0 / Scr Spne Arsenio Fix Fen 6x45mm 5 - [id number] Implanted:Qty : 3 on 10/14/2023 by Vinicius Damon Jr., MD at [facility] IMPLANTS N/A: Spine J &J:DEPUY:DEPUY SPINE 5 / 5 / Scr Spne Arsenio Fix 7x40mm 0 - [id number] Implanted:Qty : 2 on 10/14/2023 by Vinicius Damon Jr., MD at [facility] IMPLANTS N/A: Spine J &J:DEPUY:DEPUY SPINE 0 / 0 / Scr Spne Arsenio Fix 7x45mm 5 - [id number] Implanted:Qty : 4 on 10/14/2023 by Vinicius Damon Jr., MD at [facility] IMPLANTS N/A: Spine J &J:DEPUY:DEPUY SPINE 5 / 5 / Toan Spine Expedium [id number] [id number] - [id number] Implanted:Qty : 1 on 10/14/2023 by Vinicius Damon Jr., MD at [facility] IMPLANTS N/A: Spine J &J:DEPUY:DEPUY SPINE 0 / 0 / Mis Joselin Ply Scrw Set Ti - [id number] Implanted:Qty : 12 on 10/14/2023 by Vinicius Damon Jr., MD at [facility] IMPLANTS N/A: Spine J &J:DEPUY:DEPUY SPINE 0 / 0 / Insurance [place]IC[place] [address] [place] [address] CROSS/BLUE SHIELD Care Teams Application Specialist Relationship Specialty Start Date End Date Dilshad Steele MD [address] [place] [id number] PCP - General Adolescent Medicine 10/08/23
--- OUTSIDE RECORDS SUMMARY | 2025-08-22 10:01 | XMS_ITS | Clinical Summary ---
Author Organization Healthcare Address [address] [place] [address] Care Team Providers Care Hr Director Name Role Phone Dilshad Steele MD Primary Care Provider Family History Medical History Relation Name Comments [...] UKY-Zoster Vaccines (2 of 2) 10/02/2020 08/07/2020 [id number] Vaccine ( season) 2025 10/22/2022, 03/19/2022, 08/06/2021, [...] age to complete this topic Insurance 1955 [address] [place] [id number] MEDICARE Care Teams Hr Director Relationship Specialty Start Date End Date Dilshad Steele MD [address] [place] [id number] PCP - General 02/01/21
[2025-08-22 10:04] LABS: Alanine Aminotransferase 37 U/L (12-78); Albumin/Globulin Ratio 1.7 (1.1-1.8); Alkaline Phosphatase 102 U/L (38-126); Anion Gap 22.3 mEq/L (5-15); Aspartate Amino Transferase 40 U/L (14-36); Bilirubin,Total 0.3 mg/dl (0.2-1.3); Blood Urea Nitrogen 14 mg/dl (7-17); Calcium 9.3 mg/dl (8.4-10.2); Carbon Dioxide 21 mmol/L (22.0-30.0); Creatinine Clearance Estimated 69 mL/min (50-200); Creatinine,Serum 0.70 mg/dl (0.52-1.04); Estimated Glomerular Filt Rate 82 ml/min (>60); GFR (African American) 100 ML/MIN (>60); Globulin 2.7 g/dL (1.3-3.2); Glucose 185 mg/dl (74-100); Lipase 108 U/L (23-300); Total Protein,Serum 7.2 g/dl (6.3-8.2)
[2025-08-22 10:05] LABS: Magnesium 2.0 mg/dl (1.6-2.3)
[2025-08-22 10:08] LABS: INR 1.03 (0.9-1.1); Prothrombin Time 11.4 seconds (10.1-12.5)
[2025-08-22 10:16] LABS: Troponin I < 0.01 ng/ml (0.00-0.034)
[2025-08-22] MEDS: FENTANYL 100MCG/2ML VIAL 50 MCG IV (10:17)
[2025-08-22] MEDS: ACETAMINOPHEN 1,000MG/100ML VIAL 1000 MG IV (10:17)
[2025-08-22] MEDS: ONDANSETRON 4MG/2ML VIAL 4 MG IV ×2 (10:17→13:41)
[2025-08-22] MEDS: LACTATED RINGERS 1000ML 1,000 ML 999 ML IV (10:18)
[2025-08-22] MEDS: 0.9 % SODIUM CHLORIDE 50 ML VIAL IV (10:21)
[2025-08-22] MEDS: SODIUM CHLORIDE 0.9% 10ML SYR (RAD ONLY) 10 ML IV (10:21)
[2025-08-22] MEDS: IOPAMIDOL-370 (76%);100ML BOTTLE 80 ML IV (10:21)
--- NOTE | 2025-08-22 10:30 | PC.NURSE ---
Dr. Castillo notified of Lactic of 5.5.
[2025-08-22 10:56] LABS: Coronavirus 19, PCR Not Detected (NotDetected); Influenza A, PCR Not Detected (NotDetected); Influenza B, PCR Not Detected (NotDetected)
[2025-08-22] MEDS: 0.9 % SODIUM CHLORIDE 1000ML 1,000 ML 999 ML IV (11:19)
[2025-08-22 11:34] LABS: Hepatitis C Ab Qual. W/ RFX NEGATIVE (Negative)
[2025-08-22 11:44] LABS: Microscopic, Urine URINE MICROSCOPIC (MICROSCOPIC)
[2025-08-22 12:00] LABS: Bilirubin,Urine Negative (Negative); Color,Urine YELLOW (Yellow); Glucose,Urine (UA) Negative (Negative); Ketones,Urine TRACE (Negative); Leukocyte Esterase,Urine Negative (Negative); PH,Urine 7.5 (5.0-8.5); Protein,Urine Negative (Negative); Specific Gravity, Urine 1.015 (1.005-1.030); Urobilinogen,Urine 0.2 EU/dl (0.2)
[2025-08-22] MEDS: LIDOCAINE 2% UROJET 10ML TP (12:15)
--- NOTE | 2025-08-22 12:16 | XR_ITS ---
FINAL REPORT CLINICAL HISTORY: NG tube placement COMPARISON: CT earlier same day FINDINGS: A single supine view of the abdomen was obtained. NG tube is present in the stomach. Lucency beneath the right hemidiaphragm is noted. However, on CT scan performed earlier today, areas located in the colon. There are no pathologic calcifications. Osseous structures are within normal limits. IMPRESSION: NG tube in the stomach. Reviewed, Interpreted and Dictated by Lanette Winn MD Transcribed by Laurence Iqbal Authenticated and [facility]
--- NOTE | 2025-08-22 12:33 | PC.NURSE ---
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
[2025-08-22 13:57] LABS: Reflex Lactic Add Lactic Reflex
[2025-08-22 14:18] LABS: Troponin I < 0.01 ng/ml (0.00-0.034)
[2025-08-22] MEDS: MORPHINE 4MG/ML SYRINGE 4 MG IV ×2 (14:18→19:25)
[2025-08-22 15:04] LABS: Lactic Acid Follow Up (RFLX 1) 1.4 mmol/L (0.7-2.1)
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
--- NOTE | 2025-08-22 15:18 | PC.NURSE ---
patient arrived to the unit via wheelchair at 1303
--- NOTE | 2025-08-22 15:33 | PC.NURSE ---
Dr. Fu in the room at this time to talk to patient and assess patient. At this time no surgery, will administer 120 of gastrografin to be put through the ng tube at 2200 tonight so when she has her scan in the morning it will show if she has any air or blockage
[2025-08-22] MEDS: 0.9 % SODIUM CHLORIDE 1000ML 1,000 ML 75 ML IV (16:00)
[2025-08-22] MEDS: METOPROLOL TARTRATE 50MG TABLET 50 MG PO (20:26)
[2025-08-22] MEDS: PRAVASTATIN 20MG TAB 20 MG PO (20:26)
[2025-08-22] MEDS: APIXABAN 5MG TABLET 5 MG PO (20:26)
[2025-08-22] MEDS: DIATRIZOATE MEGLUMINE(GASTROGRAFIN) 66%-10% 120ML 120 ML PO (22:50)
[2025-08-23] VITALS (49 sets, daily range): BP systolic 132–157; BP diastolic 63–94; PULSE 98–127; RESP 12–25; TEMP 36.6–37.2; O2SAT 83–97; BMI 33.8
[2025-08-23] MEDS: MORPHINE 4MG/ML SYRINGE 4 MG IV ×5 (00:27→22:16)
[2025-08-23 05:52] LABS: Hematocrit 35.0 % (37.0-47.0); Hemoglobin 11.1 g/dL (12.2-16.2); Immature Granulocytes % 0.5 %; Mean Corpuscular HGB Conc 31.7 g/dL (31.8-35.4); Mean Corpuscular Hemoglobin 31.3 pg (27.0-31.2); Mean Corpuscular Volume 98.6 fl (81-99); Nucleated Red Blood Cells % 0 %; Platelet Count 252 K/mm3 (142-424); Red Blood Count 3.55 M/mm3 (4.20-5.40); Red Cell Distribution Width-SD 50.5 fL; White Blood Count 12.0 K/mm3 (4.8-10.8)
--- NOTE | 2025-08-23 06:00 | XR_ITS ---
PROCEDURE INFORMATION: Exam: XR Complete Acute Abdomen Series Including Chest Exam date and time: 08/23/2025 5:52 AM Age: 70 years old Clinical indication: Abdominal pain; Additional info: Sbo vs ileus TECHNIQUE: Imaging protocol: Radiologic exam. Complete acute abdomen series, including 2 or more views of the abdomen and a single view chest. COMPARISON: CT ANGIO ABDOMEN PELVIS 08/22/2025 10:19 AM FINDINGS: Lungs: Normal. No consolidation. Pleural spaces: Normal. No pleural effusions. No pneumothorax. Heart/Mediastinum: Normal. No cardiomegaly. Gastrointestinal tract: There is contrast identified in the stomach. The small bowel is not as prominent when compared to the prior exam. An enteric tube projects into the stomach. Intraperitoneal space: Normal. No free air. Bones/joints: Spinal fixation hardware is again noted. Soft tissues: Normal. IMPRESSION: Contrast identified in the stomach. The small bowel is less prominent.
[2025-08-23 06:01] LABS: Albumin Level 4.1 g/dl (3.5-5.0); Chloride 105 mmol/L (98-107); Sodium 143 mmol/L (136-145)
[2025-08-23 06:02] LABS: Potassium 4.5 mmoL/L (3.5-5.1)
[2025-08-23 06:04] LABS: Alanine Aminotransferase 20 U/L (12-78); Alkaline Phosphatase 87 U/L (38-126); Anion Gap 15.5 mEq/L (5-15); Aspartate Amino Transferase 28 U/L (14-36); Bilirubin,Total 0.5 mg/dl (0.2-1.3); Blood Urea Nitrogen 11 mg/dl (7-17); Carbon Dioxide 27 mmol/L (22.0-30.0); Creatinine Clearance Estimated 70 mL/min (50-200); Creatinine,Serum 0.70 mg/dl (0.52-1.04); Estimated Glomerular Filt Rate 82 ml/min (>60); GFR (African American) 100 ML/MIN (>60)
[2025-08-23 06:05] LABS: Albumin/Globulin Ratio 1.6 (1.1-1.8); Calcium 8.6 mg/dl (8.4-10.2); Globulin 2.6 g/dL (1.3-3.2); Glucose 123 mg/dl (74-100); Magnesium 2.2 mg/dl (1.6-2.3); Total Protein,Serum 6.7 g/dl (6.3-8.2)
[2025-08-23] MEDS: 0.9 % SODIUM CHLORIDE 1000ML 1,000 ML 75 ML IV ×2 (07:12→22:21)
[2025-08-23] MEDS: LEVOTHYROXINE 50MCG (0.05MG) TAB 50 MCG PO (08:04)
[2025-08-23] MEDS: METOPROLOL TARTRATE 50MG TABLET 50 MG PO ×2 (08:04→23:01)
[2025-08-23] MEDS: dilTIAZem ER 240MG CAPSULE 240 MG PO (08:04)
--- NOTE | 2025-08-23 08:11 | EXP.SURG.PN ---
Subjective Patient reports: no new complaints, feels better, no flatus and no bowel movement Narrative: She states that her pain is quite a bit better . She states that she feel(s) like (she is) getting ready to pass gas or have a bowel movement Exam Data for Last 24 hours Vital signs and Labs for Last 24 Hours: Temp Pulse Resp BP Pulse Ox O2 Del Method O2 Flow Rate 98.4 F 111 H 14 136/64 95 Room Air 1 08/23/25 04:15 08/23/25 05:00 08/23/25 05:00 08/23/25 04:00 08/23/25 05:00 08/23/25 07:40 08/23/25 06:55 Laboratory Results - last 24 hr 08/22/25 09:44: WBC 8.7, RBC 3.78 L, Hgb 11.9 L, Hct 36.6 L, MCV 96.8, MCH 31.5 H, MCHC 32.5, RDW 13.6, Plt Count 253, MPV 9.7, Neut % (Auto) 77.4, Lymph % (Auto) 16.6, [place] % (Auto) 4.8, Eos % (Auto) 0.3, Baso % (Auto) 0.6, Neut # (Auto) 6.7, Lymph # (Auto) 1.4, [place] # (Auto) 0.4, Eos # (Auto) 0.0, Baso # (Auto) 0.1, PT 11.4, INR 1.03, Sodium 143, Potassium 3.3 L, Chloride 103, Carbon Dioxide 21 L, Anion Gap 22.3 H, BUN 14, Creatinine 0.70, Estimated Creat Clear 69, Estimated GFR 82, Est GFR ( Amer) 100, Glucose 185 H, Lactate 5.5 H, Calcium 9.3, Magnesium 2.0, Total Bilirubin 0.3, AST 40 H, ALT 37, Alkaline Phosphatase 102, Troponin I < 0.01, Total Protein 7.2, Albumin 4.5, Globulin 2.7, Albumin/Globulin Ratio 1.7, Lipase 108, HCV Ab CAET w/Rflx PCR Qn Negative, HIV Ag/Ab Combo Qual Negative 08/22/25 10:52: SARS-CoV-2 (PCR) Not detected, Influenza A Untype (PCR) Not detected, Influenza Type B (PCR) Not detected 08/22/25 11:40: Urine Color Yellow, Urine Appearance Clear, Urine pH 7.5, Ur Specific [place] 1.015, Urine Protein Negative, Urine Glucose (UA) Negative, Urine Ketones Trace, Urine Blood 1+ A, Urine Nitrate Negative, Urine Bilirubin Negative, Urine Urobilinogen 0.2, Ur Leukocyte Esterase Negative, Urine RBC None, Urine WBC None, Ur Squamous Epith Cells None, Urine Bacteria None 08/22/25 13:40: Troponin I < 0.01 08/22/25 14:45: Lactate 1.4 08/23/25 04:46: WBC 12.0 H D, RBC 3.55 L, Hgb 11.1 L, Hct 35.0 L, MCV 98.6, MCH 31.3 H, MCHC 31.7 L, RDW 13.8, Plt Count 252, MPV 9.7, Neut % (Auto) 76.9, Lymph % (Auto) 11.2, [place] % (Auto) 11.1 H, Eos % (Auto) 0.0 L, Baso % (Auto) 0.3, Neut # (Auto) 9.2 H, Lymph # (Auto) 1.3, [place] # (Auto) 1.3 H, Eos # (Auto) 0.0, Baso # (Auto) 0.0, Sodium 143, Potassium 4.5 D, Chloride 105, Carbon Dioxide 27, Anion Gap 15.5 H, BUN 11, Creatinine 0.70, Estimated Creat Clear 70, Estimated GFR 82, Est GFR ( Amer) 100, Glucose 123 H D, Calcium 8.6, Magnesium 2.2, Total Bilirubin 0.5, AST 28 D, ALT 20 D, Alkaline Phosphatase 87, Total Protein 6.7, Albumin 4.1, Globulin 2.6, Albumin/Globulin Ratio 1.6 I & O for Last 24 hours: Intake & Output 08/20/25 08/21/25 08/22/25 08/23/25 11:59 11:59 11:59 11:59 Intake Total 1000 / 1000 2600.000 / 2600.000 Output Total 150 / 150 Balance 1000 / 1000 2450.000 / 2450.000 Weight 190 lb 191 lb 3.2 oz Radiology Reports for the Last 24 Hours: Flat/upright abdominal films reveal remaining contrast within the gastric lumen. Constitutional Constitutional: no acute distress *Routine Respiratory Exam Respiratory: Absent respiratory distress *Routine Cardiovascular Exam Cardiovascular: Present tachycardia *Routine Abdominal Exam Abdominal: Present soft Comments: Minimal tenderness (improved) Progress Note: A&P Assessment and plan (1) SBO (small bowel obstruction): Problem details: Partial closed-Loop obstruction versus focal ileus Status: Acute Assessment and plan: Remaining gastric contrast noted on morning films. Small bowel loops somewhat less prominent. UGI/SBFT ordered
--- NOTE | 2025-08-23 09:20 | FL_ITS ---
FINAL REPORT CLINICAL HISTORY: SBO VS ILEUS 10 HOURS FINDINGS: Multiple frontal views of the abdomen were obtained. Special Agent image reveals contrast in the stomach from a previous injection of an NG tube. The bowel gas pattern is nonspecific with a relative paucity of gas in the left abdomen. Contrast was injected through the patient's indwelling NG tube. The stomach is distended. Proximal small bowel loops are dilated. Contrast does not reach distal small bowel loops or colon by 10 hours. There may be a transition point within the left abdomen, best seen on the 3-hour image. The exam was terminated at 10 hours. IMPRESSION: Findings concerning for small bowel obstruction with a transition point in the left abdomen based on the provided images. No contrast is identified within the more distal small bowel or colon at 10 hours and no images were obtained after 10 hours. Authenticated and ERN
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
[2025-08-23] MEDS: DIATRIZOATE MEGLUMINE(GASTROGRAFIN) 66%-10% 120ML 360 ML PO (10:00)
[2025-08-23] MEDS: ONDANSETRON 4MG/2ML VIAL 4 MG IV ×2 (10:22→18:42)
--- NOTE | 2025-08-23 14:54 | PC.NURSE ---
pt complaining of back and abdomen discomfort at this time. medicated with morphine per nov. pt assisted to the recliner and pillows placed to relieve pressure on back. cold wash cloth given. pt verbalized being a little more comfortable
[2025-08-24] VITALS (21 sets, daily range): BP systolic 110–156; BP diastolic 66–96; PULSE 92–134; RESP 15–23; TEMP 36.4–38; O2SAT 91–96; BMI 32.8
[2025-08-24] MEDS: PHENOL THROAT SPRAY 177 ML BOTTLE MM (04:32)
--- NOTE | 2025-08-24 06:00 | XR_ITS ---
PROCEDURE INFORMATION: Exam: XR Complete Acute Abdomen Series Including Chest Exam date and time: 08/23/2025 11:38 AM Age: 70 years old Clinical indication: Abdominal pain; Additional info: Sbo vs ileus TECHNIQUE: Imaging protocol: Radiologic exam. Complete acute abdomen series, including 2 or more views of the abdomen and a single view chest. COMPARISON: CR XR ACUTE ABDOMEN SERIES 08/23/2025 5:52 AM FINDINGS: Lungs: Normal. No consolidation. Pleural spaces: Normal. No pleural effusions. No pneumothorax. Heart/Mediastinum: Normal. No cardiomegaly. Gastrointestinal tract: Oral contrast has been administered which distends the stomach, duodenum and proximal jejunum. Air-filled loops of small bowel are seen in the mid abdomen measuring up to 4 cm. Intraperitoneal space: No free air is noted. Bones/joints: Normal. No acute fracture. Soft tissues: Normal. IMPRESSION: Oral contrast has extended into the proximal jejunum which is mildly distended. Consider delayed views for further evaluation of possible ileus versus small bowel obstruction.
[2025-08-24 06:26] LABS: Hematocrit 39.1 % (37.0-47.0); Hemoglobin 12.2 g/dL (12.2-16.2); Immature Granulocytes % 0.5 %; Mean Corpuscular HGB Conc 31.2 g/dL (31.8-35.4); Mean Corpuscular Hemoglobin 31.4 pg (27.0-31.2); Mean Corpuscular Volume 100.5 fl (81-99); Nucleated Red Blood Cells % 0 %; Platelet Count 236 K/mm3 (142-424); Red Blood Count 3.89 M/mm3 (4.20-5.40); Red Cell Distribution Width-SD 52.2 fL; White Blood Count 17.2 K/mm3 (4.8-10.8)
[2025-08-24 06:30] LABS: Albumin Level 4.4 g/dl (3.5-5.0); Chloride 105 mmol/L (98-107); Potassium 4.0 mmoL/L (3.5-5.1)
[2025-08-24 06:33] LABS: Alanine Aminotransferase 21 U/L (12-78); Albumin/Globulin Ratio 1.5 (1.1-1.8); Alkaline Phosphatase 93 U/L (38-126); Anion Gap 15.0 mEq/L (5-15); Aspartate Amino Transferase 30 U/L (14-36); Bilirubin,Total 0.3 mg/dl (0.2-1.3); Blood Urea Nitrogen 17 mg/dl (7-17); Carbon Dioxide 37 mmol/L (22.0-30.0); Creatinine Clearance Estimated 68 mL/min (50-200); Creatinine,Serum 0.80 mg/dl (0.52-1.04); Estimated Glomerular Filt Rate 71 ml/min (>60); GFR (African American) 85 ML/MIN (>60); Globulin 3.0 g/dL (1.3-3.2); Magnesium 2.5 mg/dl (1.6-2.3); Total Protein,Serum 7.4 g/dl (6.3-8.2)
[2025-08-24 06:47] LABS: Sodium 153 mmol/L (136-145)
[2025-08-24 06:49] LABS: Calcium 9.4 mg/dl (8.4-10.2); Glucose 117 mg/dl (74-100)
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
--- NOTE | 2025-08-24 07:24 | PC.NURSE ---
patient left floor for surgery at this time
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
[2025-08-24] MEDS: CLINDAMYCIN PHOSPHATE/D5W 900 MG/50 ML PIGGYBACK 100 MG IV (07:50)
[2025-08-24] MEDS: METRONIDAZ/SOD CHL 500 MG/100 ML PIGGYBACK 100 MG IV ×4 (08:10→21:54)
[2025-08-24 08:37] LABS: Macrocytosis 1+; Total Cells Counted 100
--- NOTE | 2025-08-24 09:44 | EXP.OP.NOTE ---
Date of procedure: 08/24/25 Pre-op Diagnosis:: Small bowel obstruction Post-op Diagnosis:: Small bowel obstruction with focal necrosis Procedure performed:: Exploratory laparotomy Extensive adhesiolysis Partial small bowel resection with primary anastomosis Surgeon:: Erick Fu MD [employer]:: Jake Romeo Anesthesia: GETA Estimated blood loss (mL): 50 Operative findings:: Significant intra-abdominal adhesions Portion of incarcerated jejunum profoundly ischemic secondary to torsion (incarcerated internal hernia along left upper quadrant/splenic flexure) Dense adhesions (mesentery/omentum/small bowel/splenic flexure) along the left upper quadrant creating a complex pocket No obvious sign of colonic injury No obvious perforation of ischemic jejunum Operative note:: After informed consent was obtained the patient was taken to the operating room and placed in the supine position. General anesthesia was induced and her abdomen was prepped and draped in a sterile fashion. An upper midline laparotomy incision was made (epigastric region). A combination of blunt dissection, sharp dissection, and electrocautery was utilized to transect through the midline fascia. The peritoneum was sharply entered. Underlying adhesions were carefully taken down with a combination of sharp dissection and electrocautery. The small bowel was carefully elevated. An area of severe adhesions along the distal small bowel was noted. These adhesions were sharply taken down as it was felt to represent a likely point of future obstruction. Attention was then turned proximally as the small bowel was carefully elevated. A portion of the jejunum was incarcerated along the left upper quadrant/splenic flexure region. Careful elevation was utilized to free the incarcerated small bowel. This portion of jejunum was notably ischemic/necrotic. No obvious perforation noted. A transection site proximal and distal to the area of ischemia/necrosis was noted. A linear stapling device was used to transect at this site. The intervening mesentery was taken with the Enseal device. The specimen was passed off for pathologic evaluation. Reevaluation of left upper quadrant revealed no evidence of obvious small bowel or colonic injury. No evidence of ongoing blood loss was noted. No obvious injury to the spleen or surrounding tissue was noted. A stapled anastomosis was then completed utilizing the linear stapling device. The common defect was closed with a TX stapler and the closure site was imbricated with interrupted Nurolon. The crotch was also imbricated with interrupted Nurolon. The mesenteric defect was closed with running Vicryl suture and the abdomen was thoroughly irrigated. Fascia was then closed with #2 Novafil in a running fashion. The deep subcutaneous tissue was reapproximated with interrupted Vicryl and skin was then closed with mikaela. Dressings were applied and the patient was transferred to recovery in stable condition. Condition: stable Disposition: PACU Specimens:: Small bowel Complications:: No immediate
[2025-08-24] MEDS: MEPERIDINE 25MG/ML 1ML SYRINGE 25 MG IV (10:05)
--- NOTE | 2025-08-24 10:06 | EXP.ANES.I ---
[facility] Anesthesia Record Part I Anesthesia Record I Intake, IV Amount: 3,500 Hydration: Adequate Estimated blood loss (mL): 100 Urine output (mL): 100 Blood Pressure: 110/68 SaO2: 95 Pulse Rate: 108 Airway Patency: Patent Respiratory Rate: 16 Temperature: 97.5 F Patient is:: Awake and Stable Stable to PACU at:: 10:00
[2025-08-24] MEDS: MORPHINE 4MG/ML SYRINGE 4 MG IV ×4 (10:20→22:54)
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
[2025-08-24] MEDS: DEXTROSE 5 % IN WATER 1,000 ML 100 ML IV (11:44)
[2025-08-24] MEDS: METOPROLOL TARTRATE 5MG/5ML VIAL 5 MG IV (12:05)
[2025-08-24] MEDS: LEVOFLOXACIN/D5W 500 MG/100 ML PIGGYBACK 100 MG IV (13:08)
--- NOTE | 2025-08-24 13:51 | PC.NURSE ---
patient returned from surgery at about 1105. patient doing well with no complaints at that time. bed changed and suction hooked back up. patient only complaint is about dry mouth. after a couple hours patient pain started to creep up. spoke with shelly who instructed to give a one time dose of morphine, then in two hours could get back on schedule with every four hours. if pain increased to let her know for adjustments. after speaking with dr muller notified shelly fishman about his plan of care. noted need for a few more days of being npo. discussion had about possible need for picc line before the weekend in case of need for tpn or nutrition. continue patient to low wall suction. instructed to hold po meds this shift and to hold lovenox today. patient made stepdown for closer monitoring. family is at bedside. dressing covered and remains clean and dry. did give one iv dose of metoprolol which temporarily brought heart rate down to 90s. now about 100-110. patient resting at this time.
--- NOTE | 2025-08-24 14:37 | PC.NURSE ---
patient continues to have complaints of dry mouth. continues to use swabs for mouth. noted has taken a couple of glasses of water intake, that is being suctioned back in to the canister. at this time about 400-500 ml of what has been suctioned appears to be water rather than stomach content. educated patient at this time to use minimal amounts of water for swabbing mouth
[2025-08-24 17:40] LABS: Chloride 105 mmol/L (98-107); Potassium 4.3 mmoL/L (3.5-5.1); Sodium 146 mmol/L (136-145)
[2025-08-24 17:43] LABS: Anion Gap 11.3 mEq/L (5-15); Blood Urea Nitrogen 18 mg/dl (7-17); Carbon Dioxide 34 mmol/L (22.0-30.0); Creatinine Clearance Estimated 68 mL/min (50-200); Creatinine,Serum 0.70 mg/dl (0.52-1.04); Estimated Glomerular Filt Rate 82 ml/min (>60); GFR (African American) 100 ML/MIN (>60)
[2025-08-24 17:44] LABS: Calcium 8.2 mg/dl (8.4-10.2); Glucose 134 mg/dl (74-100)
--- NOTE | 2025-08-24 17:45 | PC.NURSE ---
oral intake is water from swabbing mouth and ice chips
[2025-08-25] VITALS (48 sets, daily range): BP systolic 99–121; BP diastolic 56–74; PULSE 71–111; RESP 10–25; TEMP 36.6–37.1; O2SAT 82–98; BMI 33.7
[2025-08-25] MEDS: DEXTROSE 5 % IN WATER 1,000 ML 100 ML IV ×2 (01:41→12:12)
[2025-08-25] MEDS: METRONIDAZ/SOD CHL 500 MG/100 ML PIGGYBACK 100 MG IV ×4 (03:50→21:29)
[2025-08-25] MEDS: MORPHINE 4MG/ML SYRINGE 4 MG IV (04:57)
[2025-08-25 06:10] LABS: Albumin Level 3.2 g/dl (3.5-5.0); Chloride 103 mmol/L (98-107); Hematocrit 30.8 % (37.0-47.0); Immature Granulocytes % 0.3 %; Mean Corpuscular HGB Conc 31.8 g/dL (31.8-35.4); Mean Corpuscular Hemoglobin 31.6 pg (27.0-31.2); Mean Corpuscular Volume 99.4 fl (81-99); Nucleated Red Blood Cells % 0 %; Platelet Count 214 K/mm3 (142-424); Red Blood Count 3.10 M/mm3 (4.20-5.40); Red Cell Distribution Width-SD 50.9 fL; White Blood Count 11.6 K/mm3 (4.8-10.8)
[2025-08-25 06:11] LABS: Potassium 3.8 mmoL/L (3.5-5.1); Sodium 142 mmol/L (136-145)
[2025-08-25 06:13] LABS: Alanine Aminotransferase 19 U/L (12-78); Albumin/Globulin Ratio 1.2 (1.1-1.8); Alkaline Phosphatase 68 U/L (38-126); Anion Gap 8.8 mEq/L (5-15); Aspartate Amino Transferase 31 U/L (14-36); Bilirubin,Total 0.4 mg/dl (0.2-1.3); Blood Urea Nitrogen 16 mg/dl (7-17); Carbon Dioxide 34 mmol/L (22.0-30.0); Creatinine Clearance Estimated 69 mL/min (50-200); Creatinine,Serum 0.70 mg/dl (0.52-1.04); Estimated Glomerular Filt Rate 82 ml/min (>60); GFR (African American) 100 ML/MIN (>60); Globulin 2.7 g/dL (1.3-3.2); Total Protein,Serum 5.9 g/dl (6.3-8.2)
[2025-08-25 06:14] LABS: Calcium 8.1 mg/dl (8.4-10.2); Glucose 117 mg/dl (74-100); Magnesium 2.2 mg/dl (1.6-2.3)
[2025-08-25 06:17] LABS: Hemoglobin 9.8 g/dL (12.2-16.2)
--- NOTE | 2025-08-25 07:46 | P.PN_ITS ---
Subjective Patient reports: no new complaints, no flatus and no bowel movement Exam Data for Last 24 hours Vital signs and Labs for Last 24 Hours: Temp Pulse Resp BP Pulse Ox O2 Del Method O2 Flow Rate 98.6 F 89 10 L 99/66 L 93 L Nasal Cannula 3 08/25/25 04:00 08/25/25 06:00 08/25/25 06:00 08/25/25 06:00 08/25/25 06:00 08/25/25 06:00 08/25/25 06:00 Laboratory Results - last 24 hr 08/24/25 05:05: Total Counted 100, Neutrophils % (Manual) 81 H, Lymphocytes % (Manual) 11, Monocytes % (Manual) 8, Platelet Estimate Normal, Macrocytosis 1+ 08/24/25 17:20: Sodium 146 H, Potassium 4.3, Chloride 105, Carbon Dioxide 34 H, Anion Gap 11.3, BUN 18 H, Creatinine 0.70, Estimated Creat Clear 68, Estimated GFR 82, Est GFR ( Amer) 100, Glucose 134 H, Calcium 8.2 L 08/25/25 04:46: WBC 11.6 H D, RBC 3.10 L, Hgb 9.8 L D, Hct 30.8 L, MCV 99.4 H, MCH 31.6 H, MCHC 31.8, RDW 13.9, Plt Count 214, MPV 10.2, Neut % (Auto) 76.9, Lymph % (Auto) 10.4, [place] % (Auto) 12.3 H, Eos % (Auto) 0.0 L, Baso % (Auto) 0.1, Neut # (Auto) 8.9 H, Lymph # (Auto) 1.2, [place] # (Auto) 1.4 H, Eos # (Auto) 0.0, Baso # (Auto) 0.0, Sodium 142, Potassium 3.8, Chloride 103, Carbon Dioxide 34 H, Anion Gap 8.8, BUN 16, Creatinine 0.70, Estimated Creat Clear 69, Estimated GFR 82, Est GFR ( Amer) 100, Glucose 117 H, Calcium 8.1 L, Magnesium 2.2 D, Total Bilirubin 0.4, AST 31, ALT 19, Alkaline Phosphatase 68, Total Protein 5.9 L, Albumin 3.2 L D, Globulin 2.7, Albumin/Globulin Ratio 1.2 I & O for Last 24 hours: Intake & Output 08/22/25 08/23/25 08/24/25 08/25/25 11:59 11:59 11:59 11:59 Intake Total 1000 / 1000 2600.000 / 2600.000 5150 / 5150 2250 / 2250 Output Total 350 / 350 2200 / 2200 2650 / 2650 Balance 1000 / 1000 2250.000 / 2250.000 2950 / 2950 -400 / -400 Weight 190 lb 191 lb 3.2 oz 185 lb 8 oz 190 lb 6.259 oz Constitutional Constitutional: no acute distress *Routine Respiratory Exam Respiratory: Absent respiratory distress *Routine Cardiovascular Exam Cardiovascular: Present tachycardia (Mild) *Routine Abdominal Exam Comments: Dressing intact. Appropriate post-operative tenderness. Progress Note: A&P Assessment and plan (1) SBO (small bowel obstruction): Status: Acute Assessment and plan: Stable postoperative day 1 status post exploratory laparotomy with partial small bowel resection Continue short course of antibiotics secondary to intraoperative findings (necrosis of small bowel) Increase ambulation (2) Postoperative anemia: Status: Acute Assessment and plan: Repeat hemoglobin later today
--- NOTE | 2025-08-25 08:37 | [facility].PHAAMS2 ---
- Antimicrobial Stewardship Review culture & sensitivity review Stewardship interventions: culture & sensitivity review Comments: BLOOD CX PENDING, ON ZOSYN EMPIRICALLY POST-OPERATIVELY FOR SMALL BOWEL OBSTRUCTION/SMALL BOWEL OBSTRUCTION.
[2025-08-25] MEDS: LEVOTHYROXINE 50MCG (0.05MG) TAB 50 MCG PO (08:40)
[2025-08-25] MEDS: METOPROLOL TARTRATE 50MG TABLET 50 MG PO ×2 (08:40→21:29)
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
[2025-08-25] MEDS: LEVOFLOXACIN/D5W 500 MG/100 ML PIGGYBACK 100 MG IV (10:15)
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
--- NOTE | 2025-08-25 13:02 | P.PNANES_ITS ---
[facility] Anesthesia Record Part II Anesthesia Record Part II Discharge Time: 10:30 Destination: Intensive Care Unit PACU nurse assessment reviewed?: Yes Patient Condition:: Good Anesthesia Complications:: None Swallowing reflex intact?: Yes Airway Patency: Patent Cyanosis?: No Blood Pressure: 112/70 SaO2: 92 Respiratory Rate: 18 Pulse Rate: 108 Temperature: 98.4 F Mental Status: Alert & Oriented Pain level:: 5 Nausea and/or vomitting:: None Intake, IV Amount: 0 Hydration: Adequate
--- NOTE | 2025-08-25 13:22 | PC.NURSE ---
EDWARDS REMOVED AT THIS TIME PATIENT TOLERATED WELL
[2025-08-25] MEDS: KETOROLAC 15MG/ML VIAL 15 MG IV ×2 (13:31→21:41)
[2025-08-25 14:47] LABS: Hematocrit 30.2 % (37.0-47.0); Hemoglobin 9.5 g/dL (12.2-16.2)
--- NOTE | 2025-08-25 15:07 | DIET.NUTRFU ---
Reviewed NPO status post sx with provider during rounds. NG tube placement for decompression, bowel rest, antiemetic and pain medication as needed. receiving D5 100 mL/H for hydration. Will consider PPN or TPN. Nutrition needs were reviewed with sx- TPN would beneficial. 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 Nutritional needs are 1700-1800kcal, 80-85gm protein and 1800ml fluid/day. Pharmacy will consult on TPN dosing. RD will continue to follow
[2025-08-25] MEDS: Dex 5% in 0.45% NaCl 1,000 ML 100 ML IV (17:38)
[2025-08-26] VITALS (17 sets, daily range): BP systolic 118–139; BP diastolic 63–84; PULSE 72–99; RESP 13–19; TEMP 36.4–37.7; O2SAT 91–99; BMI 34.1; BMI 34.2
--- NOTE | 2025-08-26 00:55 | PC.NURSE ---
Unable to urinate after watkins catheter removal, bladder scanned and between 163 and 271. Patient did sit on bedside commode with no results. Will continue to monitor. Call christensen in place. is at bedside. No c/o pain, no s/s of distress.
[2025-08-26] MEDS: METRONIDAZ/SOD CHL 500 MG/100 ML PIGGYBACK 100 MG IV ×4 (03:03→22:57)
[2025-08-26] MEDS: Dex 5% in 0.45% NaCl 1,000 ML 100 ML IV (03:04)
--- NOTE | 2025-08-26 05:48 | PC.NURSE ---
Patient urinated 250ml of tea colored urine, BUSINESS IMPROVEMENT MANAGER notified and no new orders at this time.
[2025-08-26] MEDS: LEVOTHYROXINE 50MCG (0.05MG) TAB 50 MCG PO (06:16)
[2025-08-26] MEDS: APIXABAN 5MG TABLET 5 MG PO ×2 (07:51→20:29)
[2025-08-26] MEDS: METOPROLOL TARTRATE 50MG TABLET 50 MG PO ×2 (07:51→20:29)
[2025-08-26 07:59] LABS: Hematocrit 32.6 % (37.0-47.0); Hemoglobin 10.2 g/dL (12.2-16.2); Immature Granulocytes % 0.3 %; Mean Corpuscular HGB Conc 31.3 g/dL (31.8-35.4); Mean Corpuscular Hemoglobin 30.6 pg (27.0-31.2); Mean Corpuscular Volume 97.9 fl (81-99); Nucleated Red Blood Cells % 0 %; Platelet Count 205 K/mm3 (142-424); Red Blood Count 3.33 M/mm3 (4.20-5.40); Red Cell Distribution Width-SD 50.1 fL; White Blood Count 9.6 K/mm3 (4.8-10.8)
[2025-08-26 08:30] LABS: Alanine Aminotransferase 26 U/L (12-78); Albumin Level 3.3 g/dl (3.5-5.0); Albumin/Globulin Ratio 1.1 (1.1-1.8); Alkaline Phosphatase 84 U/L (38-126); Aspartate Amino Transferase 37 U/L (14-36); Bilirubin,Total 0.5 mg/dl (0.2-1.3); Blood Urea Nitrogen 17 mg/dl (7-17); Calcium 8.3 mg/dl (8.4-10.2); Carbon Dioxide 33 mmol/L (22.0-30.0); Chloride 98 mmol/L (98-107); Creatinine Clearance Estimated 70 mL/min (50-200); Creatinine,Serum 0.70 mg/dl (0.52-1.04); Estimated Glomerular Filt Rate 82 ml/min (>60); GFR (African American) 100 ML/MIN (>60); Globulin 2.9 g/dL (1.3-3.2); Glucose 117 mg/dl (74-100); Magnesium 2.1 mg/dl (1.6-2.3); Sodium 134 mmol/L (136-145); Total Protein,Serum 6.2 g/dl (6.3-8.2)
[2025-08-26 08:32] LABS: Anion Gap 6.1 mEq/L (5-15); Potassium 3.1 mmoL/L (3.5-5.1)
[2025-08-26] MEDS: KETOROLAC 15MG/ML VIAL 15 MG IV (09:16)
[2025-08-26] MEDS: LEVOFLOXACIN/D5W 500 MG/100 ML PIGGYBACK 100 MG IV (10:44)
[2025-08-26] MEDS: POTASSIUM CHLORIDE 20MEQ TAB 40 MEQ PO (13:35)
[2025-08-26] MEDS: ONDANSETRON 4MG/2ML VIAL 4 MG IV (13:51)
--- NOTE | 2025-08-26 14:16 | HMH.PHAAMS2 ---
- Antimicrobial Stewardship Review IV to PO conversion Stewardship interventions: IV to PO conversion (NPO)
--- NOTE | 2025-08-26 14:17 | HMH.PHAAMS2 ---
- Antimicrobial Stewardship Review 48 hour timeout review Stewardship interventions: 48 hour timeout review (NG ALL CX)
--- NOTE | 2025-08-26 14:18 | HMH.PHAAMS2 ---
- Antimicrobial Stewardship Review reviewed - no change Stewardship interventions: reviewed - no change
--- NOTE | 2025-08-26 15:03 | XR_ITS ---
PROCEDURE INFORMATION: Exam: XR Chest Exam date and time: 08/26/2025 3:02 PM Age: 70 years old Clinical indication: Device placement; Ng tube; Additional info: Ng tube placement TECHNIQUE: Imaging protocol: Radiologic exam of the chest. Views: 1 view. COMPARISON: CR (ABDOMEN, ABD AP GRID) 08/23/2025 11:38 AM FINDINGS: Tubes, catheters and devices: NG tube in good position. Lungs: Unremarkable. No consolidation. Pleural spaces: Unremarkable. No pleural effusion. No pneumothorax. Heart/Mediastinum: Unremarkable. No cardiomegaly. Bones/joints: Unremarkable. Gastrointestinal tract: The stomach is moderately distended with air. IMPRESSION: NG tube in good position.
[2025-08-26] MEDS: 0.9 % SODIUM CHLORIDE 1000ML 1,000 ML 125 ML IV (16:15)
[2025-08-26] MEDS: POTASSIUM CHLORIDE 20MEQ/15ML UDC 40 MEQ NG-TUBE ×3 (16:23→23:02)
--- NOTE | 2025-08-26 16:47 | P.PN_ITS ---
Subjective Narrative: Feels well today. NGT was clogged, so it was removed and replaced, which she tolerated well. Having some sips and chips, not included in recorded NGT output total. Marginal UOP. +Flatus, no BM. Afebrile. Difficult to mobilize. Hasn't done pulmonary toilet yet. Exam Data for Last 24 hours Vital signs and Labs for Last 24 Hours: Temp Pulse Resp BP Pulse Ox O2 Del Method O2 Flow Rate 99.4 F 93 H 14 135/82 96 Nasal Cannula 2 08/26/25 16:00 08/26/25 16:00 08/26/25 16:00 08/26/25 16:00 08/26/25 16:00 08/26/25 16:00 08/26/25 16:00 Laboratory Results - last 24 hr 08/26/25 07:33: WBC 9.6, RBC 3.33 L, Hgb 10.2 L, Hct 32.6 L, MCV 97.9, MCH 30.6, MCHC 31.3 L, RDW 13.9, Plt Count 205, MPV 9.6, Neut % (Auto) 74.8, Lymph % (Auto) 15.7, [place] % (Auto) 8.7, Eos % (Auto) 0.5, Baso % (Auto) 0.0 L, Neut # (Auto) 7.2, Lymph # (Auto) 1.5, [place] # (Auto) 0.8, Eos # (Auto) 0.1, Baso # (Auto) 0.0, Sodium 134 L, Potassium 3.1 L, Chloride 98, Carbon Dioxide 33 H, Anion Gap 6.1, BUN 17, Creatinine 0.70, Estimated Creat Clear 70, Estimated GFR 82, Est GFR ( Amer) 100, Glucose 117 H, Calcium 8.3 L, Magnesium 2.1, Total Bilirubin 0.5, AST 37 H, ALT 26 D, Alkaline Phosphatase 84, Total Protein 6.2 L, Albumin 3.3 L, Globulin 2.9, Albumin/Globulin Ratio 1.1 I & O for Last 24 hours: Intake & Output 08/23/25 08/24/25 08/25/25 08/26/25 23:59 23:59 23:59 23:59 Intake Total 2200.000 / 2200.000 6050 / 6050 2300 / 2330 2403.333 / 2403.333 Output Total 1000 / 1100 3000 / 3000 1450 / 1450 2235 / 2235 Balance 1200.000 / 0139.675 0115 / 3050 850 / 880 168.333 / 168.333 Weight 191 lb 3.2 oz 185 lb 8 oz 190 lb 6.259 oz 192 lb 12.8 oz Microbiology Reports for the Last 24 Hours: Microbiology 08/24/25 17:20 Blood Blood Culture - Preliminary NO GROWTH AFTER 24 HOURS 08/24/25 17:20 Blood Blood Culture - Preliminary NO GROWTH AFTER 24 HOURS Constitutional Constitutional: no acute distress and cooperative *Routine Abdominal Exam Abdominal: Present soft and normoactive bowel sounds; Absent distended Comments: dressing clean/dry. Progress Note: A&P Assessment and plan (1) SBO (small bowel obstruction): Status: Acute Assessment and plan: POD#1 s/p ex lap, SBR for SBO Looks well. Continue IVF for marginal UOP. NGT output is low, + flatus, + BS. Labs and VS are encouraging. Will be very slow to remove NGT/advance diet due to findings in OR. Continue empiric post op abx. Encourage ambulation, pulmonary toilet. (2) Abdominal pain: Status: Deleted (3) Nausea & vomiting: Status: Deleted (4) A-fib: Status: Acute (5) Hypertension: Status: Acute (6) Hyperlipidemia: Status: Acute (7) Hypothyroid: Status: Acute
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
--- NOTE | 2025-08-26 20:29 | PC.NURSE ---
Report given to Sherry GRANT
--- NOTE | 2025-08-26 21:09 | PC.NURSE ---
pt arrived to floor from ICU by wheelchair at 20:49
[2025-08-27] VITALS: BP 121/69; PULSE 94; RESP 14; TEMP 37.1; O2SAT 96
[2025-08-27 04:00] VITALS: BP 137/66; PULSE 91; RESP 14; TEMP 36.7; O2SAT 95; BMI 34.2
[2025-08-27] MEDS: 0.9 % SODIUM CHLORIDE 1000ML 1,000 ML 125 ML IV (04:53)
[2025-08-27] MEDS: METRONIDAZ/SOD CHL 500 MG/100 ML PIGGYBACK 100 MG IV ×4 (04:54→20:46)
[2025-08-27 07:20] LABS: Hematocrit 29.2 % (37.0-47.0); Hemoglobin 9.3 g/dL (12.2-16.2); Immature Granulocytes % 0.3 %; Mean Corpuscular HGB Conc 31.8 g/dL (31.8-35.4); Mean Corpuscular Hemoglobin 31.3 pg (27.0-31.2); Mean Corpuscular Volume 98.3 fl (81-99); Nucleated Red Blood Cells % 0 %; Platelet Count 222 K/mm3 (142-424); Red Blood Count 2.97 M/mm3 (4.20-5.40); Red Cell Distribution Width-SD 49.7 fL; White Blood Count 7.8 K/mm3 (4.8-10.8)
[2025-08-27 07:49] LABS: Alanine Aminotransferase 20 U/L (12-78); Albumin Level 3.0 g/dl (3.5-5.0); Albumin/Globulin Ratio 1.1 (1.1-1.8); Alkaline Phosphatase 74 U/L (38-126); Anion Gap 7.4 mEq/L (5-15); Aspartate Amino Transferase 25 U/L (14-36); Bilirubin,Total 0.4 mg/dl (0.2-1.3); Blood Urea Nitrogen 12 mg/dl (7-17); Calcium 8.2 mg/dl (8.4-10.2); Carbon Dioxide 27 mmol/L (22.0-30.0); Chloride 103 mmol/L (98-107); Creatinine Clearance Estimated 70 mL/min (50-200); Creatinine,Serum 0.60 mg/dl (0.52-1.04); Estimated Glomerular Filt Rate 98 ml/min (>60); GFR (African American) 119 ML/MIN (>60); Globulin 2.7 g/dL (1.3-3.2); Glucose 95 mg/dl (74-100); Magnesium 2.0 mg/dl (1.6-2.3); Potassium 3.4 mmoL/L (3.5-5.1); Sodium 134 mmol/L (136-145); Total Protein,Serum 5.7 g/dl (6.3-8.2)
[2025-08-27 07:54] VITALS: BP 124/74; PULSE 98; RESP 16; TEMP 37; O2SAT 96
[2025-08-27] MEDS: METOPROLOL TARTRATE 50MG TABLET 50 MG PO ×2 (09:30→20:09)
[2025-08-27] MEDS: LEVOTHYROXINE 50MCG (0.05MG) TAB 50 MCG PO (09:30)
[2025-08-27] MEDS: LEVOFLOXACIN/D5W 500 MG/100 ML PIGGYBACK 100 MG IV (09:30)
[2025-08-27] MEDS: APIXABAN 5MG TABLET 5 MG PO ×2 (09:30→20:10)
--- NOTE | 2025-08-27 09:30 | HMH.PHAAMS2 ---
- Antimicrobial Stewardship Review IV to PO conversion Stewardship interventions: IV to PO conversion (NPO AT THIS TIME)
--- NOTE | 2025-08-27 09:34 | HMH.PHAAMS2 ---
- Antimicrobial Stewardship Review reviewed - no change Stewardship interventions: reviewed - no change
--- NOTE | 2025-08-27 10:35 | EXP.SURG.PN ---
Subjective Narrative: No acute events overnight. Continues to pass flatus, no BM yet. Pain is controlled. Exam Data for Last 24 hours Vital signs and Labs for Last 24 Hours: Temp Pulse Resp BP Pulse Ox O2 Del Method O2 Flow Rate 98.6 F 98 H 16 124/74 96 Nasal Cannula 2 08/27/25 07:54 08/27/25 07:54 08/27/25 07:54 08/27/25 07:54 08/27/25 07:54 08/27/25 09:00 08/27/25 09:00 FiO2 28 08/26/25 18:10 Laboratory Results - last 24 hr 08/27/25 06:05: WBC 7.8, RBC 2.97 L, Hgb 9.3 L, Hct 29.2 L, MCV 98.3, MCH 31.3 H, MCHC 31.8, RDW 13.6, Plt Count 222, MPV 9.6, Neut % (Auto) 68.3, Lymph % (Auto) 20.2, [place] % (Auto) 9.4 H, Eos % (Auto) 1.4, Baso % (Auto) 0.4, Neut # (Auto) 5.3, Lymph # (Auto) 1.6, [place] # (Auto) 0.7, Eos # (Auto) 0.1, Baso # (Auto) 0.0, Sodium 134 L, Potassium 3.4 L, Chloride 103, Carbon Dioxide 27, Anion Gap 7.4, BUN 12 D, Creatinine 0.60, Estimated Creat Clear 70, Estimated GFR 98, Est GFR ( Amer) 119, Glucose 95, Calcium 8.2 L, Magnesium 2.0, Total Bilirubin 0.4, AST 25 D, ALT 20, Alkaline Phosphatase 74, Total Protein 5.7 L, Albumin 3.0 L, Globulin 2.7, Albumin/Globulin Ratio 1.1 I & O for Last 24 hours: Intake & Output 08/24/25 08/25/25 08/26/25 08/27/25 23:59 23:59 23:59 23:59 Intake Total 6050 / 6050 2300 / 2330 3323.333 / 3323.333 1200 / 1200 Output Total 3000 / 3000 1450 / 1450 3010 / 3010 550 / 550 Balance 3050 / 3050 850 / 880 313.333 / 313.333 650 / 650 Weight 185 lb 8 oz 190 lb 6.259 oz 193 lb 192 lb 15.988 oz Microbiology Reports for the Last 24 Hours: Microbiology 08/24/25 17:20 Blood Blood Culture - Preliminary NO GROWTH AFTER 48 HOURS 08/24/25 17:20 Blood Blood Culture - Preliminary NO GROWTH AFTER 48 HOURS Constitutional Constitutional: no acute distress *Routine Abdominal Exam Abdominal: Present soft; Absent tenderness or distended Comments: dressing removed. Incision clean and dry with mikaela, no erythema. Hypoactive bowel sounds. Progress Note: A&P Assessment and plan (1) SBO (small bowel obstruction): Status: Acute Assessment and plan: POD#3 ex lap, SBR for SBO Passing flatus, but hypoactive bowel sounds and NGT output is not minimal. Continue NGT another day. Encouraged to ambulate and do pulmonary toilet. Labs encouraging, normal VS. (2) Abdominal pain: Status: Deleted (3) Nausea & vomiting: Status: Deleted (4) A-fib: Status: Acute (5) Hypertension: Status: Acute (6) Hyperlipidemia: Status: Acute (7) Hypothyroid: Status: Acute
[2025-08-27] MEDS: POTASSIUM CHLORIDE 20MEQ/15ML UDC 40 MEQ NG-TUBE ×2 (10:44→13:35)
[2025-08-27 12:00] VITALS: BP 129/78; PULSE 79; RESP 16; TEMP 36.8; O2SAT 97
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
[2025-08-27] MEDS: 0.9 % SODIUM CHLORIDE 1000ML 1,000 ML 75 ML IV (17:34)
[2025-08-27 20:00] VITALS: BP 124/76; PULSE 101; RESP 16; TEMP 37.3; O2SAT 96
[2025-08-28] VITALS: BP 129/77; PULSE 100; RESP 16; TEMP 37.2; O2SAT 92
[2025-08-28] MEDS: METRONIDAZ/SOD CHL 500 MG/100 ML PIGGYBACK 100 MG IV ×4 (03:57→21:29)
[2025-08-28 04:00] VITALS: BP 145/79; PULSE 100; RESP 16; TEMP 37.1; O2SAT 98; BMI 33.7
--- NOTE | 2025-08-28 04:10 | PC.NURSE ---
Patient is alert and oriented. Has no complaints of pain this shift, rested well throughout the night. Patient NG in place to right nare @60 to LWS. 600ml out at this time. Midline incision open to air, mikaela in place, pale pink color on incision site. Ambulated to the restroom with standby assist. Patient placed on 2L NC later in the night while sleeping due to patient O2 sat drop to low 80s while sleeping, since applying 2L NC, patient O2 sat has remained >90%.
[2025-08-28] MEDS: LEVOTHYROXINE 50MCG (0.05MG) TAB 50 MCG PO (06:51)
[2025-08-28 07:17] LABS: Hematocrit 32.0 % (37.0-47.0); Immature Granulocytes % 0.2 %; Mean Corpuscular HGB Conc 32.2 g/dL (31.8-35.4); Mean Corpuscular Hemoglobin 31.1 pg (27.0-31.2); Mean Corpuscular Volume 96.7 fl (81-99); Nucleated Red Blood Cells % 0 %; Platelet Count 251 K/mm3 (142-424); Red Blood Count 3.31 M/mm3 (4.20-5.40); Red Cell Distribution Width-SD 48.2 fL; White Blood Count 9.2 K/mm3 (4.8-10.8)
[2025-08-28 07:23] LABS: Albumin Level 3.2 g/dl (3.5-5.0); Chloride 102 mmol/L (98-107); Sodium 138 mmol/L (136-145)
[2025-08-28 07:24] LABS: Potassium 3.1 mmoL/L (3.5-5.1)
[2025-08-28 07:26] LABS: Alanine Aminotransferase 19 U/L (12-78); Albumin/Globulin Ratio 1.2 (1.1-1.8); Alkaline Phosphatase 77 U/L (38-126); Anion Gap 14.1 mEq/L (5-15); Aspartate Amino Transferase 24 U/L (14-36); Bilirubin,Total 0.4 mg/dl (0.2-1.3); Blood Urea Nitrogen 9 mg/dl (7-17); Carbon Dioxide 25 mmol/L (22.0-30.0); Creatinine Clearance Estimated 69 mL/min (50-200); Creatinine,Serum 0.60 mg/dl (0.52-1.04); Estimated Glomerular Filt Rate 98 ml/min (>60); GFR (African American) 119 ML/MIN (>60); Globulin 2.7 g/dL (1.3-3.2); Total Protein,Serum 5.9 g/dl (6.3-8.2)
[2025-08-28 07:27] LABS: Calcium 7.9 mg/dl (8.4-10.2); Glucose 73 mg/dl (74-100); Magnesium 2.0 mg/dl (1.6-2.3)
[2025-08-28 07:37] LABS: Hemoglobin 10.3 g/dL (12.2-16.2)
--- NOTE | 2025-08-28 07:51 | P.PN_ITS ---
Subjective Narrative: Patient without complaints. States that she is passing some gas. However, 600 cc out of NG tube overnight. Exam Data for Last 24 hours Vital signs and Labs for Last 24 Hours: Temp Pulse Resp BP Pulse Ox O2 Del Method O2 Flow Rate 98.8 F 100 H 16 145/79 H 98 Nasal Cannula 2 08/28/25 04:00 08/28/25 04:00 08/28/25 04:00 08/28/25 04:00 08/28/25 04:00 08/28/25 06:43 08/28/25 06:43 FiO2 28 08/26/25 18:10 Laboratory Results - last 24 hr 08/27/25 06:05: Sodium 134 L, Potassium 3.4 L, Chloride 103, Carbon Dioxide 27, Anion Gap 7.4, BUN 12 D, Creatinine 0.60, Estimated Creat Clear 70, Estimated GFR 98, Est GFR ( Amer) 119, Glucose 95, Calcium 8.2 L, Magnesium 2.0, Total Bilirubin 0.4, AST 25 D, ALT 20, Alkaline Phosphatase 74, Total Protein 5.7 L, Albumin 3.0 L, Globulin 2.7, Albumin/Globulin Ratio 1.1 08/28/25 05:32: WBC 9.2, RBC 3.31 L, Hgb 10.3 L D, Hct 32.0 L, MCV 96.7, MCH 31.1, MCHC 32.2, RDW 13.5, Plt Count 251, MPV 9.3, Neut % (Auto) 72.3, Lymph % (Auto) 15.8, [place] % (Auto) 8.8, Eos % (Auto) 2.6, Baso % (Auto) 0.3, Neut # (Auto) 6.6, Lymph # (Auto) 1.5, [place] # (Auto) 0.8, Eos # (Auto) 0.2, Baso # (Auto) 0.0, Sodium 138, Potassium 3.1 L, Chloride 102, Carbon Dioxide 25, Anion Gap 14.1, BUN 9, Creatinine 0.60, Estimated Creat Clear 69, Estimated GFR 98, Est GFR ( Amer) 119, Glucose 73 L D, Calcium 7.9 L, Magnesium 2.0, Total Bilirubin 0.4, AST 24, ALT 19, Alkaline Phosphatase 77, Total Protein 5.9 L, Albumin 3.2 L, Globulin 2.7, Albumin/Globulin Ratio 1.2 I & O for Last 24 hours: Intake & Output 08/25/25 08/26/25 08/27/25 08/28/25 11:59 11:59 11:59 11:59 Intake Total 3450 / 3450 2053.333 / 2053.333 4078.333 / 4078.333 641.667 / 6 41.667 Output Total 2650 / 2650 1400 / 1700 3760 / 3760 1600 / 1600 Balance 800 / 800 653.333 / 353.333 318.333 / 318.333 -958.333 / -958.333 Weight 190 lb 6.259 oz 192 lb 12.8 oz 192 lb 15.988 oz 190 lb 3.2 oz *Routine Abdominal Exam Abdominal: Present soft Comments: Incision clean and intact Progress Note: A&P Assessment and plan (1) SBO (small bowel obstruction): Status: Acute Assessment and plan: Dry NG to gravity bag drainage (2) Abdominal pain: Status: Deleted (3) Nausea & vomiting: Status: Deleted (4) A-fib: Status: Acute (5) Hypertension: Status: Acute (6) Hyperlipidemia: Status: Acute (7) Hypothyroid: Status: Acute
[2025-08-28 08:00] VITALS: BP 147/85; PULSE 64; RESP 16; TEMP 36.6; O2SAT 97
--- NOTE | 2025-08-28 08:23 | PC.NURSE ---
NG tube placed to gravity bag per [facility] orders.
[2025-08-28] MEDS: APIXABAN 5MG TABLET 5 MG PO ×2 (08:33→20:32)
[2025-08-28] MEDS: METOPROLOL TARTRATE 50MG TABLET 50 MG PO ×2 (08:33→20:32)
[2025-08-28] MEDS: PHENOL THROAT SPRAY 177 ML BOTTLE MM (08:34)
--- NOTE | 2025-08-28 08:50 | P.CONPHA_ITS ---
- Antimicrobial Stewardship Review culture & sensitivity review Stewardship interventions: culture & sensitivity review, reviewed - no change Comments: BLOOD CX REMAINS NO GROWTH AT 48 HR, PATIENT ON LEVAQUIN/FLAGYL POST- OPERATIVELY FOR SMALL BOWEL OBSTRUCTION WITH RESECTION. 48 hour timeout review Stewardship interventions: 48 hour timeout review, reviewed - no change Comments: BLOOD CX REMAINS NO GROWTH AT 48 HR, PATIENT AFEBRILE OVER 24 HR, WH ITE COUNT NORMAL AT 9.2 K/mm3. PATIENT ON LEVAQUIN/FLAGYL POST-OPERATIVELY FOR SMALL BOWEL OBSTRUCTION WITH RESECTION, CONTINUES TO BE NPO WITH NG OUTPUT. IV to PO conversion Stewardship interventions: IV to PO conversion, reviewed - no change Comments: PATIENT REMAINS NPO, RECOMMEND CONTINUING THERAPY WITH IV ABX.
--- NOTE | 2025-08-28 09:16 | DIET.NUTRFU ---
Patient continues NPO diet, risk for malnutrition NPO since 08/22. NG is now to gravity and she reports passing gas. Spoke to provider today with concern of oral intake. Will monitor for BM today, otherwise will readdress for need of TPN
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
--- NOTE | 2025-08-28 10:28 | SW/DCPLANNER ---
Spoke with patient regarding home health services once she is medically stable and ready for discharge. Patient stated that she is interested in home health and that she has no preference in what agency i send her information to. Im sending her information to [facility] and will update if they can accept patient or not. Luis Daniel Adame
[2025-08-28] MEDS: LEVOFLOXACIN/D5W 500 MG/100 ML PIGGYBACK 100 MG IV (10:31)
[2025-08-28] MEDS: 0.9 % SODIUM CHLORIDE 1000ML 1,000 ML 75 ML IV (10:31)
[2025-08-28] MEDS: POTASSIUM CHLORIDE 20MEQ TAB 40 MEQ PO ×3 (10:53→17:11)
[2025-08-28 12:00] VITALS: BP 138/64; PULSE 68; RESP 16; TEMP 36.6; O2SAT 98
[2025-08-28 16:00] VITALS: BP 155/82; PULSE 102; RESP 16; TEMP 36.6; O2SAT 97
[2025-08-28] MEDS: ONDANSETRON 4MG/2ML VIAL 4 MG IV (17:11)
--- NOTE | 2025-08-28 17:13 | PC.NURSE ---
Pt is A&O x4. She has been up to the chair today. NG to gravity bag. Pt is having some nausea after taking potassium PO. Pt had 300 ml output from NG with greenish drainage. No BM. Pt is still passing some gas. No other concerns at this time. Call light within reach.
[2025-08-28 20:00] VITALS: BP 144/76; PULSE 109; RESP 16; TEMP 37; O2SAT 96
[2025-08-29] VITALS: BP 136/77; PULSE 93; RESP 18; TEMP 36.9; O2SAT 93
[2025-08-29] MEDS: 0.9 % SODIUM CHLORIDE 1000ML 1,000 ML 75 ML IV ×2 (03:03→10:22)
[2025-08-29] MEDS: METRONIDAZ/SOD CHL 500 MG/100 ML PIGGYBACK 100 MG IV (03:04)
--- NOTE | 2025-08-29 03:56 | PC.NURSE ---
Alert and oriented. NG to right nare to gravity bag, 150ml out earlier in shift. Patient did have a large bowel movement this shift. Patient desat during sleeping to 75%, placed on 2L NC, O2 sat >90%. Bowel sounds active. Midline incision open to air, mikaela in place. Abx given per NOV. Call light in reach.
[2025-08-29 04:00] VITALS: BP 130/76; PULSE 95; RESP 16; TEMP 36.9; O2SAT 97; BMI 33.7
[2025-08-29] MEDS: LEVOTHYROXINE 50MCG (0.05MG) TAB 50 MCG PO (06:32)
[2025-08-29 06:33] LABS: Hematocrit 31.7 % (37.0-47.0); Hemoglobin 10.4 g/dL (12.2-16.2); Immature Granulocytes % 0.4 %; Mean Corpuscular HGB Conc 32.8 g/dL (31.8-35.4); Mean Corpuscular Hemoglobin 31.4 pg (27.0-31.2); Mean Corpuscular Volume 95.8 fl (81-99); Nucleated Red Blood Cells % 0 %; Platelet Count 299 K/mm3 (142-424); Red Blood Count 3.31 M/mm3 (4.20-5.40); Red Cell Distribution Width-SD 48.0 fL; White Blood Count 10.8 K/mm3 (4.8-10.8)
[2025-08-29 06:48] LABS: Albumin Level 3.3 g/dl (3.5-5.0); Chloride 102 mmol/L (98-107); Potassium 3.6 mmoL/L (3.5-5.1); Sodium 139 mmol/L (136-145)
[2025-08-29 06:50] LABS: Alanine Aminotransferase 20 U/L (12-78); Alkaline Phosphatase 75 U/L (38-126); Anion Gap 17.6 mEq/L (5-15); Aspartate Amino Transferase 24 U/L (14-36); Bilirubin,Total 0.5 mg/dl (0.2-1.3); Blood Urea Nitrogen 9 mg/dl (7-17); Carbon Dioxide 23 mmol/L (22.0-30.0); Creatinine Clearance Estimated 69 mL/min (50-200); Creatinine,Serum 0.60 mg/dl (0.52-1.04); Estimated Glomerular Filt Rate 98 ml/min (>60); GFR (African American) 119 ML/MIN (>60)
[2025-08-29 06:51] LABS: Albumin/Globulin Ratio 1.3 (1.1-1.8); Calcium 8.2 mg/dl (8.4-10.2); Globulin 2.6 g/dL (1.3-3.2); Glucose 84 mg/dl (74-100); Magnesium 2.0 mg/dl (1.6-2.3); Total Protein,Serum 5.9 g/dl (6.3-8.2)
--- NOTE | 2025-08-29 07:43 | EXP.SURG.PN ---
Subjective Patient reports: flatus and bowel movement Exam Data for Last 24 hours Vital signs and Labs for Last 24 Hours: Temp Pulse Resp BP Pulse Ox O2 Del Method O2 Flow Rate 98.4 F 95 H 16 130/76 97 Nasal Cannula 2 08/29/25 04:00 08/29/25 04:00 08/29/25 04:00 08/29/25 04:00 08/29/25 04:00 08/29/25 06:40 08/29/25 06:40 FiO2 28 08/26/25 18:10 Laboratory Results - last 24 hr 08/29/25 06:02: Sodium 139, Potassium 3.6, Chloride 102, Carbon Dioxide 23, Anion Gap 17.6 H, BUN 9, Creatinine 0.60, Estimated Creat Clear 69, Estimated GFR 98, Est GFR ( Amer) 119, Glucose 84, Calcium 8.2 L, Magnesium 2.0, Total Bilirubin 0.5, AST 24, ALT 20, Alkaline Phosphatase 75, Total Protein 5.9 L, Albumin 3.3 L, Globulin 2.6, Albumin/Globulin Ratio 1.3 I & O for Last 24 hours: Intake & Output 08/26/25 08/27/25 08/28/25 08/29/25 11:59 11:59 11:59 11:59 Intake Total 2053.333 / 2053.333 4078.333 / 4078.333 1841.667 / 4638.602 8038 / 1350 Output Total 1400 / 1700 3760 / 3760 1600 / 1600 950 / 950 Balance 653.333 / 353.333 318.333 / 318.333 241.667 / 241.667 400 / 400 Weight 192 lb 12.8 oz 192 lb 15.988 oz 190 lb 3.2 oz 190 lb 3.19 oz Microbiology Reports for the Last 24 Hours: Microbiology 08/24/25 17:20 Blood Blood Culture - Preliminary NO GROWTH AFTER 4 DAYS 08/24/25 17:20 Blood Blood Culture - Preliminary NO GROWTH AFTER 4 DAYS Constitutional Constitutional: no acute distress *Routine Respiratory Exam Respiratory: Absent respiratory distress *Routine Cardiovascular Exam Cardiovascular: Absent tachycardia *Routine Abdominal Exam Abdominal: Present soft Comments: Incision healing without evidence of infection Progress Note: A&P Assessment and plan (1) SBO (small bowel obstruction): Status: Acute Assessment and plan: Overall, doing well postoperative day 5 status post exploratory laparotomy with partial small bowel resection. Nasogastric tube has been to a drain bag for approximately 24 hours without increased distention, emesis, etc. Remove nasogastric tube Continue to increase ambulation Limited (nurse-directed) clear liquids
[2025-08-29 08:00] VITALS: BP 148/77; PULSE 57; RESP 19; TEMP 36.5; O2SAT 99
[2025-08-29] MEDS: METOPROLOL TARTRATE 50MG TABLET 50 MG PO ×2 (08:12→20:12)
[2025-08-29] MEDS: APIXABAN 5MG TABLET 5 MG PO ×2 (08:12→20:12)
[2025-08-29] MEDS: LEVOFLOXACIN/D5W 500 MG/100 ML PIGGYBACK 100 MG IV (08:59)
--- NOTE | 2025-08-29 09:31 | HMH.PHAAMS2 ---
- Antimicrobial Stewardship Review culture & sensitivity review Stewardship interventions: culture & sensitivity review (CURRENTLY ON LEVAQUIN AND FLAGYL, AFEBRILE AND WBL WNL, NO GROWTH IN BLOOD CX.)
--- NOTE | 2025-08-29 09:35 | HMH.PHAAMS2 ---
- Antimicrobial Stewardship Review culture & sensitivity review Stewardship interventions: 48 hour timeout review (CURRENTLY ON LEVAQUIN AND FLAGYL, AFEBRILE AND WBL WNL, NO GROWTH IN BLOOD CX.), culture & sensitivity review
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
[2025-08-29] MEDS: ONDANSETRON 4MG/2ML VIAL 4 MG IV ×2 (13:53→20:11)
--- NOTE | 2025-08-29 14:44 | DIET.NUTRFU ---
diet started today-clear liquids with BM noted 08/28 and NG removed
[2025-08-29 16:00] VITALS: BP 132/79; PULSE 100; RESP 19; TEMP 36.6; O2SAT 96
[2025-08-29] MEDS: PROMETHAZINE HCL 25MG/ML 1ML VIAL 12.5 MG IV (17:26)
[2025-08-29 20:00] VITALS: BP 111/74; PULSE 90; RESP 16; TEMP 37.1; O2SAT 98
[2025-08-30] VITALS: BP 112/55; PULSE 86; RESP 16; TEMP 37.2; O2SAT 95
[2025-08-30 04:00] VITALS: BMI 33.6
--- NOTE | 2025-08-30 04:54 | PC.NURSE ---
Alert and oriented. Patient has had no complaints since this RN took over care @ 2130. Patient has rested throughout shift. No complaints of nausea/vomiting. Bowel sounds active. Midline incision CDI. Call light in reach.
[2025-08-30] MEDS: LEVOTHYROXINE 50MCG (0.05MG) TAB 50 MCG PO (06:29)
[2025-08-30 07:11] LABS: Hematocrit 29.2 % (37.0-47.0); Hemoglobin 9.8 g/dL (12.2-16.2); Immature Granulocytes % 0.7 %; Mean Corpuscular HGB Conc 33.6 g/dL (31.8-35.4); Mean Corpuscular Hemoglobin 32.2 pg (27.0-31.2); Mean Corpuscular Volume 96.1 fl (81-99); Nucleated Red Blood Cells % 0 %; Platelet Count 299 K/mm3 (142-424); Red Blood Count 3.04 M/mm3 (4.20-5.40); Red Cell Distribution Width-SD 48.5 fL; White Blood Count 9.6 K/mm3 (4.8-10.8)
[2025-08-30 07:28] LABS: Albumin Level 3.1 g/dl (3.5-5.0); Chloride 103 mmol/L (98-107); Sodium 138 mmol/L (136-145)
[2025-08-30 07:29] LABS: Potassium 3.2 mmoL/L (3.5-5.1)
[2025-08-30 07:31] LABS: Alanine Aminotransferase 16 U/L (12-78); Albumin/Globulin Ratio 1.2 (1.1-1.8); Alkaline Phosphatase 66 U/L (38-126); Anion Gap 9.2 mEq/L (5-15); Aspartate Amino Transferase 23 U/L (14-36); Bilirubin,Total 0.3 mg/dl (0.2-1.3); Blood Urea Nitrogen 9 mg/dl (7-17); Carbon Dioxide 29 mmol/L (22.0-30.0); Creatinine Clearance Estimated 69 mL/min (50-200); Creatinine,Serum 0.60 mg/dl (0.52-1.04); Estimated Glomerular Filt Rate 98 ml/min (>60); GFR (African American) 119 ML/MIN (>60); Globulin 2.5 g/dL (1.3-3.2); Total Protein,Serum 5.6 g/dl (6.3-8.2)
[2025-08-30 07:32] LABS: Calcium 8.0 mg/dl (8.4-10.2); Glucose 103 mg/dl (74-100); Magnesium 2.0 mg/dl (1.6-2.3)
[2025-08-30 08:00] VITALS: BP 106/57; PULSE 90; RESP 17; TEMP 36.8; O2SAT 95
--- NOTE | 2025-08-30 08:33 | P.PN_ITS ---
Subjective Narrative: She feels about the same . She developed transient nausea yesterday afternoon but states that she is okay now . Exam Data for Last 24 hours Vital signs and Labs for Last 24 Hours: Temp Pulse Resp BP Pulse Ox O2 Del Method O2 Flow Rate 99.0 F 86 16 112/55 L 95 Room Air 2 08/30/25 00:00 08/30/25 00:00 08/30/25 00:00 08/30/25 00:00 08/30/25 00:00 08/30/25 06:54 08/29/25 06:40 FiO2 28 08/26/25 18:10 Laboratory Results - last 24 hr 08/30/25 06:20: WBC 9.6, RBC 3.04 L, Hgb 9.8 L, Hct 29.2 L, MCV 96.1, MCH 32.2 H , MCHC 33.6, RDW 13.9, Plt Count 299, MPV 9.2, Neut % (Auto) 67.6, Lymph % (Auto) 17.3, Wilkinson % (Auto) 11.4 H, Eos % (Auto) 2.6, Baso % (Auto) 0.4, Neut # (Auto) 6.5, Lymph # (Auto) 1.7, Wilkinson # (Auto) 1.1 H, Eos # (Auto) 0.3, Baso # (Auto) 0.0, Sodium 138, Potassium 3.2 L, Chloride 103, Carbon Dioxide 29, Anion Gap 9.2, BUN 9, Creatinine 0.60, Estimated Creat Clear 69, Estimated GFR 98, Est GFR ( Amer) 119, Glucose 103 H, Calcium 8.0 L, Magnesium 2.0, Total Bilirubin 0.3, AST 23, ALT 16, Alkaline Phosphatase 66, Total Protein 5.6 L, Albumin 3.1 L, Globulin 2.5, Albumin/Globulin Ratio 1.2 I & O for Last 24 hours: Intake & Output 08/27/25 08/28/25 08/29/25 08/30/25 11:59 11:59 11:59 11:59 Intake Total 4078.333 / 4078.333 1841.667 / 1940.401 7659.75 / 1898.75 1886.25 / 1886.25 Output Total 3760 / 3760 1600 / 1600 950 / 950 0 / 0 Balance 318.333 / 318.333 241.667 / 241.667 948.75 / 948.75 1886.25 / 1886.25 Weight 192 lb 15.988 oz 190 lb 3.2 oz 190 lb 3.19 oz 189 lb 12.8 oz Microbiology Reports for the Last 24 Hours: Microbiology 08/24/25 17:20 Blood Blood Culture - Final NO GROWTH AFTER 5 DAYS 08/24/25 17:20 Blood Blood Culture - Final NO GROWTH AFTER 5 DAYS Constitutional Constitutional: no acute distress *Routine Respiratory Exam Respiratory: Absent respiratory distress *Routine Cardiovascular Exam Cardiovascular: Absent tachycardia *Routine Abdominal Exam Abdominal: Present soft Comments: Incision healing without evidence of infection Progress Note: A&P Assessment and plan (1) SBO (small bowel obstruction): Status: Acute Assessment and plan: Overall, doing fairly well postoperative day 6 status post exploratory laparotomy with partial small bowel resection. Nasogastric tube removed yesterd ay. Transient nausea noted. Remain on clear liquids for now
[2025-08-30] MEDS: METOPROLOL TARTRATE 50MG TABLET 50 MG PO ×2 (08:48→20:22)
[2025-08-30] MEDS: APIXABAN 5MG TABLET 5 MG PO ×2 (08:48→20:22)
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
--- NOTE | 2025-08-30 13:43 | DIET.NUTRFU ---
Saw patient after breakfast today- tolerated juice/broth and jello with no nausea. provider indicated she wanted to observe clear today to monitor for any further nausea which she was experiencing yesterday. Reviewed diet handout and how she should progress her diet throughout the healing process. Also encouraged good protein intake as diet advances, she was NPO and clear liquids since 08/22 consuming minimal protein.
[2025-08-30] MEDS: ONDANSETRON 4MG/2ML VIAL 4 MG IV ×2 (15:43→23:23)
[2025-08-30 16:00] VITALS: BP 141/78; PULSE 90; RESP 19; TEMP 36.8; O2SAT 98
[2025-08-30 20:00] VITALS: BP 165/88; PULSE 94; RESP 17; TEMP 37.2; O2SAT 97
[2025-08-30] MEDS: SODIUM CHLORIDE 0.9% 25ML BAG 25 ML IV (20:25)
[2025-08-30] MEDS: PROMETHAZINE HCL 25MG/ML 1ML VIAL 12.5 MG IV (20:25)
--- NOTE | 2025-08-31 02:15 | PC.NURSE ---
Pt AOx4, pleasant. Has had some nausea that has been treated per MAR. Received IV K+ replacement per orders. Pt is currently resting in bed with eyes closed. Respirations even and unlabored, tolerating room air. Bed is low, locked, and call light is in reach. Pt's spouse at bedside.
[2025-08-31 04:00] VITALS: BP 113/64; PULSE 82; RESP 17; TEMP 36.8; O2SAT 94; BMI 33.6
[2025-08-31] MEDS: LEVOTHYROXINE 50MCG (0.05MG) TAB 50 MCG PO (06:09)
--- NOTE | 2025-08-31 06:56 | FL_ITS ---
FINAL REPORT CLINICAL HISTORY: Persistent nausea/emesis s/p small bowel resection FINDINGS: [employer] images demonstrate posterior fusion hardware bridging the lower thoracic to mid lumbar spine. There is a midline rota skin mikaela. Unsupervised limited small bowel series was obtained. 5-minute images demonstrate moderately distended loops of proximal small bowel and duodenum. On 30-minute images, the mid and distal small bowel is nondilated. There is no evidence of obstruction. Contrast reached the colon in approximately 30 minutes. IMPRESSION: Moderately distended proximal small bowel may be due to segmental ileus. Partial obstruction is considered less likely. No evidence of complete obstruction. Reviewed, Interpreted and Dictated by Hunter Foreman MD Transcribed by Laurence Iqbal Authenticated and [facility]
[2025-08-31 06:57] LABS: Albumin Level 3.1 g/dl (3.5-5.0); Chloride 103 mmol/L (98-107); Potassium 3.8 mmoL/L (3.5-5.1); Sodium 139 mmol/L (136-145)
--- NOTE | 2025-08-31 06:58 | P.PN_ITS ---
Subjective Patient reports: flatus and bowel movement Narrative: The patient states that she has continued to have intermittent episodes of nausea/emesis. She continues to pass flatus and states that she had a bowel movement yesterday. She is not complaining of pain. Exam Data for Last 24 hours Vital signs and Labs for Last 24 Hours: Temp Pulse Resp BP Pulse Ox O2 Del Method O2 Flow Rate 98.3 F 82 17 113/64 94 L Room Air 2 08/31/25 04:00 08/31/25 04:00 08/31/25 04:00 08/31/25 04:00 08/31/25 04:00 08/31/25 06:34 08/29/25 06:40 FiO2 28 08/26/25 18:10 Laboratory Results - last 24 hr 08/30/25 06:20: WBC 9.6, RBC 3.04 L, Hgb 9.8 L, Hct 29.2 L, MCV 96.1, MCH 32.2 H , MCHC 33.6, RDW 13.9, Plt Count 299, MPV 9.2, Neut % (Auto) 67.6, Lymph % (Auto) 17.3, [place] % (Auto) 11.4 H, Eos % (Auto) 2.6, Baso % (Auto) 0.4, Neut # (Auto) 6.5, Lymph # (Auto) 1.7, [place] # (Auto) 1.1 H, Eos # (Auto) 0.3, Baso # (Auto) 0.0, Sodium 138, Potassium 3.2 L, Chloride 103, Carbon Dioxide 29, Anion Gap 9.2, BUN 9, Creatinine 0.60, Estimated Creat Clear 69, Estimated GFR 98, Est GFR ( Amer) 119, Glucose 103 H, Calcium 8.0 L, Magnesium 2.0, Total Bilirubin 0.3, AST 23, ALT 16, Alkaline Phosphatase 66, Total Protein 5.6 L, Albumin 3.1 L, Globulin 2.5, Albumin/Globulin Ratio 1.2 I & O for Last 24 hours: Intake & Output 08/28/25 08/29/25 08/30/25 08/31/25 11:59 11:59 11:59 11:59 Intake Total 1841.667 / 4885.535 1918.75 / 1898.75 2486.25 / 2486.25 1843.75 / 1843.75 Output Total 1600 / 1600 950 / 950 0 / 0 800 / 800 Balance 241.667 / 241.667 948.75 / 948.75 2486.25 / 2486.25 1043.75 / 1043.75 Weight 190 lb 3.2 oz 190 lb 3.19 oz 189 lb 12.8 oz 189 lb 11.2 oz Constitutional Constitutional: no acute distress *Routine Respiratory Exam Respiratory: Absent respiratory distress *Routine Cardiovascular Exam Cardiovascular: Absent tachycardia *Routine Abdominal Exam Abdominal: Present soft Comments: Incision healing without evidence of infection. Progress Note: A&P Assessment and plan (1) SBO (small bowel obstruction): Status: Acute Assessment and plan: Persistent nausea and intermittent emesis postoperative day 7 status post exploratory laparotomy with partial small bowel resection. She continues to pass flatus and had a bowel movement yesterday. Nasogastric tube removed on postoperative day 5. Partial obstruction from anastomotic stricture, profound gastroparesis, acute profound/extended postoperative ileus, etc. all remain a possibility. I have had a long discussion with the patient concerning the possible need for replacement of her nasogastric tube and the possible need for reexploration with regard to her anastomosis. Hold off on replacement of nasogastric tube for now Repeat small bowel follow-through for evaluation of recent anastomosis (stri cture, etc.) Reglan 10 mg IV (x 1) ordered (2) Nausea & vomiting: Status: Deleted
[2025-08-31 06:59] LABS: Blood Urea Nitrogen 7 mg/dl (7-17); Creatinine Clearance Estimated 69 mL/min (50-200); Creatinine,Serum 0.60 mg/dl (0.52-1.04); Estimated Glomerular Filt Rate 98 ml/min (>60); GFR (African American) 119 ML/MIN (>60)
[2025-08-31 07:00] LABS: Alanine Aminotransferase 16 U/L (12-78); Albumin/Globulin Ratio 1.1 (1.1-1.8); Alkaline Phosphatase 64 U/L (38-126); Anion Gap 9.8 mEq/L (5-15); Aspartate Amino Transferase 22 U/L (14-36); Bilirubin,Total 0.3 mg/dl (0.2-1.3); Calcium 8.2 mg/dl (8.4-10.2); Carbon Dioxide 30 mmol/L (22.0-30.0); Globulin 2.7 g/dL (1.3-3.2); Glucose 118 mg/dl (74-100); Magnesium 2.0 mg/dl (1.6-2.3); Total Protein,Serum 5.8 g/dl (6.3-8.2)
[2025-08-31 07:08] LABS: Hematocrit 31.2 % (37.0-47.0); Hemoglobin 10.4 g/dL (12.2-16.2); Immature Granulocytes % 0.9 %; Mean Corpuscular HGB Conc 33.3 g/dL (31.8-35.4); Mean Corpuscular Hemoglobin 32.2 pg (27.0-31.2); Mean Corpuscular Volume 96.6 fl (81-99); Nucleated Red Blood Cells % 0 %; Platelet Count 346 K/mm3 (142-424); Red Blood Count 3.23 M/mm3 (4.20-5.40); Red Cell Distribution Width-SD 49.1 fL; White Blood Count 9.0 K/mm3 (4.8-10.8)
[2025-08-31] MEDS: METOCLOPRAMIDE HCL 10MG/2ML VIAL 10 MG IVP (07:11)
[2025-08-31 08:04] VITALS: BP 123/62; PULSE 96; RESP 16; TEMP 36.7; O2SAT 96
[2025-08-31] MEDS: ONDANSETRON 4MG/2ML VIAL 4 MG IV ×2 (08:52→20:40)
[2025-08-31] MEDS: METOPROLOL TARTRATE 50MG TABLET 50 MG PO ×2 (08:52→20:36)
[2025-08-31] MEDS: APIXABAN 5MG TABLET 5 MG PO ×2 (08:52→20:36)
[2025-08-31] MEDS: DIATRIZOATE MEGLUMINE(GASTROGRAFIN) 66%-10% 120ML 120 ML PO (08:56)
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
--- NOTE | 2025-08-31 11:11 | DIET.NUTRFU ---
Patient had large BM today during bowel follow through and denies any nausea. Plan to start clear liquids and upgrade as tolerated. Reviewed discharge diet advancement yesterday during visit.
[2025-08-31 11:46] VITALS: BP 116/53; PULSE 86; RESP 16; TEMP 36.9; O2SAT 96
--- NOTE | 2025-08-31 14:42 | PC.NURSE ---
Aox4, up with assistance times one to bsc, on RA, 20g L ac sl, nausea meds given once today, eliqumary anne for vtemd to order clears for dinner.
[2025-08-31 16:03] VITALS: BP 101/65; PULSE 65; RESP 18; TEMP 36.9; O2SAT 93
[2025-08-31 20:00] VITALS: BP 131/58; PULSE 99; RESP 14; TEMP 36.9; O2SAT 98
[2025-09-01] VITALS: BP 128/66; PULSE 90; RESP 14; TEMP 36.7; O2SAT 93
--- NOTE | 2025-09-01 03:06 | PC.NURSE ---
Pt AOx4, pleasant. Tolerating room air. Pt reported a small amount of nausea early on in the shift, which was treated per MAR. Pt reported improvement and no episodes of emesis. Pt is currently resting in bed with eyes closed. Respirations even and unlabored. Bed is low, locked, and call light is in reach.
[2025-09-01 04:00] VITALS: BP 121/58; PULSE 87; RESP 16; TEMP 36.4; O2SAT 94; BMI 33.3
[2025-09-01] MEDS: LEVOTHYROXINE 50MCG (0.05MG) TAB 50 MCG PO (06:17)
[2025-09-01 06:25] LABS: Hematocrit 29.2 % (37.0-47.0); Hemoglobin 9.5 g/dL (12.2-16.2); Immature Granulocytes % 0.6 %; Mean Corpuscular HGB Conc 32.5 g/dL (31.8-35.4); Mean Corpuscular Hemoglobin 31.4 pg (27.0-31.2); Mean Corpuscular Volume 96.4 fl (81-99); Nucleated Red Blood Cells % 0 %; Platelet Count 328 K/mm3 (142-424); Red Blood Count 3.03 M/mm3 (4.20-5.40); Red Cell Distribution Width-SD 49.2 fL; White Blood Count 8.6 K/mm3 (4.8-10.8)
[2025-09-01 06:39] LABS: Albumin Level 3.3 g/dl (3.5-5.0); Chloride 100 mmol/L (98-107)
[2025-09-01 06:40] LABS: Potassium 3.6 mmoL/L (3.5-5.1); Sodium 138 mmol/L (136-145)
[2025-09-01 06:42] LABS: Alanine Aminotransferase 14 U/L (12-78); Albumin/Globulin Ratio 1.4 (1.1-1.8); Anion Gap 13.6 mEq/L (5-15); Aspartate Amino Transferase 23 U/L (14-36); Blood Urea Nitrogen 9 mg/dl (7-17); Carbon Dioxide 28 mmol/L (22.0-30.0); Creatinine Clearance Estimated 68 mL/min (50-200); Creatinine,Serum 0.60 mg/dl (0.52-1.04); Estimated Glomerular Filt Rate 98 ml/min (>60); GFR (African American) 119 ML/MIN (>60); Globulin 2.4 g/dL (1.3-3.2); Total Protein,Serum 5.7 g/dl (6.3-8.2)
[2025-09-01 06:43] LABS: Alkaline Phosphatase 65 U/L (38-126); Bilirubin,Total 0.4 mg/dl (0.2-1.3); Calcium 8.1 mg/dl (8.4-10.2); Glucose 108 mg/dl (74-100); Magnesium 2.0 mg/dl (1.6-2.3)
--- NOTE | 2025-09-01 07:56 | P.PN_ITS ---
Subjective Patient reports: feels better Narrative: Developed significant diarrhea s/p SBFT yesterday. Spoke via phone to RN and patient: - No issues per nsg - Patient states that she feels better and that her diarrhea has basically resolved. She describes mild nausea overnight that quickly got better with medicine . Exam Data for Last 24 hours Vital signs and Labs for Last 24 Hours: Temp Pulse Resp BP Pulse Ox O2 Del Method O2 Flow Rate 97.6 F 87 16 121/58 L 94 L Room Air 2 09/01/25 04:00 09/01/25 04:00 09/01/25 04:00 09/01/25 04:00 09/01/25 04:00 09/01/25 06:34 08/29/25 06:40 FiO2 28 08/26/25 18:10 Laboratory Results - last 24 hr 09/01/25 06:06: WBC 8.6, RBC 3.03 L, Hgb 9.5 L, Hct 29.2 L, MCV 96.4, MCH 31.4 H , MCHC 32.5, RDW 14.3, Plt Count 328, MPV 9.0, Neut % (Auto) 68.6, Lymph % (Auto) 18.5, [place] % (Auto) 9.8 H, Eos % (Auto) 1.9, Baso % (Auto) 0.6, Neut # (Auto) 5.9, Lymph # (Auto) 1.6, [place] # (Auto) 0.8, Eos # (Auto) 0.2, Baso # (Auto) 0.1, Sodium 138, Potassium 3.6, Chloride 100, Carbon Dioxide 28, Anion Gap 13.6, BUN 9 D, Creatinine 0.60, Estimated Creat Clear 68, Estimated GFR 98, Est GFR ( Amer) 119, Glucose 108 H, Calcium 8.1 L, Magnesium 2.0, Total Bilirubin 0.4, AST 23, ALT 14, Alkaline Phosphatase 65, Total Protein 5.7 L, Albumin 3.3 L, Globulin 2.4, Albumin/Globulin Ratio 1.4 I & O for Last 24 hours: Intake & Output 08/29/25 08/30/25 08/31/25 09/01/25 11:59 11:59 11:59 11:59 Intake Total 1898.75 / 1898.75 2486.25 / 2486.25 1843.75 / 1843.75 Output Total 950 / 950 0 / 0 1000 / 1000 400 / 400 Balance 948.75 / 948.75 2486.25 / 2486.25 843.75 / 843.75 -400 / -400 Weight 190 lb 3.19 oz 189 lb 12.8 oz 189 lb 11.2 oz 187 lb 14.4 oz Constitutional Comments: Exam deferred. Spoke with RN and patient via phone. Progress Note: A&P Assessment and plan (1) SBO (small bowel obstruction): Status: Acute Assessment and plan: Improved nausea. No emesis. Diarrhea (s/p SBFT) resolved. Slowly improving postoperative day 8 status post exploratory laparotomy with partial small bowel resection. SBFT yesterday revealed fairly brisk transit / colonic filling. Duodenal sweep remained somewhat distended. Partial obstruction at anastomosis remains a possibility. Focal persistent proximal ileus also a possibility. Nasogastric tube removed on postoperative day 5. Very cautious advancement of diet Remove additional mikaela Continue to increase ambulation
[2025-09-01 08:00] VITALS: BP 97/53; PULSE 91; RESP 15; TEMP 36.4; O2SAT 97
[2025-09-01] MEDS: APIXABAN 5MG TABLET 5 MG PO ×2 (08:25→21:01)
[2025-09-01] MEDS: METOPROLOL TARTRATE 50MG TABLET 50 MG PO ×2 (08:25→20:59)
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
[2025-09-01 12:00] VITALS: BP 101/55; PULSE 90; RESP 16; TEMP 37; O2SAT 97
[2025-09-01] MEDS: ONDANSETRON 4MG/2ML VIAL 4 MG IV (15:19)
[2025-09-01 16:00] VITALS: BP 126/62; PULSE 90; RESP 15; TEMP 37; O2SAT 95
[2025-09-01 20:00] VITALS: BP 119/61; PULSE 100; RESP 16; TEMP 37.2
[2025-09-02] VITALS: BP 147/77; PULSE 83; RESP 16; TEMP 37.2; O2SAT 92
[2025-09-02 04:00] VITALS: BP 121/72; PULSE 93; RESP 16; TEMP 36.9; O2SAT 94; BMI 32.8
[2025-09-02 07:57] VITALS: BP 109/58; PULSE 93; RESP 14; TEMP 37.3; O2SAT 96
[2025-09-02] MEDS: APIXABAN 5MG TABLET 5 MG PO ×2 (08:05→20:24)
[2025-09-02] MEDS: LEVOTHYROXINE 50MCG (0.05MG) TAB 50 MCG PO (08:05)
[2025-09-02] MEDS: METOPROLOL TARTRATE 50MG TABLET 50 MG PO ×2 (08:06→20:24)
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
--- NOTE | 2025-09-02 11:05 | P.PN_ITS ---
Subjective Narrative: Had an episode of vomiting last pm. Tolerated full liquids this am and continues to pass flatus. No stool since evacuating the SBFT contrast. Exam Data for Last 24 hours Vital signs and Labs for Last 24 Hours: Temp Pulse Resp BP Pulse Ox O2 Del Method O2 Flow Rate 99.2 F 93 H 14 109/58 L 96 Room Air 2 09/02/25 07:57 09/02/25 07:57 09/02/25 07:57 09/02/25 07:57 09/02/25 07:57 09/02/25 09:00 08/29/25 06:40 FiO2 28 08/26/25 18:10 I & O for Last 24 hours: Intake & Output 08/30/25 08/31/25 09/01/25 09/02/25 23:59 23:59 23:59 23:59 Intake Total 2643.75 / 2643.75 100 / 100 1540 / 1540 520 / 520 Output Total 400 / 600 800 / 800 200 / 200 0 / 0 Balance 2243.75 / 2043.75 -700 / -700 1340 / 1340 520 / 520 Weight 86.092 kg 86.046 kg 85.23 kg 83.869 kg Constitutional Constitutional: no acute distress Comments: Up in the bathroom, having just bathed herself. *Routine Respiratory Exam Respiratory: Present CTA bilaterally, normal respiratory effort and able to speak in complete sentences Comments: No wheezing. *Routine Cardiovascular Exam Cardiovascular: Present RRR *Routine Abdominal Exam Abdominal: Present soft Comments: Some mikaela and steristrips over midline incision. No drainage noted. Non- distended. No guarding. No diffuse tenderness. No erythema around staple line. *Routine Extremities Exam Comments: Mild non-pitting BLE edema *Routine Skin Exam Skin: Present intact Progress Note: A&P Assessment and plan (1) SBO (small bowel obstruction): Status: Acute Assessment and plan: Recent SBFT with passage of contrast fairly quickly through entire small bowel. Does not appear to be an anastomotic issue ongoing. (2) Nausea & vomiting: Status: Acute Assessment and plan: Unclear etiology of her episode of vomiting last pm. Certainly will need to stay another night to follow trend. If worsens, will need more aggressive workup again including imaging. Stay with full liquids for now. (3) A-fib: Status: Acute Assessment and plan: On Eliquis BID (4) Hypertension: Status: Acute (5) Hyperlipidemia: Status: Acute (6) Hypothyroid: Status: Acute
[2025-09-02 11:46] VITALS: BP 103/67; PULSE 79; RESP 20; TEMP 36.8; O2SAT 99
[2025-09-02] MEDS: POLYETHYLENE GLYCOL 3350 17 GM PACKET PO (12:03)
[2025-09-02 16:00] VITALS: BP 141/64; PULSE 89; RESP 20; TEMP 37.1; O2SAT 99
[2025-09-02 20:00] VITALS: BP 119/72; PULSE 98; RESP 14; TEMP 37.4; O2SAT 90
[2025-09-02] MEDS: ONDANSETRON 4MG/2ML VIAL 4 MG IV (20:24)
[2025-09-03] VITALS: BP 108/66; PULSE 83; RESP 14; TEMP 36.6; O2SAT 96
--- NOTE | 2025-09-03 02:50 | PC.NURSE ---
Pt AOx4, pleasant. Had some nausea early in the shift that was treated per MAR. Pt reported relief after receiving medication. Tolerating room air. Currently resting in bed with eyes closed. Respirations even and unlabored. Bed low, locked, and call light is in reach.
[2025-09-03 04:00] VITALS: BP 110/67; PULSE 90; RESP 16; TEMP 37; O2SAT 95; BMI 33.3
[2025-09-03] MEDS: LEVOTHYROXINE 50MCG (0.05MG) TAB 50 MCG PO (06:00)
[2025-09-03 07:27] LABS: Hematocrit 27.3 % (37.0-47.0); Hemoglobin 8.8 g/dL (12.2-16.2); Immature Granulocytes % 0.6 %; Mean Corpuscular HGB Conc 32.2 g/dL (31.8-35.4); Mean Corpuscular Hemoglobin 31.5 pg (27.0-31.2); Mean Corpuscular Volume 97.8 fl (81-99); Nucleated Red Blood Cells % 0 %; Platelet Count 321 K/mm3 (142-424); Red Blood Count 2.79 M/mm3 (4.20-5.40); Red Cell Distribution Width-SD 51.2 fL; White Blood Count 8.5 K/mm3 (4.8-10.8)
[2025-09-03 07:45] VITALS: BP 107/58; PULSE 101; RESP 16; TEMP 37.4; O2SAT 94
[2025-09-03 07:50] LABS: Albumin Level 3.1 g/dl (3.5-5.0); Chloride 103 mmol/L (98-107); Potassium 3.5 mmoL/L (3.5-5.1); Sodium 135 mmol/L (136-145)
[2025-09-03 07:53] LABS: Alanine Aminotransferase 21 U/L (12-78); Albumin/Globulin Ratio 1.2 (1.1-1.8); Alkaline Phosphatase 65 U/L (38-126); Anion Gap 4.5 mEq/L (5-15); Aspartate Amino Transferase 31 U/L (14-36); Bilirubin,Total 0.2 mg/dl (0.2-1.3); Blood Urea Nitrogen 6 mg/dl (7-17); Carbon Dioxide 31 mmol/L (22.0-30.0); Creatinine Clearance Estimated 68 mL/min (50-200); Creatinine,Serum 0.60 mg/dl (0.52-1.04); Estimated Glomerular Filt Rate 98 ml/min (>60); GFR (African American) 119 ML/MIN (>60); Globulin 2.6 g/dL (1.3-3.2); Total Protein,Serum 5.7 g/dl (6.3-8.2)
[2025-09-03 07:54] LABS: Calcium 8.3 mg/dl (8.4-10.2); Glucose 101 mg/dl (74-100); Magnesium 2.1 mg/dl (1.6-2.3)
[2025-09-03] MEDS: APIXABAN 5MG TABLET 5 MG PO ×2 (08:03→20:26)
[2025-09-03] MEDS: METOPROLOL TARTRATE 50MG TABLET 50 MG PO ×2 (08:03→20:27)
[2025-09-03] MEDS: POLYETHYLENE GLYCOL 3350 17 GM PACKET PO (08:03)
--- NOTE | 2025-09-03 10:58 | PC.NURSE ---
pt currently ambulating in [place] with cane
--- NOTE | 2025-09-03 11:31 | P.PN_ITS ---
Subjective Patient reports: no new complaints, tolerating liquids well and bowel movement Narrative: Not as much nausea. She describes her symptoms as progressing from a cough to bringing up white phlegm . Passing flatus and she states she passed a very small ball of stool. Exam Data for Last 24 hours Vital signs and Labs for Last 24 Hours: Temp Pulse Resp BP Pulse Ox O2 Del Method O2 Flow Rate 99.4 F 101 H 16 107/58 L 94 L Room Air 2 09/03/25 07:45 09/03/25 07:45 09/03/25 07:45 09/03/25 07:45 09/03/25 07:45 09/03/25 11:00 08/29/25 06:40 FiO2 28 08/26/25 18:10 Laboratory Results - last 24 hr 09/03/25 06:28: WBC 8.5, RBC 2.79 L, Hgb 8.8 L, Hct 27.3 L, MCV 97.8, MCH 31.5 H , MCHC 32.2, RDW 14.9, Plt Count 321, MPV 9.1, Neut % (Auto) 68.1, Lymph % (Auto) 19.6, [place] % (Auto) 9.5 H, Eos % (Auto) 1.5, Baso % (Auto) 0.7, Neut # (Auto) 5.8, Lymph # (Auto) 1.7, [place] # (Auto) 0.8, Eos # (Auto) 0.1, Baso # (Auto) 0.1, Sodium 135 L, Potassium 3.5, Chloride 103, Carbon Dioxide 31 H, Anion Gap 4.5 L, BUN 6 L D, Creatinine 0.60, Estimated Creat Clear 68, Estimated GFR 98, Est GFR ( Amer) 119, Glucose 101 H, Calcium 8.3 L, Magnesium 2.1, Total Bilirubin 0.2, AST 31 D, ALT 21 D, Alkaline Phosphatase 65, Total Protein 5.7 L, Albumin 3.1 L, Globulin 2.6, Albumin/Globulin Ratio 1.2 I & O for Last 24 hours: Intake & Output 08/31/25 09/01/25 09/02/25 09/03/25 23:59 23:59 23:59 23:59 Intake Total 100 / 100 1540 / 1540 1400 / 1400 470 / 470 Output Total 800 / 800 200 / 200 0 / 0 0 / 0 Balance -700 / -700 1340 / 1340 1400 / 1400 470 / 470 Weight 86.046 kg 85.23 kg 83.869 kg 85.185 kg Constitutional Constitutional: no acute distress and cooperative *Routine Respiratory Exam Respiratory: Present normal respiratory effort and able to speak in complete sentences *Routine Abdominal Exam Abdominal: Present soft Comments: Ken and steristrips in place. Non-distended. No guarding or rebound. No tympany. No incisional erythema. Progress Note: A&P Assessment and plan (1) SBO (small bowel obstruction): Status: Acute Assessment and plan: Suspect she may be having some GERD-related issues. Will initiate H2 anthony BID today and also advance to soft diet. I think she will be ready for discharge to home tomorrow, provided her nausea is controlled. Will defer that decision to Dr. Fu. (2) Nausea & vomiting: Status: Acute (3) A-fib: Status: Acute (4) Hypertension: Status: Acute (5) Hyperlipidemia: Status: Acute (6) Hypothyroid: Status: Acute
[2025-09-03 12:00] VITALS: BP 107/64; PULSE 81; RESP 16; TEMP 37.4; O2SAT 97
[2025-09-03] MEDS: FAMOTIDINE 20MG TABLET 20 MG PO ×2 (12:09→20:26)
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
--- NOTE | 2025-09-03 15:04 | PC.NURSE ---
remaining 6 mikaela removed from pts midline incision. steri strips placed. incision is c/d/i. no drainage noted at this time
[2025-09-03 16:00] VITALS: BP 104/65; PULSE 99; RESP 16; TEMP 37.3; O2SAT 95
[2025-09-03 20:00] VITALS: BP 122/63; PULSE 91; RESP 16; TEMP 37; O2SAT 97
[2025-09-04] VITALS: BP 113/67; PULSE 99; RESP 16; TEMP 37.1; O2SAT 92
--- NOTE | 2025-09-04 02:19 | PC.NURSE ---
Pt AOx4, pleasant. Midline incision clean, dry, and intact. Steristrips intact. Denies pain, nausea, or any additional needs throughout the shift. Currently resting in bed with eyes closed. Respirations even and unlabored. On room air. Bed low, locked, and call light is in reach.
[2025-09-04 04:00] VITALS: BP 134/66; PULSE 93; RESP 16; TEMP 36.8; O2SAT 95; BMI 32.7
[2025-09-04] MEDS: LEVOTHYROXINE 50MCG (0.05MG) TAB 50 MCG PO (06:08)
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
[2025-09-04 08:00] VITALS: BP 96/51; PULSE 101; RESP 18; TEMP 36.9; O2SAT 98
[2025-09-04 09:22] VITALS: BP 104/61; PULSE 108
[2025-09-04] MEDS: APIXABAN 5MG TABLET 5 MG PO (09:22)
[2025-09-04] MEDS: FAMOTIDINE 20MG TABLET 20 MG PO (09:23)
[2025-09-04] MEDS: METOPROLOL TARTRATE 50MG TABLET 50 MG PO (09:23)
[2025-09-04 12:00] VITALS: BP 116/66; PULSE 83; RESP 16; TEMP 36.9; O2SAT 95
--- NOTE | 2025-09-05 10:41 | SW/DCPLANNER ---
Spoke with patient on the phone. Patient stated that she is doing well. Patient stated that she is aware of her upcoming appointments. Patient stated that she was able to get her new medicine picked up at [facility]. Patient stated that she has no concerns or questions at this time. Luis Daniel Adame
== END 2025-09-04 13:29 | disposition home health service (06) | DRG 329 ==
LOC: ER 10:28 → ICU 12:37 → 2ND 08-26 20:32
PROVIDERS: Surgery; Admitting Provider Student in an Organized Health Care Education/Training Program; Emergency Provider Emergency Medicine; PCP Internal Medicine Adolescent Medicine; Responsible Provider Internal Medicine Adolescent Medicine; Visit Provider Student in an Organized Health Care Education/Training Program
PROC: (CPT 49000; principal; 2025-08-24 10:40)
DX: K56.50 Intestinal adhesions [bands], unspecified as to partial versus complete obstruction (principal); K55.029 Acute infarction of small intestine, extent unspecified; K56.2 Volvulus; E87.6 Hypokalemia; E78.5 Hyperlipidemia, unspecified; I10 Essential (primary) hypertension; R00.0 Tachycardia, unspecified; E03.9 Hypothyroidism, unspecified; G89.29 Other chronic pain; D64.9 Anemia, unspecified; M54.9 Dorsalgia, unspecified; Z98.890 Other specified postprocedural states; I48.0 Paroxysmal atrial fibrillation; Z79.82 Long term (current) use of aspirin; Z79.890 Hormone replacement therapy; Z79.899 Other long term (current) drug therapy; Z88.5 Allergy status to narcotic agent; Z88.0 Allergy status to penicillin; Z88.2 Allergy status to sulfonamides; Z88.8 Allergy status to other drugs, medicaments and biological substances; Z87.828 Personal history of other (healed) physical injury and trauma
CPT/HCPCS: 36415; 51798; 71045; 71275; 74021; 74174; 74250; 80048; 80053; 81001; 83605; 83690; 83735; 84484; 85007; 85014; 85018; 85025; 85610; 86803; 87040; 87389; 87636; 88307; 93005; 97116; 97162; 97166; 97530; 99231; 99285; J0131; J0736; J1100; J1596; J1650; J1836; J1885; J1956; J2003; J2175; J2250; J2270; J2405; J2550; J2704; J2710; J2765; J3010; J3480; J7030; J7070; J7120; Q9963; Q9967

== ENCOUNTER 2025-09-15 09:58 | Inpatient (IN) | payer MEDICARE, BC, SELFPAY ==
--- OUTSIDE RECORDS SUMMARY | 2024-04-20 04:00 | XMS_ITS ---
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 Role Phone Soniya Parkinson Unavailable [phone] REASON FOR VISIT Annual Social History Sex Assigned At : Social History Observation Description Sex Assigned At Female Encounters Encounter Location Date Provider Diagnosis [facility]- [address] [place] [address] 04/20/2024 Soniya Parkinson Plan Of Treatment Next Appt Details Provider Name:Soniya Iggy , 05/16/2026 02:00:00 PM, [address], [place], [address], Progress Notes * Shonda HOSKINS MDOB: 3 (70 yo F)Acc No.[id number]:04/20/2024 Progress Note Patient: Li hoffman Shonda Juan Provider: Kole Parkinson MD :1955 A ge:68 Y S ex:Female Date:04/20/2024 Address:[address] [id number] Subjective: * Chief Complaints: * A nnual * Electronic signature of Cheyenne Parkinson MD on 09/15/2025 at 10:09 AM EST Sign off status: Pending Visit Status: R /S (Rescheduled) * Provider: Kole Parkinson MD Date: 0 04/20/2024 Generated for Krysta dalton/Ben/[place] on: 1 11/16/2024 10:09 AM EST
--- OUTSIDE RECORDS SUMMARY | 2024-04-20 04:00 | XMS_ITS ---
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 Role Phone Soniya Parkinson Unavailable [phone] REASON FOR VISIT Annual Social History Sex Assigned At : Social History Observation Description Sex Assigned At Female Encounters Encounter Location Date Provider Diagnosis [facility]- [address] [place] [address] 04/20/2024 Soniya Parkinson Plan Of Treatment Next Appt Details Provider Name:Soniya Iggy , 05/16/2026 02:00:00 PM, [address], [place], [address], Progress Notes * Shonda HOSKINS MDOB: 3 (70 yo F)Acc No.[id number]:04/20/2024 Progress Note Patient: Li hoffman Shonda Juan Provider: Kole Parkinson MD :1955 A ge:68 Y S ex:Female Date:04/20/2024 Address:[address] [id number] Subjective: * Chief Complaints: * A nnual * Electronic signature of Cheyenne Parkinson MD on 09/16/2025 at 02:40 PM EST Sign off status: Pending Visit Status: R /S (Rescheduled) * Provider: Kole Parkinson MD Date: 04/20/2024 Generated for Krysta dalton/Ben/[place] on: 1 11/17/2024 02:40 PM EST
[2025-09-15] VITALS (14 sets, daily range): BP systolic 110–169; BP diastolic 48–78; PULSE 63–85; RESP 14–20; TEMP 36.7–37.2; O2SAT 94–99; BMI 31.8
--- NOTE | 2025-09-15 10:05 | ECG_ITS ---
APPROVED REPORT Exam: Resting ECG HR:74 bpm ECG Measurements Heart Rate 74 AXES LA 141 P 69 QRSd 78 QRS 40 QT 389 T 35 QTc 416 Conclusion SINUS RHYTHM LOW QRS VOLTAGE IN PRECORDIAL LEADS [QRS DEFLECTION < 1.0 mV IN CHEST LEADS] BORDERLINE ECG UNCONFIRMED REPORT Electronically signed by : COLTEN BUSTOS, 09/15/2025 15:25:50
--- OUTSIDE RECORDS SUMMARY | 2025-09-15 10:09 | XMS_ITS | Clinical Summary ---
Author Organization [employer] ([place], [place], [place], [place], [place]) Address [address] [place] [address] Care Team Providers Care Pile Driver Operator Name Role Phone Dilshad Steele MD Primary Care Provider + [phone] Allergies Active Allergy Reactions Criticality Noted Date [...] the past 12 months, has t he [employer], gas, oil, or water company threatened to [...] Do you speak a language other than [place]araguan at [facility]? No 10/16/2023 Do you want [...] 05/15/2022, 2018 Medical Devices Implanted Type Area Body Former Device Identifier Shelf Expiration Date Model / Serial / Lot Bone Antoinetteigen Frmble Cell 10 Bl-1600-003 - [id number] Implanted:Qty : 1 on 10/14/2023 by Vinicius Damon Jr., MD at [facility] IMPLANTS N/A: Spine LIFENET:LIFENET TRANSPLANT SRV 09/23/2024 BL-1600-00 3 / [id number] / Scr Spne Arsenio Fix 6x40mm 640 - [id number] Implanted:Qty : 3 on 10/14/2023 by Vinicius Damon Jr., MD at [facility] IMPLANTS N/A: Spine J &J:DEPUY:DEPUY SPINE 0 / 0 / Scr Spne Arsenio Fix Fen 6x45mm 5 - [id number] Implanted:Qty : 3 on 10/14/2023 by Vinicius Damon Jr., MD at [facility] IMPLANTS N/A: Spine J &J:DEPUY:DEPUY SPINE 5 / 5 / Scr Spne Arsenio Fix 7x40mm 0 - [id number] Implanted:Qty : 2 on 10/14/2023 by Vinicius Damon Jr., MD at [facility] IMPLANTS N/A: Spine J &J:DEPUY:DEPUY SPINE 0 / 0 / Scr Spne Arsenio Fix 7x45mm 5 - [id number] Implanted:Qty : 4 on 10/14/2023 by Vinicius Damon Jr., MD at [facility] IMPLANTS N/A: Spine J &J:DEPUY:DEPUY SPINE 5 / 5 / Toan Spine Expedium [id number] - [id number] Implanted:Qty : 1 on 10/14/2023 by Vinicius Damon Jr., MD at [facility] IMPLANTS N/A: Spine J &J:DEPUY:DEPUY SPINE 0 / 0 / Mis Joselin Ply Scrw Set Ti - [id number] Implanted:Qty : 12 on 10/14/2023 by Vinicius Damon Jr., MD at [facility] IMPLANTS N/A: Spine J &J:DEPUY:DEPUY SPINE 0 / 0 / Insurance [place]IC[place] [address] [place] [address] CROSS/BLUE SHIELD Care Teams Pile Driver Operator Relationship Specialty Start Date End Date Dilshad Steele MD [address] [place] [id number] PCP - General Adolescent Medicine 10/08/23
--- OUTSIDE RECORDS SUMMARY | 2025-09-15 10:09 | XMS_ITS | Clinical Summary ---
Author Organization Healthcare Address [address] [place] [address] Care Team Providers Care Road Patcher Name Role Phone Dilshad Steele MD Primary Care Provider [phone] Family History Medical History Relation Name Comments [...] UKY-Zoster Vaccines (2 of 2) 10/02/2020 08/07/2020 [id number] Vaccine ( season) 2025 10/22/2022, 03/19/2022, 08/06/2021, Additional history exists UKY-Influenza Vaccine (#1) 2025 UKY-RSV Vaccine: 60+ Years or (1 - 1-dose 75+ series) 2028 UKY-Hepatitis A Vaccines Aged Out 02/24/2019, 12/2017 No longer eligible based on patient's age to complete this topic UKY-Pneumococcal Vaccine: 50+ Years Completed 05/15/2022, 12/10/2018 HPV Vaccines (No Doses Required) Completed UKY-HIB Vaccines Aged Out No longer e ligible based on patient's age to complete this topic UKY-IPV Vaccines Aged Out No longer e ligible based on patient's age to complete this topic UKY-Rotavirus Vaccines Aged Out No lo nger eligible based on patient's age to complete this topic Insurance MEDICARE Care Teams Road Patcher Relationship Specialty Start Date End Date Dilshad Steele MD [facility] [id number] PCP - General 02/01/21
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
--- OUTSIDE RECORDS SUMMARY | 2025-09-15 10:09 | XMS_ITS | Encounter Summary ---
Author Organization Healthcare Address [address] [place] [address] Care Team Providers Care Technical Healthcare Consultant Name Role Phone Dilshad Steele MD Primary Care Provider [phone] Encounter Details Date Type Department Care Team (Latest Contact Info) Description 08/24/2023 [facility] [address] [place] [address] Terri Rivera APRN [id number] Spinal stenosis of lumbar region with [...] disc documented in this encounter Care Teams Technical Healthcare Consultant Relationship Specialty Start Date End Date Dilshad Steele MD [facility] [address] PCP - General 02/01/21 documented as of this encounter
--- OUTSIDE RECORDS SUMMARY | 2025-09-15 10:09 | XMS_ITS | Referral Summary ---
Author Organization [employer] ([place], [place], [place], [place], [place]) Address [address] [place] [address] Care Team Providers Care Exhaust And Muffler Repairer Name Role Phone Dilshad Steele MD Primary Care Provider + [phone] Allergies Active Allergy Reactions Criticality Noted Date [...] the past 12 months, has t he [employer], gas, oil, or water company threatened to [...] Do you speak a language other than Bahamian at [facility]? No 10/16/2023 Do you want help [...] on file Medical Devices Implanted Type Area Mainstreaming Facilitator Device Identifier Shelf Expiration Date Model / Serial / Lot Bone Antoinetteigen Frmble Cell 10cc Bl-1600-003 - [id number] Implanted:Qty : 1 on 10/14/2023 by Vinicius Damon Jr., MD at [facility] IMPLANTS N/A: Spine LIFENET:LIFENET TRANSPLANT SRV 09/23/202400 [id number] / Scr Spne Arsenio Fix 6x40mm [id number] - [id number] Implanted:Qty : 3 on 10/14/2023 by Vinicius Damon Jr., MD at [facility] IMPLANTS N/A: Spine J &J:DEPUY:DEPUY SPINE 0 / 0 / Scr Spne Arsenio Fix Fen 6x45mm 5 - [id number] Implanted:Qty : 3 on 10/14/2023 by Vinicius Damon Jr., MD at [facility] IMPLANTS N/A: Spine J &J:DEPUY:DEPUY SPINE 5 / 5 / Scr Spne Arsenio Fix 7x40mm 0 - [id number] Implanted:Qty : 2 on 10/14/2023 by Vinicius Damon Jr., MD at [facility] IMPLANTS N/A: Spine J &J:DEPUY:DEPUY SPINE 0 / 0 / Scr Spne Arsenio Fix 7x45mm 5 - [id number] Implanted:Qty : 4 on 10/14/2023 by Vinicius Daomn Jr., MD at [facility] IMPLANTS N/A: Spine J &J:DEPUY:DEPUY SPINE 5 / 5 / Toan Spine Expedium [id number] - [id number] Implanted:Qty : 1 on 10/14/2023 by Vinicius Damon Jr., MD at [facility] IMPLANTS N/A: Spine J &J:DEPUY:DEPUY SPINE 0 / 0 / Mis Joselin Ply Scrw Set Ti -000 - [id number] Implanted:Qty : 12 on 10/14/2023 by Vinicius Damon Jr., MD at [facility] IMPLANTS N/A: Spine J &J:DEPUY:DEPUY SPINE 0 / 0 / Insurance [id number] [place] [id number] MEDICARE PART A B /[facility] Care Teams Exhaust And Muffler Repairer Relationship Specialty Start Date End Date Dilshad Steele MD [address] [place] [address] PCP - General Adolescent Medicine 10/08/23
--- NOTE | 2025-09-15 10:10 | XR_ITS ---
FINAL REPORT CLINICAL HISTORY: Nonspecific chest pain COMPARISON: 08/26/2025 FINDINGS: A single frontal view of the chest was obtained. There is severe hypoinflation. No evidence of edema or pneumonia. No pneumothorax. Interval removal of the NG tube. Mediastinum is unremarkable. Heart size is normal. IMPRESSION: Poor inspiration. Reviewed, Interpreted and Dictated by Raymond Howard MD Transcribed by Laurence Iqbal Authenticated and [facility]
--- OUTSIDE RECORDS SUMMARY | 2025-09-15 10:10 | XMS_ITS | Data Portability ---
Author Organization BAR[facility] sloan, [facility] [facility] Address [address] [place] [address] Care Team Providers Care Coke Production Heater Name Role Phone ERICA FLORES Primary Care Provider [phone] BI POWERS Referring Provider [phone] ALLI MITCHELL Pro Shop Attendant DOM STAPLES Rn Gynecology Unavaila ble Assessment Encounter Date Assessment Date Assessment LastModified by Organization Details LastModified Time 01/14/2024 01/14/2024 IMAGING: I personally reviewed the [...] 6 months with Lumbar and thoracic CT. [email or web address] Not available 10/13/2024 12:33:33 10/20/2024 10/20/2024 - [...] underlying causes. [email or web address] Not available 10/20/2024 10:42:12 04/13/2025 04/13/2025 I think that overall Ms. Hoskins is stable. She thinks this is well. I will have her continue doing the therapy that Dr. FloresOrdered for balance. I think this is a good idea. I do not see any obvious reason to do more advanced imaging at this point. I am to see if Dr. Duranate and treat her for her left posterior iliac/gluteal pain. He has an office in [place]. I am to see her back in 9 months with thoracic and lumbar x-rays. She knows that if anything comes up between now and then to let me know and I can always see her back sooner. She was happy with the plan. [email or web address] Not available 04/13/2025 11:44:15 Plan of Treatment Reminders Order Date Submit Date Provider Last Modified By Organization Details Last Modified Time Details Appointments RECHECK r 2025 11:00A Drake LUIS MD Not available Not available Not available Lab None recorded . Referral None recorded . Procedures None recorded . Surgeries None recorded . Imaging None recorded . Medication Orders None recorded . Patient TargetsNo targets recorded. Patient Instructions Encounter Date Encounter Id Patient Instructions Last Modified By Organization Details Last Modified Time 10/20/2024 [id number] - Use Tylenol as needed for knee [...] Abnormal Flag Note LastModifiedBy Organization Detail LastModifiedTime 01/15/20 24 01/14/2024 XR, thora cic spine , 2 view [facility] [address] [place] [address] Orion chandler Name: ANTONINA chandler : 1954 Orion chandler Orderi ng Provid er: UNIQUE LUIS EXAM DATE: 2023 EXAM: XR THORAC IC AP/LAT HISTOR Y: Follow -up of prior surger y COMPAR CHANTELLE: 024 FINDIN GS: There is prior chemical laboratory assistant ior fusion from T8 throug h T10, [...] By: Katherine calvin MD on 9:57 AM [facility] [address] , [place], [address], 03/15/2024 16:22:32 01/15/20 24 01/14/2024 XR, lumbo sacra l spine , 2 or 3 view [place] [address] [place] [address] Patien t Name: ANTONINA chandler : 1954 Orion chandler Orderi ng Provid er: UNIQUE LUIS EXAM DATE: 2023 EXAM: XR LUMBAR AP/LAT HISTOR Y: Follow -up of prior surger y COMPAR CHANTELLE: FINDIN GS: There is prior fusion from [...] ly Signed By: Katherine calvin MD on 9:59 AM [facility] [address] , [place], [address], 03/15/2024 16:22:16 03/29/20 24 03/29/2024 XR, thora cic spine , 2 view [place] [address] [place] [address] Patimary t Name: ANTONINA chandler : 1954 Orion chandler Orderi ng Provid er: UNIQUE LUIS EXAM DATE: 2023 EXAM: XR THORAC IC AP/LAT HISTOR Y: Follow -up of prior surger y COMPAR CHANTELLE: FINDIN GS: There is prior chemical laboratory assistant ior fusion from T8 throug h T10, [...] calvin MD on 03/29/20 24 9:38 AM [email or web address] [facility] [address] [place] [address], [phone], 05/16/2024 21:57:24 03/29/20 24 03/29/2024 XR, lumbo sacra l spine , 2 or [address] [place] [address] Gloriamary chandler Name: ANTONINA chandler : 1954 Orion chandler Orderi ng [facility] er: UNIQUE LUIS EXAM DATE: 2023 EXAM: [...] calvin MD on 03/29/20 24 9:39 AM [email or web address] [facility] [address] [place], [address], 05/16/2024 21:57:24 10/13/19 25 10/13/2024 XR, thora cic spine , 2 view [place] [facility] [address] [place] [address] [place] [address] Orion chandler Name: ANTONINA chandler : 1954 [...] Igor Andrews MD on 025 9:13 AM [email or web address] [facility] [address] [place], [address], 11/10/2024 13:12:34 10/13/19 25 10/13/2024 XR, lumbo sacra l spine , 2 or 3 view [place] [facility] [address] [place] [address] [place] [address] Orion chandler Name: ANTONINA chandler : 1954 [...] Igor Andrews MD on 025 9:[address] Radiology [facility] [address] [place], [address], 11/10/2024 13:12:35 10/20/19 25 10/20/2024 XR, knee, 4 or more view [facility] [place] [address] [place] [address] Patimary t Name: ANTONINA Sears t : 1954 Patien t Orderi ng Provid er: ANH HIGUERA EXAM [...] Katherine calvin MD on 025 10:09 AM phester [facility] [place] [address] , [place], [address], 10/20/2024 13:23:13 11/08/19 25 11/08/2024 CT, thora cic spine , w/o contr ast [facility] [address] [place] [address] [place] [address] Orion chandler Name: ANTONINA chandler : 1954 Orion chandler Orderi ng Provid er: UNIQUE LUIS EXAM DATE: 2024 EXAM: CT THORAC IC [...] retati on. FINDIN GS: There is prior chemical laboratory assistant ior fusion from T8 throug h T10, and extend ing to T12 and the lumbar spine. There is beam harden ing artifa ct from the pedicl e screws and chemical laboratory assistant ior fusion hardwa re. There is no eviden ce of loosen ing of the hardwa re. There are prior myra ctomie s from T9-T10 throug h T11-T1 2. There is a calcif ied mass along the chemical laboratory assistant ior aspect of the verteb ral bodies [...] is a right parace ntral disc protru uzair at T8-T9 with narrow ing of the [...] Katherine calvin MD on 025 3:[email or web address] [place] [address] Radiology [facility] [address] [place], [address], 12/13/2024 10:20:48 11/08/19 25 11/08/2024 CT, lumba r spine , w/o contr ast [address] [address] Gloriamary chandler Name: ANTONINA chandler : 1954 Orion [...] retati on. FINDIN GS: There is prior chemical laboratory assistant ior fusion extend ing from the thorac ic spine and into the T12-L2 verteb ral bodies on this study. There is beam harden ing artifa ct from the pedicl e screws and chemical laboratory assistant ior fusion hardwa re. There is no eviden ce of loosen ing of the hardwa re. There are associ ated myra ctomie s at T12-L1 and L1-L2. There is a calcif ied mass in the chemical laboratory assistant ior aspect of the verteb ral bodies [...] ature. IMPRES UZAIR: 1. There is prior chemical laboratory assistant ior fusion extend ing from the thorac ic into the lumbar spine with myra ctomie s. There is no eviden ce of loosen ing of the hardwa re. There is a calcif ied mass along the chemical laboratory assistant ior aspect of the verteb ral bodies [...] Katherine calvin MD on 025 3:[email or web address] [place] [address], [address], 12/13/2024 10:20:49 04/13/20 25 04/13/2025 XR, lumbo sacra l spine , 2 or [address] [address] Orion chandler Name: ANTONINA chandler : 1954 Orion chandler Orderi ng Provid er: UNIQUE LUIS EXAM DATE: 2024 EXAM: XR LUMBAR AP/LAT CLINIC AL INFORM ATION: Back pain. IMAGES PROVID ED: AP, latera l and coned down views of the lumbar spine. COMPAR CHANTELLE: 025 FINDIN GS: There appear s to be chemical laboratory assistant ior fusion extend ing from T8 to L2. There is compre ssion deform ity presen t involv ing the right aspect of L3. Mild levosc oliosi s. No hardwa re compli cation of the visibl e hardwa re. No hardwa re fractu re or loosen ing is sugges lanie. No parasp inal diseas e. Modera te degene rative disc diseas e below the fixati ng hardwa re. IMPRES UZAIR: 1. Previo us thorac olumba r fixati on with no defini te compli cation 2. Modera te DDD of the lower L-spin e with compre ssion deform ity involv ing the right aspect of L3 Interp reted By: Igor Andrews MD Electr onical ly Signed By: Igor Andrews MD on 025 10:27 AM [email or web address] [facility] [address], [address], 05/31/2025 22:17:37 04/13/20 25 04/13/2025 XR, hip, unila teral , 2 or [address] [address] Orion chandler Name: ANTONINA chandler : 1954 Patimary t Orderi ng Provid er: UNIQUE LUIS EXAM DATE: 2024 EXAM: XR LT HIP UNILAT ERAL, 2 OR 3 VWS COMPAR CHANTELLE: None. HISTOR Y: Left hip pain. FINDIN GS: No fractu re is identi fied. There are mild degene rative change s in the left hip. There is minima l to mild medial joint space loss. There is mild margin al spurri ng. Limite d visual izatio n of the contra latera l hip demons trates mild degene rative change . IMPRES UZAIR: 1. There are mild degene rative change s in the left hip. Interp reted By: Katherine calvin MD Electr on ly Signed By: Katherine calvin MD on 025 10:28 AM [email or web address] [facility] [address], [address], 05/31/2025 22:17:38 Result Notes Documentation Provider Name and Address Organization Details Recorded Time Xr, Thoracic Spine, 2 View : [place] [address] Patient Name: ANTONINA HOSKINS Patient : 1955 [...] spine. Interpreted By: Mauricio Kwok MD Chepe qureshi [facility] 03/15/2024 16:22:32 Xr, Lumbosacral Spine, 2 Or 3 View : [address] [address] Patient Name: ANTONINA HOSKINS Patient : 1955 [...] spine. Interpreted By: Maur[facility] 03/15/2024 16:22:16 Xr, Thoracic Spine, 2 View : [place] [address] Patient Name: ANTONINA HOSKINS Patient : 1955 [...] By: Mauricio Kwok MD UE LUIS MD [address] [place] [address], [phone] [place] [address] 05/16/2024 21:57:24 Xr, Lumbosacral Spine, 2 Or 3 View : [place] [address] Patient Name: ANTONINA HOSKINS Patient : 1955 [...] By: Mauricio Kwok MD UE LUIS MD [address] [place] [address], [address], [facility] 05/16/2024 21:57:24 Xr, Thoracic Spine, 2 View : [address] [address] Patient Name: ANTONINA HOSKINS Patient : 1955 [...] By: Igor Andrews MD UE LUIS MD [address] [place] [address], [address], [facility] 11/10/2024 13:12:34 Xr, Lumbosacral Spine, 2 Or 3 View : [address] [address] Patient Name: ANTONINA HOSKINS Patient : 1955 [...] By: Igor Andrews MD UE LUIS MD [address] [place] [address], [address], [facility] 11/10/2024 13:12:35 Xr, Knee, 4 Or More View : [facility] [address] [place] [address] Patient Name: ANTONINA HOSKINS Patient : 1955 [...] Interpreted By: Mauricio Kwok MD HIGUERA MD [address] [place] [address] 10/20/2024 13:23:13 Ct, Thoracic Spine, W/o Contrast : [place] [address] Patient Name: ANTONINA HOSKINS Patient : 1955 [...] By: Mauricio Kwok MD UE LUIS MD [address] [place] [address], [phone] [place] [address] 12/13/2024 10:20:48 Ct, Lumbar Spine, W/o Contrast : [address] [address] Patient Name: ANTONINA HOSKINS Patient : 1955 [...] By: Mauricio Kwok MD UE LUIS MD [address] [place] [address], [address], [facility] 12/13/2024 10:20:49 Xr, Lumbosacral Spine, 2 Or 3 View : [place] [address] Patient Name: ANTONINA HOSKINS Patient : 1955 Patient Ordering Provider: UNIQUE LUIS EXAM DATE: 04/13/2025 EXAM: XR LUMBAR AP/LAT CLINICAL INFORMATION: Back pain. IMAGES PROVIDED: AP, lateral and coned down views of the lumbar spine. COMPARISON: 10/13/2024 FINDINGS: There appears to be posterior fusion extending from T8 to L2. There is compression deformity present involving the right aspect of L3. Mild levoscoliosis. No hardware complication of the visible hardware. No hardware fracture or loosening is suggested. No paraspinal disease. Moderate degenerative disc disease below the fixating hardware. IMPRESSION: 1. Previous thoracolumbar fixation with no definite complication 2. Moderate DDD of the lower L-spine with compression deformity involving the right aspect of L3 Interpreted By: Igor Andrews MD UE LUIS MD [address] [place] [address], [address], [facility] 05/31/2025 22:17:37 Xr, Hip, Unilateral, 2 Or 3 View : [place] [id number] Patient Name: ANTONINA HOSKINS Patient : 1955 Patient Ordering Provider: UNIQUE LUIS EXAM DATE: 04/13/2025 EXAM: XR LT HIP UNILATERAL, 2 OR 3 VWS COMPARISON: None. HISTORY: Left hip pain. FINDINGS: No fracture is identified. There are mild degenerative changes in the left hip. There is minimal to mild medial joint space loss. There is mild marginal spurring. Limited visualization of the contralateral hip demonstrates mild degenerative change. IMPRESSION: 1. There are mild degenerative changes in the left hip. Interpreted By: Mauricio Kwok MD UE LUIS MD [address] [place], [address], [facility] 05/31/2025 22:17:38 Problems No Known Problems Procedures Surgical History Date Name Laterality Status Provider Name and Address Organization Details Recorded Time 11/20/19 24 EKG completed ALLI MITCHELL, APPLICATION COORDINATOR [address] [place], [address], [facility] 11/20/2023 12:22:25 10/14/19 19 Suture/Staple removal completed Kyra RICE PA-C [address] [place], [address] [place] [address] 10/14/2018 16:59:56 10/06/19 19 Orthopedic Surgery completed Ritchie Chris [facility] 10/14/2018 15:37:44 07/22/20 18 PT Evaluation - Moderate Complexity completed VIANCA MAGDALENO, PT [address] [place], [address], [facility] 07/22/2018 18:46:54 07/22/20 18 PT Therapeutic Exercise completed VIANCA MAGDALENO, PT [address] [place], [address], [facility] 07/22/2018 18:47:07 Knee arthroscopy/surge ry [facility] 11/20/2023 12:03:07 ligation of fallopian tube completed [facility] 11/20/2023 12:04:01 tonsillectomy completed [facility] 11/20/2023 12:04:16 Imaging Results None recorded. Procedure Notes None recorded. Medical Equipment None Reported. Allergies Allergen ID Allergen Name Allergen Category Reaction Reaction Severity Criticality Documentation Date Start Date Code Code System Note Provider Name and Address Organization Details Recorded Time 335684 Substance with sulfonami de structure and antibacte rial mechanism of action (substanc e) medicatio n Not available Not available Not available 08/15/20162009 57088 8003 SNOMED Comme nt: Creat ed By: Irina pierson Austin staples;Cre ated Date: 2009 1:21: 56 PM; Not Available [facility] 6 03:36:34 264431 Claritin medicatio n Not available Not available Not available 08/15/20162009 08314 6 RxNorm Comme nt: Creat ed By: Irina Avila bel;Cre ated Date: 2009 1:22: 08 PM; Not Available [facility] 6 05:17:08 867792 Product containin g penicilli n (product) medicatio n Not available Not available Not available 09/24/[address] [facility] 4 08:34:34 256892 oxycodone medicatio n Not available Not available Not available 09/24/[address] [facility] 4 08:34:58 875939 sulfameth oxazole / trimethop rim medicatio n Not available Not available Not available 08/03/20252009 40744 RxNorm Not Available [employer] [facility] 5 09:00:08 238785 loratadin e medicatio n Not available Not available Not available 08/03/20252023 75783 RxNorm Not Available [employer] - prod 5 09:01:33 Medications Name Sig Start Date Stop Date [...] Body mass index (BMI) Body weight Systolic And Diastolic Provider Name and Address Organization Details Last Updated DateTime 10/13/2024 162.56 cm 32.3 kg/m2 34645.37 g 124/74 mm[Hg] [facility] 10/13/2024 10:14:14 Date Recorded Body height Body mass index (BMI) Body weight Provider Name and Address Organization Details Last Updated DateTime 10/20/2024 162.56 cm 32.3 kg/m2 17462.37 g Sharon Hyattalicia [facility] 10/20/2024 10:13:23 Date Recorded Body height Body mass index (BMI) Body weight Systolic And Diastolic Provider Name and Address Organization Details Last Updated DateTime 01/14/2024 162.56 cm 32.3 kg/m2 13787.37 g 122/74 mm[Hg] [facility] 01/14/2024 11:05:40 Date Recorded Body height Body mass index (BMI) Body weight Systolic And Diastolic Provider Name and Address Organization Details Last Updated DateTime 03/29/2024 162.56 cm 32.3 kg/m2 83606.37 g 122/72 mm[Hg] Gila Craft [facility] 03/29/2024 10:04:33 Date Recorded Body height Provider Name an d Address Organization Details Last Updated DateTime 04/13/2025 162.56 cm Eileen Chavez [facility] in 04/13/2025 11:04:50 Social History Question Answer Notes LastModified by Organizat ion Details LastModified Time Tobacco Smoking Status Never Smoker Mallorie Harsh qureshi, [facility] 06/17/2018 08:52:30 Rate The Severity Of Your [...] Status Question Answer Note LastModified by Organizat ion Details LastModified Time Are you currently employed? [...] available 2023 12:01:31 Medical History Condition Response TENS Unit for current problem N Massage Therapy for current problem N Traction for current problem N Gout N Other N Anxiety/Depression N Thyroid Disease N Kidney Stones N Hernia N Narcotic Pain Medication for current pro blem N Emphysema N COPD N Glaucoma N Pneumonia N Injections for current problem N Anesthesia Complications N Deep Vein Thrombosis N Arthritis Y Blood Clot N Cancer N Stroke N Blood Thinners Y Shortness of Breath N Alcohol Overuse/Alcohol Abuse N High Cholesterol N Liver Disease N Fibromyalgia N Dialysis N Kidney Disease N Allergies/Hayfever Y Neuro-modulating Drugs for current probl em N Heart Conditions N Black Lung N Migraines N Steroid Pack for current problem N NSAID Use Y Skin Problems N Immune System Disorder N Chest Pain N Heart Attack (LA) N Mental Illness N Neurological Problems N Diabetes N Rheumatic Fever N Bleeding Disorder N Seizures/Epilepsy N Tuberculosis N Genetic Disorder N AIDS/HIV N Hyperlipidemia N Chiropractor treatment for current probl em N Kidney Failure N Asthma N Ultrasound Treatment for current problem N Epilepsy/Seizures N Sleep Apnea N Thyroid Disorder N GERD/Reflux N Physical Therapy Treatments for current problem Y Included as Review of Systems N Pulmonary Embolism N Hypertension N Osteoporosis N Gynecological HistoryNo gynecological history recorded. Obstetrics History GPAL:G 0 P 0 0 0 0 Past Encounters Encounter ID Performer Location Encounter Start Date Encounter Closed Date Diagnosis/Indication Diagnosis SNOMED-CT Code Diagnosis ICD10 Code Diagnosis IMO Codes Diagnosis Note [id number] ANH HIGUERA MD [facility] [address] [place] [address] 06/17/2018 08:34:14 06/17/2018 09:34:23 Anterior dislocation of shoulder joint 375076163 S43.014A [id number] ANH HIGUERA MD [facility] [address] [place] [address] 07/01/2018 11:21:28 07/01/2018 13:15:52 Anterior dislocation of shoulder joint 374039948 S43.014A [id number] ANH HIGUERA MD [facility] [address] [place] [address] 07/13/2018 13:43:25 07/22/2018 08:24:29 Full thickness rotator cuff tear 244467376 M75.121 Subluxatio n of long head of biceps 713115308 S43.391A [id number] VIANCA MAGDALENO, PT PHYSICAL THERAPY / HAND THERAPY [facility] [address] [address] 07/22/2018 07:39:29 07/23/2018 07:40:37 Injury of tendon of the rotator cuff of shoulder 732903147 S46.001D Muscle weakness 21010983 M62.81 Muscle atrophy 55410950 M62.511 Shoulder stiff 532536783 M25.571 [id number] ANH HIGUERA MD [facility] [address] [address] 08/10/2018 10:17:45 08/10/2018 11:29:25 Full thickness rotator cuff tear 522417943 M75.121 Closed fra cture of upper end of humerus 16042578 S42.201D [id number] ANH HIGUERA MD [facility] [address] [place] [address] 09/07/2018 10:09:35 09/09/2018 10:34:15 Full thickness rotator cuff tear 186253350 M75.437 [id number] ANH HIGUERA MD SURGERY SCHEDULE [address] [place] [address] 10/06/2018 06:43:08 10/06/2018 06:50:20 [id number] Kyra RICE PA-C [facility] [address] [place] [address] 10/14/2018 15:14:38 10/18/2018 08:06:55 Postoperative care [id number] Z48.89 [id number] Kyra RICE PA-C [facility] [address] [place] [address] 11/02/2018 09:35:00 11/02/2018 13:09:09 Postoperative care 930553258 Z48.89 [id number] ANH HIGUERA MD [facility] [address] [place] [address] 11/30/2018 10:27:24 11/30/2018 11:34:59 Full thickness rotator cuff tear 768397390 M75.530 [id number] ANH HIGUERA MD [facility] [address] [place] [address] 01/04/2019 10:32:25 01/04/2019 12:43:15 Full thickness rotator cuff tear 045490561 M75.507 [id number] ANH HIGUERA MD [facility] [address] [place] [address] 02/08/2019 10:55:30 02/08/2019 12:37:12 Full thickness rotator cuff tear 505764261 M75.728 [id number] ANH HIGUERA MD [facility] [address] [place] [address] 03/15/2019 09:23:00 03/15/2019 10:36:42 Full thickness rotator cuff tear 826198033 M75.269 [id number] ANH HIGUERA MD [facility] [address] [place] [address] 04/19/2019 10:51:34 04/19/2019 12:36:16 Full thickness rotator cuff tear 807108589 M75.284 [id number] ANH HIGUERA MD [facility] [address] [place] [address] 05/24/2019 10:48:44 06/06/2019 11:27:59 Full thickness rotator cuff tear 003169091 M75.242 [id number] ANH HIGUERA MD [facility] [address] [place] [address] 07/05/2019 10:22:04 07/05/2019 14:17:14 Full thickness rotator cuff tear 122025470 M75.121 [id number] UNIQUE LUIS [facility] [address] [facility] [place] [address] 09/24/2023 08:03:13 09/25/2023 04:18:06 Thoracic spondylosis with myelopathy 41137671 M47.14 [id number] AYSHA MACHADO MD HEART [address] [place] [address] 10/16/2023 09:15:19 10/16/2023 09:15:43 [id number] UNIQUE LUIS MD SURGERY SCHEDULE [address] [place] [address] 10/23/2023 07:43:23 10/30/2023 15:33:05 [id number] UNIQUE LUIS MD [facility] [address] [place] [address] 10/29/2023 09:35:40 10/30/2023 04:19:51 [id number] ALLI RAFIQ MITCHELL APRN CARDIOLOG Y [facility] [address] [place] [address] ,[address] [place] [address] 11/20/2023 10:46:57 11/20/2023 13:58:37 Paroxysmal atrial fibrillation 987265030 I48.0 NSR on today's EKG. Cardiac symptoms [...] time. Body mass index 30+ - obesity 553379658 Z68.32 Discussed importance of maintainin g healthy weight, increasing aerobic exercise. Goal 120-150 min per week. Hyperlipidemia 53886524 E78.5 Currently on statin. Low cholestero l/low fat diet adivsed. Hypertensive disorder 38 242671 I10 Stable. Long-term current use of anticoagulant 565810427 Z79.01 Eliquis, tolerating well. No abnormal bleeding reported.C next office visit [id number] UNIQUE LUIS MD [facility] [address] [place] [address] 12/08/2023 09:50:15 12/09/2023 04:46:16 Spinal stenosis of thoracic region 02623833 M48.04 [id number] LING DUCKWORTH PA-C [facility] [address] [place] [address] 01/14/2024 10:57:09 01/15/2024 04:25:31 Spinal stenosis of thoracic region 83794785 M48.04 [id number] LING DUCKWORTH PA-C [facility] CL[facility] [address] [place] [address] 03/29/2024 09:57:16 03/30/2024 04:28:53 History of spinal fusion [id number] Z98.1 Spinal soledad nosis of thoracic region [id number] M48.04 [id number] SHARMILA GUERRA, APPLICATION COORDINATOR [facility] [address] [place] [address] 10/13/2024 09:30:44 10/14/2024 04:16:24 Lumbar radiculopathy [id number] M54.16 [id number] ANH HIGUERA MD [facility] CLOSED [address] [place] [address] 10/20/2024 09:32:45 10/21/2024 05:04:24 Osteoarthritis of right knee joint [id number] M17.11 [id number] UNIQUE LUIS MD NEUROSURG [facility] [address] [place] [address] 04/13/2025 10:54:34 04/14/2025 04:22:45 Lumbar spondylosis [id number] M47.816 [id number] Health Concerns Section Related Observation LastModified by Organization Detai ls LastModified Time None Recorded Concern Status LastModified by Organization Details LastModified Time None Recorded Advance Directives Directive None Recorded Payers Insurance Date Sequence Insurance Name Policy Number Policy Abbasi Covered Member ID Abbasi Member ID Guarantor Name 08/23/2018 2 [place] Antonina Hoskins 08/15/2020 [facility] [employer] [place] Antonina Hoskins 04/10/2025 2 [place] [id number] Antonina Hoskins [id number] Antonina Hoskins 04/10/2025 1 MEDICARE-BAR[place] (MEDICARE) Antonina Hoskins [id number] Antonina Hoskins 11/20/2023 1 [place] FFS/TRADITIONAL Antonina Hoskins [id number] Antonina Linsey 11/20/2023 INGENIOUSMED (MOVED TO HOLD) Antonina Merchant Linsey 11/20/2023 [facility] Antonina Hoskins [id number] Antonina [place] Notes Date Note Type Note Provider Name and Address Organization Details Recorded Time 01/14/2024 text/html ROS as noted in the HPI Angelique Hoskins is a 68-year-old female s/p [...] her right lower extremity to correct foot return agent with ambulation. She has been wearing the brace for less than a week and says she cannot tell if it significantly helps with her instability quite yet. She says she can comfortably ambulate with a walker but uses a cane while at home. She was seeing Dr. Jacobo for UTI which resolved with one round of antibiotics. Patient works at [employer] answering [employer] and wants to discuss returning to work. PA and physician visit. NILA ACE-Onel [address] [place], [address], [facility] 01/14/2024 12:53:51 03/29/2024 text/html ROS as noted in the HPI Antonina Hoskins is a 68-year-old female s/p [...] times a week. PA and physician visit. NILA ACE-C [address] [place], [address], [facility] 03/29/2024 11:56:13 10/13/2024 text/html ROS as noted in the HPI Ms. Hoskins is a pleasant 69 year [...] groin areas and front thighs. SHARMILA GUERRA, APPLICATION COORDINATOR [address] [place], [address], [facility] 10/13/2024 12:34:12 10/20/2024 text/html WHAT: Right [...] requiring outpatient skilled therapy. ANH HIGUERA MD [address] [place] [address], [phone], [facility] 10/20/2024 13:20:39 04/13/2025 text/html I last saw Ms. Hoskins in September.I performed a T9-L2 Laminectomyand T8-L2 fusionIn September 2023. 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 I aborted the surgery because motor evoked potential waveforms were lost in the right lower extremity. I had planned on going down to the lumbosacral area for the decompression and fusion. At the last visit she was overall doing okay. She had significant right leg weakness after surgery which improved. She was stable overall. Her pain was not too bad. I was going to have her come back in 6 months and get a CT scan of the thoracic and lumbar spines to evaluate the calcified mass in the hardware about this was ordered in October for some reason. I reviewed it. Since last visit she is overall doing well. She still has some balance issues. She started some balance therapy again. She thinks it is about the same. It is an issue but overall stable. She has had 2 episodes where her right lower extremity is giving out on her. She thinks that she slipped.There is but not been any major decline in motor strength or marked new weakness.She has left posterior iliac and gluteal pain. This is present mostly when she sits.She does not have any radicular leg pain. No left-sided symptoms. UNIQUE LUIS MD [facility] [place], [address], [facility] 04/13/2025 11:45:31 OBGyn Episode No OBEpisode recorded.
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
[2025-09-15 10:15] LABS: Hematocrit 32.5 % (37.0-47.0); Hemoglobin 10.3 g/dL (12.2-16.2); Immature Granulocytes % 0.3 %; Mean Corpuscular HGB Conc 31.7 g/dL (31.8-35.4); Mean Corpuscular Hemoglobin 31.9 pg (27.0-31.2); Mean Corpuscular Volume 100.6 fl (81-99); Nucleated Red Blood Cells % 0 %; Platelet Count 268 K/mm3 (142-424); Red Blood Count 3.23 M/mm3 (4.20-5.40); Red Cell Distribution Width-SD 59.6 fL; White Blood Count 6.1 K/mm3 (4.8-10.8)
[2025-09-15 10:18] LABS: Albumin Level 4.3 g/dl (3.5-5.0); Chloride 104 mmol/L (98-107); Potassium 3.7 mmoL/L (3.5-5.1); Sodium 140 mmol/L (136-145)
[2025-09-15 10:21] LABS: Alanine Aminotransferase 23 U/L (12-78); Albumin/Globulin Ratio 1.5 (1.1-1.8); Alkaline Phosphatase 79 U/L (38-126); Anion Gap 12.7 mEq/L (5-15); Aspartate Amino Transferase 28 U/L (14-36); Bilirubin,Total 0.6 mg/dl (0.2-1.3); Blood Urea Nitrogen 15 mg/dl (7-17); Calcium 10.0 mg/dl (8.4-10.2); Carbon Dioxide 27 mmol/L (22.0-30.0); Creatinine Clearance Estimated 66 mL/min (50-200); Creatinine,Serum 0.70 mg/dl (0.52-1.04); Estimated Glomerular Filt Rate 82 ml/min (>60); GFR (African American) 100 ML/MIN (>60); Globulin 2.9 g/dL (1.3-3.2); Glucose 117 mg/dl (74-100); Total Protein,Serum 7.2 g/dl (6.3-8.2)
[2025-09-15] MEDS: BELLADONNA ALKALOIDS 60 ML ML PO (10:24)
[2025-09-15] MEDS: ONDANSETRON 4MG/2ML VIAL 4 MG IV (10:29)
[2025-09-15 10:31] LABS: NT Pro Brain Natriuretic Pep. 144 pg/mL (0-125)
[2025-09-15 10:37] LABS: Troponin I < 0.01 ng/ml (0.00-0.034)
--- NOTE | 2025-09-15 13:11 | PC.NURSE ---
2nd trop sent to lab
[2025-09-15 13:48] LABS: Troponin I 0.17 ng/ml (0.00-0.034)
[2025-09-15] MEDS: ASPIRIN 325MG TABLET 325 MG PO (13:53)
--- NOTE | 2025-09-15 13:55 | PC.NURSE ---
called cardiology for consult
--- NOTE | 2025-09-15 13:59 | ECG_ITS ---
APPROVED REPORT Exam: Resting ECG HR:67 bpm ECG Measurements Heart Rate 67 AXES MN 153 P 62 QRSd 85 QRS 12 QT 394 T 22 QTc 409 Conclusion SINUS RHYTHM NORMAL ECG Electronically signed by : EDWARD ESCALERA, 09/17/2025 07:11:50
--- NOTE | 2025-09-15 13:59 | HMH.PHAINT1 ---
Pharmacy Intervention Comments: MEDICATION RECONCILIATION COMPLETED ON PATIENT USING EXTERNAL FILL HISTORY FROM PHARMACY AND DISCHARGE SUMMARY FROM PREVIOUS ADMISSION. -MARIA ALEJANDRA FOURNIER, MELINDAD
--- NOTE | 2025-09-15 14:04 | CA_ITS ---
APPROVED REPORT EXAM: Comprehensive 2D, Doppler, and color-flow Echocardiogram Tobacco Drummer: Clara Sanchez RVT Ht: 5 ft 3 in Wt: 180lbs BSA: 1.85 BP: 125/67 mmHg Indications: CHEST PAIN,NSTEMI 2D Dimensions IVSd 1.88 cm F: 0.6-1.0 LVEF (Visual) 61.00 % PWd 0.73 cm F: 0.6 - 1.0 LA Volume 78.30 mL LVDd 3.18 cm F: 3.9 - 5.3 LA Volume Index 42.32 mL/m2 (M/F) 16-34 LVDs 2.17 cm F: 2.2 - 3.5 M-Mode Dimensions LA Diam 4.15 cm (1.9-4.0) TAPSE 1.83 (<1.7) LV Diastology E Decel Time 220 (160-240 msec) E/A Ratio 0.7 Aortic Valve PRINCESS Index 1.00 cm2/m2 AoV Peak Sher. 179.0 (50-130 cm/s) AO Peak GR. 12.90 mmHg AO Mean GR. 6.80 (<5 mmHg) AO VTI 38.1 (18-25 cm) PRINCESS (VTI) 1.89 (2.5-4.5 cm2) Mitral Valve MV E Max Sher. 88.0 (40-130 cm/s) MV A Velocity 122.0 (40-130 cm/s) E/A Ratio 0.72 MV PHT 64.0 ms Pulmonary Valve PV Peak Velocity 54.0 (50-150 cm/s) Tricuspid Valve TR P. Velocity 277.00 cm/s RAP Estimate 8.00 mmHg RVSP 38.70 mmHg Left Ventricle The left ventricle is normal size. Left ventricular systolic function is normal. The left ventricular ejection fraction is within the normal range. There is increased left ventricular wall thickness. There is normal LV segmental wall motion. The left ventricular diastolic function is indeterminate. LVEF is 55% Right Ventricle The right ventricle is normal size. The right ventricular systolic function is normal. Atria Left atrium is severely dilated. Right atrium is mildly dilated. There is no color Doppler evidence of interatrial shunt. Aortic Valve The aortic valve is mildly thickened. There is no hemodynamically significant aortic valvular stenosis. Mild aortic regurgitation is present. Mitral Valve Moderate mitral annular calcification (MAC) is present. The mitral valve is mildly thickened. No evidence of mitral valve stenosis. At least mild mitral regurgitation is present. The MR jet is eccentric and may be underestimated on TTE. Tricuspid Valve The tricuspid valve leaflets are thin and pliable. Mild tricuspid regurgitation. RVSP is 30-35 mmHg. Pulmonic Valve The pulmonary valve is grossly normal in structure. Trace pulmonic valve regurgitation is present. Great Vessels The aortic root is normal in size. IVC is normal in size and collapses >50% with inspiration. Pericardium There is no pericardial effusion. Other Information Study Quality: Technically Difficult Conclusion Normal biventricular systolic function. Biatrial dilation. MAC present. At least mild MR (the MR jet is eccentric and may be underestimated on TTE). Mild AI, mild TR. Electronically signed by : Mehnaz Murcia MD 09/16/2025 13:15:50
--- NOTE | 2025-09-15 14:33 | PC.NURSE ---
house aware of admission
--- NOTE | 2025-09-15 15:06 | PC.NURSE ---
called report to mikaela arauz
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
[2025-09-15 16:45] LABS: Troponin I 1.39 ng/ml (0.00-0.034)
[2025-09-15 18:44] LABS: Adenovirus,PCR Not Detected (NotDetected); Chlamydophila Pneumoniae, PCR Not Detected (NotDetected); Coronavirus 19, PCR Not Detected (NotDetected); Coronovirus HKU1,PCR Not Detected (NotDetected); Influenza A, PCR Not Detected (NotDetected); Influenza AH1, 2009 Not Detected (NotDetected); Influenza AH1, PCR Not Detected (NotDetected); Influenza AH3,PCR Not Detected (NotDetected); Influenza B, PCR Not Detected (NotDetected); Mycoplasma Pneumoniae, PCR Not Detected (NotDetected); Parainfluenza 1, PCR Not Detected (NotDetected); Parainfluenza 2, PCR Not Detected (NotDetected); Parainfluenza 3, PCR Not Detected (NotDetected); Parainfluenza 4, PCR Not Detected (NotDetected)
[2025-09-15] MEDS: METOPROLOL TARTRATE 50MG TABLET 50 MG PO (20:25)
[2025-09-15] MEDS: ATORVASTATIN 40MG TABLET 40 MG PO (20:26)
[2025-09-15] MEDS: PANTOPRAZOLE 40MG TABLET 40 MG PO (20:26)
[2025-09-15 22:25] LABS: Troponin I 8.87 ng/ml (0.00-0.034)
--- NOTE | 2025-09-15 22:28 | EXP.EVENT.NO ---
Patient's troponin increased from 1.47-> 8.87 x 1030 p.m. 09/15/2025. Patient already on therapeutic Lovenox 80 mg SQ every 12, and aspirin daily. Patient currently chest pain-free. Will order recheck troponin in AM. Cardiology consultation also in progress. NPO after midnight in case Cardiac catheterization needed in AM.
[2025-09-16] VITALS (8 sets, daily range): BP systolic 106–146; BP diastolic 53–55; PULSE 63–90; RESP 14–20; TEMP 36.5–37.3; O2SAT 93–96; BMI 32.9
[2025-09-16 05:11] LABS: Alanine Aminotransferase 26 U/L (12-78); Albumin Level 3.8 g/dl (3.5-5.0); Albumin/Globulin Ratio 1.4 (1.1-1.8); Alkaline Phosphatase 75 U/L (38-126); Anion Gap 9.2 mEq/L (5-15); Aspartate Amino Transferase 100 U/L (14-36); Bilirubin,Total 0.5 mg/dl (0.2-1.3); Blood Urea Nitrogen 11 mg/dl (7-17); Calcium 9.1 mg/dl (8.4-10.2); Carbon Dioxide 25 mmol/L (22.0-30.0); Chloride 105 mmol/L (98-107); Cholesterol 161 mg/dl (140-200); Creatinine Clearance Estimated 68 mL/min (50-200); Creatinine,Serum 0.70 mg/dl (0.52-1.04); Estimated Glomerular Filt Rate 82 ml/min (>60); GFR (African American) 100 ML/MIN (>60); Globulin 2.7 g/dL (1.3-3.2); Glucose 103 mg/dl (74-100); HDL Cholesterol 52 mg/dl (40-60); Magnesium 2.1 mg/dl (1.6-2.3); Potassium 4.2 mmoL/L (3.5-5.1); Sodium 135 mmol/L (136-145); Total Protein,Serum 6.5 g/dl (6.3-8.2); Triglycerides 143 mg/dl (30-150)
[2025-09-16 05:29] LABS: Hematocrit 30.5 % (37.0-47.0); Hemoglobin 9.9 g/dL (12.2-16.2); Immature Granulocytes % 0.1 %; Mean Corpuscular HGB Conc 32.5 g/dL (31.8-35.4); Mean Corpuscular Hemoglobin 32.7 pg (27.0-31.2); Mean Corpuscular Volume 100.7 fl (81-99); Nucleated Red Blood Cells % 0 %; Platelet Count 246 K/mm3 (142-424); Red Blood Count 3.03 M/mm3 (4.20-5.40); Red Cell Distribution Width-SD 59.4 fL; White Blood Count 6.8 K/mm3 (4.8-10.8)
[2025-09-16 05:37] LABS: Troponin I 15.40 ng/ml (0.00-0.034)
[2025-09-16 05:41] LABS: Thyroid Stimulating Hormone 0.48 uIU/mL (0.465-4.68)
[2025-09-16 06:24] LABS: Hemoglobin A1C 5.0 % (4.0-6.0)
[2025-09-16] MEDS: LEVOTHYROXINE 50MCG (0.05MG) TAB 50 MCG PO (06:43)
--- NOTE | 2025-09-16 08:38 | PC.NURSE ---
Spoke with hospitalist about patients trending troponins, he states cardiology is aware and no current intervention at this time. He will reach back out to cardiology to update and to go ahead and place a diet.
[2025-09-16] MEDS: PANTOPRAZOLE 40MG TABLET 40 MG PO ×2 (08:56→20:56)
[2025-09-16] MEDS: dilTIAZem ER 240MG CAPSULE 240 MG PO (08:56)
[2025-09-16] MEDS: ASPIRIN EC 81MG TABLET 81 MG PO (08:56)
[2025-09-16] MEDS: METOPROLOL TARTRATE 50MG TABLET 50 MG PO ×2 (08:56→20:57)
[2025-09-16 12:38] LABS: Troponin I 9.01 ng/ml (0.00-0.034)
--- OUTSIDE RECORDS SUMMARY | 2025-09-16 14:40 | XMS_ITS | Encounter Summary ---
Author Organization Healthcare Address [address] [place] [address] Care Team Providers Care Tempering Oven Operator Name Role Phone Dilshad Steele MD Primary Care Provider [phone] Encounter Details Date Type Department Care Team (Latest Contact Info) Description 08/24/2023 Community [facility] [address] [place] [address] Terri Rivera APRN [id number] Spinal stenosis of [...] disc documented in this encounter Care Teams Tempering Oven Operator Relationship Specialty Start Date End Date Dilshad Steele MD [facility] [id number] PCP - General 02/01/21 documented as of this encounter
--- OUTSIDE RECORDS SUMMARY | 2025-09-16 14:40 | XMS_ITS | Referral Summary ---
Author Organization [facility] ([place], [place], [place], [place], [place]) Address [address] [place] [address] Care Team Providers Care Perinatal Technician Name Role Phone Dilshad Steele MD Primary Care Provider + [phone] Allergies Active Allergy Reactions Criticality Noted Date [...] the past 12 months, has t he [employer], gas, oil, or water company threatened to [...] Do you speak a language other than [place] at [facility]? No 10/16/2023 Do you want [...] on file Medical Devices Implanted Type Area Model Technician Device Identifier Shelf Expiration Date Model / Serial / Lot Bone Antoinetteigen Frmble Cell 10cc Bl-1600-003 - [id number] Implanted:Qty : 1 on 10/14/2023 by Vinicius Damno Jr., MD at [facility] IMPLANTS N/A: Spine LIFENET:LIFENET TRANSPLANT SRV 09/23/202400 [id number] / Scr Spne Arsenio Fix 6x40mm [id number] - [id number] Implanted:Qty : 3 on 10/14/2023 by Vinicius Damon Jr., MD at [facility] IMPLANTS N/A: Spine J &J:DEPUY:DEPUY SPINE 0 / 0 / Scr Spne Arsenio Fix Fen 6x45mm 5 - [id number] Implanted:Qty : 3 on 10/14/2023 by Vinicius Damon Jr., MD at [facility] IMPLANTS N/A: Spine J &J:DEPUY:DEPUY SPINE 5 / 5 / Scr Spne Arsenio Fix 7x40mm 0 - [id number] Implanted:Qty : 2 on 10/14/2023 by Vinicius Damon Jr., MD at [facility] IMPLANTS N/A: Spine J &J:DEPUY:DEPUY SPINE 0 / 0 / Scr Spne Arsenio Fix 7x45mm 5 - [id number] Implanted:Qty : 4 on 10/14/2023 by Vinicius Damon Jr., MD at [facility] IMPLANTS N/A: Spine J &J:DEPUY:DEPUY SPINE 5 / 5 / Toan Spine Expedium [id number] - [id number] Implanted:Qty : 1 on 10/14/2023 by Vinicius Damon Jr., MD at [facility] IMPLANTS N/A: Spine J &J:DEPUY:DEPUY SPINE 0 / 0 / Mis Joselin Ply Scrw Set Ti -000 - [id number] Implanted:Qty : 12 on 10/14/2023 by Vinicius Damon Jr., MD at [facility] IMPLANTS N/A: Spine J &J:DEPUY:DEPUY SPINE 0 / 0 / Insurance [id number] [place] [id number] MEDICARE PART A B /[facility] Care Teams Perinatal Technician Relationship Specialty Start Date End Date Dilshad Steele MD [address] [place] [id number] PCP - General Adolescent Medicine 10/08/23
--- OUTSIDE RECORDS SUMMARY | 2025-09-16 14:40 | XMS_ITS | Clinical Summary ---
Author Organization [employer] ([place], [place], [place], [place], [place]) Address [address] [place] [address] Care Team Providers Care Journeyman Pipefitter Name Role Phone Dilshad Steele MD Primary Care Provider + [phone] Allergies Active Allergy Reactions Criticality Noted Date [...] the past 12 months, has t he [employer], gas, oil, or water company threatened to [...] Do you speak a language other than Palestinian at [facility]? No 10/16/2023 Do you want help [...] 05/15/2022, 2018 Medical Devices Implanted Type Area Buckle Assembler Device Identifier Shelf Expiration Date Model / Serial / Lot Bone Antoinetteigen Frmble Cell 10 Bl-1600-003 - [id number] Implanted:Qty : 1 on 10/14/2023 by Vinicius Damon Jr., MD at [facility] IMPLANTS N/A: Spine LIFENET:LIFENET TRANSPLANT SRV 09/23/2024 BL-1600-00 3 / [id number] / Scr Spne Arsenio Fix 6x40mm 640 - [id number] Implanted:Qty : 3 on 10/14/2023 by Vinicius Damon Jr., MD at [facility] IMPLANTS N/A: Spine J &J:DEPUY:DEPUY SPINE 0 / 0 / Scr Spne Arsenio Fix Fen 6x45mm 5 - [id number] Implanted:Qty : 3 on 10/14/2023 by Vinicius Damon Jr., MD at [facility] IMPLANTS N/A: Spine J &J:DEPUY:DEPUY SPINE 5 / 5 / Scr Spne Arsenio Fix 7x40mm 0 - [id number] Implanted:Qty : 2 on 10/14/2023 by Vinicius Damon Jr., MD at [facility] IMPLANTS N/A: Spine J &J:DEPUY:DEPUY SPINE 0 / 0 / Scr Spne Arsenio Fix 7x45mm 5 - [id number] Implanted:Qty : 4 on 10/14/2023 by Vinicius Damon Jr., MD at [facility] IMPLANTS N/A: Spine J &J:DEPUY:DEPUY SPINE 5 / 5 / Toan Spine Expedium [id number] [id number] - [id number] Implanted:Qty : 1 on 10/14/2023 by Vinicius Damon Jr., MD at [facility] IMPLANTS N/A: Spine J &J:DEPUY:DEPUY SPINE 0 / 0 / Mis Joselin Ply Scrw Set Ti - [id number] Implanted:Qty : 12 on 10/14/2023 by Vinicius Damon Jr., MD at [facility] IMPLANTS N/A: Spine J &J:DEPUY:DEPUY SPINE 0 / 0 / Insurance MEDICARE [place] [place] [address] CROSS/BLUE SHIELD Care Teams Journeyman Pipefitter Relationship Specialty Start Date End Date Dilshad Steele MD [address] [place] [id number] PCP - General Adolescent Medicine 10/08/23
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
--- OUTSIDE RECORDS SUMMARY | 2025-09-16 14:40 | XMS_ITS | Clinical Summary ---
Author Organization Healthcare Address [address] [place] [address] Care Team Providers Care Strand Galvanizer Name Role Phone Dilshad Steele MD Primary Care Provider [phone] Family History Medical History Relation Name Comments [...] UKY-Zoster Vaccines (2 of 2) 10/02/2020 08/07/2020 [id number] Vaccine ( season) 2025 10/22/2022, 03/19/2022, 08/06/2021, [...] complete this topic Insurance MEDICARE Care Teams Strand Galvanizer Relationship Specialty Start Date End Date Dilshad Steele MD [facility] [id number] PCP - General 02/01/21
--- NOTE | 2025-09-16 14:43 | EXP.PN ---
Subjective *Date: 09/16/25 *Time: 14:43 Interval history: Patient doing well today, no chest pain or shortness of breath. Troponins peaked at 15, down trended to 9. Plan for [facility] on Thursday. Continuous cardiac telemetry, therapeutic Lovenox, aspirin until then. Exam Data for Last 24 hours Vital signs and Labs for Last 24 Hours: Temp Pulse Resp BP Pulse Ox O2 Del Method 98.4 F 74 20 106/55 L 96 Room Air 09/16/25 12:00 09/16/25 12:00 09/16/25 12:00 09/16/25 12:00 09/16/25 12:00 09/16/25 13:00 Laboratory Results - last 24 hr 09/15/25 16:11: Troponin I 1.39 H 09/15/25 18:35: Chlamy pneumoniae PCR Not detected, Adenovirus (PCR) Not detected, B. pertussis DNA (PCR) Not detected, Coronavirus OC43 (PCR) Not detected, Coronavirus HKU1 (PCR) Not detected, Coronavirus 229E (PCR) Not detected, SARS-CoV-2 (PCR) Not detected, Coronavirus NL63 (PCR) Not detected, Human Metapneumovir PCR Not detected, Influenza A (H1) PCR Not detected, Influ A (H1N1/09) PCR Not detected, Influenza A (H3) PCR Not detected, Influenza Type A (PCR) Not detected, Influenza Type B (PCR) Not detected, M. pneumoniae (PCR) Not detected, Parainfluenza 1 (PCR) Not detected, Parainfluenza 2 (PCR) Not detected, Parainfluenza 3 (PCR) Not detected, Parainfluenza 4 (PCR) Not detected, RSV (PCR) Not detected, Entero/Rhino (PCR) Not detected 09/15/25 21:42: Troponin I 8.87 H 09/16/25 04:45: WBC 6.8, RBC 3.03 L, Hgb 9.9 L, Hct 30.5 L, MCV 100.7 H, MCH 32.7 H, MCHC 32.5, RDW 15.9, Plt Count 246, MPV 9.3, Neut % (Auto) 51.2, Lymph % (Auto) 34.5, [place] % (Auto) 9.8 H, Eos % (Auto) 3.7, Baso % (Auto) 0.7, Neut # (Auto) 3.5, Lymph # (Auto) 2.3, [place] # (Auto) 0.7, Eos # (Auto) 0.3, Baso # (Auto) 0.1, Sodium 135 L, Potassium 4.2, Chloride 105, Carbon Dioxide 25, Anion Gap 9.2, BUN 11 D, Creatinine 0.70, Estimated Creat Clear 68, Estimated GFR 82, Est GFR ( Amer) 100, Glucose 103 H, Hemoglobin A1c 5.0, Calcium 9.1, Magnesium 2.1, Total Bilirubin 0.5, AST 100 H D, ALT 26, Alkaline Phosphatase 75, Troponin I 15.40 H, Total Protein 6.5, Albumin 3.8 D, Globulin 2.7, Albumin/Globulin Ratio 1.4, Triglycerides 143, Cholesterol 161, LDL Cholesterol Direct 77.34 L, VLDL Cholesterol 29, HDL Cholesterol 52, Cholesterol/HDL Ratio 3.1, TSH 0.48 09/16/25 11:55: Troponin I 9.01 H I & O for Last 24 hours: Intake & Output 09/13/25 09/14/25 09/15/25 09/16/25 23:59 23:59 23:59 23:59 Intake Total 250 / 250 360 / 360 Output Total 0 / 0 0 / 0 Balance 250 / 250 360 / 360 Weight 81.647 kg 84.323 kg Constitutional Constitutional: no acute distress and cooperative *Routine HEENT Exam Head: Present normocephalic Eye: Present EOMI and PERRL ENT: Present mucous membranes moist *Routine Neck Exam Neck: Present supple; Absent lymphadenopathy *Routine Respiratory Exam Respiratory: Present CTA bilaterally; Absent rhonchi or wheezes *Routine Cardiovascular Exam Cardiovascular: Present RRR *Routine Abdominal Exam Abdominal: Present soft and normoactive bowel sounds; Absent tenderness or distended Comments: Healing midline incision, mikaela removed. *Routine Rectal Exam Patient deferred: visual exam *Routine Exam Patient deferred: external exam *Routine Extremities Exam Extremities: Absent cyanosis, clubbing or edema *Routine Skin Exam Skin: Present intact and warm; Absent rash *Routine Neurological Exam Neurological: Present alert, oriented X3 and moving all extremities; Absent altered mental status Assessment and Plan *Assessment and plan (1) Non-ST elevation [place] (NSTEMI): Status: Acute Category: Medical Code(s): I21.4 - Non-ST elevation (NSTEMI) myocardial infarction Plan Shonda Stiles is a 70-year-old female who presented with diffuse chest pain with radiation to the jaw and left arm. He states this began early this morning which she initially thought was indigestion. She had her usual breakfast, which did not alleviate symptoms therefore she proceeded to the ED. Denies shortness of breath, palpitations, fever/chills, abdominal pains. Workup in the ED significant for troponin uptrending to 0.17. CBC, CMP relatively unremarkable. Cardiology was consulted by the ED who recommended admission and further monitoring. Patient was given aspirin 325 mg. Given his presentation, ED provider discussed case with me and decided to admit patient for further evaluation management. #NSTEMI #Chest pain ? Patient presented with chest pain with radiation to the jaw and left arm. Initial troponin 0.17 -> 1.39. Initial EKG without acute ischemic changes. ? Today, troponin peaked at 15.4, downtrending to 9.1. Patient remains chest pain-free during admission. ? No history of ASCVD. Had been taking aspirin 81 mg daily, held on previous admission as there was no indication at that time. ? ECHO on 09/15/2025 revealed normal biventricular systolic function without wall motion abnormalities, MAC present with mild MR. ? Continue aspirin 81 mg, therapeutic Lovenox. ? Continue home metoprolol's tartrate 50 mg twice daily, statin. ? Continuous cardiac telemetry. ? Plan for left heart catheterization on Thursday. #A-fib ? Continue home metoprolol, diltiazem. Hold home Eliquis, continue therapeutic Lovenox as above. #Hypothyroidism ? Continue home levothyroxine 50 mcg. TSH low normal, follow-up free T4. #GERD ? Continue home PPI. Full code DVT prophylaxis: Therapeutic Lovenox as above
[2025-09-16] MEDS: ATORVASTATIN 40MG TABLET 40 MG PO (20:56)
[2025-09-16] MEDS: PRAVASTATIN 20MG TAB 20 MG PO (20:57)
[2025-09-17] VITALS: BP 123/65; PULSE 69; PULSE 73; RESP 14; TEMP 37.1; O2SAT 98
--- NOTE | 2025-09-17 02:37 | PC.NURSE ---
Aox 4, up with walker, on RA, 18g L AC SL, Lovenox for vte.
[2025-09-17 04:00] VITALS: BP 130/73; PULSE 66; PULSE 69; RESP 14; TEMP 37; O2SAT 96; BMI 32.7
[2025-09-17] MEDS: LEVOTHYROXINE 50MCG (0.05MG) TAB 50 MCG PO (05:08)
[2025-09-17 07:38] LABS: Hematocrit 29.9 % (37.0-47.0); Hemoglobin 9.3 g/dL (12.2-16.2); Immature Granulocytes % 0.2 %; Mean Corpuscular HGB Conc 31.1 g/dL (31.8-35.4); Mean Corpuscular Hemoglobin 31.4 pg (27.0-31.2); Mean Corpuscular Volume 101.0 fl (81-99); Nucleated Red Blood Cells % 0 %; Platelet Count 208 K/mm3 (142-424); Red Blood Count 2.96 M/mm3 (4.20-5.40); Red Cell Distribution Width-SD 58.4 fL; White Blood Count 5.3 K/mm3 (4.8-10.8)
[2025-09-17 07:44] LABS: Albumin Level 3.6 g/dl (3.5-5.0); Chloride 105 mmol/L (98-107); Potassium 3.9 mmoL/L (3.5-5.1); Sodium 138 mmol/L (136-145)
[2025-09-17 07:47] LABS: Alanine Aminotransferase 19 U/L (12-78); Albumin/Globulin Ratio 1.4 (1.1-1.8); Alkaline Phosphatase 78 U/L (38-126); Anion Gap 8.9 mEq/L (5-15); Aspartate Amino Transferase 49 U/L (14-36); Bilirubin,Total 0.2 mg/dl (0.2-1.3); Blood Urea Nitrogen 10 mg/dl (7-17); Calcium 9.4 mg/dl (8.4-10.2); Carbon Dioxide 28 mmol/L (22.0-30.0); Creatinine Clearance Estimated 67 mL/min (50-200); Creatinine,Serum 0.70 mg/dl (0.52-1.04); Estimated Glomerular Filt Rate 82 ml/min (>60); GFR (African American) 100 ML/MIN (>60); Globulin 2.5 g/dL (1.3-3.2); Glucose 93 mg/dl (74-100); Magnesium 2.2 mg/dl (1.6-2.3); Total Protein,Serum 6.1 g/dl (6.3-8.2)
[2025-09-17 08:00] VITALS: BP 103/57; PULSE 81; RESP 16; TEMP 36.9; O2SAT 95
[2025-09-17] MEDS: dilTIAZem ER 240MG CAPSULE 240 MG PO (08:01)
[2025-09-17] MEDS: PANTOPRAZOLE 40MG TABLET 40 MG PO ×2 (08:01→19:56)
[2025-09-17] MEDS: ASPIRIN EC 81MG TABLET 81 MG PO (08:01)
[2025-09-17] MEDS: METOPROLOL TARTRATE 50MG TABLET 50 MG PO ×2 (08:01→19:57)
[2025-09-17 08:33] LABS: Iron 36 ug/dL (37-170)
[2025-09-17 08:34] LABS: Free T4 (Free Thyroxine) 1.27 ng/dl (0.78-2.19)
[2025-09-17 08:44] LABS: Total Iron Binding Capacity 258 ug/dL (265-497)
[2025-09-17 09:11] LABS: Ferritin 32.6 ng/ml (11.1-264)
[2025-09-17 10:02] LABS: Vitamin B12 441 pg/mL (239-931)
[2025-09-17] MEDS: IRON SUCROSE COMPLEX 200 MG in 0.9 % SODIUM CHLORIDE 100 ML 220 MG IV (10:31)
[2025-09-17 12:00] VITALS: BP 93/45; PULSE 70; PULSE 71; RESP 16; TEMP 37; O2SAT 98
--- NOTE | 2025-09-17 14:57 | EXP.PN ---
Subjective *Date: 09/17/25 *Time: 14:57 Interval history: Patient doing well, very pleasant. No chest pain, shortness of breath. Follow-up cardiology recommendations in the morning. Exam Data for Last 24 hours Vital signs and Labs for Last 24 Hours: Temp Pulse Resp BP Pulse Ox O2 Del Method 98.6 F 71 16 93/45 L 98 Room Air 09/17/25 12:00 09/17/25 12:00 09/17/25 12:00 09/17/25 12:00 09/17/25 12:00 09/17/25 12:31 Laboratory Results - last 24 hr 09/17/25 06:35: WBC 5.3, RBC 2.96 L, Hgb 9.3 L, Hct 29.9 L, MCV 101.0 H, MCH 31.4 H, MCHC 31.1 L, RDW 15.8, Plt Count 208, MPV 9.2, Neut % (Auto) 52.7, Lymph % (Auto) 30.8, [place] % (Auto) 10.2 H, Eos % (Auto) 5.3, Baso % (Auto) 0.8, Neut # (Auto) 2.8, Lymph # (Auto) 1.6, [place] # (Auto) 0.5, Eos # (Auto) 0.3, Baso # (Auto) 0.0, Sodium 138, Potassium 3.9, Chloride 105, Carbon Dioxide 28, Anion Gap 8.9, BUN 10, Creatinine 0.70, Estimated Creat Clear 67, Estimated GFR 82, Est GFR ( Amer) 100, Glucose 93, Calcium 9.4, Magnesium 2.2, Iron 36 L, TIBC 258 L, Iron Saturation 13.26200 L, Ferritin 32.6, Total Bilirubin 0.2, AST 49 H D, ALT 19 D, Alkaline Phosphatase 78, Total Protein 6.1 L, Albumin 3.6, Globulin 2.5, Albumin/Globulin Ratio 1.4, Vitamin B12 441, Free T4 1.27 I & O for Last 24 hours: Intake & Output 09/14/25 09/15/25 09/16/25 09/17/25 23:59 23:59 23:59 23:59 Intake Total 250 / 250 480 / 480 710 / 710 Output Total 0 / 0 0 / 0 0 / 0 Balance 250 / 250 480 / 480 710 / 710 Weight 81.647 kg 84.323 kg 83.824 kg Constitutional Constitutional: no acute distress and cooperative *Routine HEENT Exam Head: Present normocephalic Eye: Present EOMI and PERRL ENT: Present mucous membranes moist *Routine Neck Exam Neck: Present supple; Absent lymphadenopathy *Routine Respiratory Exam Respiratory: Present CTA bilaterally; Absent rhonchi or wheezes *Routine Cardiovascular Exam Cardiovascular: Present RRR *Routine Abdominal Exam Abdominal: Present soft and normoactive bowel sounds; Absent tenderness or distended Comments: Healing midline incision, mikaela removed. *Routine Rectal Exam Patient deferred: visual exam *Routine Exam Patient deferred: external exam *Routine Extremities Exam Extremities: Absent cyanosis, clubbing or edema *Routine Skin Exam Skin: Present intact and warm; Absent rash *Routine Neurological Exam Neurological: Present alert, oriented X3 and moving all extremities; Absent altered mental status Assessment and Plan *Assessment and plan (1) Non-ST elevation [place] (NSTEMI): Status: Acute Category: Medical Code(s): I21.4 - Non-ST elevation (NSTEMI) myocardial infarction Plan Shonda Stiles is a 70-year-old female who presented with diffuse chest pain with radiation to the jaw and left arm. He states this began early this morning which she initially thought was indigestion. She had her usual breakfast, which did not alleviate symptoms therefore she proceeded to the ED. Denies shortness of breath, palpitations, fever/chills, abdominal pains. Workup in the ED significant for troponin uptrending to 0.17. CBC, CMP relatively unremarkable. Cardiology was consulted by the ED who recommended admission and further monitoring. Patient was given aspirin 325 mg. Given his presentation, ED provider discussed case with me and decided to admit patient for further evaluation management. #NSTEMI #Chest pain ? Patient presented with chest pain with radiation to the jaw and left arm. Initial troponin 0.17 -> 1.39. Initial EKG without acute ischemic changes. ? Today, troponin peaked at 15.4, downtrending to 9.1. Patient remains chest pain-free during admission. ? No history of ASCVD. Had been taking aspirin 81 mg daily, held on previous admission as there was no indication at that time. ? ECHO on 09/15/2025 revealed normal biventricular systolic function without wall motion abnormalities, MAC present with mild MR. ? Continue aspirin 81 mg, therapeutic Lovenox. ? Continue home metoprolol's tartrate 50 mg twice daily, statin. ? Continuous cardiac telemetry. ? Cardiology consulted, plan for left heart catheterization on Thursday. #A-fib ? Continue home metoprolol, diltiazem. Hold home Eliquis, continue therapeutic Lovenox as above. #Hypothyroidism ? Continue home levothyroxine 50 mcg. TSH low normal, free T4 normal. #GERD ? Continue home PPI. Full code DVT prophylaxis: Therapeutic Lovenox as above
[2025-09-17] MEDS: POLYETHYLENE GLYCOL 3350 17 GM PACKET PO (15:17)
[2025-09-17 16:00] VITALS: BP 105/63; PULSE 70; PULSE 74; RESP 16; TEMP 36.9; O2SAT 95
[2025-09-17] MEDS: ATORVASTATIN 40MG TABLET 40 MG PO (19:56)
[2025-09-17] MEDS: PRAVASTATIN 20MG TAB 20 MG PO (19:56)
[2025-09-17 20:00] VITALS: BP 133/59; PULSE 77; PULSE 90; RESP 16; TEMP 36.7; O2SAT 98
[2025-09-18] VITALS (19 sets, daily range): BP systolic 97–132; BP diastolic 46–80; PULSE 66–84; RESP 16–18; TEMP 36.4–37; O2SAT 90–98; BMI 32.7
[2025-09-18] MEDS: LEVOTHYROXINE 50MCG (0.05MG) TAB 50 MCG PO (05:35)
[2025-09-18 06:41] LABS: Hematocrit 28.8 % (37.0-47.0); Hemoglobin 9.2 g/dL (12.2-16.2); Immature Granulocytes % 0.2 %; Mean Corpuscular HGB Conc 31.9 g/dL (31.8-35.4); Mean Corpuscular Hemoglobin 31.7 pg (27.0-31.2); Mean Corpuscular Volume 99.3 fl (81-99); Nucleated Red Blood Cells % 0 %; Platelet Count 205 K/mm3 (142-424); Red Blood Count 2.90 M/mm3 (4.20-5.40); Red Cell Distribution Width-SD 56.7 fL; White Blood Count 5.2 K/mm3 (4.8-10.8)
[2025-09-18 06:52] LABS: Albumin Level 3.5 g/dl (3.5-5.0); Chloride 106 mmol/L (98-107); Potassium 4.0 mmoL/L (3.5-5.1); Sodium 138 mmol/L (136-145)
[2025-09-18 06:55] LABS: Alanine Aminotransferase 22 U/L (12-78); Albumin/Globulin Ratio 1.5 (1.1-1.8); Alkaline Phosphatase 75 U/L (38-126); Anion Gap 7.0 mEq/L (5-15); Aspartate Amino Transferase 37 U/L (14-36); Bilirubin,Total 0.2 mg/dl (0.2-1.3); Blood Urea Nitrogen 13 mg/dl (7-17); Carbon Dioxide 29 mmol/L (22.0-30.0); Creatinine Clearance Estimated 67 mL/min (50-200); Creatinine,Serum 0.70 mg/dl (0.52-1.04); Estimated Glomerular Filt Rate 82 ml/min (>60); GFR (African American) 100 ML/MIN (>60); Globulin 2.4 g/dL (1.3-3.2); Total Protein,Serum 5.9 g/dl (6.3-8.2)
[2025-09-18 06:56] LABS: Calcium 9.5 mg/dl (8.4-10.2); Glucose 93 mg/dl (74-100); Magnesium 2.1 mg/dl (1.6-2.3)
[2025-09-18] MEDS: ASPIRIN EC 81MG TABLET 81 MG PO (08:23)
[2025-09-18] MEDS: METOPROLOL TARTRATE 50MG TABLET 50 MG PO (08:23)
[2025-09-18] MEDS: PANTOPRAZOLE 40MG TABLET 40 MG PO (08:23)
[2025-09-18] MEDS: dilTIAZem ER 240MG CAPSULE 240 MG PO (08:23)
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
--- NOTE | 2025-09-18 10:18 | IR_ITS ---
APPROVED REPORT Patient Location: Inpatient PROCEDURES Left heart catheterization Left ventriculogram Selective coronary angiogram INDICATION Acute non-ST elevation myocardial infarction Informed consent was obtained prior to the procedure. COMPLICATIONS NONE Estimated Blood Loss: LESS THAN 10 ML TECHNIQUE One percent lidocaine used to anesthetize the right anterior aspect of the wrist. The right radial artery was accessed via the Seldinger technique. A 6 [place] sheath was placed in the right radial artery. 2.5 mg of Verapamil, 800 mcg of nitroglycerin, 1mg Lidocaine and 5000 U Heparin were given through the arterial sheath. The JL3 catheter was also used to perform left heart catheterization, left ventriculogram and selective coronary angiogram. At the end of the procedure the sheath was removed good hemostasis was achieved using Traclet band, patient was transferred to the postop holding area in stable condition. ANGIOGRAPHIC RESULTS The left main artery Normal The left anterior descending artery Has proximal and mid vessel 10% luminal regularities The circumflex artery Large dominant with mild 10% luminal regularities The right coronary artery Small nondominant normal The GUERRA ventriculogram reveals Normal 60% The left ventricular end-diastolic pressure 15 mmHg IMPRESSION Mild luminal regularities throughout the coronary arteries all of which are nonflow limiting Normal ejection fraction Normal LVEDP PLAN 1. The etiology for the non-ST elevation myocardial infarction is elusive. 2. Restart Eliquis for A-fib along with aspirin 81 mg daily 3. Recommend CTPA gram 4. Risk factor modification with goal LDL less than 55 Electronically signed by : Lawson Rojo MD 09/18/2025 12:54:14
[2025-09-18 10:48] LABS: Folate 10.00 ng/mL
[2025-09-18] MEDS: HEPARIN 1,000 UNITS/ML 10ML VIAL (CATH LAB) 5000 UNIT IV (12:48)
[2025-09-18] MEDS: LIDOCAINE 1% 10ML MDV 10 ML IJ (12:48)
[2025-09-18] MEDS: HEPARIN 1,000 UNITS/500ML NS (CATH LAB) 3000 UNIT IV (12:48)
[2025-09-18] MEDS: NITROGLYCERIN 800MCG/8ML SYR (CATH LAB) 800 MCG IA (12:49)
[2025-09-18] MEDS: VERAPAMIL 2.5MG/ML 2ML VIAL 2.5 MG IV (12:49)
[2025-09-18] MEDS: MIDAZOLAM HCL 1MG/ML 5ML VIAL 1 MG IV (12:49)
[2025-09-18] MEDS: 0.9 % SODIUM CHLORIDE 500 ML 25 ML IV (12:49)
[2025-09-18] MEDS: FENTANYL 100MCG/2ML VIAL 50 MCG IV (12:50)
--- NOTE | 2025-09-18 13:42 | P.DS_ITS ---
<Statement entered by Isaac Wing MD - 09/18/25 16:32> Discussed case at length with nurse practitioner. Rounded on team rounds with nurse practitioner and participated in care plan discussion. Agree with exam findings and care plan as documented. General Admission date:: 09/15/25 Discharge date: 09/18/25 HPI HPI HPI: Shonda Stiles is a 70-year-old female who presented with diffuse chest pain with radiation to the jaw and left arm. He states this began early this morning which she initially thought was indigestion. She had her usual breakfast, which did not alleviate symptoms therefore she proceeded to the ED. Denies shortness of breath, palpitations, fever/chills, abdominal pains. Workup in the ED significant for troponin uptrending to 0.17. CBC, CMP relatively unremarkable. Cardiology was consulted by the ED who recommended admission and further monitoring. Patient was given aspirin 325 mg. Given his presentation, ED provider discussed case with me and decided to admit patient for further evaluation management. Hospital Course Hospital Course Hospital Course: Shonda Stiles is a 70-year-old female who presented with diffuse chest pain with radiation to the jaw and left arm. She states this began early on 09/15/2025 which she initially thought was indigestion. She had her usual breakfast, which did not alleviate symptoms therefore she proceeded to the ED. Denies shortness of breath, palpitations, fever/chills, abdominal pains. Workup in the ED showed initial troponin less than 0.01, continued to uptrend peaking at 15.40. CBC, CMP relatively unremarkable. Cardiology was consulted by the ED who recommended admission and further monitoring. Patient was given aspirin 325 mg. Given his presentation, ED provider discussed case with hospital medicine and decided to admit patient for further evaluation management. Hospital course as follows: #NSTEMI #Chest pain #Elevated troponin ? Patient presented with chest pain with radiation to the jaw and left arm. Initial troponin<0.01 trending upward to 15.40. Initial EKG without acute ischemic changes. After peaking at 15.40, trended downward to 9.01. After admission patient remained chest pain-free during the entire course of her admission and post cath. ? No history of ASCVD. Had been taking aspirin 81 mg daily, held on previous admission as there was no indication at that time. Restarted aspirin 81 mg daily and patient should continue at discharge. ?Patient underwent LHC today which she did not receive intervention for, note states patient's clinical evaluation may represent Takotsubo cardiomyopathy and given the delay from elevated troponins to diagnostic angiography it is possible that the EF has recovered. Patient should have a repeat echocardiogram in 2 weeks. ? ECHO on 09/15/2025 revealed normal biventricular systolic function without wall motion abnormalities, MAC present with mild MR. ? Continue home continuing home metoprolol tartrate 50 mg twice daily, pravastatin 20 mg daily, and aspirin 81 mg daily. ? Day of discharge lab work reassuring, no electrolyte abnormalities, normal kidney function. #A-fib ? Continue home Eliquis 5 mg twice daily, patient was on therapeutic Lovenox during admission. #Hypothyroidism ? Continue home levothyroxine 50 mcg. TSH low normal, free T4 normal. #GERD ? Continue esomeprazole 20 mg twice daily. #Iron deficient anemia ? Patient was found to be slightly anemic, hemoglobin of 9.2. Patient was given IV Venofer yesterday, discharged home on iron 325 mg daily. Patient iron panel shows very slightly low iron levels. She continues to have this monitored with PCP. Total time spent on discharge 34 minutes in counseling, documentation, chart review, and direct care with patient. Exam Data for Last 24 hours Vital signs and Labs for Last 24 Hours: Temp Pulse Resp BP Pulse Ox O2 Del Method 97.5 F L 77 18 113/56 L 96 Room Air 09/18/25 12:57 09/18/25 13:15 09/18/25 13:15 09/18/25 13:15 09/18/25 13:15 09/18/25 13:15 Laboratory Results - last 24 hr 09/18/25 06:13: WBC 5.2, RBC 2.90 L, Hgb 9.2 L, Hct 28.8 L, MCV 99.3 H, MCH 31.7 H, MCHC 31.9, RDW 15.6, Plt Count 205, MPV 9.2, Neut % (Auto) 55.0, Lymph % (Auto) 29.6, [place] % (Auto) 9.4 H, Eos % (Auto) 5.2, Baso % (Auto) 0.6, Neut # (Auto) 2.9, Lymph # (Auto) 1.6, [place] # (Auto) 0.5, Eos # (Auto) 0.3, Baso # (Auto) 0.0, Sodium 138, Potassium 4.0, Chloride 106, Carbon Dioxide 29, Anion Gap 7.0, BUN 13 D, Creatinine 0.70, Estimated Creat Clear 67, Estimated GFR 82, Est GFR ( Amer) 100, Glucose 93, Calcium 9.5, Magnesium 2.1, Total Bilirubin 0.2, AST 37 H, ALT 22, Alkaline Phosphatase 75, Total Protein 5.9 L, Albumin 3.5, Globulin 2.4, Albumin/Globulin Ratio 1.5, Folate 10.00 I & O for Last 24 hours: Intake & Output 09/15/25 09/16/25 09/17/25 09/18/25 23:59 23:59 23:59 23:59 Intake Total 250 / 250 480 / 480 950 / 950 Output Total 0 / 0 0 / 0 0 / 0 0 / 0 Balance 250 / 250 480 / 480 950 / 950 0 / 0 Weight 81.647 kg 84.323 kg 83.824 kg 83.824 kg Constitutional Constitutional: no acute distress and cooperative *Routine HEENT Exam Head: Present normocephalic Eye: Present EOMI and PERRL ENT: Present mucous membranes moist *Routine Neck Exam Neck: Present supple; Absent lymphadenopathy *Routine Respiratory Exam Respiratory: Present CTA bilaterally; Absent rhonchi or wheezes *Routine Cardiovascular Exam Cardiovascular: Present RRR *Routine Abdominal Exam Abdominal: Present soft and normoactive bowel sounds; Absent tenderness or distended Comments: Healing midline incision, mikaela removed. *Routine Rectal Exam Patient deferred: visual exam *Routine Exam Patient deferred: external exam *Routine Extremities Exam Extremities: Absent cyanosis, clubbing or edema *Routine Skin Exam Skin: Present intact and warm; Absent rash *Routine Neurological Exam Neurological: Present alert, oriented X3 and moving all extremities; Absent altered mental status Results Data Completed and Pending Labs on day of discharge: Labs from last 24 hours 09/18/25 06:13 WBC 5.2 RBC 2.90 L Hgb 9.2 L Hct 28.8 L MCV 99.3 H MCH 31.7 H MCHC 31.9 RDW 15.6 Plt Count 205 MPV 9.2 Neut % (Auto) 55.0 Lymph % (Auto) 29.6 [place] % (Auto) 9.4 H Eos % (Auto) 5.2 Baso % (Auto) 0.6 Neut # (Auto) 2.9 Lymph # (Auto) 1.6 [place] # (Auto) 0.5 Eos # (Auto) 0.3 Baso # (Auto) 0.0 Sodium 138 Potassium 4.0 Chloride 106 Carbon Dioxide 29 Anion Gap 7.0 BUN 13 D Creatinine 0.70 Estimated Creat Clear 67 Estimated GFR 82 Est GFR ( Amer) 100 Glucose 93 Calcium 9.5 Magnesium 2.1 Total Bilirubin 0.2 AST 37 H ALT 22 Alkaline Phosphatase 75 Total Protein 5.9 L Albumin 3.5 Globulin 2.4 Albumin/Globulin Ratio 1.5 Folate 10.00 DS: Diagnosis Discharge Diagnosis (1) Non-ST elevation [place] (NSTEMI): Status: Acute Code(s): I21.4 - Non-ST elevation (NSTEMI) myocardial infarction (2) Postoperative anemia: Status: Acute Code(s): D64.9 - Anemia, unspecified (3) A-fib: Status: Acute Code(s): I48.91 - Unspecified atrial fibrillation Qualifiers: Atrial fibrillation type: paroxysmal Qualified Code(s): I48.0 - Paroxysmal atrial fibrillation (4) Hypertension: Status: Acute Code(s): I10 - Essential (primary) hypertension Qualifiers: Hypertension type: primary hypertension Qualified Code(s): I10 - Essential (primary) hypertension (5) Hyperlipidemia: Status: Acute Code(s): E78.5 - Hyperlipidemia, unspecified Qualifiers: Hyperlipidemia type: mixed hyperlipidemia Qualified Code(s): E78.2 - Mixed hyperlipidemia Meds Home Medications and Allergies Home Medications ?Medication ?Instructions ?Recorded ?Confirmed ?Type levocetirizine 5 mg tablet (Xyzal) 5 mg PO DAILY 03/3109/15/25 History jkbtkkym-dma-bgxxt acid 0.4 1 each PO DAILY 08/30/19 1 11/16/24 History mg-lycopene 300 mcg-lutein 250 mcg tablet levothyroxine 50 mcg tablet 50 mcg PO DAILY 01/03/25 1 11/16/24 History diltiazem HCl 240 mg 240 mg PO DAILY #90 caps 09/15/25 Rx capsule,extended release 24 hr metoprolol tartrate 50 mg tablet 50 mg PO BID #180 tab s 07/05/25 09/15/25 Rx pravastatin 20 mg tablet 20 mg PO DAILY #90 tabs 06/2109/15/25 Rx acetaminophen 650 mg 650 mg PO BID 08/22/2509/15 History tablet,extended release apixaban 5 mg tablet (Eliquis) 5 mg PO BID 09/15/25 History aspirin 81 mg tablet 81 mg PO DAILY 09/15/2508/22 History esomeprazole magnesium 20 mg 20 mg PO BID 09/15/25 History capsule,delayed release (Nexium) metoclopramide HCl 5 mg tablet 2.5 mg PO TID 09/15/25 09/15/25 History ferrous sulfate 325 mg (65 mg 325 mg PO DAILY #30 tabs 09/18/25 Rx iron) tablet (Iron (ferrous sulfate)) New Prescriptions to Start Prescriptions: ferrous sulfate [Iron (ferrous sulfate)] Kassi Clark Allergies Allergy/AdvReac Type Severity Reaction Status Date / Time oxycodone Allergy Severe Anaphylaxis Verified 09/15/25 10:16 Penicillins (PENICILLINS) Allergy Unknown Unknown Verified 09/15/25 10:16 allergy reaction sulfamethoxazole Allergy Unknown Unknown Verified 09/15/25 10:16 (SULFAMETHOXAZOLE) allergy reaction trimethoprim (TRIMETHOPRIM) Allergy Unknown Unknown Verified 09/15/25 10:16 allergy reaction loratadine (From Claritin) Allergy Unknown Verified 09/15/25 10:16 allergy reaction Discharge Plan Disposition Patient Disposition: Home, Self-Care Condition: Good Discharge Order Discharge Orders: Discharge Order (Routine); Ordered 09/18/25 Ordered By: Kassi Clark Follow up Plan Follow up with: Wesley Clark PA [Physician Communications Engineer, Cardiology] - Enter time for follow up Dilshad Steele MD [Primary Care Provider, Internal Medicine] - Enter time for follow up Prescriptions/Medication Reconciliation: New ferrous sulfate [Iron (ferrous sulfate)] 325 mg (65 mg iron) tablet 325 mg PO DAILY Qty: 30 0RF Continued diltiazem HCl 240 mg capsule,extended release 24hr 240 mg PO DAILY Qty: 90 3RF metoprolol tartrate 50 mg tablet 50 mg PO BID Qty: 180 3RF pravastatin 20 mg tablet 20 mg PO DAILY Qty: 90 3RF levothyroxine 50 mcg tablet 50 mcg PO DAILY levocetirizine [Xyzal] 5 MG tablet 5 mg PO DAILY acetaminophen 650 mg Tablet Extended Release 650 mg PO BID aqplrhuf-zxt-LC-lycopen-lutein 1 EACH tablet 1 each PO DAILY aspirin 81 mg Tablet 81 mg PO DAILY Eliquis 5 mg tablet 5 mg PO BID esomeprazole magnesium [Nexium] 20 mg Capsule,Delayed Release(Dr/Ec) 20 mg PO BID metoclopramide HCl 5 mg tablet 2.5 mg PO TID Problem Reconciliation Problems Reviewed?: Yes Patient Discharge Instructions ACTIVITY: Continue current activity, Ambulate as tolerated and No heavy lifting DIET: continue same diet Patient Instructions: DI for Heart Attack, Atrial Fibrillation Print Language: Syriac Providers Primary Care Provider: Dilshad Steele Admit Provider: Igor Matias Attending Provider: Igor Matias
--- NOTE | 2025-09-18 15:36 | SW/DCPLANNER ---
Faxed patient's resumption of care to [facility]. Luis Daniel Adame
--- NOTE | 2025-09-19 10:20 | SW/DCPLANNER ---
Spoke with patient on the phone. Patient stated that she is feeling well. Patient stated that she is aware of her upcoming appointments. Patient stated that she was able to get her new medicine picked up at [facility]. Patient stated that she has no concerns or questions at this time. Luis Daniel Adame
== END 2025-09-18 17:18 | disposition home or self-care (01) | DRG 281 ==
LOC: ER 13:35 → 2ND 14:40
PROVIDERS: Internal Medicine; Admitting Provider Student in an Organized Health Care Education/Training Program; Emergency Provider Student in an Organized Health Care Education/Training Program; PCP Internal Medicine Adolescent Medicine; Visit Provider Student in an Organized Health Care Education/Training Program
PROC: 4A023N7 Measurement of Cardiac Sampling and Pressure, Left Heart, Percutaneous Approach (ICD-10-PCS; CPT 93452; principal; 2025-09-18 11:15)
DX: I21.4 Non-ST elevation (NSTEMI) myocardial infarction (principal); I51.81 Takotsubo syndrome; E03.9 Hypothyroidism, unspecified; K21.9 Gastro-esophageal reflux disease without esophagitis; D50.9 Iron deficiency anemia, unspecified; I10 Essential (primary) hypertension; E78.5 Hyperlipidemia, unspecified; I48.0 Paroxysmal atrial fibrillation; Z79.890 Hormone replacement therapy; Z79.01 Long term (current) use of anticoagulants; Z79.899 Other long term (current) drug therapy; Z79.82 Long term (current) use of aspirin; Z88.1 Allergy status to other antibiotic agents; Z88.0 Allergy status to penicillin; Z88.2 Allergy status to sulfonamides; Z88.8 Allergy status to other drugs, medicaments and biological substances
CPT/HCPCS: 0223U; 36415; 71045; 80053; 80061; 82607; 82728; 82746; 83036; 83540; 83550; 83605; 83735; 83880; 84439; 84443; 84484; 85025; 93005; 93306; 99152; 99285; C1769; C1887; J1200; J1644; J1650; J1756; J2003; J2250; J2405; J3010; J7040; Q9967